=== PATIENT | female | born 1950 | race Caucasian/White ===

== ENCOUNTER 2020-12-21 15:05 | Outpatient (CLI) | payer OTHER, SELFPAY ==
--- NOTE | ~2020-12-21 | XR_ITS ---
EXAMINATION: XR chest 2V DATE: 12/21/2020 15:23 INDICATION: Chronic obstructive pulmonary disease TECHNIQUE: Frontal and lateral views of the chest are obtained COMPARISON: None available FINDINGS: The lungs are free of acute opacities. There is no pleural effusion or pneumothorax. The ca rdiomediastinal silhouette is normal. There is mild thoracic spondylosis. There are partially imaged changes of anterior and posterior fusion in the cervical spine. IMPRESSION: 1. No acute cardiopulmonary abnormality. Reviewed, dictated and finalized at location A. 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
== END 2020-12-21 15:06 | disposition home or self-care (01) ==
PROVIDERS: PCP Family Medicine; Visit Provider Family Medicine
DX: J44.9 Chronic obstructive pulmonary disease, unspecified (principal)
CPT/HCPCS: 71046

== ENCOUNTER 2020-12-25 09:34 | Outpatient (CLI) | payer OTHER, SELFPAY ==
[2020-12-25 18:59] LABS: Basophils Percent Auto 0.5 % (0.2-1.2); Eosinophils Absolute Auto 0.1 K/mm3 (0-0.3); Eosinophils Percent Auto 1.8 % (0-4.4); Hematocrit 37.2 % (37.0-47.0); Hemoglobin 11.8 g/dL (12.0-15.0); Immature Granulocyte Absolute 0.03 K/mm3 (0.00-0.031); Immature Granulocyte Percent A 0.5 % (0-0.5); Lymphocytes Absolute Auto 0.88 K/mm3 (0.9-3.2); Lymphocytes Percent Auto 13.3 % (18.3-44.2); Mean Corpuscular HGB Conc 31.7 g/dl (32-36); Mean Corpuscular Hemoglobin 29.8 pg (26-34); Mean Corpuscular Volume 93.9 fl (80-100); Mean Platelet Volume 8.8 fl (7.4-10.4); Monocytes Absolute Auto 0.6 K/mm3 (0.1-0.6); Monocytes Percent Auto 8.3 % (2.6-8.5); Neutrophils Percent Auto 75.6 % (45.5-73.1); Platelet Count Result 259 k/mm3 (150-375); Red Blood Count 3.96 M/mm3 (4.2-5.4); Red Cell Distribution Width 13.1 % (11.5-14.5); White Blood Count 6.6 K/mm3 (4.5-10.0)
[2020-12-25 19:03] LABS: Add Urine Microscopic? YES; Appearance Urine Cloudy (Clear); Bacteria Urine Trace /hpf; Bilirubin Urine Negative (Negative); Blood Urine Negative (Negative); Color Urine Yellow (Yellow); Glucose Urine UA Negative (Negative); Ketones Urine Negative (Negative); Leukocyte Esterase Ur 3+ LEU/UL (NEGATIVE); Nitrate Urine Positive (Negative); Protein Urine 1+ mg/dL (Negative); RBC Urine 21-50 /hpf (0-2); Specific Grav Ur 1.014 (1.001-1.035); Squamous Epithelial Cell Urine Moderate /hpf (Few); Urobilinogen Urine Negative mg/dL (<2.0); WBC Clumps Urine Present /HPF; WBC Urine >75 /hpf (0-3)
[2020-12-25 19:10] LABS: Alanine Aminotransferase 16 U/L (4-35); Albumin Level 4.1 g/dL (3.5-5.1); Alkaline Phosphatase 118 U/L (38-126); Anion Gap 7 mmol/L (8-16); Aspartate Amino Transferase 23 U/L (14-36); Bilirubin,Total 0.4 mg/dL (0.2-1.3); Blood Urea Nitrogen 17 mg/dL (7-17); Calcium 9.4 mg/dL (8.4-10.2); Carbon Dioxide 31 mmol/L (22-30); Chloride 101 mmol/L (98-107); Cholesterol 193 mg/dL (0-200); Estimated Glomerular Filt Rate > 60; Glucose 94 mg/dL (65-105); HDL Direct 106 mg/dL; Potassium 4.1 mmol/L (3.4-5.0); Sodium 139 mmol/L (137-145); Triglycerides 76 mg/dL (<150)
[2020-12-25 19:21] LABS: LDL Cholesterol Direct 71 mg/dL
[2020-12-25 19:23] LABS: Vitamin D 25 Hydroxy 49.8 ng/mL
[2020-12-25 20:20] LABS: Folic Acid > 20.0 ng/mL (2.76->20); Vitamin B12 > 1000.0 pg/mL (239-931)
== END 2020-12-25 09:35 | disposition home or self-care (01) ==
PROVIDERS: PCP Family Medicine; Visit Provider Family Medicine
DX: Z51.81 Encounter for therapeutic drug level monitoring (principal); Z79.899 Other long term (current) drug therapy; F32.9 Major depressive disorder, single episode, unspecified; M79.2 Neuralgia and neuritis, unspecified; J44.9 Chronic obstructive pulmonary disease, unspecified; Z82.62 Family history of osteoporosis; Z00.00 Encounter for general adult medical examination without abnormal findings
CPT/HCPCS: 36415; 80053; 80061; 81001; 82306; 82607; 82746; 84443; 85025; 87077; 87086; 87088; 87186

== ENCOUNTER 2021-04-30 14:16 | Outpatient (CLI) | payer OTHER, SELFPAY ==
[2021-04-30 14:48] LABS: Alanine Aminotransferase 38 U/L (4-35); Aspartate Amino Transferase 40 U/L (14-36)
== END 2021-04-30 14:17 | disposition home or self-care (01) ==
LOC: ANHLAB 14:18
PROVIDERS: PCP Family Medicine; Visit Provider Podiatrist Foot & Ankle Surgery
DX: B35.1 Tinea unguium (principal)
CPT/HCPCS: 36415; 84450; 84460

== ENCOUNTER 2021-05-16 11:38 | Outpatient (CLI) | payer OTHER, SELFPAY ==
--- NOTE | ~2021-05-16 | XR_ITS ---
XR knee RT min 4V DATE: 05/16/2021 12:02 INDICATION: Right knee pain. No injury. TECHNIQUE: Standing AP and lateral and PA views. [place] view. COMPARISON: None FINDINGS: There is diffuse osteopenia. There is chondrocalcinosis of the medial and lateral compartments. Mild periarticular spurring of the patellofemoral and medial compartments. Medial and lateral compart ment joint spaces are relatively preserved. There is some calcification along the medial aspect of the distal femur; consider Steven-Stieda d isease. No fracture, dislocation, periosteal reaction or bone destruction is evident. There is an air-fluid level in the suprapatellar bursa. Consider recent instrumentation, injection of the knee joint or trauma in the differential diagnosis for the air-fluid level in the knee joint. Some small metallic foreign bodies are noted in the anterior and medial soft tissues proximal lower l eg. 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
== END 2021-05-16 11:39 | disposition home or self-care (01) ==
LOC: ANHBWCIMG 11:40
PROVIDERS: PCP Family Medicine; Visit Provider Family Medicine
DX: M85.861 Other specified disorders of bone density and structure, right lower leg (principal); M17.12 Unilateral primary osteoarthritis, left knee
CPT/HCPCS: 73564

== ENCOUNTER 2021-08-21 01:51 | Day surgery (SDC) | payer OTHER, SELFPAY ==
[2021-08-20 14:25] VITALS: BMI 27.3
--- NOTE | 2021-08-20 14:36 | PC.NURSE ---
Report to the Outpatient Waiting Room, entrance under the green pavilion located off [facility], at time __1300 on date _08/21/21 . OR Time: __1500 . - You and your visitor will be asked a series of questions to screen for COVID 19 for your protection. - A mask is required within the hospital. - Only one visitor is allowed at this time. Patient visitors will be guided where to wait when not with patient. Preoperative COVID Testing Requirements: No COVID Test needed if: (proof is required; if not received patient will have Rapid Test prior to entry) - Patient has received COVID Vaccine at least 14 days prior to procedure date or - Patient has positive COVID test result within last 90 days of surgery date. COVID Test needed if above criteria is not met If not COVID vaccinated a COVID test must be conducted within 72 hours of surgery and patient is asked to isolate self from time of testing until procedure. You will go to the [facility] for your COVID testing. The [facility] is located at the corner of [address] [facility]. You will only be called if COVID results are positive and your surgeon may reschedule your elective surgery date. Patients may have clear liquids (water, carbonated beverages, clear teas, apple juice) until 3 hours prior to surgery with a maximum of 20 ounces. - No food from midnight until time of surgery - Infants may have breast milk until 4 hours before surgery, formula 6 hours prior to surgery. - Children will be allowed to drink immediately following surgery. If applicable, please bring a bottle or sippy cup to assist with drinking. Juice, water, soda, and popsicles are readily available. For infants on formula, please bring formula the day of surgery. Pacifiers are allowed. Take the following medications with a SIP of water the morning of surgery: __DESVENLAFAXINE,GABAPENTIN,LAMOTRIGINE,LEVOTHYROXINE,METOPROLOL,VOTIOXETINE Medications to discontinue per physician Date to take last dose Please no make-up, nail english, hairspray, perfume, deodorant, or body powder the day of surgery. No jewelry (including any body piercings) or valuables the day of surgery, leave them at home. Please take a shower or bath the night before, or the morning of, surgery with an antibacterial soap. Wear comfortable, loose fitting clothing. Children are encouraged to wear pajamas. - Jewelry must be removed prior to entering the operating room. Rings and piercings that are not removed may be cut off. - The hospital will not accept responsibility for valuables. - Please leave all valuables, including medications, at home the day of surgery. If you are going home after surgery, a licensed yard truck driver must drive you home. - NO public transportation without another adult. - We recommend that an adult stay with you for 24 hours following discharge. - We also recommend that you do not drive, make important decision, drink alcoholic beverages, or take any drugs that were not prescribed by your health care provider for at least 24 hours after your discharge time. For Pediatric surgeries, we recommend two adults accompany the child home (only one inside the building at this time). Follow any additional instructions given to you from your surgeon. Telephone instructions given to __PATIENT and asked if any additional questions and then verbalized understanding. Patient advised to call surgeon office or pre surgery nurse liaison [phone] if any additional questions.
[2021-08-21] VITALS (8 sets, daily range): BP systolic 112–128; BP diastolic 57–97; PULSE 65–91; RESP 13–24; TEMP 36.3–36.6; O2SAT 93–99
--- NOTE | ~2021-08-21 | XR_ITS ---
EXAMINATION: XR surgery orthopedic EXAM DATE: 08/21/2021 16:46 INDICATION: ORIF LT ELBOW. TECHNIQUE: Fluoroscopy used during XR surgery orthopedic performed by Dr. Nabeel Godinez MD. Rad iologist was not present for the imaging or procedure. Total fluoroscopic time of 44 seconds The DAP for this procedure was 0.04 mGym2. A total of 3 images sent to PACS from the exam. Correlation is m josie to left elbow x-ray from yesterday. FINDINGS: Frontal, lateral projections demonstrate orthopedic plate surgically fixing a reduced olec ranon fracture. Hardware, olecranon in expected position. Correlate with procedure note. IMPRESSION: Fluoroscopy used during left olecranon ORIF. Reviewed, dictated and finalized at location A. 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
--- NOTE | 2021-08-21 08:26 | WPDHPUPDATE1 ---
History and Physical Update Update Date/Time: 08/21/21 08:26 History and Physical has been reviewed, including an updated exam of the patient. There are NO changes in the patient's condition. Risks, benefits, and alternatives have been discussed and questions answered. Patient agrees to proceed with procedure.
--- NOTE | 2021-08-21 12:08 | ECG_ITS ---
Measurements Intervals [place] Rate: 67 P: 56 WA: 155 QRS: 37 QRSD: 89 T: 40 QT: 388 QTc: 410 Interpretive Statements SINUS RHYTHM BASELINE ARTIFACT- I, II, III, AVR, AVL ,AVF, V1 NORMAL ECG Electronically Signed On 08-21-2021 14:02:07 ETIQUETTE COACH by Kris Laguerre D.O.
[2021-08-21] MEDS: ACETAMINOPHEN 500 MG TABLET 1000 MG PO (13:11)
--- NOTE | 2021-08-21 13:11 | WPDANESEPPF ---
Anes - Initial Pre Proc Eval Procedure: Operation Date: 08/21/21 15:00 Proposed Procedures p Open Reduction Internal Fixation Left Elbow Fracture - Nabeel Godinez MD Date/Time: 08/21/21 13:11 Surgeon: Nabeel Godinez MD Pre Op Diagnosis: Fx Left Elbow Patient Data Age: 71 Gender: F Height: 1.65 m Weight: 74.4 kg Allergies Allergy/AdvReac Type Severity Reaction Status Date / Time No Known Allergies Allergy Verified 08/20/21 11:50 Home Medications Medication Instructions Recorded Confirmed Type ipratropium bromide 21 mcg (0.03 2 spray INTRANASAL BID 12/21/20 08/20/21 History %) nasal spray iron, carbonyl 65 mg tablet 65 mg PO DAILY tablet 12/21/20 08/20/21 History lamotrigine 150 mg tablet 150 mg PO BID 12/21/20 08/20/21 History mecobalamin (vitamin B12) 1,000 1,000 mcg PO DAILY 12/21/20 08/20/21 History mcg chewable tablet metoprolol succinate 25 mg 25 mg PO DAILY 12/21/20 08/20/21 History tablet,extended release 24 hr vhrceowhdnkw-Ss-dcbs-minerals tablet PO DAILY tablet 12/21/20 08/20/21 History vortioxetine 10 mg tablet 10 mg PO DAILY 12/21/20 08/20/21 History syringe with needle, safety 3 mL #12 ea 12/25/20 08/20/21 Rx 25 gauge x 1 calcium carbonate 500 mg calcium 500 mg PO DAILY #90 tablet 01/01/21 08/20/21 Rx (1,250 mg) tablet desvenlafaxine 100 mg 100 mg PO DAILY #90 tablet 01/01/21 08/20/21 Rx tablet,extended release 24 hr quetiapine 300 mg tablet 300 mg PO QHS #90 tablet 01/01/21 08/20/21 Rx fluticasone propionate 115 2 puff INHALATION BID #12 g 05/30/21 08/20/21 Rx mcg-salmeterol 21 mcg/actuation HFA inhaler gabapentin 600 mg tablet 600 mg PO QID #360 tablet 06/11/21 08/20/21 Rx levothyroxine 25 mcg tablet 25 mcg PO DAILY #30 tablet 06/11/21 08/20/21 Rx tizanidine 4 mg tablet 4 mg PO QHS #90 tablet 06/11/21 08/20/21 Rx celecoxib 200 mg capsule 200 mg PO DAILY #90 cap 07/05/21 08/20/21 Rx pantoprazole 40 mg tablet,delayed 40 mg PO QAM #90 tablet 07/05/21 08/20/21 Rx release albuterol sulfate 90 mcg/actuation 1 inh INHALATION Q4H #8.5 g 08/14/21 08/20/21 Rx aerosol inhaler armodafinil 150 mg PO BID 08/20/21 08/20/21 History ropinirole 2 mg PO HS 08/20/21 08/20/21 History Patient hx anesthesia problems: none Family hx anesthesia problems: none Results Review: All pre-operative results and documents have been reviewed as part of the pre-operative evaluation. [facility] Past Medical History Medical History (Updated 08/20/21 @ 15:59 by Nabeel Godinez MD) Anxiety Arthritis COPD (chronic obstructive pulmonary disease) Elbow fracture, left H/O: HTN (hypertension) MRSA (methicillin resistant Staphylococcus aureus) Nerve damage Olecranon fracture Sepsis Surgical History Surgical History H/O neck surgery 2019, [facility] H/O toe surgery 2013, [facility] History of appendectomy History of back surgery 2019, [facility] Family History Family History Other Depression Family history of arthritis Family history of lung disease Family history of neuropathy Family history of stroke Heart disease Social History Social History Smoking status: Never smoker Alcohol intake: current Drinks per week: 2 Alcohol use details: 2-4 drinks per week Substance use: never Living arrangements: alone Gender identity (if verbalized by the patient): Female Spiritual care concerns: No Anes - Eval Final PreProcedure Day of Procedure 08/21/21 13:11 Patient weight: overweight Heart: regular rate and rhythm Lungs: clear to auscultation and normal air movement Airway: Mallampati scale class II Neurological: alert and oriented Last oral intake: >/= 8 hours ASA classification: III Emergent: no Anesthetic plan: proceed Anesthesia type and monitor
[2021-08-21] MEDS: CELECOXIB 200 MG CAPSULE PO (13:12)
[2021-08-21] MEDS: LACTATED RINGERS 1,000 ML 30 ML IV CONT ×2 (13:21→17:05)
[2021-08-21 13:22] LABS: Hematocrit 35.8 % (37.0-47.0); Hemoglobin 11.5 g/dL (12.0-15.0)
[2021-08-21] MEDS: fentaNYL CITRATE INJ (*CRX) 100 MCG/2 ML VIAL 50 MCG IV PUSH ×2 (13:26→13:45)
--- NOTE | 2021-08-21 14:31 | WPDANESPNB ---
Anes - Peripheral Nerve Block Date/Time: 08/21/21 14:31 I have discussed with the patient/family/POA the placement of a peripheral nerve block for post-operative pain management, including associated risks, benefits, complications, and side effects. Alternative methods of post-operative analgesia were detailed. Questions were solicited and answers provided to the satisfaction of the patient/family/POA. Time-Out: A pre-procedural Time-Out was completed immediately before starting the procedure and confirmed: Patient Identification, Site, Procedure, Patient Position and the Availability of Requisite Equipment. Clinical Indications: Acute post-operative pain management requested by the operative surgeon. Nerve Block Insertion Note Anes-nerve block: supraclavicular left Patient position: supine Skin prep: chlorhexidine Needle: 22 gauge, stimulating, insulated echogenic needle. Needle length: 80 mm Technique: ultrasound (in plane) Injectate: bupivacaine 0.5% with epi 5 mcg/ml (20cc) Observations: tolerated well Complications: none Procedure start time:: 1435 Procedure end time:: 1440
[2021-08-21] MEDS: ceFAZolin 2 GM/D5W 50 ML 2 GM/50 ML BAG IVPB (14:56)
--- NOTE | 2021-08-21 17:18 | W.PM.PROC2 ---
Procedure Note - Detailed Date of Procedure 08/21/21 Pre-op Diagnosis LEFT OLECRANON FRACTURE Post-op Diagnosis same Procedure Performed ORIF LEFT OLECRANON FRACTURE Surgeon Nabeel Godinez MD Anesthesia general Description of Procedure HE PATIENT WAS TAKEN TO THE OR AND INTUBATED. THE LEFT UPPER EXTREMITY WAS PREPPED AND DRAPED. THE TOURNIQUET WAS INFLATED. INCISION WAS MADE ON THE POSTERIOR ASPECT OF THE ELBOW DOWN TO FASCIA. THE FASCIA WAS INCISED AND DISSECTED DOWN TO BONE. THE FRACTURE WAS IDENTIFIED. THE FRACTURE WAS HIGHLY COMMINUTED. FIBROUS TISSUE WAS REMOVED FROM THE FRACTURE SITE. THERE WAS NO APPRECIABLE CALLUS FORMATION ABOUT THE FRACTURE SITE THE HEMATOMA WAS DERIDED FROM THE FRACTURE SITE WELL. THE FRACTURE WAS REDUCED WELL POSSIBLE DUE TO LACK OF GOOD BONY ARCHITECTURE. REDUCTION TO NEAR ANATOMIC POSITION WITH FRACTURE CLAMPS AND K WIRES WAS ACHIEVED. AN ACUMED OLECRANON PLATE WAS USED TO BRIDGE THE FRACTURE FRAGMENTS. SCREWS WERE PLACE USING STANDARD AO TECHNIQUE AND ALL HAD GOOD BITES. XRAYS WERE TAKEN USING FLUOROSCOPY AND IT WAS FOUND THAT THE FRACTURE FRAGMENTS AND HARDWARE WERE IN GOOD POSITION. THE WOUND WAS WASHED THEN THE TOURNIQUET DEFLATED AND THE BLEEDERS WERE CAUTERIZED. THE DEEP LAYERS OF FASCIA WERE REPAIRED WITH 0 VICRYL, THE SUB CUTANEOUS LAYER WITH 2-0 VICRYL AND THE SKIN WITH PHANI. THE WOUND WAS WASHED AGAIN. STERILE DRESSING WAS APPLIED THEN A PLASTER SPLINT WAS APPLIED. THE PATIENT WAS EXTUBATED AND SENT TO RECOVERY ROOM Estimated Blood Loss 20 Drains No Packing No Pathology none sent Complications No immediate complications Condition stable Disposition PACU
[2021-08-21] MEDS: fentaNYL CITRATE INJ (*CRX) 100 MCG/2 ML VIAL 25 MCG IV PUSH ×8 (17:38→17:52)
[2021-08-21] MEDS: HYDROmorphone HCL INJ (*CRX) 1 MG/ML SYR IV PUSH ×2 (18:00→18:39)
== END 2021-08-21 18:45 | disposition home or self-care (01) ==
PROVIDERS: Anesthesiology; PCP Family Medicine; Visit Provider Orthopaedic Surgery
PROC: (CPT 24685; principal; 2021-08-21 15:00)
DX: S52.022A Displaced fracture of olecranon process without intraarticular extension of left ulna, initial encounter for closed fracture (principal); W19.XXXA Unspecified fall, initial encounter; M25.522 Pain in left elbow; F41.9 Anxiety disorder, unspecified; M19.90 Unspecified osteoarthritis, unspecified site; J44.9 Chronic obstructive pulmonary disease, unspecified; E03.9 Hypothyroidism, unspecified; Z79.51 Long term (current) use of inhaled steroids; I10 Essential (primary) hypertension
CPT/HCPCS: 24685; 36415; 85014; 85018; 93005; A9270; C1713; J0690; J1170; J2250; J2370; J2704; J3010; J7120

== ENCOUNTER 2021-11-07 15:09 | Outpatient (CLI) | payer OTHER, SELFPAY ==
[2021-11-07 19:40] LABS: Basophils Absolute Auto 0.1 K/mm3 (0.0-0.1); Basophils Percent Auto 0.7 % (0.2-1.2); Eosinophils Absolute Auto 0.1 K/mm3 (0-0.3); Eosinophils Percent Auto 1.4 % (0-4.4); Hematocrit 32.6 % (37.0-47.0); Hemoglobin 10.2 g/dL (12.0-15.0); Immature Granulocyte Absolute 0.02 K/mm3 (0.00-0.031); Immature Granulocyte Percent A 0.3 % (0-0.5); Lymphocytes Percent Auto 19.8 % (18.3-44.2); Mean Corpuscular HGB Conc 31.3 g/dl (32-36); Mean Corpuscular Hemoglobin 30.5 pg (26-34); Mean Corpuscular Volume 97.6 fl (80-100); Mean Platelet Volume 8.7 fl (7.4-10.4); Monocytes Absolute Auto 0.5 K/mm3 (0.1-0.6); Monocytes Percent Auto 7.4 % (2.6-8.5); Neutrophils Percent Auto 70.4 % (45.5-73.1); Platelet Count Result 378 k/mm3 (150-375); Red Blood Count 3.34 M/mm3 (4.2-5.4); Red Cell Distribution Width 13.2 % (11.5-14.5); White Blood Count 7.1 K/mm3 (4.5-10.0)
[2021-11-07 19:45] LABS: Iron 53 ug/dL (37-170)
[2021-11-07 19:50] LABS: Add Urine Microscopic? YES; Alanine Aminotransferase 24 U/L (4-35); Albumin Level 4.4 g/dL (3.5-5.1); Alkaline Phosphatase 109 U/L (38-126); Anion Gap 10 mmol/L (8-16); Appearance Urine Cloudy (Clear); Aspartate Amino Transferase 30 U/L (14-36); Bacteria Urine Trace /hpf; Bilirubin Urine Negative (Negative); Bilirubin,Total 0.4 mg/dL (0.2-1.3); Blood Urea Nitrogen 20 mg/dL (7-17); Blood Urine Negative (Negative); Calcium 9.1 mg/dL (8.4-10.2); Carbon Dioxide 30 mmol/L (22-30); Chloride 100 mmol/L (98-107); Color Urine Yellow (Yellow); Estimated Glomerular Filt Rate > 60; Glucose 91 mg/dL (65-110); Glucose Urine UA Negative (Negative); Ketones Urine Negative (Negative); Leukocyte Esterase Ur Negative LEU/UL (NEGATIVE); Mucus Urine Rare /lpf; Nitrate Urine Negative (Negative); Protein Urine Negative (Negative); Sodium 140 mmol/L (137-145); Squamous Epithelial Cell Urine Moderate /hpf (Few); Urobilinogen Urine Negative mg/dL (<2.0); WBC Urine 0-3 /hpf (0-3)
[2021-11-07 19:55] LABS: Percent Iron Saturation 22 % (20-50)
[2021-11-07 20:46] LABS: Vitamin B12 > 1000.0 pg/mL (239-931)
== END 2021-11-07 15:10 | disposition home or self-care (01) ==
PROVIDERS: PCP Family Medicine; Visit Provider Family Medicine
DX: E61.1 Iron deficiency (principal); R19.7 Diarrhea, unspecified; E03.9 Hypothyroidism, unspecified; F31.9 Bipolar disorder, unspecified
CPT/HCPCS: 36415; 80053; 81001; 82607; 82728; 83540; 83550; 84443; 85025

== ENCOUNTER 2021-11-08 14:53 | Outpatient (CLI) | payer OTHER, SELFPAY | END 2021-11-08 14:54 | disposition home or self-care (01) | PROVIDERS: PCP Family Medicine; Visit Provider Family Medicine | DX: E03.9 Hypothyroidism, unspecified (principal); F31.9 Bipolar disorder, unspecified; R19.7 Diarrhea, unspecified; E61.1 Iron deficiency | CPT/HCPCS: 87045; 87427; 89055 ==

== ENCOUNTER 2021-12-12 12:21 | Outpatient (CLI) | payer OTHER, SELFPAY ==
[2021-12-12 18:55] LABS: Basophils Absolute Auto 0.1 K/mm3 (0.0-0.1); Basophils Percent Auto 0.9 % (0.2-1.2); Eosinophils Absolute Auto 0.2 K/mm3 (0-0.3); Eosinophils Percent Auto 3.8 % (0-4.4); Hematocrit 33.8 % (37.0-47.0); Hemoglobin 10.7 g/dL (12.0-15.0); Immature Granulocyte Absolute 0.02 K/mm3 (0.00-0.031); Immature Granulocyte Percent A 0.4 % (0-0.5); Lymphocytes Absolute Auto 1.51 K/mm3 (0.9-3.2); Lymphocytes Percent Auto 27.4 % (18.3-44.2); Mean Corpuscular HGB Conc 31.7 g/dl (32-36); Mean Corpuscular Hemoglobin 31.3 pg (26-34); Mean Corpuscular Volume 98.8 fl (80-100); Mean Platelet Volume 8.8 fl (7.4-10.4); Monocytes Absolute Auto 0.4 K/mm3 (0.1-0.6); Monocytes Percent Auto 7.2 % (2.6-8.5); Neutrophils Absolute Auto 3.3 K/mm3 (1.3-6.7); Neutrophils Percent Auto 60.3 % (45.5-73.1); Platelet Count Result 302 k/mm3 (150-375); Red Blood Count 3.42 M/mm3 (4.2-5.4); White Blood Count 5.5 K/mm3 (4.5-10.0)
[2021-12-12 19:00] LABS: Iron 116 ug/dL (37-170)
[2021-12-12 19:11] LABS: Percent Iron Saturation 41 % (20-50)
== END 2021-12-12 12:22 | disposition home or self-care (01) ==
LOC: ANHBWCLAB 12:22
PROVIDERS: PCP Family Medicine; Visit Provider Family Medicine
DX: D64.9 Anemia, unspecified (principal); E61.1 Iron deficiency
CPT/HCPCS: 36415; 82728; 83540; 83550; 85025

== ENCOUNTER 2021-12-14 13:25 | Outpatient (CLI) | payer OTHER, SELFPAY ==
[2021-12-14 18:52] LABS: Add Urine Microscopic? YES; Appearance Urine Cloudy (Clear); Bilirubin Urine Negative (Negative); Blood Urine Negative (Negative); Color Urine Yellow (Yellow); Glucose Urine UA Negative (Negative); Ketones Urine Negative (Negative); Leukocyte Esterase Ur Trace LEU/UL (NEGATIVE); Mucus Urine Rare /lpf; Nitrate Urine Negative (Negative); Protein Urine Negative (Negative); RBC Urine 0-2 /hpf (0-2); Specific Grav Ur 1.021 (1.001-1.035); Squamous Epithelial Cell Urine Many /hpf (Few); Urobilinogen Urine Negative mg/dL (<2.0); WBC Urine 0-3 /hpf (0-3)
== END 2021-12-14 13:26 | disposition home or self-care (01) ==
LOC: ANHBWCLAB 13:26
PROVIDERS: PCP Family Medicine; Visit Provider Family Medicine
DX: E61.1 Iron deficiency (principal); D64.9 Anemia, unspecified
CPT/HCPCS: 81001

== ENCOUNTER 2021-12-21 13:59 | Outpatient (CLI) | payer OTHER, SELFPAY ==
--- NOTE | ~2021-12-21 | MR_ITS ---
EXAMINATION: MR cervical spine wo con DATE: 12/21/2021 16:22 INDICATION: Neuralgia and neuritis with neck pain. TECHNIQUE: Magnetic resonance imaging (MRI) of the cervical spine was performed without intravenous c ontrast. Sequences included sagittal T2-weighted FSE, sagittal T2-weighted FS FSE, sagittal T1-weight ed FSE, axial MERGE and axial T2-weighted FSE. COMPARISON: None FINDINGS: Reversal of the normal cervical lordosis with anterior fusion from C3-C6 including anterior plate and screw fixation at C3-C5. There are also laminectomies at C3 and C4 and posterior spinal fusion with bilateral vertical katie and lateral mass screws at C3-C5. 20% anterior vertebral body height loss at C 7 likely chronic with normal marrow signal. There is an additional Schmorl's node along the anterior inferior endplate of C7. Mild disc height loss at C2-C3, C6-C7 and T3-T4. Moderate disc height loss a t C7-T1 and T2-T3. Severe disc height loss at T1-T2. There is focal increased T2 and mildly decreased T1 signal at the central aspect of the cord at the level of C3-C4 with slight peripheral narrowing o f the cord consistent with myelomalacia which may relate to a reported history of prior trauma. Remai kateryna cord signal is normal. Cervical soft tissues are normal aside from postoperative scarring at the posterior aspect of the mid to upper cervical spine. The following disc levels are specifically disc ussed: C2-C3: The disc does not extend beyond the endplate margin. There is no uncovertebral joint osteoarth ritis. There is moderate right and severe left facet joint osteoarthritis. There is mild left neural foraminal stenosis. There is no central canal stenosis. C3-C4: Instrumented anterior and posterior spinal fusion and posterior decompression with C3 and C4 l aminectomies. There is mild bilateral neural foraminal stenosis. There is no central canal stenosis. C4-C5: Instrumented anterior and posterior spinal fusion and posterior decompression with C4 laminect bridget. There is no neural foraminal stenosis. There is no central canal stenosis. C5-C6: There is osseous fusion across the C5-C6 disc space as well as the bilateral facet joints with out instrumentation. There is no neural foraminal stenosis. There is no central canal stenosis. C6-C7: Disc is bulging. There is mild right and moderate left uncovertebral joint osteoarthritis. The re is severe bilateral facet joint osteoarthritis. There is mild left neural foraminal stenosis. Ther e is mild central canal stenosis. C7-T1: Disc is bulging with annular fissure. There is mild left and moderate right uncovertebral join t osteoarthritis. There is severe bilateral facet joint osteoarthritis. There is moderate bilateral n eural foraminal stenosis. There is mild central canal stenosis. IMPRESSION: 1. Severe cervical spondylosis. 2. C3-C6 anterior and posterior spinal fusion from instrumented both anteriorly and posteriorly at C3 -C5. 3. Focal region of moderate myelomalacia of the cord at C3-C4 without associated central canal stenos is at this level which may related to reported history of prior trauma. Reviewed, dictated and finalized at location A. GER STUDIO IMPRESSION: 1. Severe cervical spondylosis. 2. C3-C6 anterior and posterior spinal fusion from instrumented both anteriorly and posteriorly at C3-C5. 3. Focal region of moderate myelomalacia of the cord at C3-C4 without associate d central canal stenosis at this level which may related to reported history of prior trauma.
--- NOTE | ~2021-12-21 | US_ITS ---
EXAMINATION: US art doppler w press UE BI EXAM DATE: 12/21/2021 14:44 INDICATION: M79.2 - Neuralgia and neuritis, unspecified . TECHNIQUE: Segmental pressures and plethysmographic and Doppler waveforms of the upper extremity sarah jessica were obtained. There is no prior study for comparison. FINDINGS: Right and left brachial artery pressures of 148 mm Hg and 145 mm Hg, respectively, are concordant (no rmal difference <= 30 mmHg). RIGHT: Right ulnar/brachial arterial Doppler ratio 1.03 (152 mmHg). Right radial/brachial arterial Doppler ratio 1.07 (159 mmHg). Right index finger 184 mmHg. The waveforms are monophasic ulnar, otherwise biphasic. LEFT: Left ulnar/brachial arterial Doppler ratio 0.89 (129 mmHg). Left radial/brachial arterial ratio 1.0 (145 mmHg). Left index finger 180 mmHg. The waveforms are monophasic radial and ulnar, biphasic proximally to this. IMPRESSION: Normal wrist brachial indices bilaterally. Reviewed, dictated and finalized at location A. ER PACKER
== END 2021-12-21 14:00 | disposition home or self-care (01) ==
PROVIDERS: PCP Family Medicine; Visit Provider Family Medicine
DX: M79.2 Neuralgia and neuritis, unspecified (principal); I73.9 Peripheral vascular disease, unspecified; L81.9 Disorder of pigmentation, unspecified; Z87.81 Personal history of (healed) traumatic fracture; M47.813 Spondylosis without myelopathy or radiculopathy, cervicothoracic region; M48.03 Spinal stenosis, cervicothoracic region; G95.89 Other specified diseases of spinal cord
CPT/HCPCS: 72141; 93923

== ENCOUNTER 2022-03-06 12:14 | Outpatient (CLI) | payer OTHER, SELFPAY ==
[2022-03-06 19:02] LABS: Hematocrit 36.3 % (37.0-47.0); Hemoglobin 11.3 g/dL (12.0-15.0); Mean Corpuscular HGB Conc 31.1 g/dl (32-36); Mean Corpuscular Hemoglobin 30.5 pg (26-34); Mean Corpuscular Volume 97.8 fl (80-100); Mean Platelet Volume 9.5 fl (7.4-10.4); Platelet Count Result 258 k/mm3 (150-375); Red Blood Count 3.71 M/mm3 (4.2-5.4); Red Cell Distribution Width 12.6 % (11.5-14.5); White Blood Count 4.2 K/mm3 (4.5-10.0)
[2022-03-06 19:22] LABS: Alanine Aminotransferase 26 U/L (6-35); Albumin Level 3.9 g/dL (3.5-5.1); Alkaline Phosphatase 98 U/L (38-126); Anion Gap 6 mmol/L (8-16); Aspartate Amino Transferase 31 U/L (14-36); Bilirubin,Total 0.2 mg/dL (0.2-1.3); Blood Urea Nitrogen 22 mg/dL (7-17); Calcium 8.7 mg/dL (8.4-10.2); Carbon Dioxide 29 mmol/L (22-30); Chloride 106 mmol/L (98-107); Cholesterol 169 mg/dL (0-200); Estimated Glomerular Filt Rate > 60; Glucose 65 mg/dL (65-110); HDL Direct 81 mg/dL; Potassium 4.7 mmol/L (3.4-5.0); Sodium 141 mmol/L (137-145); Triglycerides 73 mg/dL (<150)
[2022-03-06 19:33] LABS: LDL Cholesterol Direct 57 mg/dL
[2022-03-06 19:39] LABS: Free T4 Free Thyroxine 0.82 ng/mL (0.78-2.19)
[2022-03-06 19:55] LABS: Total Triiodothyronine (T3) 0.78 NG/ML (0.97-1.69)
[2022-03-08 07:31] LABS: Amphetamines NEGATIVE ng/mL (<500); Barbiturates NEGATIVE ng/mL (<300); Benzodiazepines NEGATIVE ng/mL (<100); Cocaine Metabolite NEGATIVE ng/mL (<100); Marijuana Metabolite NEGATIVE ng/mL (<20); Methadone Metabolite NEGATIVE ng/mL (<100); Opiates NEGATIVE ng/mL (<100); Oxidant NEGATIVE mcg/mL (<200)
== END 2022-03-06 12:15 | disposition home or self-care (01) ==
PROVIDERS: PCP Family Medicine
DX: Z79.899 Other long term (current) drug therapy (principal)
CPT/HCPCS: 36415; 80053; 80061; 80299; 84439; 84443; 84480; 85027

== ENCOUNTER 2022-03-25 08:54 | Outpatient (CLI) | payer OTHER, SELFPAY ==
--- NOTE | ~2022-03-25 | CT_ITS ---
EXAMINATION: CT diagnostic chest wo con DATE: 03/25/2022 09:17 INDICATION: Solitary pulmonary nodule TECHNIQUE: Computed tomography (CT) of the chest was performed without intravenous contrast. Automate d exposure control and iterative reconstruction technique were employed. Exam dose: 70.41 mGy-cm tot al exam DLP. COMPARISON: 12/21/2020 2 view chest FINDINGS: There is an irregular up to approximately 7 mm left apical nodule in association with mild left apical scarring; follow-up CT imaging in 6 months is recommended.. Occasional areas of mild linear atelectasis or more likely scarring in both upper and lower lobes. No pulmonary infiltrate or consolidation. No suspicious pulmonary mass lesion. Normal heart size. There are some calcifications in the region of the aortic valve. No pericardial or pleural effusion. No hilar or mediastinal mass lesion or lymphadenopathy. No thoracic aortic aneurys m is detected. Small sliding hiatal hernia. Postoperative change of the stomach likely related to gastric bypass. There is moderate anterior wedging and loss of height at T1, T6. Mild loss of height of T11 and T12. These all appear chronic. There is degenerative spurring of the lower cervical and thoracic spine. Th ere is osteopenia. Old fracture deformity of the body of the sternum. IMPRESSION: Irregular 7 mm opacity in the left apical in association with some left apical scarring. Follow-up CT imaging in 6 months is recommended Small sliding hiatal. Status post gastric bypass surgery Old fracture of the sternum and multiple compression fracture deformities of the thoracic spine Reviewed, dictated and finalized at Location A. Reviewed, dictated and finalized at location A. IMPRESSION: Irregular 7 mm opacity in the left apical in association with some left apical scarring. Follow-up CT imaging in 6 months is recommended Small sliding hiatal. Status post gastric bypass surgery Old fracture of the sternum and multiple compression fracture deformities of th e thoracic spine
--- NOTE | 2022-03-25 12:35 | WPDPFTINT ---
PFT Procedure Performed PFT Procedure Performed Spirometry with Pre/Post Bronchodilator Plethysmography (Lung Vol) Diffusing Cap (DLCO) Flow Vol Loop PFT Interpretation This is a pulmonary function test with pre and post-bronchodilator spirometry, plethysmography and diffusing capacity. The test was performed and results interpreted in accordance with the 2019 and 2005 ATS/ERS Task Force guidelines respectively using the Global Lung Function Initiative-2012 reference equations. Patient demonstrated good effort and cooperation. Reproducibility criteria were met. The quality of the pre bronchodilator spirometry maneuver was Grade A and post bronchodilator spirometry maneuver was Grade A. Findings: Spirometry: The contour the inspiratory and expiratory flow tracing are normal. The pre bronchodilator FVC is 2.15 L, 74% predicted. The pre bronchodilator FEV1 is 1.60 L, 72% predicted. The pre bronchodilator FEV1: FVC ratio 75%. The post bronchodilator FVC is 2.28 L, representing a 6% increase. The post bronchodilator FEV1 is 1.84 L, representing a 15% increase. The post bronchodilator FEV1: FVC ratio is 81%. Plethysmography: The total lung capacity is 3.89 L, 75% predicted. The functional residual capacity is 1.99 L, 67% predicted. The residual volume is 1.67 L, 74% predicted. Diffusion capacity: The diffusion capacity unadjusted for hemoglobin and carboxyhemoglobin is 14.9, 72% predicted. The diffusing capacity adjusted for alveolar volume is 4.13, 98% predicted. Impression: There is a mild restrictive ventilatory abnormality. The spirometry is normal without evidence of an obstructive abnormality. There is significant improvement after inhaling a single dose of albuterol. The diffusing capacity is normal. There are no prior studies for comparison
== END 2022-03-25 08:55 | disposition home or self-care (01) ==
LOC: ANHIMG 08:59
PROVIDERS: PCP Family Medicine; Visit Provider Internal Medicine Pulmonary Disease
DX: R91.1 Solitary pulmonary nodule (principal); R06.02 Shortness of breath; J44.9 Chronic obstructive pulmonary disease, unspecified; K44.9 Diaphragmatic hernia without obstruction or gangrene; Z98.84 Bariatric surgery status
CPT/HCPCS: 71250; 94060; 94726; 94729

== ENCOUNTER 2022-04-23 11:30 | Outpatient (CLI) | payer OTHER, SELFPAY ==
--- NOTE | ~2022-04-23 | XR_ITS ---
XR knee RT 3V DATE: 04/23/2022 11:45 INDICATION: Right knee pain, swelling TECHNIQUE: [place] and upright AP and PA views COMPARISON: 05/2021 standing right knee FINDINGS: There is severe narrowing of the lateral compartment joint space with near [id number]. There is periarticular spurring at the patellofemoral and medial compartments. Some calcification adjacent to the medial femoral condyle suggesting Steven-Stieda disease. There is chondrocalcinosis at the medial and lateral and to a lesser extent patellofemoral compartmen ts. There is mild suprapatellar knee joint effusion. No fracture or dislocation, periosteal reaction or bone destruction. Osteopenia. IMPRESSION: Tricompartment osteoarthritis, particularly severe at the lateral compartment Mild knee joint effusion Chondrocalcinosis No collateral ligament calcification (Steevn-Stieda) Osteopenia Reviewed, dictated and finalized at location A. IMPRESSION: Tricompartment osteoarthritis, particularly severe at the lateral c ompartment Mild knee joint effusion Chondrocalcinosis No collateral ligament calcification (Steven-Stieda) Osteopenia
== END 2022-04-23 11:31 | disposition home or self-care (01) ==
LOC: ANHBWCIMG 11:32
PROVIDERS: PCP Family Medicine; Visit Provider Family Medicine
DX: M25.561 Pain in right knee (principal); M17.11 Unilateral primary osteoarthritis, right knee; M25.461 Effusion, right knee; M11.261 Other chondrocalcinosis, right knee; M85.88 Other specified disorders of bone density and structure, other site
CPT/HCPCS: 73562

== ENCOUNTER 2022-11-08 12:25 | Outpatient (CLI) | payer OTHER, SELFPAY ==
--- NOTE | ~2022-11-08 | DEXA_ITS ---
Bone Density Report Name: ESME GOLD Age: 72 Sex: Female Ethnicity: White Date of : 1950 Indication: postmenopausal; screening for osteoporosis; height loss; prior fracture; asthma or emphysema; secondary osteoporosis; Referring Provider: ZOHRA BENITEZ Study: Bone densitometry was performed. Exam Date: November 08, 2022 Accession number: [id number] Bone Density: Region BMD T-score Z-score Classification AP Spine(L1-L4) 0.839 -1.9 0.4 Osteopenia Femoral Neck (Left) 0.771 -0.7 1.3 Normal Total Hip (Left) 0.755 -1.5 0.2 Osteopenia Femoral Neck (Right) 0.744 -0.9 1.0 Normal Total Hip (Right) 0.800 -1.2 0.5 Osteopenia Total Hip Mean 0.778 -1.4 0.4 Osteopenia World Health Organization criteria for BMD impression classify patients as: Normal (T-score at or above -1.0), Osteopenia (T-score between -1.0 and -2.5), or Osteoporosis (T-score at or below -2.5). 10-year Fracture Risk: FRAX not reported because: Prior hip or vertebral fracture Clinical Information Provided by Patient: Have had a previous hip or vertebral fracture Has had a low trauma fracture Has secondary osteoporosis Has used the following medications: Vitamin D, Calcium Has the following medical conditions: Asthma or Emphysema Patient maximum height was 65 Menopause Age: 43 Onset of menses at age 12 Number of children 1 Impression: The patient has low bone mass, based on the Total Spine T-score. The patient has risk factors, including: previous fracture. Discussion: INCREASED RISK OF FRACTURE DUE TO HISTORY OF FRACTURE. The patient's previous fracture puts the patient at high risk of a future fracture. In untreated patients, the risk of osteoporotic fracture increases approximately two-fold for each 1.0 SD decrease in T-score. Low bone density is not the only risk factor for fracture; also consider factors such as patient's age, frailty or poor health, risk of falling, risk of injury, previous osteoporotic fracture, family history of osteoporosis, cigarette smoking, low body weight, etc. Not everyone with a low trauma fracture has osteoporosis; osteomalacia and other metabolic bone disorders should also be considered. Patients who have osteoporosis should be evaluated for specific diseases and conditions (secondary causes) that may cause or contribute to bone loss and fracture risk. National Osteoporosis Foundation (NOF) recommends pharmacologic intervention for patients with a prior hip or vertebral fracture regardless of BMD T-score. The patient should follow a healthful lifestyle (good nutrition with adequate calcium and vitamin D, and appropriate weight-bearing exercise). Follow-Up: Consider a repeat BMD and Vertebral Fracture Assessment (VFA) exam in 2 years or sooner if medically necessary, to reassess this patient'
== END 2022-11-08 12:26 | disposition home or self-care (01) ==
LOC: ANHIMG 12:27
PROVIDERS: PCP Family Medicine; Visit Provider Family Medicine
DX: Z91.89 Other specified personal risk factors, not elsewhere classified (principal); M85.88 Other specified disorders of bone density and structure, other site; M85.852 Other specified disorders of bone density and structure, left thigh; M85.851 Other specified disorders of bone density and structure, right thigh
CPT/HCPCS: 77080

== ENCOUNTER 2022-11-11 11:52 | Outpatient (CLI) | payer OTHER, SELFPAY ==
[2022-11-11 18:43] LABS: Hematocrit 35.5 % (37.0-47.0); Hemoglobin 11.3 g/dL (12.0-15.0); Mean Corpuscular HGB Conc 31.8 g/dl (32-36); Mean Corpuscular Hemoglobin 30.3 pg (26-34); Mean Corpuscular Volume 95.2 fl (80-100); Mean Platelet Volume 8.9 fl (7.4-10.4); Platelet Count Result 257 k/mm3 (150-375); Red Blood Count 3.73 M/mm3 (4.2-5.4); Red Cell Distribution Width 12.4 % (11.5-14.5); White Blood Count 8.9 K/mm3 (4.5-10.0)
[2022-11-11 19:08] LABS: Alanine Aminotransferase 32 U/L (6-35); Albumin Level 4.1 g/dL (3.5-5.1); Alkaline Phosphatase 105 U/L (38-126); Anion Gap 8 mmol/L (8-16); Aspartate Amino Transferase 37 U/L (14-36); Bilirubin,Total 0.4 mg/dL (0.2-1.3); Blood Urea Nitrogen 23 mg/dL (7-17); Calcium 8.8 mg/dL (8.4-10.2); Carbon Dioxide 26 mmol/L (22-30); Chloride 106 mmol/L (98-107); Estimated Glomerular Filt Rate > 60; Glucose 96 mg/dL (65-110); Potassium 4.4 mmol/L (3.4-5.0); Sodium 140 mmol/L (137-145)
== END 2022-11-11 11:53 | disposition home or self-care (01) ==
LOC: ANHBWCLAB 11:53
PROVIDERS: PCP Family Medicine; Visit Provider Family Medicine
DX: I73.9 Peripheral vascular disease, unspecified (principal); F10.10 Alcohol abuse, uncomplicated; F31.9 Bipolar disorder, unspecified; E03.9 Hypothyroidism, unspecified; R26.9 Unspecified abnormalities of gait and mobility; G89.4 Chronic pain syndrome; J44.9 Chronic obstructive pulmonary disease, unspecified
CPT/HCPCS: 36415; 80053; 84443; 85027

== ENCOUNTER 2022-11-12 12:18 | Outpatient (CLI) | payer OTHER, SELFPAY ==
[2022-11-12 22:28] LABS: Toxigenic C. Diff NEGATIVE (NEGATIVE)
== END 2022-11-12 12:19 | disposition home or self-care (01) ==
LOC: ANHBWCLAB 12:19
PROVIDERS: PCP Family Medicine; Visit Provider Family Medicine
DX: R19.7 Diarrhea, unspecified (principal); K62.5 Hemorrhage of anus and rectum
CPT/HCPCS: 87045; 87177; 87209; 87427; 87493

== ENCOUNTER 2022-12-03 00:43 | Day surgery (SDC) | payer OTHER, SELFPAY ==
[2022-11-18 14:49] VITALS: BMI 26.4
--- NOTE | 2022-12-02 15:53 | WPDANESEPPF ---
Anes - Initial Pre Proc Eval Procedure: Operation Date: 12/03/22 11:00 Proposed Procedures p Colonoscopy - Donavan Dale MD Date/Time: 12/02/22 15:53 Surgeon: Donavan Dale MD Pre Op Diagnosis: diarrhea, hemorrhage of anus/rectum Patient Data Age: 72 Gender: F Height: 1.65 m Weight: 72 kg Allergies Allergy/AdvReac Type Severity Reaction Status Date / Time No Known Allergies Allergy Verified 12/03/22 09:41 Home Medications Medication Instructions Recorded Confirmed Type lamotrigine 150 mg tablet 150 mg PO BID 12/21/20 11/18/22 History nwnekdogplah-Iv-amqt-minerals 1 tablet PO DAILY 12/21/20 11/18/22 History (Multiple Vitamin, Womens tablet) syringe with needle, safety 3 mL #12 ea 12/25/20 02/21/22 Rx 25 gauge x 1 (BD SafetyGlide Syringe) calcium carbonate 500 mg calcium 500 mg PO DAILY #90 tabs 01/01/21 11/18/22 Rx (1,250 mg) tablet (Calcium 500) quetiapine 300 mg tablet 300 mg PO QHS #90 tabs 01/01/21 11/18/22 Rx fluticasone propionate 115 2 puff inhalation BID #12 grams 05/30/21 11/18/22 Rx mcg-salmeterol 21 mcg/actuation HFA inhaler (Advair HFA) armodafinil 150 mg tablet 150 mg PO BID 08/20/21 11/18/22 History ferrous sulfate 325 mg (65 mg 325 mg PO BID #180 tabs 07/25/22 11/18/22 Rx iron) tablet celecoxib 200 mg capsule 200 mg PO DAILY #90 caps 10/31/22 11/18/22 Rx metoprolol succinate 25 mg 25 mg PO DAILY #90 tabs 10/31/22 11/18/22 Rx tablet,extended release 24 hr Saccharomyces boulardii 10 billion 10,000 mmu cells PO DAILY #20 caps 11/11/22 11/18/22 Rx cell capsule albuterol sulfate 90 mcg/actuation 1 inh inhalation Q4H PRN Shortness 11/18/22 11/18/22 History aerosol inhaler Of Breath aripiprazole 10 mg tablet 10 mg PO BID 11/18/22 12/03/22 History fluticasone propionate 50 1 spray intranasal Q12H PRN 11/18/22 11/18/22 History mcg/actuation nasal Allergy Symptoms spray,suspension (Flonase Allergy Relief) sertraline 100 mg tablet 100 mg PO DAILY 11/18/22 11/18/22 History tizanidine 4 mg tablet 4 mg PO HS 11/18/22 11/18/22 History dexmethylphenidate 10 mg tablet 10 mg PO BID #60 tabs 11/27/22 12/03/22 Rx cetirizine 10 mg tablet (Zyrtec) 10 mg PO DAILY PRN allergy 12/02/22 12/03/22 Rx symptoms #90 tabs ropinirole 2 mg tablet 2 mg PO HS #90 tabs 12/02/22 Rx Patient hx anesthesia problems: none Family hx anesthesia problems: none Results Review: All pre-operative results and documents have been reviewed as part of the pre-operative evaluation. FOR[facility]LY [facility], [facility] Past Medical History Medical History (Updated 12/02/22 @ 15:55 by Geraldo Zayas DO) Anxiety Arthritis Bipolar 1 disorder COPD (chronic obstructive pulmonary disease) Elbow fracture, left H/O: HTN (hypertension) Hypothyroidism MRSA (methicillin resistant Staphylococcus aureus) Nerve damage Olecranon fracture Sepsis Surgical History Surgical History (Updated 12/02/22 @ 15:55 by Geraldo Zayas DO) H/O neck surgery 2019, [facility] H/O toe surgery 2013, [facility] History of appendectomy History of back surgery 2019, [facility] History of gastric bypass Family History Family History Other Depression Family history of arthritis Family history of lung disease Family history of neuropathy Family history of stroke Heart disease Social History Social History (Updated 10/02/22 @ 13:28 by Guera Bruno MA) Smoking status: Never smoker Alcohol intake: current Drinks per week: 2 Alcohol use details: 2-4 drinks per week Substance use: never Substance use type: does not use Lack of Transportation: No Lack of Food: Never True Current Housing: I Have Housing Concerned About Future Housing: No Difficulty Paying Gas/Electric Bills: No Difficulty Paying for Meds: No Currently Unemployed: No Education: High School Diploma/G
[2022-12-03 09:43] VITALS: BP 142/68; PULSE 73; RESP 18; TEMP 36.3; O2SAT 98
[2022-12-03] MEDS: LACTATED RINGERS 1,000 ML 150 ML IV CONT (09:53)
--- NOTE | 2022-12-03 10:18 | PM.HPGS ---
History of Present Illness History of Present Illness Consent: Risks, benefits, and alternatives have been discussed and questions answered. Patient agrees to proceed with procedure. Chief complaint: diarrhea, hemorrhage of anus/rectum Narrative: Miriam Buchanan is a 72 year old female with 2 months of diarrhea and blood in stools, last colonoscopy over 10 years ago, stool sample negative for c diff and parasites. Review of Systems Constitutional: Constitutional: Denies headache(s) and Denies weakness Eyes: Eyes: Denies blurry vision ENT: Reports Normal hearing present, Denies headache(s) and Denies neck pain Cardiovascular: Cardiovascular: Denies chest pain and Denies dyspnea Respiratory: Respiratory: Denies dyspnea Gastrointestinal: Gastrointestinal: Reports no additional gastrointestinal complaints Genitourinary: Genitourinary: Denies dysuria Musculoskeletal: Musculoskeletal: Denies neck pain Integumentary/Breasts: Skin/Breast: Denies dry skin Neurologic: Reports Normal hearing present, Denies headache(s) and Denies weakness Psychiatric: Psychiatric: Denies anxiety Endocrine: Endocrine: Denies change in body appearance Hematologic/Lymphatic: Hematologic/Lymphatic: Denies easy bleeding Allergic/Immunologic: Allergic/Immunologic: Denies urticaria PMFSH Past Medical History Medical History (Updated 12/02/22 @ 15:55 by Geraldo Zayas DO) Anxiety Arthritis Bipolar 1 disorder COPD (chronic obstructive pulmonary disease) Elbow fracture, left H/O: HTN (hypertension) Hypothyroidism MRSA (methicillin resistant Staphylococcus aureus) Nerve damage Olecranon fracture Sepsis Surgical History Surgical History (Updated 12/02/22 @ 15:55 by Geraldo Zayas DO) H/O neck surgery 2019, [facility] H/O toe surgery 2013, [facility] History of appendectomy History of back surgery 2019, [facility] History of gastric bypass Family History Family History Other Depression Family history of arthritis Family history of lung disease Family history of neuropathy Family history of stroke Heart disease Social History Social History (Updated 10/02/22 @ 13:28 by Guera Bruno MA) Smoking status: Never smoker Alcohol intake: current Drinks per week: 2 Alcohol use details: 2-4 drinks per week Substance use: never Substance use type: does not use Lack of Transportation: No Lack of Food: Never True Current Housing: I Have Housing Concerned About Future Housing: No Difficulty Paying Gas/Electric Bills: No Difficulty Paying for Meds: No Currently Unemployed: No Education: High School Diploma/GED Difficulty w/ Childcare or Family Care: No Living arrangements: alone Occupation/Education: retired Gender identity (if verbalized by the patient): Female Spiritual care concerns: No Meds Home Medications and Allergies Home Medications Medication Instructions Recorded Confirmed Type lamotrigine 150 mg tablet 150 mg PO BID 12/21/20 11/18/22 History kxzszjogdqdf-Yc-eftw-minerals 1 tablet PO DAILY 12/21/20 11/18/22 History (Multiple Vitamin, Womens tablet) syringe with needle, safety 3 mL #12 ea 12/25/20 02/21/22 Rx 25 gauge x 1 (BD SafetyGlide Syringe) calcium carbonate 500 mg calcium 500 mg PO DAILY #90 tabs 01/01/21 11/18/22 Rx (1,250 mg) tablet (Calcium 500) quetiapine 300 mg tablet 300 mg PO QHS #90 tabs 01/01/21 11/18/22 Rx fluticasone propionate 115 2 puff inhalation BID #12 grams 05/30/21 11/18/22 Rx mcg-salmeterol 21 mcg/actuation HFA inhaler (Advair HFA) armodafinil 150 mg tablet 150 mg PO BID 08/20/21 11/18/22 History ferrous sulfate 325 mg (65 mg 325 mg PO BID #180 tabs 07/25/22 11/18/22 Rx iron) tablet celecoxib 200 mg capsule 200 mg PO DAILY #90 caps 10/31/22 11/18/22 Rx metoprolol succinate 25 mg 25 mg PO DAILY #90 tabs
[2022-12-03 10:40] VITALS: BP 104/71; PULSE 95; RESP 20; O2SAT 98
[2022-12-03 10:50] VITALS: BP 113/70; PULSE 60; RESP 19; O2SAT 98
[2022-12-03 11:00] VITALS: BP 126/72; PULSE 63; RESP 17; O2SAT 98
== END 2022-12-03 11:07 | disposition home or self-care (01) ==
PROVIDERS: PCP Family Medicine; Visit Provider Internal Medicine Gastroenterology
PROC: 0DJD8ZZ Inspection of Lower Intestinal Tract, Via Natural or Artificial Opening Endoscopic (ICD-10-PCS; CPT 45378; principal; 2022-12-03 11:00)
DX: Z12.11 Encounter for screening for malignant neoplasm of colon (principal); K57.30 Diverticulosis of large intestine without perforation or abscess without bleeding; K64.8 Other hemorrhoids; R19.7 Diarrhea, unspecified; K92.1 Melena; I10 Essential (primary) hypertension; E03.9 Hypothyroidism, unspecified; J44.9 Chronic obstructive pulmonary disease, unspecified; F31.9 Bipolar disorder, unspecified; F41.9 Anxiety disorder, unspecified; Z79.51 Long term (current) use of inhaled steroids
CPT/HCPCS: 45380; 88305; J7120

== ENCOUNTER 2023-01-02 14:47 | Outpatient (CLI) | payer OTHER, SELFPAY ==
--- NOTE | ~2023-01-02 | MR_ITS ---
MRI of the cervical spine Clinical History: Radiculopathy Technique: Axial T2-weighted and gradient images, and sagittal T1-weighted, T2-weighted, and STIR janae ges were acquired. COMPARISON: 12/21/2021 Findings: Extensive cervical fusion extending from C2 through C6 is unchanged from prior exam. Anteri or plate and interlocking screws are present extending from C2 through C5. There is fusion across the C5-C6 disc spaces. There are interbody fusion devices at the C3-C4 and C4-C5 levels. Stable mild rev ersal of the normal cervical lordosis. Osseous alignment is unchanged from prior exam. At C2-C3, there is no disc bulge or herniation. No spinal canal stenosis, cord compression, or neural foraminal narrowing. At C3-C4, there is probable laminectomy. No disc bulge or herniation. No spinal canal stenosis, cord compression, or neural foraminal narrowing. At C4-C5, there is no disc bulge or herniation. There is probable laminectomy defect. No spinal canal stenosis, cord compression, or definite neural foraminal narrowing. At C5-C6, there is no disc bulge or herniation. No spinal canal stenosis, cord compression, or neural foraminal narrowing. At C6-C7, there is no disc bulge or herniation. No spinal canal stenosis, cord compression, or neural foraminal narrowing. There is focal hyperintense signal centrally in the spinal cord at the C3-C4 level, unchanged from pr ior exam. Paravertebral soft tissues are unremarkable aside from expected postoperative change. Impression: Overall, no change from prior exam. Stable area of focal spinal cord myelomalacia at the C3-C4 level. Stable anterior fusion from C3 through C6, with stable osseous alignment. Reviewed, dictated and finalized at [facility]. Impression: Overall, no change from prior exam. Stable area of focal spinal cord myelomalacia at the C3-C4 level. Stable anterior fusion from C3 through C6, with stable osseous alignment.
== END 2023-01-02 14:48 ==
PROVIDERS: PCP Family Medicine; Visit Provider Family Medicine
DX: M54.2 Cervicalgia (principal); M54.10 Radiculopathy, site unspecified; R53.1 Weakness; G95.89 Other specified diseases of spinal cord; M24.549 Contracture, unspecified hand
CPT/HCPCS: 72141

== ENCOUNTER 2023-01-31 10:33 | Outpatient (CLI) | payer OTHER, SELFPAY ==
--- NOTE | 2023-01-31 10:56 | ECG_ITS ---
Measurements Intervals Skippers Rate: 76 P: 46 NV: 168 QRS: 39 QRSD: 90 T: 42 QT: 358 QTc: 405 Interpretive Statements SINUS RHYTHM WITHIN NORMAL LIMITS COMPARED TO ECG 08/21/2021 13:28:43 NO SIGNIFICANT CHANGES Electronically Signed On 01-31-2023 15:35:05 CDT by Matthew Thornton M.D.
[2023-01-31 11:08] LABS: Basophils Absolute Auto 0.1 K/mm3 (0.0-0.1); Basophils Percent Auto 1.2 % (0.2-1.2); Eosinophils Absolute Auto 0.2 K/mm3 (0-0.3); Eosinophils Percent Auto 3.5 % (0-4.4); Hematocrit 35.8 % (37.0-47.0); Hemoglobin 11.3 g/dL (12.0-15.0); Immature Granulocyte Absolute 0.02 K/mm3 (0.00-0.031); Immature Granulocyte Percent A 0.4 % (0-0.5); Lymphocytes Absolute Auto 1.26 K/mm3 (0.9-3.2); Lymphocytes Percent Auto 25.7 % (18.3-44.2); Mean Corpuscular HGB Conc 31.6 g/dl (32-36); Mean Corpuscular Hemoglobin 30.3 pg (26-34); Mean Platelet Volume 8.4 fl (7.4-10.4); Monocytes Absolute Auto 0.5 K/mm3 (0.1-0.6); Monocytes Percent Auto 9.4 % (2.6-8.5); Neutrophils Absolute Auto 2.9 K/mm3 (1.3-6.7); Neutrophils Percent Auto 59.8 % (45.5-73.1); Platelet Count Result 296 k/mm3 (150-375); Red Blood Count 3.73 M/mm3 (4.2-5.4); Red Cell Distribution Width 12.5 % (11.5-14.5); White Blood Count 4.9 K/mm3 (4.5-10.0)
[2023-01-31 11:16] LABS: Appearance Urine Cloudy (Clear); Bacteria Urine 1+ /hpf; Bilirubin Urine Negative (Negative); Blood Urine Negative (Negative); Color Urine Yellow (Yellow); Glucose Urine UA Negative (Negative); Ketones Urine Negative (Negative); Leukocyte Esterase Ur 3+ LEU/UL (Negative); Nitrate Urine Negative (Negative); Protein Urine Negative (Negative); RBC Urine 0-2 /hpf (0-2); Specific Grav Ur 1.019 (1.001-1.035); Squamous Epithelial Cell Urine Few /hpf (Few); WBC Urine 21-50 /hpf
[2023-01-31 11:19] LABS: Anion Gap 4 mmol/L (8-16); Blood Urea Nitrogen 18 mg/dL (7-17); Calcium 8.7 mg/dL (8.4-10.2); Carbon Dioxide 27 mmol/L (22-30); Chloride 107 mmol/L (98-107); Estimated Glomerular Filt Rate > 60; Glucose 62 mg/dL (65-110); Potassium 4.8 mmol/L (3.4-5.0); Sodium 138 mmol/L (137-145)
[2023-01-31 11:31] LABS: Add Urine Microscopic? YES
== END 2023-01-31 10:34 | disposition home or self-care (01) ==
PROVIDERS: PCP Family Medicine; Visit Provider Orthopaedic Surgery
DX: M17.11 Unilateral primary osteoarthritis, right knee (principal); Z86.79 Personal history of other diseases of the circulatory system
CPT/HCPCS: 36415; 80048; 81001; 85025; 87086; 87088; 93005

== ENCOUNTER 2023-02-07 13:57 | Outpatient (CLI) | payer OTHER, SELFPAY ==
[2023-02-07 16:06] LABS: Urine Cotinine NEGATIVE
[2023-02-07 16:08] LABS: INR 0.9; Prothrombin Time 12.8 Seconds (11.1-14.7)
[2023-02-07 16:09] LABS: Partial Thromboplastin Time 31.5 SECONDS (22.3-36.8)
[2023-02-07 16:20] LABS: Albumin Level 4.7 g/dL (3.5-5.1)
[2023-02-07 16:40] LABS: Hemoglobin A1C 4.9 % (<5.7)
== END 2023-02-07 13:58 | disposition home or self-care (01) ==
LOC: ANHSURGERY 14:02
PROVIDERS: PCP Family Medicine; Visit Provider Orthopaedic Surgery
DX: M17.11 Unilateral primary osteoarthritis, right knee (principal); Z01.818 Encounter for other preprocedural examination
CPT/HCPCS: 80307; 82040; 83036; 85610; 85730; 86850; 86900; 86901; 87081

== ENCOUNTER 2023-02-20 16:09 | Observation (INO) | payer OTHER, SELFPAY ==
[2023-02-07 14:39] VITALS: BP 116/62; PULSE 79; RESP 16; TEMP 37.5; O2SAT 98; BMI 29.9
--- NOTE | 2023-02-07 14:58 | PC.NURSE ---
Report to the Outpatient Waiting Room, entrance under the green pavilion located off [facility], at time __6:00AM on date ___02/10-____. Planned Procedure Time: __7:30AM . Time changes happen often and if your time is changed the preop area will call you the afternoon before. - You and your visitor will be asked to self-screen and do not enter if you have any COVID symptoms. - A mask is optional within the hospital at this time. Patients may have clear liquids (water, carbonated beverages, clear teas, apple juice) until 3 hours prior to surgery with a maximum of 20 ounces. - No food from midnight until time of surgery Take the following medications with a SIP of water the morning of surgery: __ATROVENT INHALER(FLUTICASONE), FLONASE NASAL SPRAY(FLUTICASONE), ALBUTEROL INHALER NEEDED, ABILIFY, VALIUM NEEDED, GABAPENTIN, LAMOTRIGINE, LEVOTHYROXINE, METOPROLOL, SERTRALINE DO NOT STOP ANY OF YOUR OTHER PRESCRIPTION MEDICATIONS PRIOR TO SURGERY ?EXCEPT THE FOLLOWING Medications to discontinue per physician ___HOLD ALL VITAMINS/SUPPLEMENTS AND NSAIDS(NAPROXEN/IBUPROFEN) 7 DAYS PRE-OP PER DR QUIJANO_ Date to take last dose____02/12/23 Please no make-up, nail persian, hairspray, perfume, deodorant, or body powder the day of surgery. No jewelry (including any body piercings) or valuables the day of surgery, leave them at home. Please take a shower or bath the night before, or the morning of, surgery with an antibacterial soap. Wear comfortable, loose fitting clothing. Children are encouraged to wear pajamas. - Jewelry must be removed prior to entering the operating room. Rings and piercings that are not removed may be cut off. - The hospital will not accept responsibility for valuables. - Please leave all valuables, including medications, at home the day of surgery. If you are going home after surgery, a licensed hook up driver must drive you home. - NO public transportation without another adult if you receive anesthesia. - We recommend that an adult stay with you for 24 hours following discharge. - We also recommend that you do not drive, make important decision, drink alcoholic beverages, or take any drugs that were not prescribed by your health care provider for at least 24 hours after your discharge time. Follow any additional instructions given to you from your surgeon. HIBICLENS SHOWER PER DR QUIJANO If you or anyone in your household have experienced Covid symptoms in the past week, please notify your surgeon or the nurse liaison at the phone number below for possible testing. Telephone instructions given to __PATIENT and asked if any additional questions and then verbalized understanding. Patient advised to call surgeon office or pre surgery nurse liaison [phone] if any additional questions.
[2023-02-19] VITALS (16 sets, daily range): BP systolic 97–128; BP diastolic 47–70; PULSE 66–91; RESP 13–18; TEMP 35.8–36.9; O2SAT 92–100
[2023-02-19] MEDS: ACETAMINOPHEN 500 MG TABLET 1000 MG PO (06:41)
[2023-02-19] MEDS: LACTATED RINGERS 1,000 ML 30 ML IV CONT ×2 (07:07→09:59)
[2023-02-19] MEDS: TRANEXAMIC ACID 1,000MG/ISO100 1,000 MG/100 ML BAG 200 MG IVPB (07:18)
--- NOTE | 2023-02-19 07:19 | WPDHPUPDATE1 ---
History and Physical Update Update Date/Time: 02/19/23 07:19 History and Physical has been reviewed, including an updated exam of the patient. There are NO changes in the patient's condition. Risks, benefits, and alternatives have been discussed and questions answered. Patient agrees to proceed with procedure.
--- NOTE | 2023-02-19 07:26 | WPDANESEPPF ---
Anes - Initial Pre Proc Eval Procedure: Operation Date: 02/19/23 07:30 Proposed Procedures p Right Total Knee Arthroplasty - Nabeel Godinez MD Date/Time: 02/19/23 07:26 Surgeon: Nabeel Godinez MD Pre Op Diagnosis: Rt Knee DJD Patient Data Age: 72 Gender: F Height: 1.6 m Weight: 68.1 kg Last Vital Signs Temp 36.2 C L 02/19/23 06:11 Pulse 75 02/19/23 06:11 Resp 16 02/19/23 06:11 BP 128/69 02/19/23 06:11 Pulse Ox 99 02/19/23 06:11 O2 Del Method Room Air 02/19/23 06:11 Allergies Allergy/AdvReac Type Severity Reaction Status Date / Time No Known Allergies Allergy Verified 02/19/23 06:28 Home Medications Medication Instructions Recorded Confirmed Type lamotrigine 150 mg tablet 150 mg PO BID 12/21/20 02/19/23 History mnafbsgzjqvw-La-fgws-minerals 1 tablet PO DAILY 12/21/20 02/19/23 History (Multiple Vitamin, Womens tablet) syringe with needle, safety 3 mL #12 ea 12/25/20 02/10/23 Rx 25 gauge x 1 (BD SafetyGlide Syringe) calcium carbonate 500 mg calcium 500 mg PO DAILY #90 tabs 01/01/21 02/19/23 Rx (1,250 mg) tablet (Calcium 500) quetiapine 300 mg tablet 300 mg PO QHS #90 tabs 01/01/21 02/19/23 Rx fluticasone propionate 115 2 puff inhalation BID #12 grams 05/30/21 02/19/23 Rx mcg-salmeterol 21 mcg/actuation HFA inhaler (Advair HFA) armodafinil 150 mg tablet 150 mg PO BID 08/20/21 02/19/23 History metoprolol succinate 25 mg 25 mg PO DAILY #90 tabs 10/31/22 02/19/23 Rx tablet,extended release 24 hr Saccharomyces boulardii 10 billion 10,000 mmu cells PO DAILY #20 caps 11/11/22 02/19/23 Rx cell capsule albuterol sulfate 90 mcg/actuation 1 inh inhalation Q4H PRN Shortness 11/18/22 02/10/23 History aerosol inhaler Of Breath aripiprazole 10 mg tablet 10 mg PO BID 11/18/22 02/19/23 History sertraline 100 mg tablet 100 mg PO QAM 11/18/22 02/19/23 History tizanidine 4 mg tablet 4 mg PO HS 11/18/22 02/19/23 History ropinirole 2 mg tablet 2 mg PO HS #90 tabs 12/02/22 02/19/23 Rx gabapentin 600 mg tablet 600 mg PO QID #360 tabs 12/12/22 02/19/23 Rx fluticasone propionate 50 1 spray intranasal Q12H PRN 12/29/22 02/19/23 Rx mcg/actuation nasal Allergy Symptoms #16 grams spray,suspension (Flonase Allergy Relief) ferrous sulfate 325 mg (65 mg 325 mg PO BID #180 tabs 01/07/23 02/19/23 Rx iron) tablet dexmethylphenidate 10 mg tablet 10 mg PO BID #60 tabs 01/21/23 02/19/23 Rx celecoxib 200 mg capsule 200 mg PO QAM 02/07/23 02/19/23 History levothyroxine 25 mcg tablet 25 mcg PO QAM 02/07/23 02/19/23 History (Synthroid) naproxen sodium 220 mg capsule 220 mg PO Q6H PAIN 02/07/23 02/19/23 History pantoprazole 40 mg tablet,delayed 40 mg PO DAILY 02/07/23 02/19/23 History release diazepam 5 mg tablet (Valium) 5 mg PO TID PRN Anxiety #60 tabs 02/09/23 02/19/23 Rx acetaminophen 650 mg 1,300 mg PO Q12H 02/19/23 02/19/23 History tablet,extended release Patient hx anesthesia problems: none Family hx anesthesia problems: none Results Review: All pre-operative results and documents have been reviewed as part of the pre-operative evaluation. [facility] Past Medical History Medical History Anxiety Arthritis Bipolar 1 disorder COPD (chronic obstructive pulmonary disease) Elbow fracture, left H/O: HTN (hypertension) Hypothyroidism MRSA (methicillin resistant Staphylococcus aureus) Nerve damage Olecranon fracture Sepsis Surgical History Surgical History H/O neck surgery 2019, [facility] H/O toe surgery 2013, [facility] History of appendectomy History of back surgery 2019, [facility] History of gastric bypass Family History Family History Other Depression Family history of arthritis Family history of lung disease Family history of neuropath
[2023-02-19] MEDS: ceFAZolin 2 GM/D5W 50 ML 2 GM/50 ML BAG IVPB ×3 (07:40→23:25)
--- NOTE | 2023-02-19 08:13 | WPDANESPNB ---
Anes - Peripheral Nerve Block Date/Time: 02/19/23 08:13 I have discussed with the patient/family/POA the placement of a peripheral nerve block for post-operative pain management, including associated risks, benefits, complications, and side effects. Alternative methods of post-operative analgesia were detailed. Questions were solicited and answers provided to the satisfaction of the patient/family/POA. Time-Out: A pre-procedural Time-Out was completed immediately before starting the procedure and confirmed: Patient Identification, Site, Procedure, Patient Position and the Availability of Requisite Equipment. Clinical Indications: Acute post-operative pain management requested by the operative surgeon. Nerve Block Insertion Note Anes-nerve block: adductor canal right Patient position: supine Skin prep: chlorhexidine Needle: 22 gauge, stimulating, insulated echogenic needle. Needle length: 80 mm Technique: ultrasound Technique comment: mid2mg morphine 10mg Injectate: bupivacaine 0.5% with epi 5 mcg/ml (30ml no epi) and dexamethasone (mg) (4) Observations: tolerated well Complications: none Procedure start time:: 728 Procedure end time:: 735
[2023-02-19] MEDS: TRANEXAMIC ACID 1,000 MG/10 ML AMPUL 1000 MG IV PUSH (09:23)
--- NOTE | 2023-02-19 10:02 | W.PM.PROC2 ---
Procedure Note - Detailed Date of Procedure 02/19/23 Pre-op Diagnosis Rt Knee DJD Post-op Diagnosis Same Procedure Performed R TKA Surgeon Nabeel Godinez MD Anesthesia General Description of Procedure THE RIGHT KNEE WAS PREPPED AND DRAPED IN THE STERILE FASHION. THERE WAS A 10 DEGREE FLEXION CONTRACTURE. A MIDLINE SKIN INCISION WAS MADE. A MEDIAL PARAPATELLAR ARTHROTOMY WAS MADE. THE PATELLA WAS EVERTED. THERE WAS TRICOMPARTMENT DJD. THERE WAS MINIMAL PATELLA DJD. AN INTRAMEDULLARY MABEL WAS PLACED IN THE FEMUR. A DISTAL FEMORAL CUT WAS MADE IN 5 DEGREES OF VALGUS REMOVING APPROXIMATELY 9 MM OF BONE FROM THE DISTAL FEMUR. THE FEMUR WAS SIZED TO 62.5. A 62.5 FEMORAL CUTTING BLOCK WAS PLACED IN 3 DEGREES OF EXTERNAL ROTATION AND IN ALIGNMENT WITH MARIIA'S LINE AND THE TRANSEPICONDYLAR AXIS. ANTERIOR POSTERIOR AND CHAMFER CUTS WERE MADE. THE CUTS WERE EXCELLENT. NEXT AN INTRAMEDULLARY CUTTING GUIDE WAS PLACED IN THE TIBIA. A TRANS TIBIAL CUT WAS MADE ALONG THE LONG AXIS OF THE TIBIA. APPROXIMATELY 10 MM OF BONE WAS REMOVED FROM THE HIGH SIDE OF THE TIBIA. THE TIBIA WAS THEN PLANED TO A SMOOTH SURFACE. POSTERIOR FEMORAL OSTEOPHYTES WERE REMOVED FROM THE FEMORAL CONDYLES. A 71 TIBIAL TRIAL WAS PLACED IN ALIGNMENT WITH THE 1/3 MEDIAL ASPECT OF THE TIBIAL TUBERCLE. THEN A 62.5 FEMORAL TRIAL COMPONENT WAS PLACED. BOTH HAD EXCELLENT FITS. EVENTUALLY A 10 MM CR POLYETHYLENE TRIAL COMPONENT WAS PLACED. THE KNEE WAS TAKEN THROUGH A RANGE OF MOTION. THE KNEE CAME OUT TO FULL EXTENSION. THERE WAS NO ABNORMAL TILT TO THE PATELLA. THERE WAS GOOD A/P AND VARUS/VALGUS STABILITY. THERE WAS NO EXCESSIVE ROLL BACK WITH FLEXION. THE TRIAL COMPONENTS WERE REMOVED. THEN A 62.5 FEMORAL COMPONENT AND 71 TIBIAL COMPONENT WITH A 10 CR POLYETHYLENE COMPONENT WERE CEMENTED INTO PLACE. ONCE THE CEMENT WAS HARD THE KNEE WAS TAKEN THROUGH A ROM AGAIN AND FOUND TO BE STABLE WITH NO PATELLA TILT NO EXCESSIVE ROLL BACK WITH FLEXION AND GOOD STABILITY WITH COMPLETE AND FULL EXTENSION. THE KNEE WAS IRRIGATED WITH STERILE BETADINE AND WATER FOR ABOUT 3 MINUTES. THE BLEEDERS WERE CAUTERIZED. THE ARTHROTOMY WAS REPAIRED WITH NUMBER 1 VICRYL. THE SUB CUTANEOUS LAYER WITH 2-0 VICRYL AND THE SKIN WITH PHANI. THE WOUND WAS WASHED AND A STERILE DRESSING WAS APPLIED. PATIENT WAS EXTUBATED. Estimated Blood Loss -150.0 Pathology None sent Complications No immediate complications Condition Stable Disposition PACU
[2023-02-19] MEDS: fentaNYL CITRATE INJ (*CRX) 100 MCG/2 ML VIAL 25 MCG IV PUSH ×2 (11:05→11:08)
[2023-02-19] MEDS: oxyCODONE/ACETAMINOPHEN (*CRX) 5-325 MG TABLET 1 TABLET PO ×2 (12:02→13:24)
[2023-02-19] MEDS: SODIUM CHLORIDE 0.9% IV 1,000 ML 125 ML IV CONT (12:02)
--- NOTE | 2023-02-19 12:11 | PC.NURSE ---
This patient, Miriam Buchanan, was admitted to [facility] Surg Room 329-01. Patient/family oriented to hospital policies and general routines including ID bracelet, bed and alarms, visiting hours, pain management, procedures, bathroom and other care routines, personal items, smoking policy, room service/diet, and visiting hours. Information on how to activate the Rapid Response Team has been discussed. Patient/Family are encouraged to report perceived risks to care and to ask questions if they do not understand what they are told or what they should do.
[2023-02-19] MEDS: GABAPENTIN 300 MG CAPSULE 600 MG PO ×3 (12:17→20:16)
[2023-02-19] MEDS: lamoTRIgine 50 MG TABLET 150 MG PO (16:45)
[2023-02-19] MEDS: CELECOXIB 200 MG CAPSULE PO (16:45)
[2023-02-19] MEDS: FERROUS SULFATE 324 MG TABLET PO (16:45)
[2023-02-19] MEDS: ARIPiprazole 10 MG TABLET PO (16:45)
[2023-02-19] MEDS: SENNA/DOCUSATE SODIUM TABLET 2 TAB PO (16:45)
[2023-02-19] MEDS: oxyCODONE/ACETAMINOPHEN (*CRX) 5-325 MG TABLET 2 TABLET PO (20:13)
[2023-02-19] MEDS: TIZANIDINE HCL 4 MG TABLET PO (20:14)
[2023-02-19] MEDS: rOPINIRole HCL 1 MG TABLET 2 MG PO (20:15)
[2023-02-19] MEDS: QUEtiapine FUMARATE 100 MG TABLET 300 MG PO (20:16)
[2023-02-19] MEDS: ASPIRIN 325 MG ENTERIC TABLET PO (20:17)
[2023-02-19] MEDS: FLUTICASONE/SALMETEROL 115-21 MCG INHALER 1 PUFF 2 PUFF INHALATION (20:31)
[2023-02-20] VITALS (11 sets, daily range): BP systolic 93–116; BP diastolic 54–68; PULSE 65–75; RESP 12–18; TEMP 35.8–36.6; O2SAT 90–99
--- NOTE | ~2023-02-20 | XR_ITS ---
EXAMINATION: [id number] DATE: 02/19/2023 10:13 CDT INDICATION: Right knee arthroplasty TECHNIQUE: 2 views right knee FINDINGS: There is a ] total knee arthroplasty in expected position. Subcutaneous gas with fluid and air in the joint and overlying skin ebonie are consistent with recent surgery. No evidence of perip rosthetic fracture. IMPRESSION: 1. Recent right total knee arthroplasty. Reviewed, dictated and finalized at location B.
[2023-02-20] MEDS: LEVOTHYROXINE SODIUM 25 MCG TABLET PO (05:52)
[2023-02-20] MEDS: oxyCODONE/ACETAMINOPHEN (*CRX) 5-325 MG TABLET 1 TABLET PO (05:52)
[2023-02-20] MEDS: ceFAZolin 2 GM/D5W 50 ML 2 GM/50 ML BAG IVPB (05:54)
[2023-02-20 07:22] LABS: Basophils Percent Auto 0.4 % (0.2-1.2); Eosinophils Absolute Auto 0.1 K/mm3 (0-0.3); Eosinophils Percent Auto 1.1 % (0-4.4); Hematocrit 29.9 % (37.0-47.0); Hemoglobin 9.1 g/dL (12.0-15.0); Immature Granulocyte Absolute 0.03 K/mm3 (0.00-0.031); Immature Granulocyte Percent A 0.4 % (0-0.5); Lymphocytes Absolute Auto 2.07 K/mm3 (0.9-3.2); Mean Corpuscular HGB Conc 30.4 g/dl (32-36); Mean Corpuscular Hemoglobin 31.3 pg (26-34); Mean Corpuscular Volume 102.7 fl (80-100); Mean Platelet Volume 8.8 fl (7.4-10.4); Monocytes Absolute Auto 0.9 K/mm3 (0.1-0.6); Monocytes Percent Auto 10.8 % (2.6-8.5); Neutrophils Absolute Auto 4.9 K/mm3 (1.3-6.7); Neutrophils Percent Auto 61.3 % (45.5-73.1); Platelet Count Result 192 k/mm3 (150-375); Red Blood Count 2.91 M/mm3 (4.2-5.4); Red Cell Distribution Width 12.7 % (11.5-14.5)
[2023-02-20] MEDS: FLUTICASONE/SALMETEROL 115-21 MCG INHALER 1 PUFF 2 PUFF INHALATION ×2 (07:24→21:41)
[2023-02-20 07:44] LABS: Anion Gap 10 mmol/L (8-16); Blood Urea Nitrogen 22 mg/dL (7-17); Calcium 8.2 mg/dL (8.4-10.2); Carbon Dioxide 18 mmol/L (22-30); Chloride 107 mmol/L (98-107); Estimated CRCL calculation 40 ml/min; Estimated Glomerular Filt Rate > 60; Glucose 94 mg/dL (65-110); Potassium 5.5 mmol/L (3.4-5.0); Sodium 135 mmol/L (137-145)
[2023-02-20] MEDS: SERTRALINE HCL 50 MG TABLET 100 MG PO (07:58)
[2023-02-20] MEDS: GABAPENTIN 300 MG CAPSULE 600 MG PO ×4 (07:58→20:39)
[2023-02-20] MEDS: SENNA/DOCUSATE SODIUM TABLET 2 TAB PO ×2 (07:58→16:19)
[2023-02-20] MEDS: lamoTRIgine 50 MG TABLET 150 MG PO ×2 (07:58→16:19)
[2023-02-20] MEDS: ASPIRIN 325 MG ENTERIC TABLET PO ×2 (07:59→20:40)
[2023-02-20] MEDS: FERROUS SULFATE 324 MG TABLET PO ×2 (07:59→16:19)
[2023-02-20] MEDS: ARIPiprazole 10 MG TABLET PO ×2 (07:59→16:19)
[2023-02-20] MEDS: polyethylene glycoL 3350 17 GM POWD.PACK PO (07:59)
[2023-02-20] MEDS: CELECOXIB 200 MG CAPSULE PO ×2 (07:59→16:19)
[2023-02-20] MEDS: METOPROLOL SUCCINATE EXT REL 25 MG TABCR PO (07:59)
[2023-02-20] MEDS: PANTOPRAZOLE 40 MG TABLET PO (08:00)
--- NOTE | 2023-02-20 09:14 | P.PNAN_ITS ---
Anes - Prog Note Post-Op Date/Time: 02/20/23 09:14 Cardiovascular status: normal Respiratory status: normal Airway patency: baseline Mental status: baseline Post-Op hydration status: normal Vital Signs: Last Vital Signs Temp 35.8 C L 02/20/23 08:00 Pulse 66 02/20/23 08:00 Resp 16 02/20/23 08:00 BP 101/54 L 02/20/23 08:00 Pulse Ox 99 02/20/23 08:00 O2 Del Method Room Air 02/20/23 08:00 O2 Flow Rate 2 02/19/23 12:48 Pain Score (VAS): 0 I/O: Intake & Output 02/19/23 02/20/23 02/20/23 23:59 07:59 15:59 Intake Total 400 100 Balance 400 100 Laboratory Tests 02/20/23 07:09 02/20/23 07:09 02/20/23 07:09 WBC 8.0 RBC 2.91 L Hgb 9.1 L Hct 29.9 L MCV 102.7 H MCH 31.3 MCHC 30.4 L RDW 12.7 Plt Count 192 MPV 8.8 Immature Gran % (Auto) 0.4 Neut % (Auto) 61.3 Lymph % (Auto) 26.0 [place] % (Auto) 10.8 H Eos % (Auto) 1.1 Baso % (Auto) 0.4 Lymph # (Auto) 2.07 [place] # (Auto) 0.9 H Eos # (Auto) 0.1 Baso # (Auto) 0.0 Abs Immat Gran (auto) 0.03 Absolute Neuts (auto) 4.9 Absolute Nucleated RBC 0.0 Nucleated RBC % 0.0 Sodium 135 L Potassium 5.5 H Chloride 107 Carbon Dioxide 18 L Anion Gap 10 BUN 22 H Creatinine 0.90 Estim Creat Clear Calc 40 Estimated GFR > 60 Glucose 94 Calcium 8.2 L Post-procedural complaints: none Patient Feedback: Patient satisfied with anesthetic care.
--- NOTE | 2023-02-20 09:30 | PM.PNORT ---
Progress Note: A&P Assessment and Plan (1) S/P total knee arthroplasty: Qualifiers: Laterality: right Qualified Code(s): Z96.651 - Presence of right artificial knee joint Code(s): Z96.659 - Presence of unspecified artificial knee joint Status: Acute Assessment and Plan: POD #1 : Right TKA Continue PT/OT. WBAT. Walker. HIGH FALL RISK. Continue pain control. Ice knee. Protect skin. DVT prophylaxis with Aspirin. SCDs. Incentive Spirometry Use reviewed. Monitor Dressing. Change prior to discharge. Bowel Regimen. Dispo: Home with Home Health pending progress with PT/OT (2) Anxiety: Code(s): F41.9 - Anxiety disorder, unspecified Status: Acute (3) Bipolar 1 disorder: Code(s): F31.9 - Bipolar disorder, unspecified Status: Acute Time Spent With Patient Time: Reviewed postoperative radiographs, labs, exam and hesitations regarding discharge with attending MD and patient's surgeon, Dr. Godinez. Agrees with current plan as indicated above. No further recommendations at this time. Subjective Subjective Date/Time Seen: 02/20/23 09:30 Post Op day: 1 Interval history: POD #1: Right TKA Patient with complaints of pain. Has not yet worked with PT/OT. Concerned about being discharged home with home health today. Family at home preparing a safe environment. No other concerns. Review of Systems Review of Systems: All systems reviewed & are unremarkable except as noted in HPI and below Constitutional: Constitutional: Denies fever(s) and Denies headache(s) ENT: Denies headache(s) Cardiovascular: Cardiovascular: Denies chest pain, Denies diaphoresis, Denies palpitations and Denies dyspnea Respiratory: Respiratory: Denies dyspnea Gastrointestinal: Gastrointestinal: Denies abdominal pain, Denies constipation, Denies nausea and Denies vomiting Genitourinary: Genitourinary: Reports nocturia and Denies dysuria Musculoskeletal: Musculoskeletal: Reports arthralgias (Right Knee ) and Reports joint swelling (Right Knee ) Neurologic: Denies headache(s) Endocrine: Endocrine: Denies palpitations Exam Const: General: comfortable and no acute distress Resp: Effort & Inspection: normal respiratory effort Cardio: Rate: regular rate Rhythm: regular rhythm GI: GI Palp: Yes Soft to palpation, No Tenderness to palpation present (GI) and No Guarding due to palpation present (GI) Skin: General skin exam: wounds noted Wounds: wounds noted Other: Incision c/d/i. No surrounding redness/warmth. No hematoma. Mild ecchymosis. No wound dehiscence Neuro: Cognition (Neuro): normal cognition Other: NV intact aside from block. Moves toes. Sensation intact to light touch. +ankle dorsiflexion/plantarflexion. Extrem: Right lower extremity: normal to inspection, knee Details: tenderness (diffuse, mild ) Location: of the patella, swelling (diffuse, consistent with surgical intervention ), abnormal ROM Details: pain with active ROM during, pain with passive ROM during and with range as follows (limited due to recent surgical intervention ); able to extend lower leg actively and ecchymosis (mild ), lower leg (Negative Satish's Sign ) Details: normal to inspection; no erythema and no tenderness, ankle (+ankle dorsiflexion/plantarflexion ) Details: normal to inspection, no edema and normal ROM; no tenderness, no swelling and no ecchymosis and foot Details: normal capillary refill, normal to inspection, vascular exam Details: dorsalis pedis pulse present and motor-sensory exam Details: light-touch normal; no tenderness Left lower extremity: normal to inspection Psych: Mental Status: mental status grossly normal Objective Data Vital Signs Vital Signs: Vital Signs - 24 hr 02/19/23 10:00 02/19/23 10:15 02/19/23 10:30 Temperature 36.9 C Pulse Rate 91 89 86 Respiratory Rate 13 13 18 Blood Pressure 111/70 124/66 117/61 Pulse Oximetry 98 96 98 Oxygen Delivery Simple Face Mas
[2023-02-20] MEDS: oxyCODONE/ACETAMINOPHEN (*CRX) 5-325 MG TABLET 2 TABLET PO ×2 (13:51→20:59)
[2023-02-20] MEDS: rOPINIRole HCL 1 MG TABLET 2 MG PO (20:39)
[2023-02-20] MEDS: TIZANIDINE HCL 4 MG TABLET PO (20:39)
[2023-02-20] MEDS: QUEtiapine FUMARATE 100 MG TABLET 300 MG PO (20:40)
[2023-02-21] MEDS: ACETAMINOPHEN 500 MG TABLET 1000 MG PO ×2 (00:53→08:17)
[2023-02-21 00:55] VITALS: BP 89/56; PULSE 75; RESP 18; TEMP 35.9; O2SAT 92
[2023-02-21 01:16] VITALS: BP 98/66
[2023-02-21] MEDS: oxyCODONE/ACETAMINOPHEN (*CRX) 5-325 MG TABLET 2 TABLET PO ×2 (04:50→12:35)
[2023-02-21 05:28] VITALS: BP 118/72
[2023-02-21] MEDS: LEVOTHYROXINE SODIUM 25 MCG TABLET PO (05:41)
[2023-02-21 06:00] VITALS: PULSE 71; RESP 18; TEMP 35.9; O2SAT 91
[2023-02-21] MEDS: polyethylene glycoL 3350 17 GM POWD.PACK PO (08:13)
[2023-02-21] MEDS: GABAPENTIN 300 MG CAPSULE 600 MG PO ×2 (08:13→12:35)
[2023-02-21 08:14] VITALS: PULSE 72
[2023-02-21] MEDS: lamoTRIgine 50 MG TABLET 150 MG PO (08:14)
[2023-02-21] MEDS: SERTRALINE HCL 50 MG TABLET 100 MG PO (08:14)
[2023-02-21] MEDS: CELECOXIB 200 MG CAPSULE PO (08:14)
[2023-02-21] MEDS: FERROUS SULFATE 324 MG TABLET PO (08:14)
[2023-02-21] MEDS: SENNA/DOCUSATE SODIUM TABLET 2 TAB PO (08:14)
[2023-02-21] MEDS: METOPROLOL SUCCINATE EXT REL 25 MG TABCR PO (08:14)
[2023-02-21] MEDS: PANTOPRAZOLE 40 MG TABLET PO (08:15)
[2023-02-21] MEDS: ARIPiprazole 10 MG TABLET PO (08:15)
[2023-02-21] MEDS: ASPIRIN 325 MG ENTERIC TABLET PO (08:15)
[2023-02-21] MEDS: FLUTICASONE/SALMETEROL 115-21 MCG INHALER 1 PUFF 2 PUFF INHALATION (08:49)
[2023-02-21 08:50] VITALS: O2SAT 93
--- NOTE | 2023-02-21 09:01 | PM.PNORT ---
Progress Note: A&P Assessment and Plan (1) S/P total knee arthroplasty: Qualifiers: Laterality: right Qualified Code(s): Z96.651 - Presence of right artificial knee joint Code(s): Z96.659 - Presence of unspecified artificial knee joint Status: Acute Assessment and Plan: POD #2: Right TKA Continue PT/OT. WBAT. Walker. HIGH FALL RISK. Continue pain control. Ice knee. Protect skin. DVT prophylaxis with Aspirin. SCDs. Incentive Spirometry Use reviewed. Monitor Dressing. Change prior to discharge. Bowel Regimen. Dispo: Home with Home Health today. (2) Anxiety: Code(s): F41.9 - Anxiety disorder, unspecified Status: Acute (3) Bipolar 1 disorder: Code(s): F31.9 - Bipolar disorder, unspecified Status: Acute Time Spent With Patient Time: Reviewed postoperative radiographs, labs, exam and d/c care plans with attending MD and patient's surgeon, Dr. Godinez. Agrees with current plan as indicated above. No further recommendations at this time. Subjective Subjective Date/Time Seen: 02/21/23 09:01 Post Op day: 2 Interval history: POD #2: Right TKA Patient reports improvement in pain today. Working with PT/OT at time of exam. Slow progress on POD #1. Improvement today. Anticipating discharge home with home health today. Review of Systems Review of Systems: All systems reviewed & are unremarkable except as noted in HPI and below Constitutional: Constitutional: Denies fever(s) and Denies headache(s) ENT: Denies headache(s) Cardiovascular: Cardiovascular: Denies chest pain, Denies diaphoresis, Denies palpitations and Denies dyspnea Respiratory: Respiratory: Denies dyspnea Gastrointestinal: Gastrointestinal: Denies abdominal pain, Denies constipation, Denies nausea and Denies vomiting Genitourinary: Genitourinary: Reports nocturia and Denies dysuria Musculoskeletal: Musculoskeletal: Reports arthralgias (Right Knee ) and Reports joint swelling (Right Knee ) Neurologic: Denies headache(s) Endocrine: Endocrine: Denies palpitations Exam Const: General: comfortable and no acute distress Resp: Effort & Inspection: normal respiratory effort Cardio: Rate: regular rate Rhythm: regular rhythm GI: GI Palp: Yes Soft to palpation, No Tenderness to palpation present (GI) and No Guarding due to palpation present (GI) Skin: General skin exam: wounds noted Wounds: wounds noted Other: Incision c/d/i. No surrounding redness/warmth. No hematoma. Mild ecchymosis. No wound dehiscence Neuro: Cognition (Neuro): normal cognition Other: NV intact. Moves toes. Sensation intact to light touch. +ankle dorsiflexion/plantarflexion. Extrem: Right lower extremity: normal to inspection, knee Details: tenderness (diffuse, mild ) Location: of the patella, swelling (diffuse, consistent with surgical intervention ), abnormal ROM Details: pain with active ROM during, pain with passive ROM during and with range as follows (limited due to recent surgical intervention ); able to extend lower leg actively and ecchymosis (mild ), lower leg (Negative Satish's Sign ) Details: normal to inspection; no erythema and no tenderness, ankle (+ankle dorsiflexion/plantarflexion ) Details: normal to inspection, no edema and normal ROM; no tenderness, no swelling and no ecchymosis and foot Details: normal capillary refill, normal to inspection, vascular exam Details: dorsalis pedis pulse present and motor-sensory exam Details: light-touch normal; no tenderness Left lower extremity: normal to inspection Psych: Mental Status: mental status grossly normal Objective Data Vital Signs Vital Signs: Vital Signs - 24 hr 02/20/23 12:00 02/20/23 16:00 02/20/23 20:44 Temperature 36.0 C L 36.6 C Pulse Rate 69 73 Respiratory Rate 14 16 Blood Pressure 95/58 L 93/55 L 116/66 Pulse Oximetry 99 96 Oxygen Delivery 02/20/23 20:00 02/20/23 20:58 02/21/23 00:55 Temperature 36.3 C L 35.9
--- NOTE | 2023-02-21 09:27 | PM.DS ---
DS: Admitting Diagnosis Discharge Date 02/21/23 Admitting Diagnosis Right Knee DJD DS: Discharge Diagnosis Discharge Diagnosis (1) S/P total knee arthroplasty: Qualifiers: Laterality: right Qualified Code(s): Z96.651 - Presence of right artificial knee joint Code(s): Z96.659 - Presence of unspecified artificial knee joint Status: Acute Assessment and Plan: POD #2: Right TKA Continue PT/OT. WBAT. Walker. HIGH FALL RISK. Continue pain control. Ice knee. Protect skin. DVT prophylaxis with Aspirin. SCDs. Incentive Spirometry Use reviewed. Monitor Dressing. Change prior to discharge. Bowel Regimen. Dispo: Home with Home Health today. (2) Anxiety: Code(s): F41.9 - Anxiety disorder, unspecified Status: Acute (3) Bipolar 1 disorder: Code(s): F31.9 - Bipolar disorder, unspecified Status: Acute DS: Summary Hospital Course Reason for hospitalization: Right TKA Hospital Course: 72 year old female admitted s/p Right TKA for postoperative medical management, pain control and mobilization with PT/OT. Slow progress with PT/OT on POD #1 and inability to be discharged home. Improvement on POD #2. Patient progressed well with PT/OT. Pain and vitals remained stable throughout. The patient has been cleared to be discharged home with home health at this time. All discharge care instructions reviewed at depth. New medications reviewed. Follow up planned for 3 weeks in the outpatient orthopedic clinic with Dr. Godinez. Status at Discharge Functional status at discharge: uses cane/walker Overall status at discharge: patient is progressing back to baseline Time Spent with Patient Time attestation: Total time spent providing and/or coordinating discharge services: Time spent: Less than 30 minutes Exam Const: General: comfortable and no acute distress Resp: Effort & Inspection: normal respiratory effort Cardio: Rate: regular rate Rhythm: regular rhythm Skin: General skin exam: wounds noted Wounds: wounds noted Other: Incision c/d/i. No surrounding redness/warmth. No hematoma. Mild ecchymosis. No wound dehiscence Neuro: Cognition (Neuro): normal cognition Other: NV intact. Moves toes. Sensation intact to light touch. +ankle dorsiflexion/plantarflexion. Extrem: Right lower extremity: normal to inspection, knee Details: tenderness (diffuse, mild ) Location: of the patella, swelling (diffuse, consistent with surgical intervention ), abnormal ROM Details: pain with active ROM during, pain with passive ROM during and with range as follows (limited due to recent surgical intervention ); able to extend lower leg actively and ecchymosis (mild ), lower leg (Negative Satish's Sign ) Details: normal to inspection; no erythema and no tenderness, ankle (+ankle dorsiflexion/plantarflexion ) Details: normal to inspection, no edema and normal ROM; no tenderness, no swelling and no ecchymosis and foot Details: normal capillary refill, normal to inspection, vascular exam Details: dorsalis pedis pulse present and motor-sensory exam Details: light-touch normal; no tenderness Left lower extremity: normal to inspection Psych: Mental Status: mental status grossly normal Discharge Plan Discharge Attending physician on discharge: Nabeel Godinez Patient Disposition: Home Health Service Activity: may shower, no driving and follow weight bearing status Diet: as tolerated Wound Care Instructions: follow printed instructions and keep dressing dry Discharge Instructions: Per Care Coordination , patient to discharge with [facility] ([phone]) for PT/OT and mcc services. Agency will call to arrange initial visit. Post Op Total Knee Replacement Instructions Dr. Nabeel Godinez [phone] Your dressing will be changed prior to your discharge. You will be sent home with one additional dressing to be changed on post op day 7 by the home health RN. You
== END 2023-02-21 15:30 | disposition home health service (06) ==
LOC: ANHSURGERY 16:19 → ANH3MEDSUR 02-21 14:04
PROVIDERS: Admitting Provider Orthopaedic Surgery; PCP Family Medicine; Visit Provider Nurse Practitioner Family
PROC: (CPT 27447; principal; 2023-02-19 07:30)
DX: M17.11 Unilateral primary osteoarthritis, right knee (principal); F41.9 Anxiety disorder, unspecified; F31.9 Bipolar disorder, unspecified; J44.9 Chronic obstructive pulmonary disease, unspecified; I10 Essential (primary) hypertension; E03.9 Hypothyroidism, unspecified; E66.3 Overweight; Z68.26 Body mass index [BMI] 26.0-26.9, adult; Z86.14 Personal history of Methicillin resistant Staphylococcus aureus infection; Z82.61 Family history of arthritis; F10.90 Alcohol use, unspecified, uncomplicated; Z79.51 Long term (current) use of inhaled steroids; Z79.1 Long term (current) use of non-steroidal anti-inflammatories (NSAID); Z79.899 Other long term (current) drug therapy
CPT/HCPCS: 27447; 64447; 36415; 73560; 80048; 80307; 82040; 83036; 85025; 85610; 85730; 86850; 86900; 86901; 87081; 94640; 97110; 97116; 97161; 97165; 97530; 97535; A9270; C1713; C1776; G0378; J0171; J0690; J1100; J1885; J2250; J2270; J2370; J2405; J2704; J2795; J3010; J7030; J7120

== ENCOUNTER 2023-03-20 09:23 | Inpatient (IN) | payer OTHER, SELFPAY ==
[2023-03-20] VITALS (27 sets, daily range): BP systolic 67–132; BP diastolic 35–80; PULSE 84–137; RESP 15–28; TEMP 36.4–37.3; O2SAT 93–100; BMI 30.3
--- NOTE | ~2023-03-20 | CT_ITS ---
EXAMINATION: CT cervical spine wo con DATE: 03/25/2023 10:59 INDICATION: Weakness. TECHNIQUE: Computed tomography (CT) of the cervical spine was performed without intravenous contrast. Automated exposure control and iterative reconstruction technique were employed. The dose-length pro duct was 328.39 mGy-cm. COMPARISON: None FINDINGS: C1 ring is ununited posteriorly, a normal variant. There is kyphosis of cervical spine. The re is 3 mm anterolisthesis of C3 on C4 and C4 on C5. There are changes of anterior fusion from C3 to C7 with healed interbody bone graft. There is an anterior plate with screws from C3 to C5. There are changes of posterior fusion from C3 to C7 with lateral mass screws from C3 to C5. There is lucency ar ound the right C3 screw, consistent with loosening. There is a chronic compression fracture of T1 wit h 1/5 loss of height. Intervertebral disc heights are normal at C2-C3 and C7-T1. There are laminectom ies at C3 and C4. The following disc levels are specifically discussed: C2-C3: There is mild bilateral uncovertebral joint osteoarthritis. There is moderate right and severe left facet joint osteoarthritis. There is mild left neural foraminal stenosis. There is no central c anal stenosis. C3-C4: There is ankylosis of the uncovertebral joints with mild hypertrophy. There is ankylosis of th e facet joints with mild hypertrophy. There is mild right neural foraminal stenosis. There is no cent ral canal stenosis. C4-C5: There is ankylosis of the uncovertebral joints with mild hypertrophy. There is ankylosis of th e facet joints with mild hypertrophy. There is mild right neural foraminal stenosis. There is no cent ral canal stenosis. C5-C6: There is ankylosis of the uncovertebral joints without hypertrophy. There is ankylosis of the facet joints without hypertrophy. There is no neural foraminal stenosis. There is no central canal st enosis. C6-C7: There is ankylosis of the uncovertebral joints without hypertrophy. There is ankylosis of the facet joints without hypertrophy. There is no neural foraminal stenosis. There is no central canal st enosis. C7-T1: There is moderate bilateral uncovertebral joint osteoarthritis. There is severe bilateral face t joint osteoarthritis. There is mild bilateral neural foraminal stenosis. There is mild central maria guadalupe l stenosis. IMPRESSION: 1. Mild cervical spondylosis. 2. Anterior and posterior fusion from C3 to C7. Reviewed, dictated and finalized at location A.
--- NOTE | ~2023-03-20 | XR_ITS ---
EXAMINATION: XR wrist LT 2V DATE: 03/24/2023 12:07 INDICATION: Left wrist pain. TECHNIQUE: 2 views of left wrist were obtained. COMPARISON: None. FINDINGS: Bone alignment is normal. No fracture. There is diffuse osteopenia. There is mild osteoarth ritis of first carpometacarpal joint and second-fourth metacarpophalangeal joints. IMPRESSION: 1. Mild polyarticular osteoarthritis. Reviewed, dictated and finalized at location A.
--- NOTE | ~2023-03-20 | CT_ITS ---
Non-contrast Head CT History: Confusion, status post fall Technique: Axial non-contrast imaging of the brain was performed. Dose reduction technique was used on this scan by utilizing automated exposure control and iterative reconstruction technique. The dose -length product (DLP) was 605.33 mGy-cm. Findings: There is no evidence of intracranial hemorrhage, mass lesion, or acute infarct. Brain par enchyma appears normal. The ventricles and subarachnoid spaces are mildly dilated. The calvarium wilder ears normal. The visualized paranasal sinuses and mastoid air cells are clear. Impression: No acute abnormality. Mild generalized atrophy. Reviewed, dictated and finalized at [facility]. Impression: No acute abnormality. Mild generalized atrophy.
--- NOTE | ~2023-03-20 | XR_ITS ---
XR chest 1V portable DATE: 03/20/2023 11:40 INDICATION: Elevated white blood cell count. Fall. TECHNIQUE: Portable AP upright chest on 03/20/2023 at 1133 hours COMPARISON: 03/25/2022 CT chest 12/21/2021 2 view chest FINDINGS: Normal heart size. There is aortic calcification and mild unfolding. No hilar or mediasti nal enlargement. No pulmonary infiltrate or consolidation, pulmonary vascular congestion or pneumoth orax. There is osteopenia. Status post anterior and posterior cervical spine surgical fusion. IMPRESSION: No active cardiopulmonary disease Aortic atherosclerosis Reviewed, dictated and finalized at location L.
--- NOTE | ~2023-03-20 | US_ITS ---
EXAMINATION: US venous doppler [facility] DATE: 03/24/2023 12:54 INDICATION: Lower limb swelling. TECHNIQUE: Grayscale ultrasound images without and with compression and Doppler ultrasound images of the bilateral lower extremity veins were obtained. COMPARISON: None. FINDINGS: The visualized portions of right common femoral vein, profunda (deep) femoral vein, femoral vein, pop liteal vein, peroneal veins, posterior tibial veins, and greater saphenous vein outflow are patent. The visualized portions of left common femoral vein, profunda femoral vein, femoral vein, popliteal v ein, posterior tibial veins, and greater saphenous vein outflow are patent. IMPRESSION: 1. No deep venous thrombosis. Reviewed, dictated and finalized at location A.
--- NOTE | ~2023-03-20 | XR_ITS ---
EXAMINATION: XR elbow LT 2V DATE: 03/24/2023 12:06 INDICATION: Left elbow pain and swelling. TECHNIQUE: 2 views of left elbow on 4 radiographs were obtained. COMPARISON: Left elbow radiographs 11/09/2021 FINDINGS: Bone alignment is normal. There is plate and screw fixation of proximal ulna. No acute frac ture. There is mild elbow joint osteoarthritis. There is an elbow joint effusion. There is posterior forearm soft tissue swelling. IMPRESSION: 1. Mild elbow joint osteoarthritis. 2. Elbow joint effusion. Reviewed, dictated and finalized at location A.
--- NOTE | ~2023-03-20 | CT_ITS ---
EXAMINATION: CT brain wo con DATE: 03/25/2023 10:59 INDICATION: Weakness. TECHNIQUE: Computed tomography (CT) of the head was performed without intravenous contrast. The mA wa s adjusted according to patient size. Iterative reconstruction technique was employed. The dose-lengt h product was 605.33 mGy-cm. COMPARISON: Head CT 03/20/2023 FINDINGS: There are scattered areas of low attenuation in the cerebral white matter. There is no intr acranial hemorrhage, acute infarction, or abnormal intracranial mass lesion. The ventricles are radha l in size. There are likely changes of ocular lens replacement surgeries. There is mild mucosal thick ening in the ethmoid sinuses. The mastoid air cells are normal. IMPRESSION: 1. Stable mild nonspecific cerebral white matter disease, which likely represents chronic small vesse l ischemic disease. Reviewed, dictated and finalized at location A. IMPRESSION: 1. Stable mild nonspecific cerebral white matter disease, which likely represen ts chronic small vessel ischemic disease.
--- NOTE | ~2023-03-20 | XR_ITS ---
EXAMINATION: XR chest 1V portable Exam Date/Time: 03/24/2023 18:08 CDT HISTORY: SOB Comparison: 03/20/2023. RESULT: Lines, tubes, and devices: Cervical spine fusion hardware. Lungs and pleura: Diffuse reticular opacities, cephalized vessels. No focal consolidation. Cardiomediastinal silhouette: Stable. Other: No acute osseous or upper abdominal finding. IMPRESSION: Mild interstitial edema. Reviewed, dictated and finalized at location K. IMPRESSION: Mild interstitial edema.
--- NOTE | ~2023-03-20 | XR_ITS ---
EXAMINATION: XR knee RT min 4V DATE: 03/20/2023 10:05 INDICATION: Right knee injury. Fall. TECHNIQUE: 4 views of right knee were obtained. COMPARISON: Right knee radiograph 03/13/2023 FINDINGS: There is a total right knee arthroplasty in near-anatomic alignment without patellar resurf acing. No fracture. No periprosthetic lucency to suggest loosening or infection. There are tiny osteo phytes of the patella. There is heterotopic ossification in the area of medial collateral ligament. T here is a large knee joint effusion. There is gas in the knee joint, consistent with recent surgery. Prepatellar soft tissue swelling is noted. IMPRESSION: 1. Total right knee arthroplasty in near-anatomic alignment. 2. Large right knee joint effusion. Reviewed, dictated and finalized at location A.
--- NOTE | ~2023-03-20 | US_ITS ---
EXAMINATION: US venous doppler UE RT DATE: 03/27/2023 12:19 INDICATION: Right upper extremity swelling TECHNIQUE: Mendez scale images with and without compression and Doppler images of the right upper extre mity veins were obtained. COMPARISON: No prior studies for comparison. . FINDINGS: The right internal jugular vein, subclavian vein, axillary vein, brachial veins, basilic vein, radial vein, and ulnar vein are patent. There is superficial venous thrombosis of the right cephalic vein. IMPRESSION: 1. Superficial venous thrombosis of the right cephalic vein. No evidence for deep venous thrombosis o f the right upper extremity. Reviewed, dictated and finalized at location L. IMPRESSION: 1. Superficial venous thrombosis of the right cephalic vein. No evidence for de ep venous thrombosis of the right upper extremity.
--- NOTE | 2023-03-20 10:26 | ECG_ITS ---
Measurements Intervals [place] Rate: 85 P: 23 PA: 142 QRS: 57 QRSD: 90 T: 61 QT: 379 QTc: 452 Interpretive Statements SINUS RHYTHM COMPARED TO ECG 01/31/2023 11:06:29 NO SIGNIFICANT CHANGES Electronically Signed On 03-20-2023 13:48:33 CDT by Vangie Chavira M.D.
[2023-03-20 10:43] LABS: Hematocrit 29.8 % (37.0-47.0); Hemoglobin 9.1 g/dL (12.0-15.0); Mean Corpuscular HGB Conc 30.5 g/dl (32-36); Mean Corpuscular Hemoglobin 29.5 pg (26-34); Mean Corpuscular Volume 96.8 fl (80-100); Mean Platelet Volume 8.6 fl (7.4-10.4); Platelet Count Result 277 k/mm3 (150-375); Red Blood Count 3.08 M/mm3 (4.2-5.4); Red Cell Distribution Width 13.8 % (11.5-14.5); White Blood Count 17.3 K/mm3 (4.5-10.0)
[2023-03-20 10:53] LABS: Alanine Aminotransferase 36 U/L (6-35); Albumin Level 3.7 g/dL (3.5-5.1); Alkaline Phosphatase 123 U/L (38-126); Anion Gap 9 mmol/L (8-16); Aspartate Amino Transferase 106 U/L (14-36); Bilirubin,Total 0.5 mg/dL (0.2-1.3); Blood Urea Nitrogen 21 mg/dL (7-17); Calcium 7.7 mg/dL (8.4-10.2); Carbon Dioxide 22 mmol/L (22-30); Chloride 102 mmol/L (98-107); Estimated CRCL calculation 49 ml/min; Estimated Glomerular Filt Rate > 60; Glucose 126 mg/dL (65-110); Potassium 3.5 mmol/L (3.4-5.0); Sodium 133 mmol/L (137-145)
--- NOTE | 2023-03-20 10:56 | ED.FALL ---
HPI - Fall General Chief Complaint: Fall <Merlyn Méndez PA-C - Last Filed: 03/20/23 18:22> Stated Complaint: GLF RT KNEE <Merlyn Méndez PA-C - Last Filed: 03/20/23 18:22> Time Seen by Provider: 03/20/23 10:47 <Merlyn Méndez PA-C - Last Filed: 03/20/23 18:22> History of Present Illness HPI Narrative: 72-year-old female with a history of PAD, COPD, s/p right knee arthroplasty on 02/[address] Godinez reports for evaluation of right knee pain after a fall that occurred yesterday. Patient states she was walking with her walker, the walker got caught on the rug and she fell to the ground. She states she landed on her buttocks, did not hit her head or lose consciousness. She reports she was on the ground for 12 hours until EMS came to assist her off of the ground and brought her to the ED. She was unable to call EMS sooner due to her phone and watch not working. Her only complaint is severe right knee pain. She reports purulent drainage out of her incision states that started 3 days ago along with warmth to her knee and difficulty moving her knee. She has been unable to ambulate since the fall secondary to knee pain. She denies fever, bodyaches, chills, chest pain or shortness of breath, cough or congestion, urinary complaints, vision changes, focal numbness or weakness, headache or other injuries acquired during the fall. States her last appointment with Dr. Godinez was March 13. <Merlyn Méndez PA-C - Last Filed: 03/20/23 18:22> Related Data Home Medications: Home Medications Medication Instructions Recorded Confirmed lamotrigine 150 mg tablet 150 mg PO BID 12/21/20 03/20/23 [id number]-Mt-hjcb-minerals 1 tablet PO DAILY 12/21/20 03/20/23 (Multiple Vitamin, Womens tablet) armodafinil 150 mg tablet 150 mg PO BID 08/20/21 03/20/23 aripiprazole 10 mg tablet 10 mg PO BID 11/18/22 03/20/23 sertraline 100 mg tablet 100 mg PO QAM 11/18/22 03/20/23 tizanidine 4 mg tablet 4 mg PO HS 11/18/22 03/20/23 levothyroxine 25 mcg tablet 25 mcg PO QAM 02/07/23 03/20/23 (Synthroid) <Merlyn Méndez PA-C - Last Filed: 03/20/23 18:22> Allergies/Adverse Reactions: Allergies Allergy/AdvReac Type Severity Reaction Status Date / Time No Known Allergies Allergy Verified 03/20/23 15:53 <GABBY Joseph Last Filed: 03/20/23 18:22> Review of Systems Review of Systems: CONSTITUTIONAL: Denies fever, chills EYES: Denies visual changes, redness, or discharge. ENT: Denies rhinorrhea, congestion, sore throat, or otalgia. CARDIOVASCULAR: Denies chest pain, palpitations, or edema. RESPIRATORY: Denies cough or dyspnea. GASTROINTESTINAL: Denies abdominal pain, nausea, vomiting, or diarrhea. GENITOURINARY: Denies dysuria or hematuria. SKIN: Denies rash or itching. MUSCULOSKELETAL: See HPI NEUROLOGIC: Denies headache, numbness, dizziness, or weakness. PSYCHIATRIC: Denies anxiety or depression. <Merlyn Méndez PA-C - Last Filed: 03/20/23 18:22> [facility] Past Medical History Medical History: Medical History (Updated 03/20/23 @ 22:04 by Dang Elias NP) Anxiety Arthritis Bipolar 1 disorder COPD (chronic obstructive pulmonary disease) Elbow fracture, left H/O: HTN (hypertension) HTN (hypertension) with goal to be determined Hypothyroidism MRSA (methicillin resistant Staphylococcus aureus) Nerve damage Olecranon fracture Sepsis <GABBY Joseph Last Filed: 03/20/23 18:22> Surgical History Surgical History: Surgical History H/O neck surgery 2019, [facility] H/O toe surgery 2013, [facility] History of appendectomy History of back surgery 2019, [facility] History of gastric bypass S/P total knee arthroplasty <GABBY Joseph Last Filed: 03/20/23 18:22> Family History Family History: Family History (Reviewed 03/20/23 @ 20:49 by Dang Ramirez
[2023-03-20 10:57] LABS: INR 1.2
[2023-03-20 10:58] LABS: Partial Thromboplastin Time 37.2 SECONDS (22.3-36.8)
[2023-03-20 11:12] LABS: Appearance Urine Clear (Clear); Bacteria Urine None Seen /hpf; Bilirubin Urine Negative (Negative); Blood Urine 3+ (Negative); Color Urine Yellow (Yellow); Glucose Urine UA Negative (Negative); Ketones Urine Negative (Negative); Leukocyte Esterase Ur Negative LEU/UL (Negative); Nitrate Urine Negative (Negative); Non Pathogenic Casts 0-2; Protein Urine 1+ mg/dL (Negative); Specific Grav Ur 1.021 (1.001-1.035); Squamous Epithelial Cell Urine None seen /hpf (Few); WBC Urine 0-5 /hpf; pH Urine 5.5 (5.0-9.0)
[2023-03-20] MEDS: SODIUM CHLORIDE 0.9% IV 1,000 ML 999 ML IV CONT ×5 (11:13→21:30)
[2023-03-20] MEDS: fentaNYL CITRATE INJ (*CRX) 100 MCG/2 ML VIAL 50 MCG IV PUSH ×4 (11:13→19:43)
[2023-03-20 11:16] LABS: Band Neutrophils Percent 10 % (0-6); Lymphocytes Absolute Manual 0.51 K/mm3 (1.1-4.5); Monocytes Absolute Manual 0.86 K/mm3 (0.1-0.90); Monocytes Percent Manual 5 % (3-9); Neutrophils Absolute Manual 15.91 K/mm3 (1.7-7.2); Neutrophils Percent Manual 82 % (46-73); Total Cells Counted 100
[2023-03-20 11:17] LABS: Creatine Kinase 8705 U/L (30-135)
[2023-03-20 11:18] LABS: Anisocytosis 1+ (NORMAL); Platelet Estimate Adequate (Adequate); Schistocytes None Seen (NORMAL)
[2023-03-20 11:20] LABS: Add Urine Microscopic? YES
[2023-03-20] MEDS: CEFEPIME 2 GM/NS 50 ML 2 GM/50 ML BAG IVPB ×2 (11:44→19:51)
[2023-03-20 11:47] LABS: Lactic Acid Reflex 1.7 mmol/L (0.7-2.0)
[2023-03-20 11:54] LABS: Magnesium 1.8 mg/dL (1.6-2.3); Phosphorus 4.5 mg/dL (2.5-4.5)
[2023-03-20 11:55] LABS: Erythrocyte Sedimentation Rate 28 mm/hr (0-20)
[2023-03-20 12:01] LABS: CRP 21.5 mg/dL (<1.0)
--- NOTE | 2023-03-20 12:25 | PC.NURSE ---
VANC INFUSION TO BE HELD UNTIL DETERMINATION IF JOINT NEEDS ASPIRATED
[2023-03-20] MEDS: ACETAMINOPHEN 500 MG TABLET 1000 MG PO (13:05)
--- NOTE | 2023-03-20 13:39 | PC.NURSE ---
DR CANNON TO BEDSIDE TO EXAMINE PT. ASPIRATED APPROX 30MLS OF PURULENT DRAINAGE FROM KNEE. PT TOLERATED WELL. SAMPLE SENT TO [facility] FOR ANALYSIS
[2023-03-20] MEDS: LIDOCAINE HCL 1% LOCAL INJ 10 ML VIAL (13:42)
--- NOTE | 2023-03-20 14:19 | PM.CNOR ---
Assessment and Plan Assessment and plan (1) Septic arthritis of knee, right: Qualifiers: Septic arthritis organism: due to unspecified organism Qualified Code(s): M00.9 - Pyogenic arthritis, unspecified Code(s): M00.9 - Pyogenic arthritis, unspecified Status: Acute Assessment and Plan: ESME IS S/P R TKA JUST UNDER 4 WEEKS POSTOP. I ASPIRATED HER KNEE AND GROSS PURULENCE WAS IDENTIFIED. SHE WILL REQUIRE INCISION AND DRAINAGE WITH POLY EXCHANGE VS RESECTION ARTHROPLASTY. HISTORY, EXAM AND RADIOGRAPHS REVIEWED WITH THE PATIENT. REFERRING PHYSICIAN RECORDS AND IMAGES REVIEWED. CONDITION, NATURE, ETIOLOGY AND COURSE OF NATURAL HISTORY REVIEWED. CONSERVATIVE AND OPERATIVE TREATMENT OPTIONS REVIEWED WELL THE RISKS AND BENEFITS OF EACH. DISCUSSED NONOPERATIVE AND OPERATIVE TREATMENT OPTIONS WITH THE PATIENT. THE PATIENT'S QUESTIONS WERE ANSWERED. THE PATIENT DESIRES OPERATIVE TREATMENT. DISCUSSED ___RIGHT KNEE I AND D WITH POLY EXCHANGE VS RESECTION ARTHROPLASTY . RISKS OF SURGERY INCLUDING BUT NOT LIMITED TO NEUROVASCULAR DAMAGE, WOUND COMPLICATIONS, BLOOD CLOT, PULMONARY EMBOLUS, STROKE, [place], ANESTHETIC RISKS UP TO AND INCLUDING WERE REVIEWED. CONTINUED PAIN AND POSSIBLE DYSFUNCTION WERE EXPLAINED. NO GUARANTEES WERE OFFERED. THE PATIENT UNDERSTANDS AND WISHES TO PROCEED. (2) S/P total knee arthroplasty: Qualifiers: Laterality: right Qualified Code(s): Z96.651 - Presence of right artificial knee joint Code(s): Z96.659 - Presence of unspecified artificial knee joint Status: Acute History of Present Illness HPI Consult date: 03/20/23 Chief complaint: Septic Arthritis, Rhabdo Narrative: ESME PRESENTED TO THE ED THIS AM FOR COMPLAINTS OF RIGHT KNEE PAIN. SHE FELL YESTERDAY WHILE SHE WAS ON HER WALKER WHEN THE WALKER GAVE OUT ON HER. SHE BEGAN HAVING INCREASED PAIN IN THE KNEE AFTER SHE FELL. SHE WAS ON THE GROUND FOR 12 HOURS PRIOR TO BEING ABLE TO CONTACT EMS. SHE WAS SEEN IN THE ED AND A SEPTIC RIGHT KNEE JOINT WAS SUSPECTED. SHE UNDERWENT RIGHT KNEE REPLACEMENT ON FEBRUARY 19 OF THIS YEAR. SHE HAD LABILE BP AND AN ELEVATED WBC COUNT AND ESR AFTER SHE WAS EVALUATED IN THE ED. SHE WAS SEEN IN MY OFFICE 8 DAYS AGO FOR HER 3 WEEK POSTOP VISIT AND WAS DOING WELL EXPECTED FOR HER POSTOP DATE. SHE ALSO HAS DEVELOPED RHABDOMYOLYSIS FROM BEING ON THE GROUND FOR SO LONG. SHE HAS NEVER BEEN FEBRILE ACCORDING TO THE PATIENT. SHE DENIES ANY FEVER OR CHILLS. SHE DENIES ANY URINARY OR GI SYMPTOMS. SHE DENIES ANY DENTAL PROBLEMS OR RECENT DENTAL PROCEDURES. Review of Systems Review of Systems: All systems reviewed & are unremarkable except as noted in HPI and below PMFSH Past Medical History Medical History Anxiety Arthritis Bipolar 1 disorder COPD (chronic obstructive pulmonary disease) Elbow fracture, left H/O: HTN (hypertension) Hypothyroidism MRSA (methicillin resistant Staphylococcus aureus) Nerve damage Olecranon fracture Sepsis Surgical History Surgical History H/O neck surgery 2019, [facility] H/O toe surgery 2013, [facility] History of appendectomy History of back surgery 2019, [facility] History of gastric bypass S/P total knee arthroplasty Family History Family History Other Depression Family history of arthritis Family history of lung disease Family history of neuropathy Family history of stroke Heart disease Social History Social History Smoking status: Never smoker Second hand tobacco smoke exposure: Yes Alcohol intake: current Drinks per week: 1 Alcohol use details: 2-4 drinks per week Substance use: never Substance use type: does not use Lack of Transportation: No
--- NOTE | 2023-03-20 15:08 | ADMGEN ---
This patient, Miriam Buchanan, was admitted to 2 Medical Room 259-01. Patient/family oriented to hospital policies and general routines including ID bracelet, bed and alarms, visiting hours, pain management, procedures, bathroom and other care routines, personal items, smoking policy, room service/diet, and visiting hours. Information on how to activate the Rapid Response Team has been discussed. Patient/Family are encouraged to report perceived risks to care and to ask questions if they do not understand what they are told or what they should do.
--- NOTE | 2023-03-20 16:02 | PM.IMHP ---
H&P: HPI History of Present Illness Date/Time: 03/20/23 16:02 Chief Complaint: Fall Narrative: this is a 72-year-old female patient who had a right total knee arthroplasty on 02/[address] Godinez and had a fall that occurred yesterday. The patient came in to have her right knee evaluated. The patient stated that she was walking with her walker and her leg gave out. She stated that the walker got caught on the rug and she fell on the ground. She landed on her buttocks but denies hitting her head or losing consciousness. Patient stated she was on the ground for 12 hours and she lives home alone. EMS was able to get her up off the floor and brought her into the emergency room. The patient reports per relate drainage out of her incision that started 3 days ago right knee was warm she is having difficulty moving her leg. The patient has been unable to ambulate since the fall secondary to the knee pain. The patient stated she could not stand on her knee. She denies any fever or chills or any body aches. Her last appointment with Dr. Godinez was on March 13. Her white count 17.3. H&H is 9.1 and 29.8. Sodium 133. Calcium is 7.7. Magnesium is 1.8. Total kinase is 8705. AST is 106 ALT is 36. C reactive protein is 21.5. Dr. Godinez was consulted and which was some fluid from her right knee. The right knee has serous sanguinous drainage and is red and warm and tender. Chest x-ray was read as no active cardiopulmonary disease and aortic atherosclerosis. Knee x-ray was read as total right knee arthroplasty in near anatomic alignment. Large right knee joint effusion. The patient was given vancomycin, cefepime, and IV fluids in the emergency room . The patient is being admitted to inpatient status on the date of service of 03/20/2023. Review of Systems Review of Systems: All systems reviewed & are unremarkable except as noted in HPI and below Constitutional: Constitutional: Reports as per HPI and Reports no additional constitutional complaints Eyes: Eyes: Reports as per HPI and Reports no additional eye complaints ENT: Reports system reviewed and no additional complaints, except as documented and Reports Normal hearing present Cardiovascular: Cardiovascular: Reports no additional cardiovascular complaints Respiratory: Respiratory: Reports no additional respiratory complaints and Reports no additional respiratory complaints Gastrointestinal: Gastrointestinal: Reports as per HPI and Reports no additional gastrointestinal complaints Musculoskeletal: Musculoskeletal: Reports no additional musculoskeletal complaints Integumentary/Breasts: Skin/Breast: Reports system reviewed and no additional complaints, except as docu and Reports as per HPI Neurologic: Reports system reviewed and no additional complaints, except as documented, Reports as per HPI and Reports Normal hearing present Psychiatric: Psychiatric: Reports no additional psychiatric complaints and Reports as per HPI Endocrine: Endocrine: Reports no additional endocrine complaints Hematologic/Lymphatic: Hematologic/Lymphatic: Reports no additional hematologic/lymphatic complaints Allergic/Immunologic: Allergic/Immunologic: Reports no additional allergic/immunologic complaints COUNT INCLUDES THE [facility] Past Medical History Medical History (Updated 03/20/23 @ 22:04 by Dang Elias NP) Anxiety Arthritis Bipolar 1 disorder COPD (chronic obstructive pulmonary disease) Elbow fracture, left H/O: HTN (hypertension) HTN (hypertension) with goal to be determined Hypothyroidism MRSA (methicillin resistant Staphylococcus aureus) Nerve damage Olecranon fracture Sepsis Surgical History Surgical History H/O neck surgery 2019, [facility] H/O toe surgery 2013, [facility] History of appendectomy History of back surgery 2019, [facility] History of gastric bypass S/P total knee arthroplasty Family
[2023-03-20 16:18] LABS: Appearance Synovial Fluid Cloudy (Clear); Color Synovial Fluid Brown (Colorless); Source Synovial Fluid Synovial fluid
[2023-03-20 16:19] LABS: RBC Synovial Fluid 30000 /uL (0-0)
[2023-03-20] MEDS: diazePAM (*CRX) 5 MG TABLET PO (17:30)
[2023-03-20] MEDS: SODIUM CHLORIDE 0.9% IV 1,000 ML 125 ML IV CONT (17:30)
[2023-03-20] MEDS: oxyCODONE HCL (*CRX) 5 MG TAB IR PO (17:30)
[2023-03-20] MEDS: ARIPiprazole 10 MG TABLET PO (18:29)
[2023-03-20] MEDS: KETOROLAC 15 MG/ML VIAL (*BKC) IV PUSH (18:40)
--- NOTE | 2023-03-20 18:54 | ECG_ITS ---
Measurements Intervals [place] Rate: 129 P: IN: 0 QRS: 58 QRSD: 90 T: -8 QT: 320 QTc: 470 Interpretive Statements ATRIAL FIBRILLATION WITH RAPID VENTRICULAR RESPONSE NONSPECIFIC ST & T-WAVE ABNORMALITY COMPARED TO ECG 03/20/2023 11:53:02 ATRIAL FIBRILLATION REPLACES SINUS RHYTHM Electronically Signed On 03-21-2023 12:37:34 CDT by Matthew Thortnon M.D.
[2023-03-20] MEDS: DIGOXIN INJ 250 MCG/ML 2 ML AMP (*BKC) 125 MCG IV PUSH (19:33)
[2023-03-20] MEDS: rOPINIRole HCL 1 MG TABLET 2 MG PO (19:37)
[2023-03-20] MEDS: QUEtiapine FUMARATE 100 MG TABLET 300 MG PO (19:37)
[2023-03-20] MEDS: TIZANIDINE HCL 4 MG TABLET PO (19:37)
[2023-03-20] MEDS: lamoTRIgine 50 MG TABLET 150 MG PO (19:38)
[2023-03-20] MEDS: FLUTICASONE/SALMETEROL 115-21 MCG INHALER 1 PUFF 2 PUFF INHALATION (20:52)
--- NOTE | 2023-03-20 20:59 | PC.NURSE ---
Blood pressure low 66/37 and manual was 82/58. Pt lethargic and slow to respond, hands swelling. Rapid response team called
--- NOTE | 2023-03-20 21:20 | PC.NURSE ---
Luz her sister notified about pt condition and her transfer to ICU
--- NOTE | 2023-03-20 21:23 | ECG_ITS ---
Measurements Intervals [place] Rate: 116 P: SC: 0 QRS: 53 QRSD: 86 T: 35 QT: 336 QTc: 467 Interpretive Statements ATRIAL FIBRILLATION WITH RAPID VENTRICULAR RESPONSE ABNORMAL RHYTHM ECG COMPARED TO ECG 03/20/2023 19:10:01 NO SIGNIFICANT CHANGES Electronically Signed On 03-21-2023 12:39:36 CDT by Matthew Thornton M.D.
[2023-03-20] MEDS: NOREPINEPHRINE 8 MG/D5W 250 ML 8 MG/250 ML BAG 9.38 MG IV CONT (21:30)
--- NOTE | 2023-03-20 21:48 | PC.NURSE ---
after shift change report patients hr still runningn 125-130. sbp 109. ns bous 1000 cc complete. 125mcg of digoxin given x1 as ordered at 1932. fentanyl 50 given for knee pain rated 7/10. patient a and O x3. anxious. reported to xenia murray at 2022 that hr was still running 130. ekg showed new onset afib rvr. another liter bolus of NS started and order recieved for 10mg iv cardizem x1. however manual bp 67/35. neuro status changed and patients speech noted to be slurred and confused. left hand awning spreader weak and slight left mouth droop noted. rapid response called and team responded and assessed. decision made by xenia murray to tx to icu for further eval , w/u and support. patient transferred to icu at 2113.
--- NOTE | 2023-03-20 22:10 | PC.NURSE ---
Received call from daughter Nu . Patient gave permission to release information to daughter.
[2023-03-20] MEDS: AMIODARONE 150 MG/D5W 100 ML 150 MG/100 ML BAG 600 MG IV CONT (22:26)
[2023-03-20] MEDS: AMIODARONE 360 MG/D5W 200 ML 360 MG/200 ML BAG 33.33 MG IV CONT (22:26)
--- NOTE | 2023-03-20 22:29 | PM.CCN ---
Critical Care Event Note Summary Code activated: No Narrative: This is a 72-year-old female patient who came in through the emergency room today with a septic right knee. The patient's right knee was drained today. Her white count was 17.3. Patient was in intense pain and was given pain medication this evening. The patient went into AFib with RVR and was started on IV digoxin. The patient's blood pressure dropped to 70/30 and she was given 2 L boluses. The patient did not respond to the boluses. I then called the belt and link shop supervisor who agreed to consult on the patient. A central line was placed once the patient was taken to ICU. The patient was placed on Levophed and amiodarone. A rapid was called when the patient was on 2nd medical and the patient was transferred to ICU. This case had a high probability of a clinically significant, sudden, or life threatening deterioration of this patient's condition which required my full and direct attention, intervention and personal management. Critical care time: less than 30 mins
--- NOTE | 2023-03-20 22:32 | PC.NURSE ---
2109 transfer to ICU 5 following LICENSING REGISTRATION EXAMINER call
--- NOTE | 2023-03-20 22:34 | WPDPROCEDUR ---
Procedures Central Line Placement Right Femoral: Central Line Date: 03/20/23 Central Line Time: 22:00 Discussed w/ the patient/family/POA,the placement of a central venous catheter, including its clinical necessity/indication & associated potential risks, benifits and alternatives.: Yes The patient/family/POA understand(s) and acknowledge(s) the need to proceed with central venous catheter insertion as an important element of the patient's clinical management.: Yes Consent: I have discussed with the patient and/or surrogate, the non-emergent placement of a central venous catheter, including its clinical necessity/indication and associated potential risks and complications. The patient and/or surrogate understand(s) and acknowledge(s) the need to proceed with central venous catheter insertion as an important element of the patient's clinical management. Time Out Performed: Yes Patient Position: supine Patient placed on monitor/pulse ox: Yes Provider Prep: Max. sterile barrier precautions Central line prep: 2% Chlorhexidine scrub Local anesthesia used: lidocaine 1% Amount of anesthesia used (ml): 5 Sterile US Technique with sterile gel/sterile probe covers: Yes Central line lumen inserted: triple Vietnamese: 7 Length (cm): 16 Depth of Insertion (cm): 16 Post Procedure: sutured in place, good blood return, all ports aspirated, flushed, capped, transparent dressing, hemostatic product and antimicrobial product Complications: none Additional comments: No x-rays required as it is femoral. I did attempt to go into the left femoral area. I was not able to advance the guidewire on the left side. I then went to the right side without any difficulty.
[2023-03-21] VITALS (40 sets, daily range): BP systolic 83–130; BP diastolic 52–86; PULSE 89–119; RESP 14–20; TEMP 36.4–37.7; O2SAT 94–100
--- NOTE | 2023-03-21 | ECHO_ITS ---
Patient Info Name: Miriam Buchanan Age: 72 years : 1950 Gender: Female Ht: 65 in Wt: 182 lbs BSA: 1.97 m2 HR: 117 bpm BP: 109 / 64 mmHg Heart Rhythm: Atrial Fibrillation Technical Quality: Good Exam Date: 03/21/2023 8:07 AM Exam Location: [facility] Patient Status: Inpatient Admit Date: 03/20/2023 Staff Ordering Physician: Dang Elias NP Head Operator Sulfide: Mary Peck RDCS Attending Provider: Wil Hilliard MD Referring Physician: Jada BRENNER; Exam Type: CA echo doppler color flow Study Info Indications - New onset Afib Complete two-dimensional, color flow and Doppler transthoracic echocardiogram is performed. Summary 1. Complete two-dimensional, color flow and Doppler transthoracic echocardiogram is performed. 2. Left ventricular hypertrophy with hyperdynamic appearing systolic function. 3. Biatrial dilation. 4. Mildly sclerotic aortic valve. 5. Atrial fibrillation. Left Ventricle Left ventricular chamber dimension is normal. Left ventricular systolic function is hyperdynamic, estimated at >70%. There is mild concentric increased left ventricular wall thickness. The left ventricular diastolic function is indeterminate. Right Ventricle Right ventricular chamber dimension is normal. Left Atria Left atrial chamber dimension is moderately enlarged. Right Atria Right atrial chamber dimension is moderately enlarged. Aortic Valve The aortic valve is trileaflet. There is mild aortic valve sclerosis. Pulmonic Valve The pulmonic valve is normal. Mitral Valve The mitral valve has normal leaflets. There is trace mitral valve regurgitation. Tricuspid Valve The tricuspid valve leaflets are normal. There is mild tricuspid valve regurgitation. Pericardium/Pleural The pericardium appears normal. Aorta The aortic root size at the sinus of Valsalva is normal. Left Ventricular Outflow Tract Name Value Normal LVOT 2D LVOT Diameter 2.0 cm LVOT Doppler LVOT Peak Gradient 5 mmHg LVOT Mean Gradient 2 mmHg LVOT VTI 18 cm LVOT VTI/AV VTI Ratio 0.6 LVOT Stroke Volume 55 ml LVOT CO 4.4 l/min LVOT CI 2.2 l/min/m2 Pulmonic Valve Name Value Normal RVOT Doppler RVOT Peak Gradient 4 mmHg PV Doppler PV Peak Gradient 6 mmHg Mitral Valve Name Value Normal MV Doppler MV Decel [place] 1,204 cm/s2 MV PHT
[2023-03-21] MEDS: LEVALBUTEROL NEB 1.25 MG/3 ML INHALATION ×4 (02:17→19:56)
[2023-03-21] MEDS: SODIUM CHLORIDE 0.9% IV 1,000 ML 125 ML IV CONT (03:30)
[2023-03-21] MEDS: AMIODARONE 360 MG/D5W 200 ML 360 MG/200 ML BAG 16.67 MG IV CONT ×2 (03:30→18:15)
[2023-03-21] MEDS: ACETAMINOPHEN 325 MG TABLET 650 MG PO (05:18)
[2023-03-21] MEDS: fentaNYL CITRATE INJ (*CRX) 100 MCG/2 ML VIAL 25 MCG IV PUSH (05:18)
[2023-03-21] MEDS: LEVOTHYROXINE SODIUM INJ 100 MCG/5 ML VIAL 12.5 MCG IV PUSH (05:21)
[2023-03-21 05:24] LABS: Hematocrit 26.3 % (37.0-47.0); Hemoglobin 8.2 g/dL (12.0-15.0); Mean Corpuscular HGB Conc 31.2 g/dl (32-36); Mean Corpuscular Hemoglobin 30.3 pg (26-34); Mean Platelet Volume 8.6 fl (7.4-10.4); Platelet Count Result 244 k/mm3 (150-375); Red Blood Count 2.71 M/mm3 (4.2-5.4); Red Cell Distribution Width 13.8 % (11.5-14.5); White Blood Count 11.6 K/mm3 (4.5-10.0)
[2023-03-21 05:39] LABS: Lactic Acid Reflex 0.8 mmol/L (0.7-2.0)
[2023-03-21] MEDS: CENTRAL LINE FLUSH 10 ML IV PUSH ×4 (05:42→23:07)
[2023-03-21 05:43] LABS: Alanine Aminotransferase 45 U/L (6-35); Albumin Level 2.8 g/dL (3.5-5.1); Alkaline Phosphatase 115 U/L (38-126); Anion Gap 3 mmol/L (8-16); Aspartate Amino Transferase 110 U/L (14-36); Bilirubin,Total 0.3 mg/dL (0.2-1.3); Blood Urea Nitrogen 20 mg/dL (7-17); Calcium 7.5 mg/dL (8.4-10.2); Carbon Dioxide 24 mmol/L (22-30); Chloride 111 mmol/L (98-107); Estimated CRCL calculation 53 ml/min; Estimated Glomerular Filt Rate > 60; Glucose 115 mg/dL (65-110); Potassium 4.1 mmol/L (3.4-5.0); Sodium 138 mmol/L (137-145)
[2023-03-21 06:36] LABS: Band Neutrophils Percent 25 % (0-6); Lymphocytes Absolute Manual 1.27 K/mm3 (1.1-4.5); Monocytes Absolute Manual 0.11 K/mm3 (0.1-0.90); Monocytes Percent Manual 1 % (3-9); Neutrophils Percent Manual 63 % (46-73); Platelet Estimate Adequate (Adequate); Total Cells Counted 100
[2023-03-21 06:37] LABS: Anisocytosis 1+ (NORMAL); Atypical Lymphocytes Present; Hypochromasia 1+ (NORMAL); Schistocytes None Seen (NORMAL)
[2023-03-21 07:06] LABS: Creatine Kinase 5190 U/L (30-135)
[2023-03-21] MEDS: KETOROLAC 15 MG/ML VIAL (*BKC) IV PUSH ×2 (08:39→20:25)
[2023-03-21] MEDS: LACTATED RINGERS 1,000 ML 100 ML IV CONT ×2 (08:48→18:18)
[2023-03-21] MEDS: ENOXAPARIN 100 MG/ML SYRINGE 85 MG SUB-Q (08:49)
[2023-03-21] MEDS: CEFEPIME 2 GM/NS 50 ML 2 GM/50 ML BAG IVPB ×2 (08:49→20:15)
[2023-03-21] MEDS: ASPIRIN 325 MG TABLET PO (08:49)
[2023-03-21] MEDS: MORPHINE SULFATE (*CRX) 2 MG/ML INJ IV PUSH (08:57)
[2023-03-21] MEDS: FLUTICASONE/SALMETEROL 115-21 MCG INHALER 1 PUFF 2 PUFF INHALATION ×2 (08:58→19:56)
--- NOTE | 2023-03-21 09:48 | P.PNOP_ITS ---
PATIENT SEEN AND EVALUATED BY MYSELF. PRELIMINARY GRAM POS BACILLI IN SYNOVIAL FLUID. AGREE WITH CURRENT ANTIBIOTIC REGIMEN. SHE IS HEMODYNAMICALLY STABLE. SHE IS STILL IN AFIB. BLOOD PRESSURE IS STABLE. WBC COUNT IS DROPPING. PATIENT RECEIVED LOVENOX TODAY. AFTER SPEAKING WITH CARDIOLOGY AND INTENSIVE CARE TEAM AND SHE WILL BE CLEARED TO GO TO THE OPERATING ROOM TOMORROW FOR IRRIGATION AND DEBRIDEMENT AND POLY EXCHANGE VS RESECTION ARTHROPLASTY WITH SPACER PLACEMENT. I HAVE SPOKEN WITH THE PATIENT WELL. SHE AGREES TO TREATMENT. WE DISCUSSED THE RISKS OF BLEEDING NOW THAT SHE HAS BEEN PLACED ON LOVENOX AND THE COMPLICATIONS BY PROCEEDING WITH SURGERY TODAY. SINCE SHE IS STABLE THEN WE WILL PROCEED IN THE AM ONCE THE LOVENOX WILL HAVE LESS AFFECT ON HER POSTOPERATIVE BLOOD LOSS. Progress Note: A&P Assessment and Plan (1) Septic arthritis of knee, right: Qualifiers: Septic arthritis organism: due to unspecified organism Qualified Code(s): M00.9 - Pyogenic arthritis, unspecified Code(s): M00.9 - Pyogenic arthritis, unspecified Status: Acute Assessment and Plan: Evaluated by Dr. Godinez on 03/20. Underwent aspiration right knee. Preliminary results of synovial fluid revealing gram negative bacilli. IV antibiotics currently managed by er tech. Patient awaiting return to OR with Dr. Godinez for I&D with poly exchange vs. resection arthroplasty. Pending ECHO as of this time. Cover incision with ABD. Begin daily dressing changes for elbow wounds. (2) Septic shock: Code(s): A41.9 - Sepsis, unspecified organism; R65.21 - Severe sepsis with septic shock Status: Acute Assessment and Plan: Movement Education Specialist/Medicine team following (3) HTN (hypertension) with goal to be determined: Code(s): I10 - Essential (primary) hypertension Status: Acute (4) Atrial fibrillation: Code(s): I48.91 - Unspecified atrial fibrillation Status: Acute (5) Hypocalcemia: Code(s): E83.51 - Hypocalcemia Status: Acute (6) Rhabdomyolysis: Qualifiers: Rhabdomyolysis type: non-traumatic Qualified Code(s): M62.82 - Rhabdomyolysis Code(s): M62.82 - Rhabdomyolysis Status: Acute (7) S/P total knee arthroplasty: Qualifiers: Laterality: right Qualified Code(s): Z96.651 - Presence of right artificial knee joint Code(s): Z96.659 - Presence of unspecified artificial knee joint Status: Acute Time Spent With Patient Time: Reviewed rapid response, overnight events, current labs, physical exam with attending MD, Dr. Godinez. Plans for surgical intervention today currently pending. Subjective Subjective Date/Time Seen: 03/21/23 09:48 Interval history: Transfer of care to ICU overnight due to septic shock. Surgical intervention for I&D of right knee pending at the moment due to need for cardiac ECHO. Patient with continued complaints of right knee pain. Concerned about bilateral elbow wounds as well. Receiving breathing treatment at time of exam. Review of Systems Review of Systems: All systems reviewed & are unremarkable except as noted in HPI and below Exam Const: General: comfortable and no acute distress Extrem: Other: Right knee with redness, warmth, swelling. RLE with swelling as well. Serous drainage from more distal aspect of knee. No current dressing in place. Deferred ROM currently due to pain. Skin abrasions on bilateral elbows. Psych: Mental Status: mental status grossly normal Affect: normal affect Obj
--- NOTE | 2023-03-21 09:48 | PM.PNORT ---
Progress Note: A&P Assessment and Plan (1) Septic arthritis of knee, right: Qualifiers: Septic arthritis organism: due to unspecified organism Qualified Code(s): M00.9 - Pyogenic arthritis, unspecified Code(s): M00.9 - Pyogenic arthritis, unspecified Status: Acute Assessment and Plan: Evaluated by Dr. Godinez on 03/20. Underwent aspiration right knee. Preliminary results of synovial fluid revealing gram negative bacilli. IV antibiotics currently managed by postal carrier. Patient awaiting return to OR with Dr. Godinez for I&D with poly exchange vs. resection arthroplasty. Pending ECHO as of this time. Cover incision with ABD. Begin daily dressing changes for elbow wounds. (2) Septic shock: Code(s): A41.9 - Sepsis, unspecified organism; R65.21 - Severe sepsis with septic shock Status: Acute Assessment and Plan: Sort Operations Supervisor/Medicine team following (3) HTN (hypertension) with goal to be determined: Code(s): I10 - Essential (primary) hypertension Status: Acute (4) Atrial fibrillation: Code(s): I48.91 - Unspecified atrial fibrillation Status: Acute (5) Hypocalcemia: Code(s): E83.51 - Hypocalcemia Status: Acute (6) Rhabdomyolysis: Qualifiers: Rhabdomyolysis type: non-traumatic Qualified Code(s): M62.82 - Rhabdomyolysis Code(s): M62.82 - Rhabdomyolysis Status: Acute (7) S/P total knee arthroplasty: Qualifiers: Laterality: right Qualified Code(s): Z96.651 - Presence of right artificial knee joint Code(s): Z96.659 - Presence of unspecified artificial knee joint Status: Acute Time Spent With Patient Time: Reviewed rapid response, overnight events, current labs, physical exam with attending MD, Dr. Godinez. Plans for surgical intervention today currently pending. Subjective Subjective Date/Time Seen: 03/21/23 09:48 Interval history: Transfer of care to ICU overnight due to septic shock. Surgical intervention for I&D of right knee pending at the moment due to need for cardiac ECHO. Patient with continued complaints of right knee pain. Concerned about bilateral elbow wounds as well. Receiving breathing treatment at time of exam. Review of Systems Review of Systems: All systems reviewed & are unremarkable except as noted in HPI and below Exam Const: General: comfortable and no acute distress Extrem: Other: Right knee with redness, warmth, swelling. RLE with swelling as well. Serous drainage from more distal aspect of knee. No current dressing in place. Deferred ROM currently due to pain. Skin abrasions on bilateral elbows. Psych: Mental Status: mental status grossly normal Affect: normal affect Objective Data Vital Signs Vital Signs: Vital Signs - 24 hr 03/20/23 10:17 03/20/23 10:45 03/20/23 11:42 Temperature Pulse Rate 85 85 85 Respiratory Rate 17 15 19 Blood Pressure 96/61 L 97/62 L 95/47 L Pulse Oximetry 100 96 94 Oxygen Delivery Fraction of Inspired Oxygen 03/20/23 12:13 03/20/23 12:31 03/20/23 13:31 Temperature Pulse Rate 86 86 99 Respiratory Rate 16 16 28 H Blood Pressure 101/53 L 100/52 L 132/80 Pulse Oximetry 95 96 96 Oxygen Delivery Fraction of Inspired Oxygen 03/20/23 14:44 03/20/23 15:24 03/20/23 15:36 Temperature 36.9 C 37.3 C Pulse Rate 100 84 110 H Respiratory Rate 16 18 20 Blood Pressure 108/72 95/47 L Pulse Oximetry 100 98 96 Oxygen Delivery Room Air Fraction of Inspired Oxygen 03/20/23 17:21 03/20/23 16:00 03/20/23 18:35 Temperature Pulse Rate 101 H 137 H Respiratory Rate Blood Pressure 111/54 L Pulse Oximetry 96 98 Oxygen Delivery Room Air Fraction of Inspired Oxygen 03/20/23 19:32 03/20/23 19:33 03/20/23 21:01 Temperature 36.8 C Pulse Rate 127 H 127 H Respiratory Rate 16 Blood Pressure 109/57 L 82/58 L Pulse Oximetry 97 Oxygen Delivery Fraction of Inspired Oxy
--- NOTE | 2023-03-21 10:40 | WPDCNINT ---
Assessment and Plan Assessment and plan (1) Septic shock: Code(s): A41.9 - Sepsis, unspecified organism; R65.21 - Severe sepsis with septic shock Status: Acute Assessment and Plan: Septic shock secondary to septic arthritis of right knee which was status post DKA in February 2023 Status post knee joint aspiration which was protamine Continue vancomycin and cefepime. His synovial fluid culture is growing Gram-negative rods in anaerobic bottle. I will add empiric Flagyl Blood cultures are pending She received IV fluid bolus and is currently on IV fluid infusion which will be continued. Switch normal saline to LR due to hyperchloremia Continue Levophed titration to maintain mean arterial pressure Orthopedics following and planning incision and drainage Check echo (2) Atrial fibrillation: Code(s): I48.91 - Unspecified atrial fibrillation Status: Acute Assessment and Plan: Patient went to AFib with RVR yesterday which was likely precipitated by sepsis Currently on amiodarone infusion with improved control of rate Aspirin Lovenox started (3) Septic arthritis of knee, right: Qualifiers: Septic arthritis organism: due to unspecified organism Qualified Code(s): M00.9 - Pyogenic arthritis, unspecified Code(s): M00.9 - Pyogenic arthritis, unspecified Status: Acute Assessment and Plan: See above Check Dopplers of lower extremity to evaluate for DVT (4) S/P total knee arthroplasty: Qualifiers: Laterality: right Qualified Code(s): Z96.651 - Presence of right artificial knee joint Code(s): Z96.659 - Presence of unspecified artificial knee joint Status: Acute Assessment and Plan: See above (5) Rhabdomyolysis: Qualifiers: Rhabdomyolysis type: non-traumatic Qualified Code(s): M62.82 - Rhabdomyolysis Code(s): M62.82 - Rhabdomyolysis Status: Acute Assessment and Plan: CK 5190 IV fluids Monitor CK level (6) Anemia: Code(s): D64.9 - Anemia, unspecified Status: Acute Assessment and Plan: Patient has chronic anemia but hemoglobin is worse which could be hemodilution will from IV fluids No signs of bleeding Monitor hemoglobin Plan DVT prophylaxis -Lovenox subQ therapeutic dose Nutrition -NPO Code Status - Full Code Total Critical Care Time - 35 minutes Due to a high probability of clinically significant, life threatening deterioration, the patient required my highest level of preparedness to intervene emergently and I personally spent this critical care time directly and personally managing the patient. This critical care time included obtaining a history; examining the patient; pulse oximetry; ordering and review of studies; arranging urgent treatment with development of a management plan; evaluation of patient's response to treatment; frequent reassessment; and discussions with other providers. It was exclusive of separately billable procedures and treating other patients and teaching time. Please see Assessment and Plan section and the rest of the note for further information on patient assessment and treatment [employer] Consult Note Consult date: 03/21/23 Reason for consult: Septic shock HPI: Miriam Buchanan is a 72 year old female patient who had a right total knee arthroplasty on 02/[address] Godinez since then patient was doing reasonably well until last 2-3 days when she started noticing swelling of her right knee. The knee was red and painful and she had difficulty walking on it. She denies any fever but did had some chills. Day before presentation she had a fall when she felt her knee give out and she lost her balance and fell. She denies any loss of consciousness or hitting her head. She presented to ER and was found to be having a red swollen knee with elevated WBC count. Septic arthritis of the knee was suspected. X-ray of the knee showed large right knee joint effus
--- NOTE | 2023-03-21 11:58 | PM.CNCAR ---
Assessment and Plan Assessment and plan (1) Atrial fibrillation: Code(s): I48.91 - Unspecified atrial fibrillation Status: Acute Plan 72-year-old lady with infected prosthetic right knee. In the setting of sepsis she became tachycardic and reverted into acute atrial fibrillation last evening. Because of the hypotensive picture she was started on intravenous amiodarone which continues at this time. She is hemodynamically more stable but still in atrial fibrillation. She did receive 1 dose of Lovenox today which has changed plans in terms of taking her to the operating room for a cleanout procedure. She she should receive ongoing amiodarone infusion in my opinion. I am going to order some oral metoprolol for her which may also help convert her to sinus rhythm. She will not be anticoagulated any longer until her knee washout procedure takes place. The plan is that she will be in the hospital for a good deal of time while this is addressed and while she is here I believe our strategy will be to restore sinus rhythm since atrial fibrillation began acutely yesterday. Matthew Thornton MD [facility] History of Present Illness History of Present Illness Consult date/time: 03/21/23 11:58 Consult reason: atrial fibrillation Reason For Visit: Septic Arthritis, Rhabdo Narrative: This is a 72-year-old woman I am seeing at the request of the hospitalist's to assist with the management of atrial fibrillation. The patient is unknown to me prior to this evaluation and she reports no prior history of any cardiac problems. She was admitted to the hospital yesterday after falling at her home and valve was unable to get up and on transportation to the emergency room here was found to have a infected right knee. She unfortunately is about 1 month status post right knee replacement that was done here at [facility]. The knee was warm and had a palpable infusion. It was aspirated and a grossly. Length fluid was returned. She is anticipating going to the OR for a washout of this joint. After being seen in the emergency room and then going up stairs she became unstable last night with hypotension and significant tachycardia and was seen to have reverted into atrial fibrillation with rapid ventricular response. She was placed on intravenous amiodarone with a bolus and infusion and transported to the ICU. She was receiving some Levophed briefly but pressors have now been weaned. She is in considerable pain from her right knee at this time but offers no other complaints. Intravenous amiodarone is still running at the 0.5 mg dosage and her heart rate is 110-120 at the time of my evaluation her blood pressure is normal her vital signs are otherwise intact. She has a history of bipolar disorder she denies any other previous medical problems. Review of Systems Constitutional: Constitutional: Reports no additional constitutional complaints Eyes: Eyes: Reports no additional eye complaints ENT: Reports system reviewed and no additional complaints, except as documented Cardiovascular: Cardiovascular: Reports no additional cardiovascular complaints Respiratory: Respiratory: Reports no additional respiratory complaints Gastrointestinal: Gastrointestinal: Reports no additional gastrointestinal complaints Musculoskeletal: Musculoskeletal: Reports as per HPI Integumentary/Breasts: Skin/Breast: Reports system reviewed and no additional complaints, except as docu Neurologic: Reports system reviewed and no additional complaints, except as documented Psychiatric: Psychiatric: Reports as per HPI Endocrine: Endocrine: Reports no additional endocrine complaints Hematologic/Lymphatic: Hematologic/Lymphatic: Reports no additional hematologic/lymphatic complaints Allergic/Immunologic: Allergic/Immunologic: Reports no additional allergic/immunologic complaints PMFSH Past Medical History Medical History
[2023-03-21] MEDS: MORPHINE SULFATE (*CRX) 4 MG/ML INJ IV PUSH ×4 (12:05→23:06)
[2023-03-21] MEDS: METOPROLOL TARTRATE 25 MG TABLET PO ×2 (12:22→20:13)
--- NOTE | 2023-03-21 12:22 | PM.IMPN ---
Progress Note: A&P Assessment and Plan (1) Septic shock: Code(s): A41.9 - Sepsis, unspecified organism; R65.21 - Severe sepsis with septic shock Status: Acute Assessment and Plan: Septic shock secondary to septic arthritis of right knee which was status post DKA in February 2023 Status post knee joint aspiration which was protamine Continue vancomycin and cefepime. His synovial fluid culture is growing Gram-negative rods in anaerobic bottle. I will add empiric Flagyl Blood cultures are pending She received IV fluid bolus and is currently on IV fluid infusion which will be continued. Switch normal saline to LR due to hyperchloremia Continue Levophed titration to maintain mean arterial pressure Orthopedics following and planning incision and drainage Check echo (2) Atrial fibrillation: Code(s): I48.91 - Unspecified atrial fibrillation Status: Acute Assessment and Plan: Patient went to AFib with RVR yesterday which was likely precipitated by sepsis Currently on amiodarone infusion with improved control of rate Aspirin Lovenox started (3) Septic arthritis of knee, right: Qualifiers: Septic arthritis organism: due to unspecified organism Qualified Code(s): M00.9 - Pyogenic arthritis, unspecified Code(s): M00.9 - Pyogenic arthritis, unspecified Status: Acute Assessment and Plan: See above Check Dopplers of lower extremity to evaluate for DVT (4) S/P total knee arthroplasty: Qualifiers: Laterality: right Qualified Code(s): Z96.651 - Presence of right artificial knee joint Code(s): Z96.659 - Presence of unspecified artificial knee joint Status: Acute Assessment and Plan: See above (5) Rhabdomyolysis: Qualifiers: Rhabdomyolysis type: non-traumatic Qualified Code(s): M62.82 - Rhabdomyolysis Code(s): M62.82 - Rhabdomyolysis Status: Acute Assessment and Plan: CK 5190 IV fluids Monitor CK level (6) Anemia: Code(s): D64.9 - Anemia, unspecified Status: Acute Assessment and Plan: Patient has chronic anemia but hemoglobin is worse which could be hemodilution will from IV fluids No signs of bleeding Monitor hemoglobin Plan Management per fire prevention chief Subjective Date/time seen: 03/21/23 12:22 Interval history: No new events Review of Systems Review of Systems: All systems reviewed & are unremarkable except as noted in HPI and below (HPI) Exam Narrative: General: Pt is alert awake and in NAD Lungs/Chest: Trachea central Clear BS B/L, No crackles or wheezing. Cardiac: RRR. Normal S1 S2. No murmurs Circulation: Pedal pulses are intact and symmetrical. Abdomen: Normal bowel sounds.. Soft. NT. ND. Extremities: Right knee swollen red and tender with small opening, edema in right lower leg : Howe in place Neurologic: Follows commands. Moves all 4 extremities PERRL AO x3 Skin: No Rash Objective Data Vital Signs Vital Signs: Vital Signs - 24 hr 03/20/23 12:31 03/20/23 13:31 03/20/23 14:44 Temperature 98.5 F Pulse Rate 86 99 100 Respiratory Rate 16 28 H 16 Blood Pressure 100/52 L 132/80 108/72 Pulse Oximetry 96 96 100 Oxygen Delivery Fraction of Inspired Oxygen 03/20/23 15:24 03/20/23 15:36 03/20/23 17:21 Temperature 99.1 F Pulse Rate 84 110 H Respiratory Rate 18 20 Blood Pressure 95/47 L Pulse Oximetry 98 96 96 Oxygen Delivery Room Air Room Air Fraction of Inspired Oxygen 03/20/23 16:00 03/20/23 18:35 03/20/23 19:32 Temperature 98.2 F Pulse Rate 101 H 137 H 127 H Respiratory Rate 16 Blood Pressure 111/54 L 109/57 L Pulse Oximetry 98 97 Oxygen Delivery Fraction of Inspired Oxygen 03/20/23 19:33 03/20/23 21:01 03/20/23 21:01 Temperature Pulse Rate 127 H Respiratory Rate Blood Pressure 82/58 L 67/35 L Pulse Oximetry Oxygen Delivery Fraction of Inspired Oxygen 03/20/23 18:35 03/20
[2023-03-21] MEDS: metroNIDAZOLE 500 MG/ISO 100ML 500 MG/100 ML BAG 100 MG IVPB ×2 (12:23→20:15)
[2023-03-21] MEDS: ALBUMIN HUMAN 25% 25 GM/100 ML 100 ML IVPB ×3 (12:24→23:07)
[2023-03-21] MEDS: VANCOMYCIN 1,250 MG/NS 250 ML 1,250 MG/250 ML BAG 166.67 MG IVPB (12:24)
[2023-03-21] MEDS: SILVERGEL (ELTA) 45 ML 1 APPLIC TOPICAL (12:53)
[2023-03-21] MEDS: oxyCODONE/ACETAMINOPHEN (*CRX) 5-325 MG TABLET 1 TABLET PO ×2 (12:58→20:12)
[2023-03-22] VITALS (26 sets, daily range): BP systolic 92–132; BP diastolic 56–78; PULSE 61–97; RESP 7–20; TEMP 36.4–37.7; O2SAT 91–100
[2023-03-22] MEDS: oxyCODONE/ACETAMINOPHEN (*CRX) 5-325 MG TABLET 1 TABLET PO ×4 (00:03→20:39)
[2023-03-22] MEDS: QUEtiapine FUMARATE 25 MG TABLET 150 MG PO (00:23)
[2023-03-22] MEDS: rOPINIRole HCL 1 MG TABLET 2 MG PO ×2 (00:41→20:22)
--- NOTE | 2023-03-22 01:25 | ECG_ITS ---
Measurements Intervals [place] Rate: 72 P: 26 [place]: 155 QRS: 42 QRSD: 94 T: 22 QT: 392 QTc: 430 Interpretive Statements SINUS RHYTHM WARNING: DATA QUALITY MAY AFFECT INTERPRETATION COMPARED TO ECG 03/20/2023 21:20:51 SINUS RHYTHM HAS BEEN RESTORED Electronically Signed On 03-22-2023 9:02:02 CDT by Andreea Garcia M.D.
[2023-03-22] MEDS: LEVALBUTEROL NEB 1.25 MG/3 ML INHALATION ×4 (01:34→20:25)
[2023-03-22] MEDS: metroNIDAZOLE 500 MG/ISO 100ML 500 MG/100 ML BAG 100 MG IVPB ×3 (02:52→21:11)
[2023-03-22] MEDS: ALBUMIN HUMAN 25% 25 GM/100 ML 100 ML IVPB (05:01)
[2023-03-22] MEDS: LACTATED RINGERS 1,000 ML 100 ML IV CONT (05:01)
[2023-03-22] MEDS: AMIODARONE 360 MG/D5W 200 ML 360 MG/200 ML BAG 16.67 MG IV CONT (05:02)
[2023-03-22] MEDS: LEVOTHYROXINE SODIUM INJ 100 MCG/5 ML VIAL 12.5 MCG IV PUSH (05:06)
[2023-03-22 05:20] LABS: Hematocrit 25.2 % (37.0-47.0); Hemoglobin 7.9 g/dL (12.0-15.0); Mean Corpuscular HGB Conc 31.3 g/dl (32-36); Mean Corpuscular Volume 95.8 fl (80-100); Mean Platelet Volume 8.2 fl (7.4-10.4); Platelet Count Result 190 k/mm3 (150-375); Red Blood Count 2.63 M/mm3 (4.2-5.4); Red Cell Distribution Width 14.7 % (11.5-14.5); White Blood Count 5.9 K/mm3 (4.5-10.0)
[2023-03-22 05:30] LABS: Alanine Aminotransferase 50 U/L (6-35); Albumin Level 3.3 g/dL (3.5-5.1); Alkaline Phosphatase 153 U/L (38-126); Anion Gap 7 mmol/L (8-16); Aspartate Amino Transferase 77 U/L (14-36); Bilirubin,Total 0.3 mg/dL (0.2-1.3); Blood Urea Nitrogen 15 mg/dL (7-17); Calcium 7.9 mg/dL (8.4-10.2); Carbon Dioxide 20 mmol/L (22-30); Chloride 108 mmol/L (98-107); Estimated CRCL calculation 78 ml/min; Estimated Glomerular Filt Rate > 60; Glucose 122 mg/dL (65-110); Magnesium 1.9 mg/dL (1.6-2.3); Phosphorus 3.5 mg/dL (2.5-4.5); Sodium 135 mmol/L (137-145)
[2023-03-22] MEDS: CENTRAL LINE FLUSH 10 ML IV PUSH ×4 (05:30→21:12)
[2023-03-22] MEDS: MORPHINE SULFATE (*CRX) 2 MG/ML INJ IV PUSH (07:32)
[2023-03-22 07:52] LABS: Creatine Kinase 1414 U/L (30-135)
--- NOTE | 2023-03-22 08:38 | WPDANESEPPF ---
Anes - Initial Pre Proc Eval Procedure: Operation Date: 03/22/23 08:00 Proposed Procedures p Incision and Debridement Right Knee with Possible Poly Exchange, Possible Resection Arthroplasty - Nabeel Godinez MD Date/Time: 03/22/23 08:38 Surgeon: Wil Hilliard MD Pre Op Diagnosis: Septic Arthritis, Rhabdo Patient Data Age: 72 Gender: F Height: 1.65 m Weight: 89.2 kg Last Vital Signs Temp 37.7 C H 03/22/23 08:00 Pulse 79 03/22/23 08:00 Resp 13 03/22/23 08:00 BP 108/61 03/22/23 08:00 Pulse Ox 96 03/22/23 08:00 O2 Del Method Room Air 03/22/23 07:48 FiO2 21 03/21/23 19:59 Allergies Allergy/AdvReac Type Severity Reaction Status Date / Time No Known Allergies Allergy Verified 03/20/23 15:53 Home Medications Medication Instructions Recorded Confirmed Type lamotrigine 150 mg tablet 150 mg PO BID 12/21/20 03/20/23 History cgdimpwnqcwn-Nz-tqhj-minerals 1 tablet PO DAILY 12/21/20 03/20/23 History (Multiple Vitamin, Womens tablet) syringe with needle, safety 3 mL #12 ea 12/25/20 03/20/23 Rx 25 gauge x 1 (BD SafetyGlide Syringe) calcium carbonate 500 mg calcium 500 mg PO DAILY #90 tabs 01/01/21 03/20/23 Rx (1,250 mg) tablet (Calcium 500) quetiapine 300 mg tablet 300 mg PO QHS #90 tabs 01/01/21 03/20/23 Rx armodafinil 150 mg tablet 150 mg PO BID 08/20/21 03/20/23 History metoprolol succinate 25 mg 25 mg PO DAILY #90 tabs 10/31/22 03/20/23 Rx tablet,extended release 24 hr Saccharomyces boulardii 10 billion 10,000 mmu cells PO DAILY #20 caps 11/11/22 03/20/23 Rx cell capsule aripiprazole 10 mg tablet 10 mg PO BID 11/18/22 03/20/23 History sertraline 100 mg tablet 100 mg PO QAM 11/18/22 03/20/23 History tizanidine 4 mg tablet 4 mg PO HS 11/18/22 03/20/23 History ropinirole 2 mg tablet 2 mg PO HS #90 tabs 12/02/22 03/20/23 Rx gabapentin 600 mg tablet 600 mg PO QID #360 tabs 12/12/22 03/20/23 Rx fluticasone propionate 50 1 spray intranasal Q12H PRN 12/29/22 03/20/23 Rx mcg/actuation nasal Allergy Symptoms #16 grams spray,suspension (Flonase Allergy Relief) ferrous sulfate 325 mg (65 mg 325 mg PO BID #180 tabs 01/07/23 03/20/23 Rx iron) tablet levothyroxine 25 mcg tablet 25 mcg PO QAM 02/07/23 03/20/23 History (Synthroid) aspirin 325 mg tablet,delayed 325 mg PO Q12HR 28 days #56 tabs 02/20/23 03/20/23 Rx release albuterol sulfate 90 mcg/actuation 1 inh inhalation Q4H PRN Shortness 02/24/23 03/20/23 Rx aerosol inhaler Of Breath #8.5 grams dexmethylphenidate 10 mg tablet 10 mg PO BID #60 tabs 02/25/23 03/20/23 Rx diazepam 5 mg tablet (Valium) 5 mg PO TID PRN Anxiety #60 tabs 02/25/23 03/20/23 Rx fluticasone propionate 115 2 puff inhalation BID #12 grams 02/25/23 03/20/23 Rx mcg-salmeterol 21 mcg/actuation HFA inhaler (Advair HFA) pantoprazole 40 mg tablet,delayed 40 mg PO DAILY #90 tabs 02/25/23 03/20/23 Rx release celecoxib 200 mg capsule 200 mg PO QAM #14 caps 02/26/23 03/20/23 Rx oxycodone-acetaminophen 5 mg-325 1 tablet PO Q8H PRN pain #40 tabs 03/19/23 03/20/23 Rx mg tablet Laboratory Tests 03/21/23 03/22/23 12:09 05:15 WBC 5.9 K/mm3 (4.5-10.0) RBC 2.63 L M/mm3 (4.2-5.4) Hgb 7.9 L g/dL (12.0-15.0) Hct 25.2 L % (37.0-47.0) MCV 95.8 fl (80-100) MCH 30.0 pg (26-34) MCHC 31.3 L g/dl (32-36) RDW 14.7 H % (11.5-14.5) Plt Count 190 k/mm3 (150-375) MPV 8.2 fl (7.4-10.4) Sodium 135 L mmol/L (137-145) Potassium 4.0 mmol/L (3.4-5.0) Chloride 108 H mmol/L (98-107) Carbon Dioxide 20 L mmol/L (22-30) Anion Gap 7 L mmol/L (8-16) BUN 15 D mg/dL (7-17) Creatinine 0.60 L mg/dL (0.7-1.0) Estim Creat Clear Calc 78 ml/min Estimated GFR > 60 (59 - ) Glucose 122 H mg/dL (65-110) Calcium 7.9 L mg/dL (8.4-10.2) Phosphorus 3.5 mg/dL (2.5-4.5) M
--- NOTE | 2023-03-22 08:54 | WPDINTPN ---
Progress Note: A&P Assessment and Plan (1) Septic shock: Code(s): A41.9 - Sepsis, unspecified organism; R65.21 - Severe sepsis with septic shock Status: Acute Assessment and Plan: Septic shock secondary to septic arthritis of right knee which was status post DKA in February 2023 Status post knee joint aspiration which was purulent Continue vancomycin, Flagyl and cefepime. Her synovial fluid culture is growing Gram-negative rods in anaerobic bottle. Blood cultures are negative her now She received IV fluid bolus and is currently on IV fluid infusion which will be continued but I will decrease the rate. Continue Levophed titration to maintain mean arterial pressure which has been weaned off Orthopedics has scheduled incision and drainage this morning Echo reviewed (2) Atrial fibrillation: Code(s): I48.91 - Unspecified atrial fibrillation Status: Acute Assessment and Plan: Patient went to AFib with RVR yesterday which was likely precipitated by sepsis Patient was started on amiodarone infusion and patient converted to normal sinus rhythm overnight Aspirin Patient was given Lovenox yesterday but had to be held as per orthopedics request for planned incision and drainage this morning Since patient is converted to sinus rhythm Anaprox 24 hours, will discuss with Cardiology regarding resumption of anticoagulation postop (3) Septic arthritis of knee, right: Qualifiers: Septic arthritis organism: due to unspecified organism Qualified Code(s): M00.9 - Pyogenic arthritis, unspecified Code(s): M00.9 - Pyogenic arthritis, unspecified Status: Acute Assessment and Plan: See above Pending dopplers of lower extremity to evaluate for DVT (4) S/P total knee arthroplasty: Qualifiers: Laterality: right Qualified Code(s): Z96.651 - Presence of right artificial knee joint Code(s): Z96.659 - Presence of unspecified artificial knee joint Status: Acute Assessment and Plan: See above (5) Rhabdomyolysis: Qualifiers: Rhabdomyolysis type: non-traumatic Qualified Code(s): M62.82 - Rhabdomyolysis Code(s): M62.82 - Rhabdomyolysis Status: Acute Assessment and Plan: CK 5190 -> 1414 IV fluids Monitor CK level which is improving (6) Anemia: Code(s): D64.9 - Anemia, unspecified Status: Acute Assessment and Plan: Patient has chronic anemia but hemoglobin is worse which could be hemodilution will from IV fluids No signs of bleeding Monitor hemoglobin Plan DVT prophylaxis -Lovenox subQ Nutrition -NPO Code Status - Full Code Total Critical Care Time - 30 minutes Due to a high probability of clinically significant, life threatening deterioration, the patient required my highest level of preparedness to intervene emergently and I personally spent this critical care time directly and personally managing the patient. This critical care time included obtaining a history; examining the patient; pulse oximetry; ordering and review of studies; arranging urgent treatment with development of a management plan; evaluation of patient's response to treatment; frequent reassessment; and discussions with other providers. It was exclusive of separately billable procedures and treating other patients and teaching time. Please see Assessment and Plan section and the rest of the note for further information on patient assessment and treatment Subjective Date/time seen: 03/22/23 Overnight events reviewed. Afebrile overnight On room air Levophed weaned off last night Converted to sinus rhythm overnight Good urine output other vitals acceptable NPO this morning for surgery She complains of pain in the knee joint and rates it 10/10 this morning. She slept well overnight receiving morphine. Has any other complaints. Patient denies fever, chest pain, shortness of breath, cough, nausea vomiting, abdominal pain,, diarrhea, headache
[2023-03-22] MEDS: FLUTICASONE/SALMETEROL 115-21 MCG INHALER 1 PUFF 2 PUFF INHALATION ×2 (08:56→20:25)
--- NOTE | 2023-03-22 08:57 | PCRCNOTE ---
0800 neb tx and MDI not given, RN informed RT of patient being in surgrey at this time.
[2023-03-22] MEDS: LACTATED RINGERS 1,000 ML 30 ML IV CONT ×2 (09:30→12:20)
[2023-03-22] MEDS: ceFAZolin 2 GM/D5W 50 ML 2 GM/50 ML BAG IVPB (10:12)
--- NOTE | 2023-03-22 10:51 | PM.IMPN ---
Progress Note: A&P Assessment and Plan (1) Septic shock: Code(s): A41.9 - Sepsis, unspecified organism; R65.21 - Severe sepsis with septic shock Status: Acute Assessment and Plan: Septic shock secondary to septic arthritis of right knee which was status post DKA in February 2023 Status post knee joint aspiration which was protamine Continue vancomycin and cefepime and Flagyl Orthopedics following and planning incision and drainage today (2) Atrial fibrillation: Code(s): I48.91 - Unspecified atrial fibrillation Status: Acute Assessment and Plan: Cardiology consulted. patient went to AFib with RVR which was likely precipitated by sepsis Currently on amiodarone infusion with improved control of rate Continue aspirin Hold anticoagulation for I&D today (3) Septic arthritis of knee, right: Qualifiers: Septic arthritis organism: due to unspecified organism Qualified Code(s): M00.9 - Pyogenic arthritis, unspecified Code(s): M00.9 - Pyogenic arthritis, unspecified Status: Acute Assessment and Plan: See above Check Dopplers of lower extremity to evaluate for DVT (4) S/P total knee arthroplasty: Qualifiers: Laterality: right Qualified Code(s): Z96.651 - Presence of right artificial knee joint Code(s): Z96.659 - Presence of unspecified artificial knee joint Status: Acute Assessment and Plan: See above (5) Rhabdomyolysis: Qualifiers: Rhabdomyolysis type: non-traumatic Qualified Code(s): M62.82 - Rhabdomyolysis Code(s): M62.82 - Rhabdomyolysis Status: Acute Assessment and Plan: IV fluids Monitor CK level (6) Anemia: Code(s): D64.9 - Anemia, unspecified Status: Acute Assessment and Plan: Patient has chronic anemia No signs of bleeding Monitor hemoglobin 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 Cardiac: RRR. Normal S1 S2. No murmurs Circulation: Pedal pulses are intact and symmetrical. Abdomen: Normal bowel sounds.. Soft. NT. ND. Extremities: Right knee swollen red and tender with small opening, dressing on top, edema in right lower leg : Howe in place Neurologic: Follows commands. Moves all 4 extremities PERRL AO x3 Skin: No Rash Objective Data Vital Signs Vital Signs: Vital Signs - 24 hr 03/21/23 12:22 03/21/23 13:35 03/21/23 13:47 Temperature Pulse Rate 113 H 90 95 Respiratory Rate 15 18 Blood Pressure Pulse Oximetry Oxygen Delivery Fraction of Inspired Oxygen 03/21/23 14:18 03/21/23 12:00 03/21/23 12:00 Temperature 97.5 F L Pulse Rate 89 119 H Respiratory Rate 18 Blood Pressure 83/52 L 114/86 Pulse Oximetry 96 100 Oxygen Delivery Room Air Fraction of Inspired Oxygen 03/21/23 12:00 03/21/23 14:00 03/21/23 14:00 Temperature 98.3 F Pulse Rate 115 H 93 93 Respiratory Rate 14 Blood Pressure 83/52 L Pulse Oximetry 96 Oxygen Delivery Fraction of Inspired Oxygen 03/21/23 16:21 03/21/23 16:39 03/21/23 16:00 Temperature 98.3 F Pulse Rate 96 101 H Respiratory Rate 20 Blood Pressure 104/60 104/60 Pulse Oximetry 99 96 Oxygen Delivery Room Air Fraction of Inspired Oxygen 03/21/23 16:00 03/21/23 16:54 03/21/23 16:00 Temperature 98.2 F 98.5 F Pulse Rate 100 99 93 Respiratory Rate 20 18 Blood Pressure 104/60 96/63 L Pulse Oximetry 98 99 Oxygen Delivery Fraction of Inspired Oxygen 03/21/23 18:00 03/21/23 18:00 03/21/23 17:54 Temperature 99.0 F 99.0 F Pulse Rate 105 H 98 94 Respiratory Rate 16 16 Blood Pressure 99/54 L 99/54 L Pulse
[2023-03-22] MEDS: TRANEXAMIC ACID 1,000 MG/10 ML AMPUL 1000 MG IV PUSH (11:02)
--- NOTE | 2023-03-22 12:23 | W.PM.PROC2 ---
Procedure Note - Detailed Date of Procedure 03/22/23 Pre-op Diagnosis Septic Arthritis Right TKA Post-op Diagnosis Same Procedure Performed I AND D WITH POLY COMPONENT EXCHANGE Surgeon Nabeel Godinez MD Anesthesia General Findings GROSS PURULENCE Description of Procedure THE PATIENT WAS TAKEN TO THE OPERATING ROOM IN STABLE CONDITION. THE RIGHT LOWER EXTREMITY WAS PREPPED AND DRAPED IN THE STERILE FASHION. AN INCISION THROUGH THE OLD SCAR WAS MADE DOWN TO THE SUBCUTANEOUS TISSUES AND THEN A MEDIAL PARAPATELLAR ARTHROTOMY WAS PREFORMED. GROSS PURULENCE WAS COMING FROM THE JOINT. THE PATELLA WAS EVERTED. THE POLY ETHYLENE COMPONENT WAS REMOVED. THE FEMORAL AND TIBIAL IMPLANTS WERE STABLE WITH NO SIGN OF GROSS LOOSENING. AN EXTENSIVE SYNOVECTOMY WAS PREFORMED INCLUDING THE POSTERIOR CAPSULE. ONCE A THOROUGH DEBRIDEMENT WAS PREFORMED THERE WAS NO SIGN OF NECROTIC OR DEVITALIZED TISSUE. THE WOUND WAS IRRIGATED WITH 1 LITER OF STERILE BETADINE AND STERILE WATER AND THEN WITH 1 LITER OF H202. NEXT 2 LITERS OF BACTASURE FLUID WAS USED TO IRRIGATE THE ENTIRE WOUND. ONCE THAT WAS PREFORMED THEN 6 LITERS OF STERILE SALINE WAS USED TO IRRIGATE THE WOUND. THE LAST IRRIGATION USED WAS A MIXTURE OF GENTAMICIN AND VANCOMYCIN IN STERILE SALINE. THIS WAS LEFT IN THE JOINT FOR APPROXIMALLY 3 MIN. ONCE THAT WAS PREFORMED A SIZE 10 POLY IMPLANT WAS PLACED. THE KNEE WAS STABLE AND THE PATELLA TRACKED WELL IN THE TROCHLEA. THE TOURNIQUET WAS DEFLATED. THE BLEEDERS WERE CAUTERIZED. A DRAIN WAS PLACED IN THE KNEE JOINT. THE ARTHROTOMY WAS APPROXIMATED WITH 1 VICRYL SUTURE, THE SUB CUTANEOUS TISSUE WERE APPROXIMATED WITH 2-0 VICRYL AND THE SKIN WITH PHANI. A STERILE PREVENA DRESSING WAS PLACED. THE PATIENT WAS EXTUBATED AND SENT TO THE RECOVERY ROOM. Estimated Blood Loss 200 Urine Output 200 Drains Yes Packing No Pathology Other (TISSUE CULTURE RIGHT KNEE JOINT) Complications No immediate complications Condition Stable Disposition PACU
[2023-03-22] MEDS: fentaNYL CITRATE INJ (*CRX) 100 MCG/2 ML VIAL 25 MCG IV PUSH ×7 (12:31→13:38)
[2023-03-22] MEDS: ASPIRIN 325 MG TABLET PO (14:19)
[2023-03-22] MEDS: METOPROLOL TARTRATE 25 MG TABLET PO ×2 (14:19→20:23)
[2023-03-22] MEDS: SERTRALINE HCL 50 MG TABLET 100 MG PO (14:20)
[2023-03-22] MEDS: SILVERGEL (ELTA) 45 ML 1 APPLIC TOPICAL (14:20)
[2023-03-22] MEDS: CEFEPIME 2 GM/NS 50 ML 2 GM/50 ML BAG IVPB ×2 (14:23→20:18)
[2023-03-22] MEDS: MORPHINE SULFATE (*CRX) 4 MG/ML INJ IV PUSH ×2 (14:33→21:15)
[2023-03-22 14:58] LABS: Vancomycin Trough 7.4 ug/mL (10.0-20.0)
[2023-03-22] MEDS: VANCOMYCIN 1,250 MG/NS 250 ML 1,250 MG/250 ML BAG 166.67 MG IVPB (15:31)
[2023-03-22] MEDS: QUEtiapine FUMARATE 100 MG TABLET 300 MG PO (21:11)
[2023-03-23] VITALS (32 sets, daily range): BP systolic 95–133; BP diastolic 53–101; PULSE 63–121; RESP 10–18; TEMP 36.6–37.5; O2SAT 93–100
[2023-03-23] MEDS: VANCOMYCIN 1,250 MG/NS 250 ML 1,250 MG/250 ML BAG 166.67 MG IVPB ×2 (02:29→16:00)
[2023-03-23] MEDS: MORPHINE SULFATE (*CRX) 2 MG/ML INJ IV PUSH ×3 (03:11→22:03)
[2023-03-23] MEDS: oxyCODONE/ACETAMINOPHEN (*CRX) 5-325 MG TABLET 1 TABLET PO ×3 (04:08→20:36)
[2023-03-23 04:10] LABS: Hematocrit 21.4 % (37.0-47.0); Mean Corpuscular HGB Conc 30.4 g/dl (32-36); Mean Corpuscular Hemoglobin 29.5 pg (26-34); Mean Corpuscular Volume 97.3 fl (80-100); Platelet Count Result 201 k/mm3 (150-375); Red Cell Distribution Width 14.6 % (11.5-14.5); White Blood Count 6.9 K/mm3 (4.5-10.0)
[2023-03-23 04:14] LABS: Hemoglobin 6.5 g/dL (12.0-15.0)
[2023-03-23 04:26] LABS: Alanine Aminotransferase 56 U/L (6-35); Albumin Level 2.9 g/dL (3.5-5.1); Alkaline Phosphatase 185 U/L (38-126); Anion Gap 5 mmol/L (8-16); Aspartate Amino Transferase 66 U/L (14-36); Bilirubin,Total 0.3 mg/dL (0.2-1.3); Blood Urea Nitrogen 14 mg/dL (7-17); Calcium 7.9 mg/dL (8.4-10.2); Carbon Dioxide 22 mmol/L (22-30); Chloride 109 mmol/L (98-107); Creatine Kinase 637 U/L (30-135); Estimated CRCL calculation 78 ml/min; Estimated Glomerular Filt Rate > 60; Glucose 104 mg/dL (65-110); Magnesium 1.9 mg/dL (1.6-2.3); Phosphorus 4.4 mg/dL (2.5-4.5); Potassium 4.5 mmol/L (3.4-5.0); Sodium 136 mmol/L (137-145)
[2023-03-23] MEDS: LACTATED RINGERS 1,000 ML 50 ML IV CONT (05:00)
[2023-03-23] MEDS: SODIUM CHLORIDE 0.9% IV 250 ML 30 ML IV CONT (05:02)
[2023-03-23] MEDS: CENTRAL LINE FLUSH 10 ML IV PUSH ×3 (06:30→21:50)
[2023-03-23] MEDS: LEVOTHYROXINE SODIUM INJ 100 MCG/5 ML VIAL 12.5 MCG IV PUSH (06:30)
[2023-03-23] MEDS: MORPHINE SULFATE (*CRX) 4 MG/ML INJ IV PUSH ×2 (06:30→08:59)
[2023-03-23] MEDS: metroNIDAZOLE 500 MG/ISO 100ML 500 MG/100 ML BAG 100 MG IVPB ×3 (06:30→21:50)
--- NOTE | 2023-03-23 08:43 | PCPTNOTE ---
Patient's HgB is 6.5, Plan for today according to nursing, Deb, is holding off therapy getting transfusions and reassess tomorrow.
[2023-03-23] MEDS: CEFEPIME 2 GM/NS 50 ML 2 GM/50 ML BAG IVPB ×2 (09:13→20:38)
[2023-03-23] MEDS: SERTRALINE HCL 50 MG TABLET 100 MG PO (09:14)
--- NOTE | 2023-03-23 09:17 | WPDINTPN ---
Progress Note: A&P Assessment and Plan (1) Septic shock: Code(s): A41.9 - Sepsis, unspecified organism; R65.21 - Severe sepsis with septic shock Status: Acute Assessment and Plan: Septic shock secondary to septic arthritis of right knee which was status post DKA in February 2023 -Status post knee joint aspiration which was purulent -03/22/2023: I and D on the right knee with poly component exchange, according to the OR notes there was gross purulence noted the time of I and D. - Continue vancomycin, Flagyl and cefepime. Her synovial fluid culture is growing Gram-negative rods in anaerobic bottle. -Blood cultures are negative her now -will discontinue IV fluids as patient tolerating p.o. diet, continue to encourage p.o. intake. -off Levophed, currently hemodynamically stable -Orthopedics following, will discuss regarding bleeding Echo reviewed (2) Septic arthritis of knee, right: Qualifiers: Septic arthritis organism: due to unspecified organism Qualified Code(s): M00.9 - Pyogenic arthritis, unspecified Code(s): M00.9 - Pyogenic arthritis, unspecified Status: Acute Assessment and Plan: See above Pending dopplers of lower extremity to evaluate for DVT (3) Atrial fibrillation: Code(s): I48.91 - Unspecified atrial fibrillation Status: Acute Assessment and Plan: Patient went to AFib with RVR yesterday which was likely precipitated by sepsis Patient was started on amiodarone infusion and patient converted to normal sinus rhythm overnight Aspirin Patient was given Lovenox yesterday but had to be held as per orthopedics request for planned incision and drainage this morning Since patient is converted to sinus rhythm in approx 24 hours, will discuss with Cardiology regarding resumption of anticoagulation postop -continue to hold full anticoagulation along with aspirin due to anemia (4) S/P total knee arthroplasty: Qualifiers: Laterality: right Qualified Code(s): Z96.651 - Presence of right artificial knee joint Code(s): Z96.659 - Presence of unspecified artificial knee joint Status: Acute Assessment and Plan: See above (5) Rhabdomyolysis: Qualifiers: Rhabdomyolysis type: non-traumatic Qualified Code(s): M62.82 - Rhabdomyolysis Code(s): M62.82 - Rhabdomyolysis Status: Acute Assessment and Plan: CK 5190 -> 1414 -IV fluids -CK levels improving (6) Anemia: Code(s): D64.9 - Anemia, unspecified Status: Acute Assessment and Plan: Patient has chronic anemia but hemoglobin is worse which could be hemodilution will from IV fluids 03/23: Patient dropped her hemoglobin to 6.5 this morning, requiring 2 units of packed RBCs -Hemovac on the right knee drained 100 mL of patria blood overnight -will discuss with orthopedic Monitor hemoglobin Plan DVT prophylaxis -hold therapeutic Lovenox and aspirin due to anemia Nutrition -regular diet Code Status - Full Code Total Critical Care Time - 34 minutes Due to a high probability of clinically significant, life threatening deterioration, the patient required my highest level of preparedness to intervene emergently and I personally spent this critical care time directly and personally managing the patient. This critical care time included obtaining a history; examining the patient; pulse oximetry; ordering and review of studies; arranging urgent treatment with development of a management plan; evaluation of patient's response to treatment; frequent reassessment; and discussions with other providers. It was exclusive of separately billable procedures and treating other patients and teaching time. Please see Assessment and Plan section and the rest of the note for further information on patient assessment and treatment. This dictation may have been done utilizing a voice recognition system. Attempts have been made to correct errors. However, there may be uncorrected
[2023-03-23] MEDS: METOPROLOL TARTRATE 25 MG TABLET PO ×2 (09:18→20:37)
[2023-03-23] MEDS: SILVERGEL (ELTA) 45 ML 1 APPLIC TOPICAL (09:20)
[2023-03-23] MEDS: FLUTICASONE/SALMETEROL 115-21 MCG INHALER 1 PUFF 2 PUFF INHALATION ×2 (09:20→18:59)
[2023-03-23] MEDS: LEVALBUTEROL NEB 1.25 MG/3 ML INHALATION ×4 (09:20→18:59)
--- NOTE | 2023-03-23 09:34 | PM.PNCARD ---
Progress Note: A&P Assessment and Plan (1) Paroxysmal atrial fibrillation: Code(s): I48.0 - Paroxysmal atrial fibrillation Status: Acute Assessment and Plan: Patient had less than 24 hours of atrial fibrillation in setting of septic shock. Has resolved. Likely will not return. --Continue telemetry monitoring. --in view of her severe anemia and brief AFib, I doubt any need for long-term anticoagulation. (2) Septic arthritis of knee, right: Qualifiers: Septic arthritis organism: due to unspecified organism Qualified Code(s): M00.9 - Pyogenic arthritis, unspecified Code(s): M00.9 - Pyogenic arthritis, unspecified Status: Acute Assessment and Plan: Status post washout on 03/22/2023, on multiple antibiotics. (3) Septic shock: Code(s): A41.9 - Sepsis, unspecified organism; R65.21 - Severe sepsis with septic shock Status: Acute Assessment and Plan: Resolved, off pressors. Plan --will follow at a distance, thank you. Subjective Date/time seen: 03/23/23 09:34 Interval history: Follow-up for patient with new onset of paroxysmal atrial fibrillation after being admitted for sepsis and infected total knee replacement. Treated with amiodarone and metoprolol, and 1 dose of Lovenox. Echo showed EF greater than 70%, mild LVH, no significant valve disease. TSH was normal. Date of service 03/23/2023: Patient converted to sinus rhythm early yesterday morning. Went for a washout with Dr. Godinez yesterday. Remains on RA. Off her Levophed and amiodarone. Hct declined to 21; ASA and Lovenox DC'd. Blood C&S neg; synovial C&S + for GNB. Review of Systems Review of Systems: Complains of a lot of knee pain. Not much appetite. No shortness of breath, chest pain, abdominal pain. Exam Const: General: cooperative and in distress; No healthy appearing, comfortable or confusion Orientation/consciousness: oriented to person, patient oriented x3 and No confusion Other: Sister at bedside. HENMT: Mouth: Yes moist mucous membranes Eyes: EOM: EOMs intact bilaterally Neck: Neck: supple Resp: Effort & Inspection: normal respiratory effort Auscultation: clear to auscultation bilaterally Cardio: Rate: regular rate Rhythm: regular rhythm Heart sounds: no murmurs GI: Inspection: normal to inspection GI Palp: No abdominal tenderness Skin: General skin exam: normal color and no rashes or lesions noted Neuro: General: oriented to person, patient oriented x3 and No confusion Extrem: Right lower extremity: no edema Left lower extremity: no edema Other: Right lower extremity is wrapped, wound VAC. ice pack on wound. Psych: Appearance: grossly normal Mental Status: mental status grossly normal (Preoccupied by severe pain) Objective Data Vital Signs Vital Signs: Vital Signs - 24 hr 03/22/23 12:20 03/22/23 12:35 03/22/23 12:50 Temperature 97.6 F Pulse Rate 89 97 81 Respiratory Rate 18 20 18 Blood Pressure 110/66 132/78 113/72 Pulse Oximetry 97 91 100 Oxygen Delivery Simple Face Mask Nasal Cannula Simple Face Mask Oxygen Flow Rate 10 3 6 03/22/23 13:05 03/22/23 13:20 03/22/23 14:19 Temperature Pulse Rate 82 80 77 Respiratory Rate 15 12 Blood Pressure 111/70 120/70 Pulse Oximetry 94 99 Oxygen Delivery Simple Face Mask Simple Face Mask Oxygen Flow Rate 4 4 03/22/23 14:00 03/22/23 14:00 03/22/23 15:03 Temperature 98.8 F Pulse Rate 80 80 69 Respiratory Rate 16 11 L Blood Pressure 120/57 L Pulse Oximetry 97 Oxygen Delivery Oxygen Flow Rate 03/22/23 15:13 03/22/23 16:00 03/22/23 16:00 Temperature 98.3 F Pulse Rate 68 65 Respiratory Rate 14 7 L Blood Pressure 95/57 L Pulse Oximetry 97 96 Oxygen Delivery Nasal Cannula Oxygen Flow Rate 2 03/22/23 16:00 03/22/23 18:00 03/22/23 18:00 Temperature 97.8 F Pulse Rate 64 64 64 Respiratory Rate 10 L Blood Pressure
--- NOTE | 2023-03-23 09:58 | PM.IMPN ---
Progress Note: A&P Assessment and Plan (1) Septic shock: Code(s): A41.9 - Sepsis, unspecified organism; R65.21 - Severe sepsis with septic shock Status: Acute Assessment and Plan: Resolved. Off Levophed. Discontinue IV fluid (2) Septic arthritis of knee, right: Qualifiers: Septic arthritis organism: due to unspecified organism Qualified Code(s): M00.9 - Pyogenic arthritis, unspecified Code(s): M00.9 - Pyogenic arthritis, unspecified Status: Acute Assessment and Plan: Status post I&D by Orthopedic surgery. Further recommendations per Orthopedic surgery Continue antibiotics Hemoglobin has dropped and there is some serosanguineous fluid in the drain. PRBC transfusion ordered per social welfare research worker (3) Paroxysmal atrial fibrillation: Code(s): I48.0 - Paroxysmal atrial fibrillation Status: Acute Assessment and Plan: Management per Cardiology Plan Management per social welfare research worker Subjective Date/time seen: 03/23/23 09:58 Interval history: Stable Review of Systems Review of Systems: All systems reviewed & are unremarkable except as noted in HPI and below (HPI) Exam Narrative: General: Pt is alert awake and in NAD Lungs/Chest: Trachea central Clear BS B/L, No crackles or wheezing. Cardiac: RRR. Normal S1 S2. No murmurs Circulation: Pedal pulses are intact and symmetrical. Abdomen: Normal bowel sounds.. Soft. NT. ND. Extremities: Right knee in [employer] wrap, Hemovac draining patria blood. Tender : Howe in place Neurologic: Follows commands. Moves all 4 extremities PERRL AO x3 Skin: No Rash Objective Data Vital Signs Vital Signs: Vital Signs - 24 hr 03/22/23 12:20 03/22/23 12:35 03/22/23 12:50 Temperature 97.6 F Pulse Rate 89 97 81 Respiratory Rate 18 20 18 Blood Pressure 110/66 132/78 113/72 Pulse Oximetry 97 91 100 Oxygen Delivery Simple Face Mask Nasal Cannula Simple Face Mask Oxygen Flow Rate 10 3 6 03/22/23 13:05 03/22/23 13:20 03/22/23 14:19 Temperature Pulse Rate 82 80 77 Respiratory Rate 15 12 Blood Pressure 111/70 120/70 Pulse Oximetry 94 99 Oxygen Delivery Simple Face Mask Simple Face Mask Oxygen Flow Rate 4 4 03/22/23 14:00 03/22/23 14:00 03/22/23 15:03 Temperature 98.8 F Pulse Rate 80 80 69 Respiratory Rate 16 11 L Blood Pressure 120/57 L Pulse Oximetry 97 Oxygen Delivery Oxygen Flow Rate 03/22/23 15:13 03/22/23 16:00 03/22/23 16:00 Temperature 98.3 F Pulse Rate 68 65 Respiratory Rate 14 7 L Blood Pressure 95/57 L Pulse Oximetry 97 96 Oxygen Delivery Nasal Cannula Oxygen Flow Rate 2 03/22/23 16:00 03/22/23 18:00 03/22/23 18:00 Temperature 97.8 F Pulse Rate 64 64 64 Respiratory Rate 10 L Blood Pressure 100/67 Pulse Oximetry 97 Oxygen Delivery Oxygen Flow Rate 03/22/23 20:00 03/22/23 20:23 03/22/23 20:00 Temperature 98.6 F Pulse Rate 74 68 74 Respiratory Rate 12 Blood Pressure 120/63 Pulse Oximetry 99 Oxygen Delivery Oxygen Flow Rate 03/22/23 20:25 03/22/23 22:00 03/22/23 22:00 Temperature 98.6 F Pulse Rate 61 65 65 Respiratory Rate 16 12 Blood Pressure 116/72 Pulse Oximetry 95 Oxygen Delivery Oxygen Flow Rate 03/23/23 00:00 03/23/23 00:00 03/23/23 02:00 Temperature 98.3 F Pulse Rate 63 63 66 Respiratory Rate 10 L Blood Pressure 95/58 L Pulse Oximetry 97 Oxygen Delivery Oxygen Flow Rate 03/23/23 02:00 03/23/23 04:47 03/23/23 05:04 Temperature 98.3 F 98.2 F Pulse Rate 66 72 70 Respiratory Rate 13 16 12 Blood Pressure 107/71 98/59 L 98/55 L Pulse Oximetry 98 97 96 Oxygen Delivery Oxygen Flow Rate 03/23/23 04:00 03/23/23 04:00 03/23/23 04:00 Temperature 98.4 F Pulse Rate 73 73 Respiratory Rate 13 Blood Pressure 100/53 L Pulse Oximetry 97 97 Oxygen Delivery Nasal Cannula Oxygen Flow Rate 2 03/23/23 06:00 03/23/23 06:00 03/23/23 06:04
[2023-03-23 10:48] LABS: Hematocrit 27.4 % (37.0-47.0); Hemoglobin 8.5 g/dL (12.0-15.0)
[2023-03-23] MEDS: KETOROLAC 15 MG/ML VIAL (*BKC) IV PUSH (11:38)
[2023-03-23] MEDS: ACETAMINOPHEN 325 MG TABLET 650 MG PO ×2 (13:43→23:44)
[2023-03-23] MEDS: diazePAM (*CRX) 5 MG TABLET PO ×2 (13:45→20:39)
[2023-03-23] MEDS: QUEtiapine FUMARATE 100 MG TABLET 300 MG PO (20:37)
[2023-03-23] MEDS: rOPINIRole HCL 1 MG TABLET 2 MG PO (20:38)
[2023-03-24] VITALS (32 sets, daily range): BP systolic 101–159; BP diastolic 60–97; PULSE 94–135; RESP 12–20; TEMP 36.4–38.6; O2SAT 94–100
[2023-03-24] MEDS: LEVALBUTEROL NEB 1.25 MG/3 ML INHALATION ×5 (01:19→20:45)
[2023-03-24] MEDS: MORPHINE SULFATE (*CRX) 2 MG/ML INJ IV PUSH ×4 (01:49→22:14)
[2023-03-24 04:01] LABS: Vancomycin Trough 17.7 ug/mL (10.0-20.0)
[2023-03-24 04:18] LABS: Basophils Absolute Auto 0.1 K/mm3 (0.0-0.1); Basophils Percent Auto 1.1 % (0.2-1.2); Eosinophils Absolute Auto 0.3 K/mm3 (0-0.3); Eosinophils Percent Auto 4.2 % (0-4.4); Hematocrit 28.5 % (37.0-47.0); Immature Granulocyte Absolute 0.14 K/mm3 (0.00-0.031); Immature Granulocyte Percent A 1.8 % (0-0.5); Lymphocytes Absolute Auto 1.32 K/mm3 (0.9-3.2); Lymphocytes Percent Auto 17.4 % (18.3-44.2); Mean Corpuscular HGB Conc 31.6 g/dl (32-36); Mean Corpuscular Hemoglobin 28.7 pg (26-34); Mean Corpuscular Volume 90.8 fl (80-100); Mean Platelet Volume 8.5 fl (7.4-10.4); Monocytes Absolute Auto 0.6 K/mm3 (0.1-0.6); Monocytes Percent Auto 8.3 % (2.6-8.5); Neutrophils Absolute Auto 5.1 K/mm3 (1.3-6.7); Neutrophils Percent Auto 67.2 % (45.5-73.1); Platelet Count Result 227 k/mm3 (150-375); Red Blood Count 3.14 M/mm3 (4.2-5.4); Red Cell Distribution Width 16.4 % (11.5-14.5); White Blood Count 7.6 K/mm3 (4.5-10.0)
[2023-03-24 04:30] LABS: Alanine Aminotransferase 48 U/L (6-35); Albumin Level 3.1 g/dL (3.5-5.1); Alkaline Phosphatase 178 U/L (38-126); Anion Gap 5 mmol/L (8-16); Aspartate Amino Transferase 51 U/L (14-36); Bilirubin,Total 0.4 mg/dL (0.2-1.3); Blood Urea Nitrogen 13 mg/dL (7-17); Calcium 8.2 mg/dL (8.4-10.2); Carbon Dioxide 24 mmol/L (22-30); Chloride 107 mmol/L (98-107); Creatine Kinase 579 U/L (30-135); Estimated CRCL calculation 80 ml/min; Estimated Glomerular Filt Rate > 60; Glucose 97 mg/dL (65-110); Magnesium 1.7 mg/dL (1.6-2.3); Phosphorus 3.6 mg/dL (2.5-4.5); Potassium 4.2 mmol/L (3.4-5.0); Sodium 136 mmol/L (137-145)
[2023-03-24] MEDS: VANCOMYCIN 1,250 MG/NS 250 ML 1,250 MG/250 ML BAG 166.67 MG IVPB ×2 (04:36→15:10)
[2023-03-24] MEDS: oxyCODONE/ACETAMINOPHEN (*CRX) 5-325 MG TABLET 1 TABLET PO ×3 (04:37→21:21)
[2023-03-24] MEDS: metroNIDAZOLE 500 MG/ISO 100ML 500 MG/100 ML BAG 100 MG IVPB ×3 (05:23→20:49)
[2023-03-24] MEDS: diazePAM (*CRX) 5 MG TABLET PO (05:23)
[2023-03-24] MEDS: CENTRAL LINE FLUSH 10 ML IV PUSH ×3 (05:24→21:25)
[2023-03-24] MEDS: LEVOTHYROXINE SODIUM INJ 100 MCG/5 ML VIAL 12.5 MCG IV PUSH (05:24)
[2023-03-24] MEDS: METOPROLOL TARTRATE INJ 5 MG/5 ML VIAL IV PUSH ×2 (05:56→08:28)
[2023-03-24] MEDS: FLUTICASONE/SALMETEROL 115-21 MCG INHALER 1 PUFF 2 PUFF INHALATION ×2 (07:11→20:45)
[2023-03-24] MEDS: KETOROLAC 15 MG/ML VIAL (*BKC) IV PUSH (08:07)
--- NOTE | 2023-03-24 08:16 | PCPTNOTE ---
Attempted PT evaluation, per RN pt not medically appropriate for skilled therapy this date. Will follow.
[2023-03-24] MEDS: CEFEPIME 2 GM/NS 50 ML 2 GM/50 ML BAG IVPB ×2 (08:28→20:15)
--- NOTE | 2023-03-24 08:43 | PM.PNCARD ---
Progress Note: A&P Assessment and Plan (1) Paroxysmal atrial fibrillation: Code(s): I48.0 - Paroxysmal atrial fibrillation Status: Acute Assessment and Plan: Patient had less than 24 hours of atrial fibrillation in setting of septic shock. Converted to sinus rhythm over the weekend, but last night she reverted to atrial fibrillation with RVR. --Restart amiodarone gtt in hopes of restoring sinus rhythm --Spoke to her regarding the risk of cardioembolic stroke with amiodarone if she does convert since she is not on a/c right now. She verbalizes understanding. --Unable to anticoagulate her at this time because of bleeding from surgical site, possible return to OR for another washout. --Continue telemetry monitoring. (2) Septic arthritis of knee, right: Qualifiers: Septic arthritis organism: due to unspecified organism Qualified Code(s): M00.9 - Pyogenic arthritis, unspecified Code(s): M00.9 - Pyogenic arthritis, unspecified Status: Acute Assessment and Plan: Status post washout on 03/22/2023, on multiple antibiotics. (3) Septic shock: Code(s): A41.9 - Sepsis, unspecified organism; R65.21 - Severe sepsis with septic shock Status: Acute Assessment and Plan: Resolved, off pressors. Subjective Date/time seen: 03/24/23 08:43 Interval history: Follow-up for patient with new onset of paroxysmal atrial fibrillation after being admitted for sepsis and infected total knee replacement. Treated with amiodarone and metoprolol, and 1 dose of Lovenox. Echo showed EF greater than 70%, mild LVH, no significant valve disease. TSH was normal. Date of service 03/23/2023: Patient converted to sinus rhythm early yesterday morning. Went for a washout with Dr. Godinez yesterday. Remains on RA. Off her Levophed and amiodarone. Hct declined to 21; ASA and Lovenox DC'd. Blood C&S neg; synovial C&S + for GNB. Date of service : Went back into atrial fibrillation with RVR last night around 1999. She denies any palpitations or chest pain. She is having severe pain in her right knee. Review of Systems Constitutional: Constitutional: Reports no additional constitutional complaints Eyes: Eyes: Reports no additional eye complaints ENT: Reports system reviewed and no additional complaints, except as documented Cardiovascular: Cardiovascular: Reports no additional cardiovascular complaints Respiratory: Respiratory: Reports no additional respiratory complaints Gastrointestinal: Gastrointestinal: Reports no additional gastrointestinal complaints Musculoskeletal: Musculoskeletal: Reports as per HPI Integumentary/Breasts: Skin/Breast: Reports system reviewed and no additional complaints, except as docu Neurologic: Reports system reviewed and no additional complaints, except as documented and Denies confusion Psychiatric: Psychiatric: Reports as per HPI and Denies confusion Endocrine: Endocrine: Reports no additional endocrine complaints Hematologic/Lymphatic: Hematologic/Lymphatic: Reports no additional hematologic/lymphatic complaints Allergic/Immunologic: Allergic/Immunologic: Reports no additional allergic/immunologic complaints Exam Const: General: cooperative, no acute distress, awake and lethargic; No healthy appearing, comfortable or in distress Orientation/consciousness: patient oriented x3 and lethargic HENMT: Mouth: Yes moist mucous membranes Eyes: Sclera: sclerae normal Pupils: Equal, round and reactive pupils present EOM: EOMs intact bilaterally Neck: Neck: supple and no JVD Other: Normal carotid pulses bilaterally Resp: Effort & Inspection: normal respiratory effort Auscultation: clear to auscultation bilaterally Cardio: Rate: tachycardic Rhythm: regular rhythm and abnormal rhythm irregularly irregular Heart sounds: no murmurs GI: Inspection: normal to inspection Auscultation: normal bowel sounds Skin: General skin e
[2023-03-24] MEDS: AMIODARONE 360 MG/D5W 200 ML 360 MG/200 ML BAG 33.33 MG IV CONT (08:44)
[2023-03-24] MEDS: AMIODARONE 150 MG/D5W 100 ML 150 MG/100 ML BAG 600 MG IV CONT (08:44)
[2023-03-24] MEDS: SILVERGEL (ELTA) 45 ML 1 APPLIC TOPICAL (09:00)
[2023-03-24] MEDS: SERTRALINE HCL 50 MG TABLET 100 MG PO (09:00)
[2023-03-24] MEDS: METOPROLOL TARTRATE 25 MG TABLET PO ×2 (09:00→20:00)
[2023-03-24] MEDS: lamoTRIgine 100 MG, lamoTRIgine 50 MG 150 MG PO ×2 (09:00→18:00)
[2023-03-24] MEDS: ACETAMINOPHEN 325 MG TABLET 650 MG PO ×2 (10:34→18:24)
--- NOTE | 2023-03-24 10:37 | WPDINTPN ---
Progress Note: A&P Assessment and Plan (1) Septic shock: Code(s): A41.9 - Sepsis, unspecified organism; R65.21 - Severe sepsis with septic shock Status: Acute Assessment and Plan: Septic shock secondary to septic arthritis of right knee which was status post DKA in February 2023 -Status post knee joint aspiration which was purulent -03/22/2023: I and D on the right knee with poly component exchange, according to the OR notes there was gross purulence noted the time of I and D. - Continue vancomycin, Flagyl and cefepime. Her synovial fluid culture is growing Clostridium perfringens. -Blood cultures are negative her now. 03/24 fever overnight. Will resend a set of cultures since patient is having fevers although her WBCs normal -DC further IV fluid as patient appears to have volume overload -off Levophed, currently hemodynamically stable - Echo reviewed -patient on room air. Will order incentive spirometry -replace Howe catheter, UA, urine culture (2) Septic arthritis of knee, right: Qualifiers: Septic arthritis organism: due to unspecified organism Qualified Code(s): M00.9 - Pyogenic arthritis, unspecified Code(s): M00.9 - Pyogenic arthritis, unspecified Status: Acute Assessment and Plan: Discussed with orthopedic surgeon regarding the joint. Considering new onset fever, pain I discussed option of repeat washout of the knee. Dr. Godinez examined the joint and recommends continuing current management with antibiotics and pain control at this time. Pending dopplers of lower extremity to evaluate for DVT (3) Atrial fibrillation: Code(s): I48.91 - Unspecified atrial fibrillation Status: Resolved Assessment and Plan: Patient went to AFib with RVR yesterday which was likely precipitated by sepsis. Patient was started on amiodarone infusion and patient converted to normal sinus rhythm overnight Aspirin Patient was given Lovenox initially then was held for surgery and then not resume to drop in hemoglobin. Patient went back into a RVR this morning. Discussed with Cardiology and patient was restarted on amiodarone infusion by Cardiology -continue to hold full anticoagulation along with aspirin due to anemia (4) S/P total knee arthroplasty: Qualifiers: Laterality: right Qualified Code(s): Z96.651 - Presence of right artificial knee joint Code(s): Z96.659 - Presence of unspecified artificial knee joint Status: Acute Assessment and Plan: See above (5) Rhabdomyolysis: Qualifiers: Rhabdomyolysis type: non-traumatic Qualified Code(s): M62.82 - Rhabdomyolysis Code(s): M62.82 - Rhabdomyolysis Status: Acute Assessment and Plan: -CK levels improving Hold further IV fluids (6) Anemia: Code(s): D64.9 - Anemia, unspecified Status: Acute Assessment and Plan: Patient has chronic anemia but hemoglobin is worse which could be hemodilution will from IV fluids 03/23: Patient dropped her hemoglobin to 6.5 this morning, requiring 2 units of packed RBCs -Hemovac on the right knee drained 50 mL of bloody drainage ordered -will discuss with orthopedic Hemoglobin has been stable. Monitor hemoglobin and transfuse if need (7) Swelling: Code(s): R60.9 - Edema, unspecified Status: Acute Assessment and Plan: Patient appears to have some edema in leg and dependent edema and both elbows. Likely from 3rd space patient received significant amount IV fluids on admission for her septic shock and rhabdomyolysis and is positive by> 6 L Hold further fluids at this time (8) Joint pain: Code(s): M25.50 - Pain in unspecified joint Status: Acute Assessment and Plan: She has history of spinal in and as per patient's sister had limited range of motion in left arm. Patient has had neck surgery in the past baseline unknown. PT report from prior to hospitalization does report limited range of mo
--- NOTE | 2023-03-24 10:58 | PM.IMPN ---
Progress Note: A&P Assessment and Plan (1) Septic shock: Code(s): A41.9 - Sepsis, unspecified organism; R65.21 - Severe sepsis with septic shock Status: Acute Assessment and Plan: Resolved. Off Levophed. Discontinue IV fluid (2) Septic arthritis of knee, right: Qualifiers: Septic arthritis organism: due to unspecified organism Qualified Code(s): M00.9 - Pyogenic arthritis, unspecified Code(s): M00.9 - Pyogenic arthritis, unspecified Status: Acute Assessment and Plan: Status post I&D by Orthopedic surgery. Further recommendations per Orthopedic surgery Continue antibiotics Hemoglobin is stable after 2 units PRBC transfusion Her synovial fluid culture is growing Gram-negative rods in anaerobic bottle. 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 Cardiac: RRR. Normal S1 S2. No murmurs Circulation: Pedal pulses are intact and symmetrical. Abdomen: Normal bowel sounds.. Soft. NT. ND. Extremities: Right knee in [employer] wrap, Hemovac draining bloody drainage Tender : Howe in place Neurologic: Follows commands. Moves all 4 extremities PERRL AO x3 Skin: No Rash Objective Data Vital Signs Vital Signs: Vital Signs - 24 hr 03/23/23 12:00 03/23/23 12:00 03/23/23 12:35 Temperature 99.2 F Pulse Rate 73 75 Respiratory Rate 17 17 Blood Pressure 107/56 L Pulse Oximetry 97 97 94 Oxygen Delivery Room Air 03/23/23 12:00 03/23/23 14:17 03/23/23 14:24 Temperature Pulse Rate 70 73 76 Respiratory Rate 14 18 Blood Pressure Pulse Oximetry Oxygen Delivery 03/23/23 14:00 03/23/23 14:00 03/23/23 16:00 Temperature 99.1 F 99.1 F Pulse Rate 72 73 77 Respiratory Rate 16 13 Blood Pressure 108/53 L 101/54 L Pulse Oximetry 99 94 Oxygen Delivery 03/23/23 16:00 03/23/23 18:00 03/23/23 16:00 Temperature 99.3 F Pulse Rate 75 72 Respiratory Rate 12 Blood Pressure 115/65 Pulse Oximetry 96 94 Oxygen Delivery Room Air 03/23/23 18:00 03/23/23 18:47 03/23/23 19:01 Temperature Pulse Rate 71 77 72 Respiratory Rate 18 14 Blood Pressure 115/65 Pulse Oximetry Oxygen Delivery 03/23/23 19:02 03/23/23 20:37 03/23/23 20:00 Temperature Pulse Rate 114 H Respiratory Rate Blood Pressure Pulse Oximetry 98 96 Oxygen Delivery Room Air Room Air 03/23/23 20:00 03/23/23 20:00 03/24/23 00:00 Temperature 99.1 F Pulse Rate 76 76 Respiratory Rate 13 Blood Pressure 117/70 Pulse Oximetry 96 96 Oxygen Delivery Room Air 03/23/23 22:00 03/23/23 22:00 03/24/23 00:00 Temperature 99.5 F 100.1 F H Pulse Rate 121 H 121 H 120 H Respiratory Rate 16 15 Blood Pressure 133/99 H 142/93 H Pulse Oximetry 94 94 Oxygen Delivery 03/24/23 00:00 03/23/23 19:25 03/24/23 01:20 Temperature Pulse Rate 120 H 85 109 H Respiratory Rate 18 14 Blood Pressure Pulse Oximetry Oxygen Delivery 03/24/23 02:00 03/24/23 02:00 03/24/23 04:00 Temperature Pulse Rate 116 H 116 H Respiratory Rate 14 Blood Pressure 133/90 Pulse Oximetry 95 97 Oxygen Delivery Room Air 03/24/23 04:00 03/24/23 04:00 03/24/23 05:56 Temperature 101 F H Pulse Rate 120 H 120 H 120 H Respiratory Rate 12 Blood Pressure 152/83 H Pulse Oximetry 100 Oxygen Delivery 03/24/23 06:00 03/24/23 06:00 03/24/23 07:15 Temperature Pulse Rate 106 H 106 H 112 H Respirato
[2023-03-24] MEDS: MORPHINE SULFATE (*CRX) 4 MG/ML INJ IV PUSH ×3 (11:16→19:49)
[2023-03-24 13:09] LABS: Procalcitonin 1.9 ng/mL
[2023-03-24 13:11] LABS: CRP 12.1 mg/dL (<1.0)
--- NOTE | 2023-03-24 13:18 | PM.PNORT ---
Progress Note: A&P Assessment and Plan (1) Septic arthritis of knee, right: Qualifiers: Septic arthritis organism: due to unspecified organism Qualified Code(s): M00.9 - Pyogenic arthritis, unspecified Code(s): M00.9 - Pyogenic arthritis, unspecified Status: Acute Assessment and Plan: ESME IS HERE POSTOP 2 DOING WELL. HER WBC COUNT STILL IS LOW, SHE IS HAVING A FEVER TODAY, MAY BE RELATED TO HER LUNGS. SHE WILL CONTINUE HER IV ANTIBIOTICS. SHE WILL NEED A CENTRAL LINE. SHE MAY REQUIRE A 2ND WASHOUT AND POSSIBLE A RESECTION ARTHROPLASTY SOMETIME THIS WEEK DEPENDING ON HER WOUND AND IF SHE CONTINUES TO HAVE A FEVER. HER HGB IS STABLE. WE WILL CONTINUE TO MONITOR HER CRP. I HAVE SPOKEN TO THE FAMILY EXTENSIVELY OF OUR PLANS AND THEY AGREE. Subjective Subjective Date/Time Seen: 03/24/23 13:18 Interval history: POD 2 RIGHT KNEE I AND D. SHE IS IN PAIN CONTROLLED WITH MORPHINE. SHE SPIKED A TEMP TODAY TO 101.3. SHE DENIES ANY CALF PAIN OR THIGH PAIN. SHE IS CURRENTLY AFEBRILE. SHE HAS SOME PRODUCTIVE COUGH WELL. SHE HAS SOME CONFUSION FROM THE MORPHINE BUT ANSWERS QUESTIONS APPROPRIATELY. CULTURES THIS AM HAVE GROWN CLOSTRIDIUM DIFFICILE. WBC COUNT CONTINUES TO DROP. CRP IS PENDING Exam Extrem: Other: VSS AFEBRILE TMAX 101.3. WOUND IS CLEAN AND THERE IS MINIMAL SEROUS DRAINAGE. NO NECROSIS. KNEE HAS MILD EFFUSION, SOME POSTOP ECCHYMOSIS AND ERYTHEMA EXPECTED. NV INTACT NEG HOMANS SIGN, CALF SOFT NON TENDER, THIGH SOFT, PROM OF FOOT AND ANKLE WITH NO SIGN OF COMPARTMENT SYNDROME. DRAIN IN PLACE DRAINING BLOOD AND NO PURULENCE. CLEAN DRESSING APPLIED. Objective Data Vital Signs Vital Signs: Vital Signs - 24 hr 03/23/23 14:17 03/23/23 14:24 03/23/23 14:00 Temperature 37.3 C Pulse Rate 73 76 72 Respiratory Rate 14 18 16 Blood Pressure 108/53 L Pulse Oximetry 99 Oxygen Delivery 03/23/23 14:00 03/23/23 16:00 03/23/23 16:00 Temperature 37.3 C Pulse Rate 73 77 Respiratory Rate 13 Blood Pressure 101/54 L Pulse Oximetry 94 96 Oxygen Delivery Room Air 03/23/23 18:00 03/23/23 16:00 03/23/23 18:00 Temperature 37.4 C Pulse Rate 75 72 71 Respiratory Rate 12 Blood Pressure 115/65 Pulse Oximetry 94 Oxygen Delivery 03/23/23 18:47 03/23/23 19:01 03/23/23 19:02 Temperature Pulse Rate 77 72 Respiratory Rate 18 14 Blood Pressure 115/65 Pulse Oximetry 98 Oxygen Delivery Room Air 03/23/23 20:37 03/23/23 20:00 03/23/23 20:00 Temperature 37.3 C Pulse Rate 114 H 76 Respiratory Rate 13 Blood Pressure 117/70 Pulse Oximetry 96 96 Oxygen Delivery Room Air 03/23/23 20:00 03/24/23 00:00 03/23/23 22:00 Temperature Pulse Rate 76 121 H Respiratory Rate Blood Pressure Pulse Oximetry 96 Oxygen Delivery Room Air 03/23/23 22:00 03/24/23 00:00 03/24/23 00:00 Temperature 37.5 C 37.8 C H Pulse Rate 121 H 120 H 120 H Respiratory Rate 16 15 Blood Pressure 133/99 H 142/93 H Pulse Oximetry 94 94 Oxygen Delivery 03/23/23 19:25 03/24/23 01:20 03/24/23 02:00 Temperature Pulse Rate 85 109 H 116 H Respiratory Rate 18 14 Blood Pressure Pulse Oximetry Oxygen Delivery 03/24/23 02:00 03/24/23 04:00 03/24/23 04:00 Temperature 38.3 C H Pulse Rate 116 H 120 H Respiratory Rate 14 12 Blood Pressure 133/90 152/83 H Pulse Oximetry 95 97 100 Oxygen Delivery Room Air 03/24/23 04:00 03/24/23 05:56 03/24/23 06:00 Temperature Pulse Rate 120 H 120 H 106 H Respiratory Rate Blood Pressure Pulse Oximetry Oxygen Delivery 03/24/23 06:00 03/24/23 07:15 03/24/23 07:15 Temperature Pulse Rate 106 H 112 H 112 H Respiratory Rate 13 20 20 Blood Pressure 138/78 Pulse Oximetry 95 100 Oxygen Delivery Room Air 03/24/23 07:25 03/24/23 07:50 03/24/23 08:00 Temperature 38.5 C H 38.5 C H Pulse Rate 114 H 135 H Respiratory Rate 20 17 Blood Pressure 1
[2023-03-24] MEDS: AMIODARONE 360 MG/D5W 200 ML 360 MG/200 ML BAG 16.67 MG IV CONT (15:09)
[2023-03-24] MEDS: FUROSEMIDE INJ 40 MG/4 ML VIAL 20 MG IV PUSH (19:34)
[2023-03-24] MEDS: ENOXAPARIN 40 MG/0.4 ML SYRINGE SUB-Q (19:54)
[2023-03-24] MEDS: ASPIRIN 325 MG TABLET PO (19:54)
[2023-03-24] MEDS: rOPINIRole HCL 1 MG TABLET 2 MG PO (20:00)
[2023-03-24] MEDS: QUEtiapine FUMARATE 100 MG TABLET 300 MG PO (20:00)
[2023-03-24 20:06] LABS: Appearance Urine Clear (Clear); Bacteria Urine None Seen /hpf; Bilirubin Urine Negative (Negative); Blood Urine 1+ (Negative); Color Urine Yellow (Yellow); Glucose Urine UA Negative (Negative); Hyaline Casts Urine Present /lpf; Ketones Urine Negative (Negative); Leukocyte Esterase Ur Negative LEU/UL (Negative); Nitrate Urine Negative (Negative); Protein Urine 1+ mg/dL (Negative); Specific Grav Ur 1.023 (1.001-1.035); Squamous Epithelial Cell Urine Few /hpf (Few); Urobilinogen Urine 0.2 mg/dL (<2.0); WBC Urine 0-5 /hpf; pH Urine 5.5 (5.0-9.0)
[2023-03-24 20:07] LABS: Add Urine Microscopic? YES
--- NOTE | 2023-03-24 20:17 | PC.NURSE ---
Spoke with Dr. Godinez at 1850. Provider initiated call for updates and current patient condition. Clarification on PT/OT orders. Provider clarified that patient okay to be seen by therapy and participate in therapy. Patient okay to get out of bed with therapy as long as tolerated. Patient okay to bear weight/ no weight restrictions to post-op knee/leg.
[2023-03-24 22:22] LABS: Anion Gap 5 mmol/L (8-16); Blood Urea Nitrogen 12 mg/dL (7-17); Calcium 7.9 mg/dL (8.4-10.2); Carbon Dioxide 28 mmol/L (22-30); Chloride 101 mmol/L (98-107); Estimated CRCL calculation 93 ml/min; Estimated Glomerular Filt Rate > 60; Glucose 129 mg/dL (65-110); Magnesium 1.4 mg/dL (1.6-2.3); Sodium 134 mmol/L (137-145)
[2023-03-24] MEDS: MAGNESIUM SULF 2 GM/WATER 50ML 2 GM/50 ML BAG IVPB (23:05)
--- NOTE | 2023-03-24 23:31 | PC.NURSE ---
computer glitch during administration of bedtime meds,computer documentation re-entered; one dose 4mg morphine given at 194.
[2023-03-25] VITALS (18 sets, daily range): BP systolic 95–125; BP diastolic 54–78; PULSE 70–116; RESP 14–21; TEMP 36.6–37.1; O2SAT 87–99; BMI 32.5
[2023-03-25] MEDS: oxyCODONE/ACETAMINOPHEN (*CRX) 5-325 MG TABLET 1 TABLET PO ×5 (01:33→19:25)
[2023-03-25] MEDS: AMIODARONE 360 MG/D5W 200 ML 360 MG/200 ML BAG 16.67 MG IV CONT ×2 (03:01→17:26)
[2023-03-25] MEDS: VANCOMYCIN 1,250 MG/NS 250 ML 1,250 MG/250 ML BAG 166.7 MG IVPB ×2 (03:01→15:03)
[2023-03-25] MEDS: MORPHINE SULFATE (*CRX) 4 MG/ML INJ IV PUSH (04:15)
[2023-03-25 04:47] LABS: Hematocrit 29.9 % (37.0-47.0); Hemoglobin 9.5 g/dL (12.0-15.0); Mean Corpuscular HGB Conc 31.8 g/dl (32-36); Mean Corpuscular Hemoglobin 28.2 pg (26-34); Mean Corpuscular Volume 88.7 fl (80-100); Mean Platelet Volume 8.4 fl (7.4-10.4); Platelet Count Result 232 k/mm3 (150-375); Red Blood Count 3.37 M/mm3 (4.2-5.4); Red Cell Distribution Width 15.9 % (11.5-14.5); White Blood Count 9.1 K/mm3 (4.5-10.0)
[2023-03-25 04:55] LABS: Alanine Aminotransferase 40 U/L (6-35); Albumin Level 2.8 g/dL (3.5-5.1); Alkaline Phosphatase 154 U/L (38-126); Anion Gap 4 mmol/L (8-16); Aspartate Amino Transferase 42 U/L (14-36); Bilirubin,Total 0.3 mg/dL (0.2-1.3); Blood Urea Nitrogen 10 mg/dL (7-17); Calcium 7.9 mg/dL (8.4-10.2); Carbon Dioxide 29 mmol/L (22-30); Chloride 101 mmol/L (98-107); Creatine Kinase 458 U/L (30-135); Estimated CRCL calculation 79 ml/min; Estimated Glomerular Filt Rate > 60; Glucose 106 mg/dL (65-110); Magnesium 1.8 mg/dL (1.6-2.3); Phosphorus 4.5 mg/dL (2.5-4.5); Potassium 3.9 mmol/L (3.4-5.0); Sodium 134 mmol/L (137-145)
[2023-03-25] MEDS: metroNIDAZOLE 500 MG/ISO 100ML 500 MG/100 ML BAG 100 MG IVPB ×3 (05:00→21:51)
[2023-03-25] MEDS: CENTRAL LINE FLUSH 10 ML IV PUSH ×3 (05:01→21:52)
[2023-03-25] MEDS: CENTRAL LINE FLUSH 20 ML IV PUSH (05:01)
[2023-03-25] MEDS: LEVOTHYROXINE SODIUM INJ 100 MCG/5 ML VIAL 12.5 MCG IV PUSH (05:45)
[2023-03-25] MEDS: lamoTRIgine 100 MG, lamoTRIgine 50 MG 150 MG PO ×2 (08:22→17:26)
[2023-03-25] MEDS: ASPIRIN 325 MG TABLET PO (08:22)
[2023-03-25] MEDS: ENOXAPARIN 40 MG/0.4 ML SYRINGE SUB-Q (08:22)
[2023-03-25] MEDS: METOPROLOL TARTRATE 25 MG TABLET PO ×2 (08:24→20:34)
[2023-03-25] MEDS: SERTRALINE HCL 50 MG TABLET 100 MG PO (08:24)
[2023-03-25] MEDS: SILVERGEL (ELTA) 45 ML 1 APPLIC TOPICAL (08:25)
[2023-03-25] MEDS: CEFEPIME 2 GM/NS 50 ML 2 GM/50 ML BAG IVPB ×2 (08:28→20:30)
[2023-03-25] MEDS: FLUTICASONE/SALMETEROL 115-21 MCG INHALER 1 PUFF 2 PUFF INHALATION ×2 (08:32→20:30)
--- NOTE | 2023-03-25 09:31 | WPDINTPN ---
Progress Note: A&P Assessment and Plan (1) Septic shock: Code(s): A41.9 - Sepsis, unspecified organism; R65.21 - Severe sepsis with septic shock Status: Acute Assessment and Plan: Septic shock secondary to septic arthritis of right knee which was status post DKA in February 2023 -Status post knee joint aspiration which was purulent -03/22/2023: I and D on the right knee with poly component exchange, according to the OR notes there was gross purulence noted the time of I and D. - Continue vancomycin, Flagyl and cefepime. -03/20 synovial fluid culture: growing Clostridium perfringens. -03/20 Blood cultures: negative so far 03/24 fever overnight. Preliminary blood cultures are negative 2/2 -off IV fluids -off Levophed, currently hemodynamically stable - Echo reviewed -patient on room air. Will order incentive spirometry -patient has a purewick in place of a Howe catheter (2) Septic arthritis of knee, right: Qualifiers: Septic arthritis organism: due to unspecified organism Qualified Code(s): M00.9 - Pyogenic arthritis, unspecified Code(s): M00.9 - Pyogenic arthritis, unspecified Status: Acute Assessment and Plan: 03/24: Discussed with orthopedic surgeon regarding the joint. Considering new onset fever, pain I discussed option of repeat washout of the knee. Dr. Godinez examined the joint and recommends continuing current management with antibiotics and pain control at this time. -03/24 bilateral lower extremity venous Dopplers without evidence of DVT (3) Atrial fibrillation: Code(s): I48.91 - Unspecified atrial fibrillation Status: Resolved Assessment and Plan: Patient went to AFib with RVR on admission which was likely precipitated by sepsis. Patient was started on amiodarone infusion and patient converted to normal sinus rhythm overnight Aspirin Patient was given Lovenox initially then was held for surgery and then not resume to drop in hemoglobin. 03/24: Patient went back into a RVR . Discussed with Cardiology and patient was restarted on amiodarone infusion by Cardiology -continue aspirin 325 mg p.o. daily -hold full anticoagulation at this time due to anemia and recent blood transfusion during this admission (4) S/P total knee arthroplasty: Qualifiers: Laterality: right Qualified Code(s): Z96.651 - Presence of right artificial knee joint Code(s): Z96.659 - Presence of unspecified artificial knee joint Status: Acute Assessment and Plan: See above (5) Rhabdomyolysis: Qualifiers: Rhabdomyolysis type: non-traumatic Qualified Code(s): M62.82 - Rhabdomyolysis Code(s): M62.82 - Rhabdomyolysis Status: Acute Assessment and Plan: -CK levels improving Hold further IV fluids (6) Anemia: Code(s): D64.9 - Anemia, unspecified Status: Acute Assessment and Plan: Patient has chronic anemia but hemoglobin is worse which could be hemodilution will from IV fluids 03/23: Patient dropped her hemoglobin to 6.5 this morning, requiring 2 units of packed RBCs -Hemovac on the right knee drained 50 mL of bloody drainage -will discuss with orthopedic Hemoglobin has been stable. Monitor hemoglobin and transfuse as needed (7) Swelling: Code(s): R60.9 - Edema, unspecified Status: Acute Assessment and Plan: Patient appears to have bilateral edema in upper and lower extremities. Likely from 3rd space patient received significant amount IV fluids on admission for her septic shock and rhabdomyolysis and is positive by> 6 L -fluids have been discontinued -patient was diuresed on 03/24 with adequate response -will diurese again with albumin and Lasix (8) Joint pain: Code(s): M25.50 - Pain in unspecified joint Status: Acute Assessment and Plan: She has history of spinal injury and as per patient's sister had limited range of motion in left arm. Patient has had neck surger
[2023-03-25] MEDS: FUROSEMIDE INJ 40 MG/4 ML VIAL 20 MG IV PUSH (09:42)
[2023-03-25] MEDS: ALBUMIN HUMAN 25% 25 GM/100 ML 100 ML IVPB (09:42)
--- NOTE | 2023-03-25 10:00 | PCPTNOTE ---
Pt currently has a femoral line and is unable to mobilize at this time. RN aware. Will follow.
--- NOTE | 2023-03-25 10:38 | PM.IMPN ---
Progress Note: A&P Assessment and Plan (1) Septic shock: Code(s): A41.9 - Sepsis, unspecified organism; R65.21 - Severe sepsis with septic shock Status: Acute Assessment and Plan: Septic shock secondary to septic arthritis of right knee which was status post DKA in February 2023 -Status post knee joint aspiration which was purulent -03/22/2023: I and D on the right knee with poly component exchange, according to the OR notes there was gross purulence noted the time of I and D. - Continue vancomycin, Flagyl and cefepime. Her synovial fluid culture is growing Clostridium perfringens. -Blood cultures are negative her now. 03/24 fever overnight. Will resend a set of cultures since patient is having fevers although her WBCs normal (2) Septic arthritis of knee, right: Qualifiers: Septic arthritis organism: due to unspecified organism Qualified Code(s): M00.9 - Pyogenic arthritis, unspecified Code(s): M00.9 - Pyogenic arthritis, unspecified Status: Acute Assessment and Plan: Dr. Godinez examined the joint and recommends continuing current management with antibiotics and pain control at this time. Pending Doppler of lower extremity to evaluate for DVT (3) Atrial fibrillation: Code(s): I48.91 - Unspecified atrial fibrillation Status: Resolved Assessment and Plan: Patient went to AFib with RVR yesterday which was likely precipitated by sepsis. Patient was started on amiodarone infusion and patient converted to normal sinus rhythm overnight Patient went back into RVR this morning. Discussed with Cardiology and patient was restarted on amiodarone infusion by Cardiology -continue to hold full anticoagulation along with aspirin due to anemia (4) S/P total knee arthroplasty: Qualifiers: Laterality: right Qualified Code(s): Z96.651 - Presence of right artificial knee joint Code(s): Z96.659 - Presence of unspecified artificial knee joint Status: Acute Assessment and Plan: See above (5) Rhabdomyolysis: Qualifiers: Rhabdomyolysis type: non-traumatic Qualified Code(s): M62.82 - Rhabdomyolysis Code(s): M62.82 - Rhabdomyolysis Status: Acute Assessment and Plan: -CK levels improving Hold further IV fluids (6) Anemia: Code(s): D64.9 - Anemia, unspecified Status: Acute Assessment and Plan: Patient has chronic anemia but hemoglobin is worse which could be hemodilution will from IV fluids 03/23: Patient dropped her hemoglobin to 6.5 this morning, requiring 2 units of packed RBCs -Hemovac on the right knee drained 50 mL of bloody drainage ordered -will discuss with orthopedic Hemoglobin has been stable. Monitor hemoglobin and transfuse if need (7) Swelling: Code(s): R60.9 - Edema, unspecified Status: Acute Assessment and Plan: Patient appears to have some edema in leg and dependent edema and both elbows. 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 Cardiac: RRR. Normal S1 S2. No murmurs Circulation: Pedal pulses are intact and symmetrical. Abdomen: Normal bowel sounds.. Soft. NT. ND. Extremities: Right knee dressing in place, Hemovac draining
--- NOTE | 2023-03-25 11:36 | PM.PNCARD ---
Progress Note: A&P Assessment and Plan (1) Paroxysmal atrial fibrillation: Code(s): I48.0 - Paroxysmal atrial fibrillation Status: Acute Assessment and Plan: Patient had less than 24 hours of atrial fibrillation in setting of septic shock. Converted to sinus rhythm over the weekend, but last night she reverted to atrial fibrillation with RVR. --Continue amiodarone gtt for now since she is still having significant pain, likely to revert to AF RVR. Do not anticipate emt intermediate amiodarone use, though. --Unable to anticoagulate her at this time because of bleeding from surgical site, possible return to OR for another washout. --Continue telemetry monitoring. (2) Septic arthritis of knee, right: Qualifiers: Septic arthritis organism: due to unspecified organism Qualified Code(s): M00.9 - Pyogenic arthritis, unspecified Code(s): M00.9 - Pyogenic arthritis, unspecified Status: Acute Assessment and Plan: Status post washout on 03/22/2023, on multiple antibiotics. (3) Septic shock: Code(s): A41.9 - Sepsis, unspecified organism; R65.21 - Severe sepsis with septic shock Status: Acute Assessment and Plan: Resolved, off pressors. Subjective Date/time seen: 03/25/23 11:36 Cardiology follow up for atrial fibrillation Interval history: More alert today. Still experiencing significant pain in her knee. She is back in sinus rhythm at the time of my visit with her. Review of Systems Constitutional: Constitutional: Reports no additional constitutional complaints Eyes: Eyes: Reports no additional eye complaints ENT: Reports system reviewed and no additional complaints, except as documented Cardiovascular: Cardiovascular: Reports no additional cardiovascular complaints Respiratory: Respiratory: Reports no additional respiratory complaints Gastrointestinal: Gastrointestinal: Reports no additional gastrointestinal complaints Musculoskeletal: Musculoskeletal: Reports as per HPI Integumentary/Breasts: Skin/Breast: Reports system reviewed and no additional complaints, except as docu Neurologic: Reports system reviewed and no additional complaints, except as documented and Reports confusion Psychiatric: Psychiatric: Reports as per HPI and Reports confusion Endocrine: Endocrine: Reports no additional endocrine complaints Hematologic/Lymphatic: Hematologic/Lymphatic: Reports no additional hematologic/lymphatic complaints Allergic/Immunologic: Allergic/Immunologic: Reports no additional allergic/immunologic complaints Exam Const: General: cooperative, no acute distress, awake and uncomfortable; No healthy appearing, comfortable or in distress Orientation/consciousness: oriented to person and patient oriented x3 HENMT: Mouth: Yes moist mucous membranes Eyes: Sclera: sclerae normal Pupils: Equal, round and reactive pupils present EOM: EOMs intact bilaterally Neck: Neck: supple and no JVD Other: Normal carotid pulses bilaterally Resp: Effort & Inspection: normal respiratory effort Auscultation: clear to auscultation bilaterally Cardio: Rate: regular rate Rhythm: regular rhythm Heart sounds: Murmur heart sound present GI: Inspection: normal to inspection Auscultation: normal bowel sounds Skin: General skin exam: normal color and no rashes or lesions noted Neuro: General: oriented to person, patient oriented x3 and confusion Cranial nerves: Yes Equal, round and reactive pupils present Other: Alert and oriented x3 Extrem: Right lower extremity: no edema Left lower extremity: no edema Other: Right lower extremity is wrapped, wound VAC. Psych: Appearance: grossly normal Mental Status: mental status grossly normal Objective Data Vital Signs Vital Signs: Vital Signs - 24 hr 03/24/23 11:46 03/24/23 12:00 03/24/23 12:00 Temperature 37.9 C H 37.9 C H Pulse Rate 101 H Respiratory Rate 18 Blood Pressure 121/83
--- NOTE | 2023-03-25 11:47 | PM.PNORT ---
Progress Note: A&P Assessment and Plan (1) Septic arthritis of knee, right: Qualifiers: Septic arthritis organism: due to unspecified organism Qualified Code(s): M00.9 - Pyogenic arthritis, unspecified Code(s): M00.9 - Pyogenic arthritis, unspecified Status: Acute Assessment and Plan: Preliminary synovial fluid results reveal moderate growth of Clostridium perfringens. Blood cultures with NGTD. Hgb stable at 9.5. WBC 9.1 today. Afebrile since yesterday. New blood cultures obtained. Plan to continue Vancomycin, Flagyl, Cefepime. Per Dr. Godinez, patient will need termite technician IV antibiotic access. Drain still in place, right knee. Sanguinous output in chamber. Still with significant pain with AROM/PROM of the right knee. Swelling of the RLE noted. Previously discussed likely return to the OR with Dr. Godinez this week pending overall clinical picture and progress of knee pain/symptoms for a resection arthroplasty vs. 2nd wash out. Will await further recommendations/assessment from Dr. Godinez to determine surgical planning for return to OR in the interim. Ice Knee. Pain control. Elevate. (2) Paroxysmal atrial fibrillation: Code(s): I48.0 - Paroxysmal atrial fibrillation Status: Acute Assessment and Plan: Cardiology following. Unable to start on anticoagulation due to incision site sanguinous drainage. Restarted amiodarone gtt in hopes of restoring sinus rhythm after return to Afib with RVR overnight. (3) Septic shock: Code(s): A41.9 - Sepsis, unspecified organism; R65.21 - Severe sepsis with septic shock Status: Acute (4) Swelling: Code(s): R60.9 - Edema, unspecified Status: Acute Assessment and Plan: Edema noted in b/l UE and b/l LE. Hospitalist notes reviewed. Likely due to IV fluids on admission for septic shock. Fluids now being held. Continue to monitor. (5) Weakness: Code(s): R53.1 - Weakness Status: Acute (6) Joint pain: Code(s): M25.50 - Pain in unspecified joint Status: Acute Assessment and Plan: Patient with complaints of b/l UE pain/weakness. Sent for head CT and cervical spine CT today for further evaluation. Plan Reviewed physical exam, labs, vitals, antibiotics, Afib and future surgical plans with attending MD, Dr. Godinez. Agrees with current plan as indicated above. No further recommendations provided. Subjective Subjective Date/Time Seen: 03/25/23 11:47 Post Op day: 3 Principal diagnosis: Infected Right TKA Interval history: POD #3: I AND D WITH POLY COMPONENT EXCHANGE Patient awake/alert at time of exam. Reports improvement in ability to move upper extremities. Reports significant pain with any movement or palpation of the right knee. No other complaints today. Review of Systems Constitutional: Constitutional: Reports no additional constitutional complaints Eyes: Eyes: Reports no additional eye complaints ENT: Reports system reviewed and no additional complaints, except as documented Cardiovascular: Cardiovascular: Reports no additional cardiovascular complaints Respiratory: Respiratory: Reports no additional respiratory complaints Gastrointestinal: Gastrointestinal: Reports no additional gastrointestinal complaints Musculoskeletal: Musculoskeletal: Reports as per HPI Integumentary/Breasts: Skin/Breast: Reports system reviewed and no additional complaints, except as docu Neurologic: Reports system reviewed and no additional complaints, except as documented and Reports confusion Psychiatric: Psychiatric: Reports as per HPI and Reports confusion Endocrine: Endocrine: Reports no additional endocrine complaints Hematologic/Lymphatic: Hematologic/Lymphatic: Reports no additional hematologic/lymphatic complaints Allergic/Immunologic: Allergic/Immunologic: Reports no additional allergic/immunologic complaints Exam Const: General: comfortable and no acute distress Resp: Effort
[2023-03-25] MEDS: LIDOCAINE HCL 1% PF INJ 5 ML VIAL INFILTRATE (13:00)
[2023-03-25] MEDS: MORPHINE SULFATE (*CRX) 2 MG/ML INJ IV PUSH ×3 (13:05→20:41)
[2023-03-25 14:08] LABS: Lymphocytes Synovial Fluid 8 %; Neutrophils Synovial Fluid 92 % (0-25)
[2023-03-25 15:45] LABS: CRP 16.1 mg/dL (<1.0)
[2023-03-25] MEDS: QUEtiapine FUMARATE 100 MG TABLET 300 MG PO (20:32)
[2023-03-25] MEDS: rOPINIRole HCL 1 MG TABLET 2 MG PO (20:32)
[2023-03-26] VITALS: BP 122/65; PULSE 81; RESP 18; TEMP 36.8; O2SAT 95
[2023-03-26] MEDS: oxyCODONE/ACETAMINOPHEN (*CRX) 5-325 MG TABLET 1 TABLET PO ×2 (00:02→20:47)
--- NOTE | 2023-03-26 11:10 | PCFNICU ---
ICU Rounding Note: Pt current nutrition is Regular. Last recorded weight is 88.7 kg. Bowel Motility:No BM reported on 03/26 Labs Reviewed: No labs to report today. Meds Noted:Flagyl, Seroquel, Vancomycin Skin:WNL Additional Notes:Patient remains on a regular diet. Oral Intake has been improving-about 50% of meal for breakfast. Diet supplement is being tolerated of Ensure Enlive TID providing an additional 350 kcals and 20 gms protein. Agree with diet orders. Following daily in ICU rounds. Will monitor weight, labs, oral intake every 5 days.
--- NOTE | 2023-03-26 16:48 | PC.NURSE ---
Paper documentation exists on this patient due to [facility] [employer] [facility] [facility] downtime on 03/26/23 from 00:30 to 16:30.
[2023-03-26] MEDS: lamoTRIgine 100 MG, lamoTRIgine 50 MG 150 MG PO (19:34)
[2023-03-26 20:00] VITALS: BP 133/67; PULSE 110; RESP 20; TEMP 36.5; O2SAT 97
[2023-03-26] MEDS: rOPINIRole HCL 1 MG TABLET 2 MG PO (20:00)
[2023-03-26] MEDS: CEFEPIME 2 GM/NS 50 ML 2 GM/50 ML BAG IVPB (20:00)
[2023-03-26] MEDS: QUEtiapine FUMARATE 100 MG TABLET 300 MG PO (20:00)
[2023-03-26 20:01] VITALS: PULSE 121
[2023-03-26] MEDS: METOPROLOL TARTRATE 25 MG TABLET PO (20:01)
[2023-03-26] MEDS: FLUTICASONE/SALMETEROL 115-21 MCG INHALER 1 PUFF 2 PUFF INHALATION (20:13)
[2023-03-26 20:18] VITALS: PULSE 112; O2SAT 97
[2023-03-26] MEDS: oxyCODONE HCL (*CRX) 2.5 MG TAB IR PO (20:47)
[2023-03-26 22:00] VITALS: PULSE 100
[2023-03-26] MEDS: CENTRAL LINE FLUSH 10 ML IV PUSH (22:36)
[2023-03-26] MEDS: metroNIDAZOLE 500 MG/ISO 100ML 500 MG/100 ML BAG 100 MG IVPB (22:36)
[2023-03-26 23:27] VITALS: BP 105/52; PULSE 73; RESP 20; TEMP 36.5; O2SAT 98
[2023-03-27] VITALS (21 sets, daily range): BP systolic 97–131; BP diastolic 53–70; PULSE 66–102; RESP 16–22; TEMP 36.3–36.8; O2SAT 92–100
[2023-03-27] MEDS: oxyCODONE/ACETAMINOPHEN (*CRX) 5-325 MG TABLET 1 TABLET PO ×2 (02:22→06:13)
[2023-03-27] MEDS: oxyCODONE HCL (*CRX) 2.5 MG TAB IR PO ×2 (02:23→06:14)
[2023-03-27 02:36] LABS: Hematocrit 27.8 % (37.0-47.0); Hemoglobin 8.8 g/dL (12.0-15.0); Mean Corpuscular HGB Conc 31.7 g/dl (32-36); Mean Corpuscular Hemoglobin 28.5 pg (26-34); Mean Platelet Volume 8.7 fl (7.4-10.4); Platelet Count Result 293 k/mm3 (150-375); Red Blood Count 3.09 M/mm3 (4.2-5.4); Red Cell Distribution Width 15.6 % (11.5-14.5); White Blood Count 8.8 K/mm3 (4.5-10.0)
[2023-03-27 02:51] LABS: Anion Gap 0 mmol/L (8-16); Blood Urea Nitrogen 11 mg/dL (7-17); Calcium 8.1 mg/dL (8.4-10.2); Carbon Dioxide 34 mmol/L (22-30); Chloride 101 mmol/L (98-107); Creatine Kinase 105 U/L (30-135); Estimated CRCL calculation 78 ml/min; Estimated Glomerular Filt Rate > 60; Glucose 93 mg/dL (65-110); Sodium 135 mmol/L (137-145)
[2023-03-27 03:08] LABS: CRP 16.4 mg/dL (<1.0)
[2023-03-27 03:30] LABS: Vancomycin Trough 16.7 ug/mL (10.0-20.0)
[2023-03-27] MEDS: VANCOMYCIN 1,250 MG/NS 250 ML 1,250 MG/250 ML BAG 166.7 MG IVPB ×2 (03:55→15:29)
[2023-03-27] MEDS: AMIODARONE 360 MG/D5W 200 ML 360 MG/200 ML BAG 16.67 MG IV CONT (04:10)
[2023-03-27] MEDS: metroNIDAZOLE 500 MG/ISO 100ML 500 MG/100 ML BAG 100 MG IVPB ×3 (06:15→20:32)
[2023-03-27] MEDS: LEVOTHYROXINE SODIUM INJ 100 MCG/5 ML VIAL 12.5 MCG IV PUSH (06:57)
[2023-03-27] MEDS: CENTRAL LINE FLUSH 10 ML IV PUSH ×3 (07:15→20:44)
[2023-03-27] MEDS: FLUTICASONE/SALMETEROL 115-21 MCG INHALER 1 PUFF 2 PUFF INHALATION ×2 (08:51→20:53)
[2023-03-27] MEDS: CEFEPIME 2 GM/NS 50 ML 2 GM/50 ML BAG IVPB ×2 (09:45→20:32)
[2023-03-27] MEDS: ASPIRIN 325 MG TABLET PO (09:48)
[2023-03-27] MEDS: SILVERGEL (ELTA) 45 ML 1 APPLIC TOPICAL (09:49)
[2023-03-27] MEDS: METOPROLOL TARTRATE 25 MG TABLET PO ×2 (09:49→20:32)
[2023-03-27] MEDS: SERTRALINE HCL 50 MG TABLET 100 MG PO (09:49)
[2023-03-27] MEDS: lamoTRIgine 100 MG, lamoTRIgine 50 MG 150 MG PO ×2 (09:50→18:34)
[2023-03-27] MEDS: ENOXAPARIN 40 MG/0.4 ML SYRINGE SUB-Q (09:51)
--- NOTE | 2023-03-27 10:27 | PM.PNCARD ---
Progress Note: A&P Assessment and Plan (1) Paroxysmal atrial fibrillation: Code(s): I48.0 - Paroxysmal atrial fibrillation Status: Acute Assessment and Plan: Patient had less than 24 hours of atrial fibrillation in setting of septic shock. Converted to sinus rhythm over the weekend, but she reverted to atrial fibrillation with RVR, and is now back in NSR. --Will shift to p.o. amiodarone 400mg daily. Will reduce to 200mg daily as maintenance dose at discharge. Do not anticipate usp amiodarone use, though. --Unable to anticoagulate her at this time because of bleeding from surgical site, possible return to OR for another washout. Will initiate a/c when OK with ortho --Continue telemetry monitoring. (2) Septic arthritis of knee, right: Qualifiers: Septic arthritis organism: due to unspecified organism Qualified Code(s): M00.9 - Pyogenic arthritis, unspecified Code(s): M00.9 - Pyogenic arthritis, unspecified Status: Acute Assessment and Plan: Status post washout on 03/22/2023, on multiple antibiotics. (3) Septic shock: Code(s): A41.9 - Sepsis, unspecified organism; R65.21 - Severe sepsis with septic shock Status: Acute Assessment and Plan: Resolved, off pressors. Subjective Date/time seen: 03/27/23 10:27 Cardiology follow up for Afib Interval history: In sinus rhythm at the time of my visit but looks like she had some AF RVR again last night. No complaints aside from knee pain. Review of Systems Constitutional: Constitutional: Reports no additional constitutional complaints Eyes: Eyes: Reports no additional eye complaints ENT: Reports system reviewed and no additional complaints, except as documented Cardiovascular: Cardiovascular: Reports no additional cardiovascular complaints Respiratory: Respiratory: Reports no additional respiratory complaints Gastrointestinal: Gastrointestinal: Reports no additional gastrointestinal complaints Musculoskeletal: Musculoskeletal: Reports as per HPI Integumentary/Breasts: Skin/Breast: Reports system reviewed and no additional complaints, except as docu Neurologic: Reports system reviewed and no additional complaints, except as documented and Reports confusion Psychiatric: Psychiatric: Reports as per HPI and Reports confusion Endocrine: Endocrine: Reports no additional endocrine complaints Hematologic/Lymphatic: Hematologic/Lymphatic: Reports no additional hematologic/lymphatic complaints Allergic/Immunologic: Allergic/Immunologic: Reports no additional allergic/immunologic complaints Exam Const: General: cooperative, no acute distress, awake, confusion, lethargic and uncomfortable; No healthy appearing, comfortable or in distress Orientation/consciousness: oriented to person, patient oriented x3, confusion and lethargic HENMT: Mouth: Yes moist mucous membranes Eyes: Sclera: sclerae normal Pupils: Equal, round and reactive pupils present EOM: EOMs intact bilaterally Neck: Neck: supple and no JVD Other: Normal carotid pulses bilaterally Resp: Effort & Inspection: normal respiratory effort Auscultation: clear to auscultation bilaterally Cardio: Rate: regular rate Rhythm: regular rhythm Heart sounds: Murmur heart sound present GI: Inspection: normal to inspection Auscultation: normal bowel sounds Skin: General skin exam: normal color and no rashes or lesions noted Neuro: General: oriented to person, patient oriented x3 and confusion Cranial nerves: Yes Equal, round and reactive pupils present Other: Alert and oriented x3 Extrem: Right lower extremity: no edema Left lower extremity: no edema Other: Right lower extremity is wrapped, wound VAC. Psych: Appearance: grossly normal Mental Status: mental status grossly normal Objective Data Vital Signs Vital Signs: Vital Signs - 24 hr 03/26/23 20:01 03/26/23 20:00 03/26/23 20:18 Temperature 36.5 C
[2023-03-27] MEDS: oxyCODONE/ACETAMINOPHEN (*CRX) 10-325 MG TABLET 1 TAB PO ×4 (10:58→23:25)
--- NOTE | 2023-03-27 11:13 | PM.IMPN ---
Progress Note: A&P Assessment and Plan (1) Septic shock: Code(s): A41.9 - Sepsis, unspecified organism; R65.21 - Severe sepsis with septic shock Status: Acute Assessment and Plan: Continue IV antibiotics. Sepsis improved. (2) Septic arthritis of knee, right: Qualifiers: Septic arthritis organism: due to unspecified organism Qualified Code(s): M00.9 - Pyogenic arthritis, unspecified Code(s): M00.9 - Pyogenic arthritis, unspecified Status: Acute Assessment and Plan: Per orthopedics. Continue antibiotics. (3) Atrial fibrillation: Code(s): I48.91 - Unspecified atrial fibrillation Status: Resolved Assessment and Plan: On amiodarone drip. Rates controlled (4) S/P total knee arthroplasty: Qualifiers: Laterality: right Qualified Code(s): Z96.651 - Presence of right artificial knee joint Code(s): Z96.659 - Presence of unspecified artificial knee joint Status: Acute Assessment and Plan: See above (5) Rhabdomyolysis: Qualifiers: Rhabdomyolysis type: non-traumatic Qualified Code(s): M62.82 - Rhabdomyolysis Code(s): M62.82 - Rhabdomyolysis Status: Acute Assessment and Plan: Monitor (6) Anemia: Code(s): D64.9 - Anemia, unspecified Status: Acute Assessment and Plan: Monitor and transfuse as needed. (7) Swelling: Code(s): R60.9 - Edema, unspecified Status: Acute Assessment and Plan: Improving, Right upper extremity edema. Will get right upper extremity ultrasound (8) Joint pain: Code(s): M25.50 - Pain in unspecified joint Status: Acute Assessment and Plan: See plan above. (9) Delirium: Code(s): R41.0 - Disorientation, unspecified Status: Acute Assessment and Plan: Improving (10) Weakness: Code(s): R53.1 - Weakness Status: Acute Assessment and Plan: Will need PT OT. Subjective Date/time seen: 03/27/23 11:13 Interval history: No complaints Exam Narrative: General: Pt is alert awake and in mild distress due to pain Lungs/Chest: Trachea central Clear BS B/L, No crackles or wheezing. Cardiac: RRR. Normal S1 S2. No murmurs Circulation: Pedal pulses are intact and symmetrical. Abdomen: Normal bowel sounds.. Soft. NT. ND. Extremities: Right knee dressing in place, Hemovac draining bloody drainage from the joint, there is a dressing with drainage attached above the incision, knee on the lateral and medial side appears swollen, is tender and has some redness and is warm to touch. -Patient with limited range of motion of bilateral bilateral upper extremities and unable to straighten the arms. She states that she was able to do this at home -Edema of all 4 extremities : Purewick in place Neurologic: Follows commands. Moves all 4 extremities PERRL AO x2, generalized weakness of upper and lower extremity, urinary incontinence Skin: No Rash Objective Data Vital Signs Vital Signs: Vital Signs - 24 hr 03/26/23 20:01 03/26/23 20:00 03/26/23 20:18 Temperature 97.7 F Pulse Rate 121 H 110 H 112 H Respiratory Rate 20 Blood Pressure 133/67 Pulse Oximetry 97 97 Oxygen Delivery Room Air 03/26/23 20:00 03/26/23 22:00 03/26/23 23:27 Temperature 97.7 F Pulse Rate 110 H 100 73 Respiratory Rate 20 Blood Pressure 105/52 L Pulse Oximetry 98 Oxygen Delivery 03/27/23 00:00 03/27/23 02:00 03/27/23 04:10 Temperature Pulse Rate 71 70 90 Respiratory Rate Blood Pressure Pulse Oximetry Oxygen Delivery 03/27/23 04:00 03/27/23 04:00 03/27/23 06:00 Temperature 97.6 F Pulse Rate 80 98 102 H Respiratory Rate 20 Blood Pressure 131/70 Pulse Oximetry 97 Oxygen Delivery 03/27/23 08:00 03/27/23 08:57 03/27/23 09:49 Temperature 97.4 F L Pulse Rate 72 77 Respiratory Rate 18 Blood Pressure 112/59 L Pulse Oximetry 99
[2023-03-27 12:54] LABS: Anion Gap 3 mmol/L (8-16); Carbon Dioxide 30 mmol/L (22-30); Chloride 99 mmol/L (98-107); Potassium 3.8 mmol/L (3.4-5.0); Sodium 132 mmol/L (137-145)
[2023-03-27 12:55] LABS: Alanine Aminotransferase 31 U/L (6-35); Albumin Level 2.8 g/dL (3.5-5.1); Alkaline Phosphatase 123 U/L (38-126); Aspartate Amino Transferase 32 U/L (14-36); Bilirubin,Total 0.3 mg/dL (0.2-1.3); Blood Urea Nitrogen 12 mg/dL (7-17); Calcium 7.8 mg/dL (8.4-10.2); Estimated CRCL calculation 92 ml/min; Estimated Glomerular Filt Rate > 60; Glucose 95 mg/dL (65-110); Magnesium 1.7 mg/dL (1.6-2.3); Phosphorus 3.6 mg/dL (2.5-4.5)
[2023-03-27 12:56] LABS: Hemoglobin 8.3 g/dL (12.0-15.0); Mean Corpuscular HGB Conc 30.7 g/dl (32-36); Mean Corpuscular Hemoglobin 27.9 pg (26-34); Mean Corpuscular Volume 90.9 fl (80-100); Mean Platelet Volume 9.1 fl (7.4-10.4); Platelet Count Result 252 k/mm3 (150-375); Red Blood Count 2.97 M/mm3 (4.2-5.4); Red Cell Distribution Width 15.7 % (11.5-14.5); White Blood Count 8.3 K/mm3 (4.5-10.0)
[2023-03-27 12:57] LABS: Creatine Kinase 171 U/L (30-135)
[2023-03-27 14:52] LABS: Glucose Point of Care 117 mg/dl (65-105)
--- NOTE | 2023-03-27 16:35 | PM.PNORT ---
Progress Note: A&P Assessment and Plan (1) Septic arthritis of knee, right: Qualifiers: Septic arthritis organism: due to unspecified organism Qualified Code(s): M00.9 - Pyogenic arthritis, unspecified Code(s): M00.9 - Pyogenic arthritis, unspecified Status: Acute Assessment and Plan: ESME IS IMPROVED FAR PAIN TODAY. HER CRP HOWEVER HAS NOT DECREASED FROM YESTERDAY DESPITE TRIPLE ANTIBIOTIC COVERAGE. IT CONTINUES TO BE MUCH LOWER THAN HER INITIAL CRP PREOPERATIVELY. WE HAD A LONG DISCUSSION TODAY. I RECOMMEND WE GO BACK TO SURGERY FOR A SECOND LOOK AND AN IRRIGATION AND DEBRIDEMENT WITH A POLY EXCHANGE VS A COMPLETE RESECTION ARTHROPLASTY AND SPACER PLACEMENT. DEPENDING ON THE LOOK OF THE TISSUES. SHE AGREES AND WOULD LIKE TO PROCEED. Subjective Subjective Date/Time Seen: 03/27/23 16:35 Interval history: DEBBIES PAIN IS IMPROVED TODAY. HER KNEE EXAM HAS ALSO IMPROVED. SHE DENIES ANY CALF PAIN. HER CULTURES HAVE GROWN CLOSTRIDIUM PERFRINGENS, GRAM POSITIVE MABEL. THERE HAS BEEN AN ADDENDUM TO HER ORIGINAL RESULTS OF THE GRAM STAIN WHICH SHOWED GRAM NEG RODS. NONE THE LESS HER ANTIBIOTIC COVERAGE HAS BEEN VERY ROBUST AND WE HAVE TREATED HER FOR BOTH GRAM NEG AND GRAM POSITIVE ORGANISMS. HISTORY, EXAM AND RADIOGRAPHS REVIEWED WITH THE PATIENT. REFERRING PHYSICIAN RECORDS AND IMAGES REVIEWED. CONDITION, NATURE, ETIOLOGY AND COURSE OF NATURAL HISTORY REVIEWED. CONSERVATIVE AND OPERATIVE TREATMENT OPTIONS REVIEWED WELL THE RISKS AND BENEFITS OF EACH. Exam Extrem: Other: VSS AFEBRILE WOUND IS CLEAN AND THERE IS MINIMAL SEROUS DRAINAGE. NO SKIN NECROSIS. KNEE HAS MILD EFFUSION, SOME MILD ECCHYMOSIS AND ERYTHEMA EXPECTED FOR POSTOP PERIOD. HER KNEES APPEARS IMPROVED FROM YESTERDAYS EXAM. NV INTACT NEG HOMANS SIGN, CALF SOFT NON TENDER, THIGH SOFT, PROM OF FOOT AND ANKLE WITH NO PAIN. CLEAN DRESSING APPLIED. Objective Data Vital Signs Vital Signs: Vital Signs - 24 hr 03/26/23 20:01 03/26/23 20:00 03/26/23 20:18 Temperature 36.5 C Pulse Rate 121 H 110 H 112 H Respiratory Rate 20 Blood Pressure 133/67 Pulse Oximetry 97 97 Oxygen Delivery Room Air 03/26/23 20:00 03/26/23 22:00 03/26/23 23:27 Temperature 36.5 C Pulse Rate 110 H 100 73 Respiratory Rate 20 Blood Pressure 105/52 L Pulse Oximetry 98 Oxygen Delivery 03/27/23 00:00 03/27/23 02:00 03/27/23 04:10 Temperature Pulse Rate 71 70 90 Respiratory Rate Blood Pressure Pulse Oximetry Oxygen Delivery 03/27/23 04:00 03/27/23 04:00 03/27/23 06:00 Temperature 36.4 C Pulse Rate 80 98 102 H Respiratory Rate 20 Blood Pressure 131/70 Pulse Oximetry 97 Oxygen Delivery 03/27/23 08:00 03/27/23 08:57 03/27/23 09:49 Temperature 36.3 C L Pulse Rate 72 77 Respiratory Rate 18 Blood Pressure 112/59 L Pulse Oximetry 99 97 Oxygen Delivery Room Air 03/27/23 08:00 03/27/23 10:00 03/27/23 12:00 Temperature 36.3 C L Pulse Rate 67 78 67 Respiratory Rate 22 H Blood Pressure 97/53 L Pulse Oximetry 96 Oxygen Delivery 03/27/23 12:00 03/27/23 14:00 03/27/23 16:00 Temperature Pulse Rate 66 70 66 Respiratory Rate Blood Pressure Pulse Oximetry Oxygen Delivery 03/27/23 16:00 Temperature 36.3 C L Pulse Rate 72 Respiratory Rate 18 Blood Pressure 107/64 Pulse Oximetry 97 Oxygen Delivery Intake/Output Intake/Output: Intake & Output 03/24/23 03/25/23 03/26/23 03/27/23 23:59 23:59 23:59 23:59 Intake Total 1922 7356 745 7664 Output Total 3611 7263 1300 Balance -3248 -332 200 -60 Meds/Results Medications: Active Medications Generic Name Dose Route Start Last Admin Trade Name Gasper PRN Reason Stop Dose Admin Acetaminophen 650 mg 03/21/23 05:06 03/24/23 18:24 Acetaminophen 325 Mg Tablet PO 650 mg Q6H PRN Administration Mild Pain (1-3) or Fever Amiodarone HCl 400 mg 03/28/23 08:00
[2023-03-27] MEDS: SODIUM CHLORIDE 0.9% IV 250 ML 30 ML IV CONT (17:10)
[2023-03-27] MEDS: TUBING, BLOOD PLUM PUMP TUBING 1 EACH XX (17:10)
[2023-03-27] MEDS: rOPINIRole HCL 1 MG TABLET 2 MG PO (20:32)
[2023-03-27] MEDS: QUEtiapine FUMARATE 100 MG TABLET 300 MG PO (20:32)
[2023-03-28] VITALS (29 sets, daily range): BP systolic 96–126; BP diastolic 51–74; PULSE 66–84; RESP 11–69; TEMP 36.1–36.7; O2SAT 92–100
[2023-03-28] MEDS: VANCOMYCIN 1,250 MG/NS 250 ML 1,250 MG/250 ML BAG 166.7 MG IVPB ×2 (03:34→17:17)
[2023-03-28 04:53] LABS: Hemoglobin 9.1 g/dL (12.0-15.0); Mean Corpuscular HGB Conc 31.4 g/dl (32-36); Mean Corpuscular Hemoglobin 28.3 pg (26-34); Mean Corpuscular Volume 90.3 fl (80-100); Mean Platelet Volume 8.7 fl (7.4-10.4); Platelet Count Result 299 k/mm3 (150-375); Red Blood Count 3.21 M/mm3 (4.2-5.4); Red Cell Distribution Width 15.6 % (11.5-14.5); White Blood Count 7.8 K/mm3 (4.5-10.0)
[2023-03-28 05:03] LABS: Alanine Aminotransferase 27 U/L (6-35); Albumin Level 2.8 g/dL (3.5-5.1); Alkaline Phosphatase 100 U/L (38-126); Anion Gap 2 mmol/L (8-16); Aspartate Amino Transferase 33 U/L (14-36); Bilirubin,Total 0.4 mg/dL (0.2-1.3); Blood Urea Nitrogen 13 mg/dL (7-17); Calcium 7.9 mg/dL (8.4-10.2); Carbon Dioxide 31 mmol/L (22-30); Chloride 102 mmol/L (98-107); Estimated CRCL calculation 78 ml/min; Estimated Glomerular Filt Rate > 60; Glucose 82 mg/dL (65-110); Potassium 3.9 mmol/L (3.4-5.0); Sodium 135 mmol/L (137-145)
[2023-03-28] MEDS: LEVOTHYROXINE SODIUM INJ 100 MCG/5 ML VIAL 12.5 MCG IV PUSH (05:07)
[2023-03-28] MEDS: metroNIDAZOLE 500 MG/ISO 100ML 500 MG/100 ML BAG 100 MG IVPB ×3 (05:07→21:09)
[2023-03-28] MEDS: CENTRAL LINE FLUSH 10 ML IV PUSH ×3 (05:07→21:16)
[2023-03-28] MEDS: oxyCODONE/ACETAMINOPHEN (*CRX) 10-325 MG TABLET 1 TAB PO ×4 (05:11→23:02)
[2023-03-28] MEDS: FLUTICASONE/SALMETEROL 115-21 MCG INHALER 1 PUFF 2 PUFF INHALATION ×2 (06:58→20:59)
[2023-03-28] MEDS: ASPIRIN 325 MG TABLET PO (08:41)
[2023-03-28] MEDS: lamoTRIgine 100 MG, lamoTRIgine 50 MG 150 MG PO ×2 (08:41→17:24)
[2023-03-28] MEDS: AMIODARONE HCL 200 MG TABLET 400 MG PO (08:41)
[2023-03-28] MEDS: METOPROLOL TARTRATE 25 MG TABLET PO ×2 (08:42→21:15)
[2023-03-28] MEDS: SILVERGEL (ELTA) 45 ML 1 APPLIC TOPICAL (08:43)
[2023-03-28] MEDS: CEFEPIME 2 GM/NS 50 ML 2 GM/50 ML BAG IVPB ×2 (08:44→21:09)
--- NOTE | 2023-03-28 10:25 | WPDANESEPPF ---
Anes - Initial Pre Proc Eval Procedure: Operation Date: 03/28/23 12:30 Proposed Procedures p Right Knee Incision and Debridement with Washout, Possible Poly Exchange - Nabeel Godinez MD Date/Time: 03/28/23 10:25 Surgeon: Wil Hilliard MD Pre Op Diagnosis: Septic Arthritis, Rhabdo Patient Data Age: 72 Gender: F Height: 1.65 m Weight: 88.7 kg Last Vital Signs Temp 36.6 C 03/28/23 08:00 Pulse 73 03/28/23 08:42 Resp 14 03/28/23 08:00 BP 111/59 L 03/28/23 08:00 Pulse Ox 98 03/28/23 08:00 O2 Del Method Room Air 03/28/23 07:00 O2 Flow Rate 1 03/23/23 07:30 FiO2 21 03/28/23 03:39 Allergies Allergy/AdvReac Type Severity Reaction Status Date / Time No Known Allergies Allergy Verified 03/20/23 15:53 Home Medications Medication Instructions Recorded Confirmed Type lamotrigine 150 mg tablet 150 mg PO BID 12/21/20 03/20/23 History [id number]-Xp-zbyk-minerals 1 tablet PO DAILY 12/21/20 03/20/23 History (Multiple Vitamin, Womens tablet) syringe with needle, safety 3 mL #12 ea 12/25/20 03/20/23 Rx 25 gauge x 1 (BD SafetyGlide Syringe) calcium carbonate 500 mg calcium 500 mg PO DAILY #90 tabs 01/01/21 03/20/23 Rx (1,250 mg) tablet (Calcium 500) quetiapine 300 mg tablet 300 mg PO QHS #90 tabs 01/01/21 03/20/23 Rx armodafinil 150 mg tablet 150 mg PO BID 08/20/21 03/20/23 History metoprolol succinate 25 mg 25 mg PO DAILY #90 tabs 10/31/22 03/20/23 Rx tablet,extended release 24 hr Saccharomyces boulardii 10 billion 10,000 mmu cells PO DAILY #20 caps 11/11/22 03/20/23 Rx cell capsule aripiprazole 10 mg tablet 10 mg PO BID 11/18/22 03/20/23 History sertraline 100 mg tablet 100 mg PO QAM 11/18/22 03/20/23 History tizanidine 4 mg tablet 4 mg PO HS 11/18/22 03/20/23 History ropinirole 2 mg tablet 2 mg PO HS #90 tabs 12/02/22 03/20/23 Rx gabapentin 600 mg tablet 600 mg PO QID #360 tabs 12/12/22 03/20/23 Rx fluticasone propionate 50 1 spray intranasal Q12H PRN 12/29/22 03/20/23 Rx mcg/actuation nasal Allergy Symptoms #16 grams spray,suspension (Flonase Allergy Relief) ferrous sulfate 325 mg (65 mg 325 mg PO BID #180 tabs 01/07/23 03/20/23 Rx iron) tablet levothyroxine 25 mcg tablet 25 mcg PO QAM 02/07/23 03/20/23 History (Synthroid) aspirin 325 mg tablet,delayed 325 mg PO Q12HR 28 days #56 tabs 02/20/23 03/20/23 Rx release albuterol sulfate 90 mcg/actuation 1 inh inhalation Q4H PRN Shortness 02/24/23 03/20/23 Rx aerosol inhaler Of Breath #8.5 grams dexmethylphenidate 10 mg tablet 10 mg PO BID #60 tabs 02/25/23 03/20/23 Rx diazepam 5 mg tablet (Valium) 5 mg PO TID PRN Anxiety #60 tabs 02/25/23 03/20/23 Rx fluticasone propionate 115 2 puff inhalation BID #12 grams 02/25/23 03/20/23 Rx mcg-salmeterol 21 mcg/actuation HFA inhaler (Advair HFA) pantoprazole 40 mg tablet,delayed 40 mg PO DAILY #90 tabs 02/25/23 03/20/23 Rx release celecoxib 200 mg capsule 200 mg PO QAM #14 caps 02/26/23 03/20/23 Rx oxycodone-acetaminophen 5 mg-325 1 tablet PO Q8H PRN pain #40 tabs 03/19/23 03/20/23 Rx mg tablet Laboratory Tests 03/26/23 03/27/23 03/27/23 04:11 02:17 11:46 WBC 8.3 K/mm3 (4.5-10.0) RBC 2.97 L M/mm3 (4.2-5.4) Hgb 8.3 L g/dL 8.8 L g/dL (12.0-15.0) (12.0-15.0) Hct 27.0 L % (37.0-47.0) MCV 90.9 fl 90.0 fl (80-100) (80-100) MCH 27.9 pg 28.5 pg (26-34) (26-34) MCHC 30.7 L g/dl (32-36) RDW 15.7 H % (11.5-14.5) Plt Count 252 k/mm3 293 k/mm3 (150-375) (150-375) MPV 9.1 fl (7.4-10.4) Sodium 132 L mmol/L (137-145) Potassium 3.8 mmol/L (3.4-5.0) Chloride 99 mmol/L (98-107) Carbon Dioxide 30 mmol/L (22-30) Anion Gap 3 L mmol/L (8-16) BUN 12 mg/dL 11 mg/dL (7-17) (7-17) Creatinine 0.50 L mg/dL (0.7-1.0) Estim Creat Clear Calc 92 ml/min
[2023-03-28] MEDS: LACTATED RINGERS 1,000 ML 30 ML IV CONT ×2 (11:30→15:29)
--- NOTE | 2023-03-28 11:36 | PM.IMPN ---
Progress Note: A&P Assessment and Plan (1) Septic shock: Code(s): A41.9 - Sepsis, unspecified organism; R65.21 - Severe sepsis with septic shock Status: Acute Assessment and Plan: Continue IV antibiotics. Sepsis improved. (2) Septic arthritis of knee, right: Qualifiers: Septic arthritis organism: due to unspecified organism Qualified Code(s): M00.9 - Pyogenic arthritis, unspecified Code(s): M00.9 - Pyogenic arthritis, unspecified Status: Acute Assessment and Plan: Per orthopedics. Continue antibiotics. Plan to return to the OR. (3) Atrial fibrillation: Code(s): I48.91 - Unspecified atrial fibrillation Status: Resolved Assessment and Plan: On amiodarone drip. Rates controlled (4) S/P total knee arthroplasty: Qualifiers: Laterality: right Qualified Code(s): Z96.651 - Presence of right artificial knee joint Code(s): Z96.659 - Presence of unspecified artificial knee joint Status: Acute Assessment and Plan: See above (5) Rhabdomyolysis: Qualifiers: Rhabdomyolysis type: non-traumatic Qualified Code(s): M62.82 - Rhabdomyolysis Code(s): M62.82 - Rhabdomyolysis Status: Acute Assessment and Plan: Monitor (6) Anemia: Code(s): D64.9 - Anemia, unspecified Status: Acute Assessment and Plan: Monitor and transfuse as needed. (7) Swelling: Code(s): R60.9 - Edema, unspecified Status: Acute Assessment and Plan: Improving, Right upper extremity edema. Will get right upper extremity ultrasound (8) Joint pain: Code(s): M25.50 - Pain in unspecified joint Status: Acute Assessment and Plan: See plan above. (9) Delirium: Code(s): R41.0 - Disorientation, unspecified Status: Acute Assessment and Plan: Improving (10) Weakness: Code(s): R53.1 - Weakness Status: Acute Assessment and Plan: Will need PT OT. Subjective Date/time seen: 03/28/23 11:36 Interval history: Reports pain in her right knee but otherwise doing okay. Exam Narrative: General: Pt is alert awake and in mild distress due to pain Lungs/Chest: Trachea central Clear BS B/L, No crackles or wheezing. Cardiac: RRR. Normal S1 S2. No murmurs Circulation: Pedal pulses are intact and symmetrical. Abdomen: Normal bowel sounds.. Soft. NT. ND. Extremities: Right knee dressing in place, Hemovac draining bloody drainage from the joint, there is a dressing with drainage attached above the incision, knee on the lateral and medial side appears swollen, is tender and has some redness and is warm to touch. -Patient with limited range of motion of bilateral bilateral upper extremities and unable to straighten the arms. She states that she was able to do this at home -Edema of all 4 extremities : Purewick in place Neurologic: Follows commands. Moves all 4 extremities PERRL AO x2, generalized weakness of upper and lower extremity, urinary incontinence Skin: No Rash Objective Data Vital Signs Vital Signs: Vital Signs - 24 hr 03/27/23 12:00 03/27/23 12:00 03/27/23 14:00 Temperature 97.3 F L Pulse Rate 67 66 70 Respiratory Rate 22 H Blood Pressure 97/53 L Pulse Oximetry 96 Oxygen Delivery Fraction of Inspired Oxygen 03/27/23 16:00 03/27/23 16:00 03/27/23 17:10 Temperature 97.4 F L 98.2 F Pulse Rate 66 72 72 Respiratory Rate 18 20 Blood Pressure 107/64 103/57 L Pulse Oximetry 97 95 Oxygen Delivery Fraction of Inspired Oxygen 03/27/23 17:26 03/27/23 18:26 03/27/23 18:00 Temperature 97.8 F 97.7 F Pulse Rate 77 79 78 Respiratory Rate 16 16 Blood Pressure 109/59 L 105/53 L Pulse Oximetry 97 92 Oxygen Delivery Fraction of Inspired Oxygen 03/27/23 20:32 03/27/23 19:30 03/27/23 20:00 Temperature 97.6 F Pulse Rate 78 78 78 Respiratory Rate 18 18 Blood Pressure 121/53 L P
--- NOTE | 2023-03-28 12:44 | WPDHPUPDATE1 ---
History and Physical Update Update Date/Time: 03/28/23 12:44 History and Physical has been reviewed, including an updated exam of the patient. There are NO changes in the patient's condition. Risks, benefits, and alternatives have been discussed and questions answered. Patient agrees to proceed with procedure.
--- NOTE | 2023-03-28 12:48 | WPDHPUPDATE1 ---
History and Physical Update Update Date/Time: 03/28/23 12:48 History and Physical has been reviewed, including an updated exam of the patient. There are NO changes in the patient's condition. Risks, benefits, and alternatives have been discussed and questions answered. Patient agrees to proceed with procedure.
[2023-03-28] MEDS: TRANEXAMIC ACID 1,000 MG/10 ML AMPUL 1000 MG IV PUSH ×2 (13:42→14:42)
--- NOTE | 2023-03-28 14:27 | PCPTNOTE ---
The patient treatment was not able to be completed due to patient out of room for surgery this afternoon. Will await new orders to continue PT.
--- NOTE | 2023-03-28 15:44 | W.PM.PROC2 ---
Procedure Note - Detailed Date of Procedure 03/28/23 Pre-op Diagnosis Septic Arthritis Right TKA, 2ND WASHOUT FOR SEPTIC KNEE Post-op Diagnosis Same Procedure Performed I AND D WITH POLY COMPONENT EXCHANGE Surgeon Nabeel Godinez MD Anesthesia General Description of Procedure THE PATIENT WAS TAKEN TO THE OPERATING ROOM IN STABLE CONDITION. THE WOUND AND THE KNEE LOOKED HEALTHY WITHOUT ANY SIGNIFICANT ERYTHEMA OR DRAINAGE. THE RIGHT LOWER EXTREMITY WAS PREPPED AND DRAPED IN THE STERILE FASHION. AN INCISION THROUGH THE PREVIOUS INCISION WAS MADE DOWN TO THE SUBCUTANEOUS TISSUES. OLD SUTURES WERE REMOVED. AND THEN A MEDIAL PARAPATELLAR ARTHROTOMY WAS PREFORMED. OLD SUTURES WERE REMOVED WELL FROM THE FASCIA LAYER. FRESH HEMATOMA WAS COMING FROM THE JOINT. THERE WAS NO GROSS PURULENCE. THE PATELLA WAS EVERTED. THE POLY ETHYLENE COMPONENT WAS REMOVED. THE FEMORAL AND TIBIAL IMPLANTS WERE STABLE WITH NO SIGN OF GROSS LOOSENING. A SYNOVECTOMY WAS PREFORMED WHERE NEEDED INCLUDING THE POSTERIOR CAPSULE. THERE WAS NOT A LOT OF DEVITALIZED TISSUE. THE TISSUE LOOKED HEALTHY WITH A RED AND PINK TEXTURE. THERE WAS NO NECROTIC MUSCLE OR TENDON. ONCE A THOROUGH DEBRIDEMENT WAS PREFORMED THE WOUND WAS IRRIGATED WITH 1 LITER OF STERILE BETADINE AND STERILE WATER AND THEN WITH 1 LITER OF H202 AND WATER. NEXT, 2 LITERS OF BACTASURE FLUID WAS USED TO IRRIGATE THE ENTIRE WOUND. THE SOLUTION WAS SCRUBBED ONTO THE METAL COMPONENTS. ONCE THAT WAS PREFORMED THEN 6 LITERS OF STERILE SALINE WAS USED TO IRRIGATE THE WOUND. THE LAST IRRIGATION USED WAS A MIXTURE OF GENTAMICIN AND VANCOMYCIN IN STERILE SALINE. THIS WAS LEFT IN THE JOINT FOR APPROXIMALLY 3 MIN AGAIN. ONCE THAT WAS PREFORMED A SIZE 10 POLY IMPLANT WAS PLACED. THE KNEE WAS STABLE AND THE PATELLA TRACKED WELL IN THE TROCHLEA. THE TOURNIQUET WAS DEFLATED. THE BLEEDERS WERE CAUTERIZED. A DRAIN WAS PLACED IN THE KNEE JOINT. THE ARTHROTOMY WAS APPROXIMATED WITH 1 VICRYL SUTURE, THE SUB CUTANEOUS TISSUE WERE APPROXIMATED WITH 2-0 VICRYL AND THE SKIN WITH PHANI. A STERILE PREVENA DRESSING WAS PLACED. THE PATIENT WAS EXTUBATED AND SENT TO THE RECOVERY ROOM. Estimated Blood Loss -500.0 Urine Output -350.0 Drains Yes Packing No Complications No immediate complications Condition Stable Disposition PACU
[2023-03-28] MEDS: fentaNYL CITRATE INJ (*CRX) 100 MCG/2 ML VIAL 25 MCG IV PUSH ×5 (15:45→16:23)
[2023-03-28] MEDS: ceFAZolin 2 GM/D5W 50 ML 2 GM/50 ML BAG IVPB (17:54)
[2023-03-28] MEDS: SODIUM CHLORIDE 0.9% IV 1,000 ML 125 ML IV CONT (17:54)
[2023-03-28] MEDS: SENNA/DOCUSATE SODIUM TABLET 2 TAB PO (18:17)
[2023-03-28] MEDS: KETOROLAC 15 MG/ML VIAL (*BKC) IV PUSH ×2 (18:18→23:06)
[2023-03-28 18:57] LABS: Hematocrit 30.4 % (37.0-47.0); Hemoglobin 9.4 g/dL (12.0-15.0)
[2023-03-28 19:41] LABS: Procalcitonin 0.3 ng/mL
[2023-03-28] MEDS: FAMOTIDINE 20 MG TABLET PO (21:14)
[2023-03-28] MEDS: rOPINIRole HCL 1 MG TABLET 2 MG PO (21:14)
[2023-03-28] MEDS: QUEtiapine FUMARATE 100 MG TABLET 300 MG PO (21:15)
[2023-03-28] MEDS: ASPIRIN 325 MG ENTERIC TABLET PO (21:16)
[2023-03-29] VITALS (20 sets, daily range): BP systolic 92–121; BP diastolic 46–62; PULSE 65–102; RESP 18–22; TEMP 36.2–36.7; O2SAT 92–98
[2023-03-29] MEDS: ceFAZolin 2 GM/D5W 50 ML 2 GM/50 ML BAG IVPB ×2 (03:06→10:20)
[2023-03-29] MEDS: VANCOMYCIN 1,250 MG/NS 250 ML 1,250 MG/250 ML BAG 166.7 MG IVPB ×2 (03:07→15:37)
[2023-03-29] MEDS: oxyCODONE/ACETAMINOPHEN (*CRX) 10-325 MG TABLET 1 TAB PO ×4 (04:23→20:48)
[2023-03-29 04:36] LABS: Hematocrit 28.4 % (37.0-47.0); Hemoglobin 8.8 g/dL (12.0-15.0); Mean Corpuscular Hemoglobin 28.4 pg (26-34); Mean Corpuscular Volume 91.6 fl (80-100); Mean Platelet Volume 8.6 fl (7.4-10.4); Platelet Count Result 349 k/mm3 (150-375); Red Cell Distribution Width 15.5 % (11.5-14.5); White Blood Count 7.5 K/mm3 (4.5-10.0)
[2023-03-29 04:50] LABS: Anion Gap 2 mmol/L (8-16); Blood Urea Nitrogen 14 mg/dL (7-17); Calcium 7.5 mg/dL (8.4-10.2); Carbon Dioxide 30 mmol/L (22-30); Chloride 103 mmol/L (98-107); Estimated CRCL calculation 78 ml/min; Estimated Glomerular Filt Rate > 60; Glucose 82 mg/dL (65-110); Potassium 4.4 mmol/L (3.4-5.0); Sodium 135 mmol/L (137-145)
[2023-03-29 05:02] LABS: CRP 15.4 mg/dL (<1.0)
[2023-03-29] MEDS: metroNIDAZOLE 500 MG/ISO 100ML 500 MG/100 ML BAG 100 MG IVPB ×3 (05:44→21:28)
[2023-03-29] MEDS: KETOROLAC 15 MG/ML VIAL (*BKC) IV PUSH ×3 (05:44→17:35)
[2023-03-29] MEDS: LEVOTHYROXINE SODIUM INJ 100 MCG/5 ML VIAL 12.5 MCG IV PUSH (05:45)
[2023-03-29] MEDS: CENTRAL LINE FLUSH 10 ML IV PUSH ×3 (05:45→20:59)
[2023-03-29] MEDS: FLUTICASONE/SALMETEROL 115-21 MCG INHALER 1 PUFF 2 PUFF INHALATION ×2 (08:09→20:20)
[2023-03-29] MEDS: polyethylene glycoL 3350 17 GM POWD.PACK PO (08:53)
[2023-03-29] MEDS: SENNA/DOCUSATE SODIUM TABLET 2 TAB PO ×2 (08:54→17:36)
[2023-03-29] MEDS: SERTRALINE HCL 50 MG TABLET 100 MG PO (08:54)
[2023-03-29] MEDS: SILVERGEL (ELTA) 45 ML 1 APPLIC TOPICAL (08:54)
[2023-03-29] MEDS: ASPIRIN 325 MG ENTERIC TABLET PO ×2 (08:54→20:04)
[2023-03-29] MEDS: METOPROLOL TARTRATE 25 MG TABLET PO ×2 (08:55→20:04)
[2023-03-29] MEDS: FAMOTIDINE 20 MG TABLET PO ×2 (08:57→20:04)
[2023-03-29] MEDS: AMIODARONE HCL 200 MG TABLET 400 MG PO (08:57)
[2023-03-29] MEDS: CEFEPIME 2 GM/NS 50 ML 2 GM/50 ML BAG IVPB ×2 (10:02→20:58)
[2023-03-29] MEDS: lamoTRIgine 100 MG, lamoTRIgine 50 MG 150 MG PO ×2 (10:02→17:37)
--- NOTE | 2023-03-29 10:44 | PM.PNORT ---
Progress Note: A&P Assessment and Plan (1) Septic arthritis of knee, right: Qualifiers: Septic arthritis organism: due to unspecified organism Qualified Code(s): M00.9 - Pyogenic arthritis, unspecified Code(s): M00.9 - Pyogenic arthritis, unspecified Status: Acute Assessment and Plan: POD 1 IMPROVING, CRP AND PROCALCITONIN ARE DOWN. CONTINUE CURRENT REGIMEN Subjective Subjective Date/Time Seen: 03/29/23 10:44 Interval history: POD 1 DOING WELL. PAIN CONTROLLED. UP IN CHAIR TODAY. NO CALF PAIN Exam Extrem: Other: VSS AFEBRILE DRESSING DRY NV INTACT NEG HOMANS SIGN, CALF AND THIGH SOFT NON TENDER Objective Data Vital Signs Vital Signs: Vital Signs - 24 hr 03/28/23 11:12 03/28/23 15:29 03/28/23 15:45 Temperature 36.3 C L 36.7 C Pulse Rate 71 84 72 Respiratory Rate 20 12 12 Blood Pressure 114/74 104/61 112/55 L Pulse Oximetry 98 97 97 Oxygen Delivery Room Air Simple Face Mask Room Air Oxygen Flow Rate 8 Fraction of Inspired Oxygen 03/28/23 16:00 03/28/23 16:15 03/28/23 16:30 Temperature Pulse Rate 67 69 69 Respiratory Rate 11 L 12 11 L Blood Pressure 96/53 L 98/52 L 101/51 L Pulse Oximetry 98 98 96 Oxygen Delivery Nasal Cannula Nasal Cannula Room Air Oxygen Flow Rate 3 3 Fraction of Inspired Oxygen 03/28/23 16:45 03/28/23 17:00 03/28/23 17:30 Temperature 36.4 C Pulse Rate 68 68 70 Respiratory Rate 11 L 14 14 Blood Pressure 99/55 L 99/56 L 113/64 Pulse Oximetry 96 94 95 Oxygen Delivery Room Air Room Air Oxygen Flow Rate Fraction of Inspired Oxygen 03/28/23 17:45 03/28/23 17:06 03/28/23 17:06 Temperature 36.6 C Pulse Rate 70 77 Respiratory Rate 12 Blood Pressure 104/58 L Pulse Oximetry 95 Oxygen Delivery Room Air Oxygen Flow Rate Fraction of Inspired Oxygen 03/28/23 18:00 03/28/23 18:15 03/28/23 18:51 Temperature 36.1 C L 36.4 C Pulse Rate 78 80 74 Respiratory Rate 16 20 Blood Pressure 113/55 L 110/52 L Pulse Oximetry 94 92 Oxygen Delivery Oxygen Flow Rate Fraction of Inspired Oxygen 03/28/23 19:48 03/28/23 20:00 03/28/23 21:15 Temperature Pulse Rate 74 71 Respiratory Rate 69 H 69 H Blood Pressure Pulse Oximetry 92 Oxygen Delivery Room Air Oxygen Flow Rate Fraction of Inspired Oxygen 21 03/28/23 20:00 03/28/23 22:00 03/28/23 23:44 Temperature 36.6 C Pulse Rate 69 69 68 Respiratory Rate 20 Blood Pressure 98/55 L Pulse Oximetry 96 Oxygen Delivery Oxygen Flow Rate Fraction of Inspired Oxygen 03/29/23 00:00 03/29/23 00:00 03/29/23 02:00 Temperature Pulse Rate 68 71 95 Respiratory Rate 20 Blood Pressure Pulse Oximetry 96 Oxygen Delivery Room Air Oxygen Flow Rate Fraction of Inspired Oxygen 21 03/29/23 03:54 03/29/23 04:00 03/29/23 04:00 Temperature 36.7 C Pulse Rate 95 102 H 73 Respiratory Rate 20 20 Blood Pressure 110/62 Pulse Oximetry 96 95 Oxygen Delivery Room Air Oxygen Flow Rate Fraction of Inspired Oxygen 21 03/29/23 06:00 03/29/23 08:11 03/29/23 08:12 Temperature Pulse Rate 72 72 Respiratory Rate 20 Blood Pressure Pulse Oximetry 97 Oxygen Delivery Room Air Oxygen Flow Rate Fraction of Inspired Oxygen 03/29/23 08:55 03/29/23 08:57 03/29/23 08:00 Temperature 36.2 C L Pulse Rate 92 93 78 Respiratory Rate 18 Blood Pressure 105/55 L Pulse Oximetry 95 Oxygen Delivery Oxygen Flow Rate Fraction of Inspired Oxygen 03/29/23 08:00 03/29/23 08:00 03/29/23 10:00 Temperature Pulse Rate 69 69 Respiratory Rate Blood Pressure Pulse Oximetry 97 Oxygen Delivery Room Air Oxygen Flow Rate Fraction of Inspired Oxygen Intake/Output Intake/Output: Intake & Output 03/26/23 03/27/23 03/28/23 03/29/23 23:59 23:59 23:59 23:59 Intake Total 200 2460 1350 1720 Output Total 1950 1350 800 Balance 200 510 0 920 Med
--- NOTE | 2023-03-29 10:50 | PM.IMPN ---
Progress Note: A&P Assessment and Plan (1) Septic shock: Code(s): A41.9 - Sepsis, unspecified organism; R65.21 - Severe sepsis with septic shock Status: Acute Assessment and Plan: Continue IV antibiotics. Sepsis improved. (2) Septic arthritis of knee, right: Qualifiers: Septic arthritis organism: due to unspecified organism Qualified Code(s): M00.9 - Pyogenic arthritis, unspecified Code(s): M00.9 - Pyogenic arthritis, unspecified Status: Acute Assessment and Plan: Per orthopedics. Continue antibiotics. Plan to return to the OR. Continue to follow cultures. (3) Atrial fibrillation: Code(s): I48.91 - Unspecified atrial fibrillation Status: Resolved Assessment and Plan: On amiodarone drip. Rates controlled (4) S/P total knee arthroplasty: Qualifiers: Laterality: right Qualified Code(s): Z96.651 - Presence of right artificial knee joint Code(s): Z96.659 - Presence of unspecified artificial knee joint Status: Acute Assessment and Plan: See above (5) Rhabdomyolysis: Qualifiers: Rhabdomyolysis type: non-traumatic Qualified Code(s): M62.82 - Rhabdomyolysis Code(s): M62.82 - Rhabdomyolysis Status: Acute Assessment and Plan: Monitor (6) Anemia: Code(s): D64.9 - Anemia, unspecified Status: Acute Assessment and Plan: Monitor and transfuse as needed. (7) Swelling: Code(s): R60.9 - Edema, unspecified Status: Acute Assessment and Plan: Improving, Right upper extremity edema. Will get right upper extremity ultrasound (8) Joint pain: Code(s): M25.50 - Pain in unspecified joint Status: Acute Assessment and Plan: See plan above. (9) Delirium: Code(s): R41.0 - Disorientation, unspecified Status: Acute Assessment and Plan: Improving (10) Weakness: Code(s): R53.1 - Weakness Status: Acute Assessment and Plan: Will need PT OT. Subjective Date/time seen: 03/29/23 10:50 Interval history: Status post I&D yesterday with poly component exchange. Other than pain patient is doing okay. Exam Narrative: General: Pt is alert awake and in mild distress due to pain Lungs/Chest: Trachea central Clear BS B/L, No crackles or wheezing. Cardiac: RRR. Normal S1 S2. No murmurs Circulation: Pedal pulses are intact and symmetrical. Abdomen: Normal bowel sounds.. Soft. NT. ND. Extremities: Right knee dressing in place, Hemovac draining bloody drainage from the joint, there is a dressing with drainage attached above the incision, knee on the lateral and medial side appears swollen, is tender and has some redness and is warm to touch. -Patient with limited range of motion of bilateral bilateral upper extremities and unable to straighten the arms. She states that she was able to do this at home -Edema of all 4 extremities : Purewick in place Neurologic: Follows commands. Moves all 4 extremities PERRL AO x2, generalized weakness of upper and lower extremity, urinary incontinence Skin: No Rash Objective Data Vital Signs Vital Signs: Vital Signs - 24 hr 03/28/23 11:12 03/28/23 15:29 03/28/23 15:45 Temperature 97.4 F L 98.1 F Pulse Rate 71 84 72 Respiratory Rate 20 12 12 Blood Pressure 114/74 104/61 112/55 L Pulse Oximetry 98 97 97 Oxygen Delivery Room Air Simple Face Mask Room Air Oxygen Flow Rate 8 Fraction of Inspired Oxygen 03/28/23 16:00 03/28/23 16:15 03/28/23 16:30 Temperature Pulse Rate 67 69 69 Respiratory Rate 11 L 12 11 L Blood Pressure 96/53 L 98/52 L 101/51 L Pulse Oximetry 98 98 96 Oxygen Delivery Nasal Cannula Nasal Cannula Room Air Oxygen Flow Rate 3 3 Fraction of Inspired Oxygen 03/28/23 16:45 03/28/23 17:00 03/28/23 17:30 Temperature 97.6 F Pulse Rate 68 68 70 Respiratory Rate 11 L 14 14 Blood Pressure 99/55 L 99/56 L 113/64 Pulse Oximetr
--- NOTE | 2023-03-29 11:39 | PM.PNCARD ---
Progress Note: A&P Assessment and Plan (1) Paroxysmal atrial fibrillation: Code(s): I48.0 - Paroxysmal atrial fibrillation Status: Acute Assessment and Plan: Patient had less than 24 hours of atrial fibrillation in setting of septic shock. Converted to sinus rhythm over the weekend, but she reverted to atrial fibrillation with RVR, and is now back in NSR. --continue oral amiodarone as maintenance dose at discharge. Do not anticipate shelter amiodarone use, though. --discussed with Ortho today. Will likely initiate anticoagulation tomorrow. She does have some diffuse edema. Electrolytes are stable and normal renal function. Will give a dose of IV furosemide 20 mg x 1 --Continue telemetry monitoring. (2) Septic arthritis of knee, right: Qualifiers: Septic arthritis organism: due to unspecified organism Qualified Code(s): M00.9 - Pyogenic arthritis, unspecified Code(s): M00.9 - Pyogenic arthritis, unspecified Status: Acute Assessment and Plan: Status post washout on 03/22/2023, on multiple antibiotics. (3) Septic shock: Code(s): A41.9 - Sepsis, unspecified organism; R65.21 - Severe sepsis with septic shock Status: Acute Assessment and Plan: Resolved, off pressors. Subjective Date/time seen: 03/29/23 11:39 Interval history: 72-year-old with some atrial fibrillation. Admitted because of infected prosthesis status post recent TKR Date of service 03/29/2023: She continues to go in and out of atrial fibrillation. She had about 2-1/2 hours of atrial fibrillation overnight but is back in sinus rhythm today. She denies any chest pain or shortness of breath. Does have some swelling. Review of Systems Review of Systems: Complains of a lot of knee pain. Not much appetite. No shortness of breath, chest pain, abdominal pain. Constitutional: Constitutional: Reports no additional constitutional complaints Eyes: Eyes: Reports no additional eye complaints ENT: Reports system reviewed and no additional complaints, except as documented Cardiovascular: Cardiovascular: Reports no additional cardiovascular complaints Respiratory: Respiratory: Reports no additional respiratory complaints Gastrointestinal: Gastrointestinal: Reports no additional gastrointestinal complaints Musculoskeletal: Musculoskeletal: Reports as per HPI Integumentary/Breasts: Skin/Breast: Reports system reviewed and no additional complaints, except as docu Neurologic: Reports system reviewed and no additional complaints, except as documented and Reports confusion Psychiatric: Psychiatric: Reports as per HPI and Reports confusion Endocrine: Endocrine: Reports no additional endocrine complaints Hematologic/Lymphatic: Hematologic/Lymphatic: Reports no additional hematologic/lymphatic complaints Allergic/Immunologic: Allergic/Immunologic: Reports no additional allergic/immunologic complaints Exam Const: General: cooperative, no acute distress, awake, confusion, lethargic and uncomfortable; No healthy appearing, comfortable or in distress Orientation/consciousness: oriented to person, patient oriented x3, confusion and lethargic Other: Sister at bedside. HENMT: Mouth: Yes moist mucous membranes Eyes: Sclera: sclerae normal Pupils: Equal, round and reactive pupils present EOM: EOMs intact bilaterally Neck: Neck: supple and no JVD Other: Normal carotid pulses bilaterally Resp: Effort & Inspection: normal respiratory effort Auscultation: clear to auscultation bilaterally Cardio: Rate: regular rate and tachycardic Rhythm: regular rhythm and abnormal rhythm irregularly irregular Heart sounds: Murmur heart sound present GI: Inspection: normal to inspection Auscultation: normal bowel sounds Skin: General skin exam: normal color and no rashes or lesions noted Neuro: General: oriented to person, patient oriented x3 and confusion Cranial nerves: Yes Equa
[2023-03-29] MEDS: FUROSEMIDE INJ 40 MG/4 ML VIAL 20 MG IV PUSH (12:14)
--- NOTE | 2023-03-29 12:17 | PCPTNOTE ---
On 03/29/23, the student, [Carolina Raygoza], provided care and completed [facility] documentation on this patient. I have reviewed the student's documentation and agree with the findings.
--- NOTE | 2023-03-29 13:41 | WPDANESPN ---
Anes - Prog Note Post-Op Date/Time: 03/29/23 13:41 Cardiovascular status: other (A fib overnight, currently in SR, cardiology following) Respiratory status: normal Airway patency: baseline Mental status: baseline Post-Op hydration status: normal Vital Signs: Last Vital Signs Temp 36.4 C 03/29/23 12:00 Pulse 72 03/29/23 12:00 Resp 22 H 03/29/23 12:00 BP 92/46 L 03/29/23 12:00 Pulse Ox 92 03/29/23 12:00 O2 Del Method Room Air 03/29/23 12:00 O2 Flow Rate 3 03/28/23 16:15 FiO2 21 03/29/23 03:54 Pain Score (VAS): 5/10. turning repositioning in progress upon visit I/O: Intake & Output 03/28/23 03/29/23 03/29/23 23:59 07:59 15:59 Intake Total 950 1400 420 Output Total 200 800 Balance 750 600 420 Laboratory Tests 03/29/23 04:29 03/29/23 04:29 03/28/23 03/29/23 18:33 04:29 WBC 7.5 RBC 3.10 L Hgb 9.4 L 8.8 L Hct 30.4 L 28.4 L MCV 91.6 MCH 28.4 MCHC 31.0 L RDW 15.5 H Plt Count 349 MPV 8.6 Sodium 135 L Potassium 4.4 Chloride 103 Carbon Dioxide 30 Anion Gap 2 L BUN 14 Creatinine 0.60 L Estim Creat Clear Calc 78 Estimated GFR > 60 Glucose 82 Calcium 7.5 L C-Reactive Protein 15.4 H Procalcitonin 0.3 Microbiology 03/20/23 13:36 Synovial Fluid Right Knee Anaerobic Culture - Final Clostridium perfringens 03/20/23 13:36 Synovial Fluid Right Knee Aerobic Culture - Preliminary Post-procedural complaints: none Patient Feedback: Patient satisfied with anesthetic care.
[2023-03-29] MEDS: QUEtiapine FUMARATE 100 MG TABLET 300 MG PO (20:03)
[2023-03-29] MEDS: rOPINIRole HCL 1 MG TABLET 2 MG PO (20:03)
[2023-03-29] MEDS: MORPHINE SULFATE (*CRX) 2 MG/ML INJ IV PUSH (20:06)
[2023-03-30] VITALS (21 sets, daily range): BP systolic 93–127; BP diastolic 57–94; PULSE 63–125; RESP 16–22; TEMP 36–36.8; O2SAT 95–99
[2023-03-30] MEDS: oxyCODONE/ACETAMINOPHEN (*CRX) 10-325 MG TABLET 1 TAB PO ×5 (01:46→20:20)
[2023-03-30] MEDS: VANCOMYCIN 1,250 MG/NS 250 ML 1,250 MG/250 ML BAG 166.7 MG IVPB ×2 (03:56→17:33)
[2023-03-30 04:13] LABS: Hematocrit 28.7 % (37.0-47.0); Hemoglobin 8.7 g/dL (12.0-15.0); Mean Corpuscular HGB Conc 30.3 g/dl (32-36); Mean Corpuscular Hemoglobin 28.1 pg (26-34); Mean Corpuscular Volume 92.6 fl (80-100); Mean Platelet Volume 8.8 fl (7.4-10.4); Platelet Count Result 377 k/mm3 (150-375); Red Cell Distribution Width 15.5 % (11.5-14.5); White Blood Count 6.3 K/mm3 (4.5-10.0)
[2023-03-30 04:32] LABS: Anion Gap 2 mmol/L (8-16); Blood Urea Nitrogen 15 mg/dL (7-17); Calcium 8.1 mg/dL (8.4-10.2); Carbon Dioxide 31 mmol/L (22-30); Chloride 102 mmol/L (98-107); Estimated CRCL calculation 78 ml/min; Estimated Glomerular Filt Rate > 60; Glucose 81 mg/dL (65-110); Potassium 4.4 mmol/L (3.4-5.0); Sodium 135 mmol/L (137-145)
[2023-03-30 04:44] LABS: CRP 12.5 mg/dL (<1.0)
[2023-03-30] MEDS: LEVOTHYROXINE SODIUM INJ 100 MCG/5 ML VIAL 12.5 MCG IV PUSH (05:40)
[2023-03-30] MEDS: metroNIDAZOLE 500 MG/ISO 100ML 500 MG/100 ML BAG 100 MG IVPB ×3 (05:40→21:59)
[2023-03-30] MEDS: CENTRAL LINE FLUSH 10 ML IV PUSH ×3 (05:40→20:12)
[2023-03-30] MEDS: FLUTICASONE/SALMETEROL 115-21 MCG INHALER 1 PUFF 2 PUFF INHALATION ×2 (07:17→19:46)
[2023-03-30] MEDS: MORPHINE SULFATE (*CRX) 2 MG/ML INJ IV PUSH ×3 (08:36→20:07)
[2023-03-30] MEDS: FAMOTIDINE 20 MG TABLET PO ×2 (08:42→20:06)
[2023-03-30] MEDS: SENNA/DOCUSATE SODIUM TABLET 2 TAB PO ×2 (08:42→17:34)
[2023-03-30] MEDS: ASPIRIN 325 MG ENTERIC TABLET PO (08:42)
[2023-03-30] MEDS: polyethylene glycoL 3350 17 GM POWD.PACK PO (08:42)
[2023-03-30] MEDS: METOPROLOL TARTRATE 25 MG TABLET PO ×2 (08:42→20:06)
[2023-03-30] MEDS: SERTRALINE HCL 50 MG TABLET 100 MG PO (08:42)
[2023-03-30] MEDS: AMIODARONE HCL 200 MG TABLET 400 MG PO (08:43)
[2023-03-30] MEDS: CEFEPIME 2 GM/NS 50 ML 2 GM/50 ML BAG IVPB ×2 (08:43→21:59)
[2023-03-30] MEDS: lamoTRIgine 100 MG, lamoTRIgine 50 MG 150 MG PO ×2 (08:43→17:34)
--- NOTE | 2023-03-30 10:37 | PM.PNCARD ---
Progress Note: A&P Assessment and Plan (1) Paroxysmal atrial fibrillation: Code(s): I48.0 - Paroxysmal atrial fibrillation Status: Acute Assessment and Plan: Patient had less than 24 hours of atrial fibrillation in setting of septic shock. Converted to sinus rhythm over the weekend, but she reverted to atrial fibrillation with RVR, and is now back in NSR. --continue oral amiodarone as maintenance dose at discharge. Do not anticipate half-way amiodarone use, though. --discussed with Ortho today. Will start enoxaparin 1 milligram/kilogram subQ q.12 hours. Discontinue aspirin --Continue telemetry monitoring. (2) Septic arthritis of knee, right: Qualifiers: Septic arthritis organism: due to unspecified organism Qualified Code(s): M00.9 - Pyogenic arthritis, unspecified Code(s): M00.9 - Pyogenic arthritis, unspecified Status: Acute Assessment and Plan: Status post washout on 03/22/2023, on multiple antibiotics. (3) Septic shock: Code(s): A41.9 - Sepsis, unspecified organism; R65.21 - Severe sepsis with septic shock Status: Acute Assessment and Plan: Resolved, off pressors. (4) Volume overload: Code(s): E87.70 - Fluid overload, unspecified Status: Acute Assessment and Plan: 40 mg IV furosemide x1 Subjective Date/time seen: 03/30/23 10:37 Interval history: 72-year-old with some atrial fibrillation. Admitted because of infected prosthesis status post recent TKR Date of service 03/29/2023: She continues to go in and out of atrial fibrillation. She had about 2-1/2 hours of atrial fibrillation overnight but is back in sinus rhythm today. She denies any chest pain or shortness of breath. Does have some swelling. Date of service 03/30/2023: Still in and out of atrial fibrillation. Has knee pain. No chest pain or shortness of breath. Diffuse swelling is present Review of Systems Review of Systems: Complains of a lot of knee pain. Not much appetite. No shortness of breath, chest pain, abdominal pain. Constitutional: Constitutional: Reports no additional constitutional complaints Eyes: Eyes: Reports no additional eye complaints ENT: Reports system reviewed and no additional complaints, except as documented Cardiovascular: Cardiovascular: Reports no additional cardiovascular complaints Respiratory: Respiratory: Reports no additional respiratory complaints Gastrointestinal: Gastrointestinal: Reports no additional gastrointestinal complaints Musculoskeletal: Musculoskeletal: Reports as per HPI Integumentary/Breasts: Skin/Breast: Reports system reviewed and no additional complaints, except as docu Neurologic: Reports system reviewed and no additional complaints, except as documented and Reports confusion Psychiatric: Psychiatric: Reports as per HPI and Reports confusion Endocrine: Endocrine: Reports no additional endocrine complaints Hematologic/Lymphatic: Hematologic/Lymphatic: Reports no additional hematologic/lymphatic complaints Allergic/Immunologic: Allergic/Immunologic: Reports no additional allergic/immunologic complaints Exam Const: General: cooperative, no acute distress, awake, confusion, lethargic and uncomfortable; No healthy appearing, comfortable or in distress Orientation/consciousness: oriented to person, patient oriented x3, confusion and lethargic Other: Sister at bedside. HENMT: Mouth: Yes moist mucous membranes Eyes: Sclera: sclerae normal Pupils: Equal, round and reactive pupils present EOM: EOMs intact bilaterally Neck: Neck: supple and no JVD Other: Normal carotid pulses bilaterally Resp: Effort & Inspection: normal respiratory effort Auscultation: clear to auscultation bilaterally Cardio: Rate: regular rate and tachycardic Rhythm: regular rhythm and abnormal rhythm irregularly irregular Heart sounds: Murmur heart sound present GI: Inspection: normal to
--- NOTE | 2023-03-30 10:55 | PM.IMPN ---
Progress Note: A&P Assessment and Plan (1) Septic shock: Code(s): A41.9 - Sepsis, unspecified organism; R65.21 - Severe sepsis with septic shock Status: Acute Assessment and Plan: Continue IV antibiotics. Sepsis improved. (2) Septic arthritis of knee, right: Qualifiers: Septic arthritis organism: due to unspecified organism Qualified Code(s): M00.9 - Pyogenic arthritis, unspecified Code(s): M00.9 - Pyogenic arthritis, unspecified Status: Acute Assessment and Plan: Per orthopedics. Continue antibiotics. Plan to return to the OR. Continue to follow cultures. (3) Atrial fibrillation: Code(s): I48.91 - Unspecified atrial fibrillation Status: Resolved Assessment and Plan: Amiodarone p.o.. Rate controlled. Back in atrial fibrillation Appreciate cardiology input (4) S/P total knee arthroplasty: Qualifiers: Laterality: right Qualified Code(s): Z96.651 - Presence of right artificial knee joint Code(s): Z96.659 - Presence of unspecified artificial knee joint Status: Acute Assessment and Plan: See above (5) Rhabdomyolysis: Qualifiers: Rhabdomyolysis type: non-traumatic Qualified Code(s): M62.82 - Rhabdomyolysis Code(s): M62.82 - Rhabdomyolysis Status: Acute Assessment and Plan: Monitor (6) Anemia: Code(s): D64.9 - Anemia, unspecified Status: Acute Assessment and Plan: Monitor and transfuse as needed. (7) Swelling: Code(s): R60.9 - Edema, unspecified Status: Acute Assessment and Plan: Improving, Right upper extremity edema. Will get right upper extremity ultrasound (8) Joint pain: Code(s): M25.50 - Pain in unspecified joint Status: Acute Assessment and Plan: See plan above. (9) Delirium: Code(s): R41.0 - Disorientation, unspecified Status: Acute Assessment and Plan: Improving (10) Weakness: Code(s): R53.1 - Weakness Status: Acute Assessment and Plan: Will need PT OT. Subjective Date/time seen: 03/30/23 10:55 Interval history: No new complaints Exam Narrative: General: Pt is alert awake and in mild distress due to pain Lungs/Chest: Trachea central Clear BS B/L, No crackles or wheezing. Cardiac: RRR. Normal S1 S2. No murmurs Circulation: Pedal pulses are intact and symmetrical. Abdomen: Normal bowel sounds.. Soft. NT. ND. Extremities: Right knee dressing in place, Hemovac draining bloody drainage from the joint, there is a dressing with drainage attached above the incision, knee on the lateral and medial side appears swollen, is tender and has some redness and is warm to touch. -Patient with limited range of motion of bilateral bilateral upper extremities and unable to straighten the arms. She states that she was able to do this at home -Edema of all 4 extremities : Purewick in place Neurologic: Follows commands. Moves all 4 extremities PERRL AO x2, generalized weakness of upper and lower extremity, urinary incontinence Skin: No Rash Objective Data Vital Signs Vital Signs: Vital Signs - 24 hr 03/29/23 12:00 03/29/23 12:00 03/29/23 12:00 Temperature 97.6 F Pulse Rate 65 72 Respiratory Rate 22 H Blood Pressure 92/46 L Pulse Oximetry 92 Oxygen Delivery Room Air Fraction of Inspired Oxygen 03/29/23 12:45 03/29/23 14:00 03/29/23 16:00 Temperature Pulse Rate 72 71 Respiratory Rate Blood Pressure Pulse Oximetry Oxygen Delivery Room Air Fraction of Inspired Oxygen 03/29/23 16:00 03/29/23 18:00 03/29/23 16:00 Temperature 97.6 F Pulse Rate 71 73 Respiratory Rate 18 Blood Pressure 106/59 L Pulse Oximetry 92 97 Oxygen Delivery Room Air Fraction of Inspired Oxygen 03/29/23 20:04 03/29/23 20:20 03/29/23 20:00 Temperature 97.8 F Pulse Rate 71 71 71 Respiratory Rate 20 Blood Pressure 121
[2023-03-30] MEDS: SILVERGEL (ELTA) 45 ML 1 APPLIC TOPICAL (11:38)
[2023-03-30] MEDS: FUROSEMIDE INJ 40 MG/4 ML VIAL IV PUSH (11:38)
--- NOTE | 2023-03-30 15:10 | PM.PNORT ---
Progress Note: A&P Assessment and Plan (1) Septic arthritis of knee, right: Qualifiers: Septic arthritis organism: due to unspecified organism Qualified Code(s): M00.9 - Pyogenic arthritis, unspecified Code(s): M00.9 - Pyogenic arthritis, unspecified Status: Acute Assessment and Plan: POD 3 IMPROVING. STILL SLOW PROGRESS WITH PT. TRANSFER TO MED SURG WHEN OK WITH CARDIOLOGY AND MEDICINE. PREVENA CHANGED TODAY Subjective Subjective Date/Time Seen: 03/30/23 15:10 Interval history: POD 3 DOING WELL. CRP CONTINUES TO DECREASE. NO CALF PAIN. PAIN CONTROL SLIGHTLY IMPROVED Exam Extrem: Other: VSS AFEBRILE DRESSING INTACT NO SIGNIFICANT OUT PUT FROM PREVENA. DRESSING DRY NV INTACT NEG HOMANS SIGN, CALF AND THIGH NON TENDER Objective Data Vital Signs Vital Signs: Vital Signs - 24 hr 03/29/23 16:00 03/29/23 16:00 03/29/23 18:00 Temperature Pulse Rate 71 71 Respiratory Rate Blood Pressure Pulse Oximetry 92 Oxygen Delivery Room Air Fraction of Inspired Oxygen 03/29/23 16:00 03/29/23 20:04 03/29/23 20:20 Temperature 36.4 C Pulse Rate 73 71 71 Respiratory Rate 18 Blood Pressure 106/59 L Pulse Oximetry 97 96 Oxygen Delivery Room Air Fraction of Inspired Oxygen 03/29/23 20:00 03/29/23 20:48 03/29/23 20:00 Temperature 36.6 C Pulse Rate 71 74 Respiratory Rate 20 Blood Pressure 121/62 114/61 Pulse Oximetry 98 Oxygen Delivery Fraction of Inspired Oxygen 03/29/23 20:00 03/29/23 22:00 03/30/23 00:00 Temperature 36.3 C L Pulse Rate 72 69 Respiratory Rate 20 Blood Pressure 113/57 L Pulse Oximetry 96 Oxygen Delivery Room Air Fraction of Inspired Oxygen 03/30/23 00:00 03/30/23 00:00 03/30/23 02:00 Temperature Pulse Rate 67 66 Respiratory Rate Blood Pressure Pulse Oximetry Oxygen Delivery Room Air Fraction of Inspired Oxygen 03/30/23 04:00 03/30/23 04:00 03/30/23 04:00 Temperature 36.6 C Pulse Rate 71 72 Respiratory Rate 20 Blood Pressure 119/74 Pulse Oximetry 96 Oxygen Delivery Room Air Fraction of Inspired Oxygen 03/30/23 06:00 03/30/23 07:17 03/30/23 07:17 Temperature Pulse Rate 63 72 72 Respiratory Rate 16 16 Blood Pressure Pulse Oximetry 95 Oxygen Delivery Room Air Fraction of Inspired Oxygen 21 03/30/23 08:13 03/30/23 08:42 03/30/23 08:43 Temperature 36.6 C Pulse Rate 67 110 H 125 H Respiratory Rate 20 Blood Pressure 127/71 Pulse Oximetry 99 Oxygen Delivery Fraction of Inspired Oxygen 03/30/23 08:00 03/30/23 12:27 Temperature 36.0 C L Pulse Rate 96 Respiratory Rate 20 Blood Pressure 115/75 Pulse Oximetry 98 Oxygen Delivery Room Air Fraction of Inspired Oxygen Intake/Output Intake/Output: Intake & Output 03/27/23 03/28/23 03/29/23 03/30/23 23:59 23:59 23:59 23:59 Intake Total 2460 1450 3180 812 Output Total 1950 1350 2150 1160 Balance 891 646 6955 -348 Meds/Results Medications: Active Medications Generic Name Dose Route Start Last Admin Trade Name Freq PRN Reason Stop Dose Admin Acetaminophen 650 mg 03/21/23 05:06 03/24/23 18:24 Acetaminophen 325 Mg Tablet PO 650 mg Q6H PRN Administration Mild Pain (1-3) or Fever Amiodarone HCl 400 mg 03/28/23 08:00 03/30/23 08:43 Amiodarone Hcl 200 Mg Tablet PO 400 mg DAILY@0800 [facility] Administration Diphenhydramine HCl 25 mg 03/28/23 17:06 Diphenhydramine Hcl Inj 50 Mg/Ml Vial IV PUSH Q6H PRN Itching Enoxaparin Sodium 90 mg 03/30/23 21:00 Enoxaparin 100 Mg/Ml Syringe SUB-Q Q12HR HINA Famotidine 20 mg 03/28/23 21:00 03/30/23 08:42 Famotidine 20 Mg Tablet PO 20 mg Q12HR HINA Administration Fentanyl Citrate 25 mcg 03/28/23 10:27 03/28/23 16:23 Fentanyl Citrate Inj (*Crx) 100 Mcg/2 Ml Vial IV PUSH 12.5 mcg Q2M PRN Administration Pain Fluticasone Propionate
[2023-03-30] MEDS: diazePAM (*CRX) 5 MG TABLET PO (17:43)
[2023-03-30] MEDS: rOPINIRole HCL 1 MG TABLET 2 MG PO (20:12)
[2023-03-30] MEDS: QUEtiapine FUMARATE 100 MG TABLET 300 MG PO (20:12)
[2023-03-30] MEDS: ENOXAPARIN 100 MG/ML SYRINGE 90 MG SUB-Q (20:12)
[2023-03-30] MEDS: oxyCODONE HCL (*CRX) 2.5 MG TAB IR PO (21:57)
[2023-03-30] MEDS: oxyCODONE/ACETAMINOPHEN (*CRX) 5-325 MG TABLET 1 TABLET PO (21:58)
[2023-03-31] VITALS (19 sets, daily range): BP systolic 101–139; BP diastolic 61–76; PULSE 65–108; RESP 18–20; TEMP 36.2–37.3; O2SAT 96–100
[2023-03-31 03:07] LABS: Estimated CRCL calculation 78 ml/min; Estimated Glomerular Filt Rate > 60
[2023-03-31 03:37] LABS: Vancomycin Trough 22.1 ug/mL (10.0-20.0)
[2023-03-31] MEDS: diazePAM (*CRX) 5 MG TABLET PO ×2 (04:44→16:20)
[2023-03-31] MEDS: oxyCODONE/ACETAMINOPHEN (*CRX) 10-325 MG TABLET 1 TAB PO ×5 (04:44→20:52)
[2023-03-31] MEDS: LEVOTHYROXINE SODIUM INJ 100 MCG/5 ML VIAL 12.5 MCG IV PUSH (06:09)
[2023-03-31] MEDS: metroNIDAZOLE 500 MG/ISO 100ML 500 MG/100 ML BAG 100 MG IVPB (06:09)
[2023-03-31] MEDS: CENTRAL LINE FLUSH 10 ML IV PUSH ×3 (06:10→20:54)
[2023-03-31] MEDS: VANCOMYCIN 1,000 MG/NS 250 ML 1,000 MG/250 ML BAG 250 MG IVPB (06:10)
[2023-03-31] MEDS: CEFEPIME 2 GM/NS 50 ML 2 GM/50 ML BAG IVPB (08:08)
[2023-03-31] MEDS: polyethylene glycoL 3350 17 GM POWD.PACK PO (08:16)
[2023-03-31] MEDS: lamoTRIgine 100 MG, lamoTRIgine 50 MG 150 MG PO ×2 (08:16→18:33)
[2023-03-31] MEDS: AMIODARONE HCL 200 MG TABLET 400 MG PO (08:17)
[2023-03-31] MEDS: FAMOTIDINE 20 MG TABLET PO ×2 (08:18→20:51)
[2023-03-31] MEDS: SERTRALINE HCL 50 MG TABLET 100 MG PO (08:18)
[2023-03-31] MEDS: METOPROLOL TARTRATE 25 MG TABLET PO ×2 (08:18→20:54)
[2023-03-31] MEDS: SENNA/DOCUSATE SODIUM TABLET 2 TAB PO (08:18)
[2023-03-31] MEDS: ENOXAPARIN 100 MG/ML SYRINGE 90 MG SUB-Q ×2 (08:19→20:50)
[2023-03-31] MEDS: SILVERGEL (ELTA) 45 ML 1 APPLIC TOPICAL (08:20)
[2023-03-31] MEDS: FLUTICASONE/SALMETEROL 115-21 MCG INHALER 1 PUFF 2 PUFF INHALATION ×2 (09:15→20:42)
--- NOTE | 2023-03-31 11:22 | PM.IMPN ---
Progress Note: A&P Assessment and Plan (1) Septic shock: Code(s): A41.9 - Sepsis, unspecified organism; R65.21 - Severe sepsis with septic shock Status: Acute Assessment and Plan: Continue IV antibiotics. Sepsis improved. (2) Septic arthritis of knee, right: Qualifiers: Septic arthritis organism: due to unspecified organism Qualified Code(s): M00.9 - Pyogenic arthritis, unspecified Code(s): M00.9 - Pyogenic arthritis, unspecified Status: Acute Assessment and Plan: Per orthopedics. Continue antibiotics. Continue to follow cultures. (3) Atrial fibrillation: Code(s): I48.91 - Unspecified atrial fibrillation Status: Resolved Assessment and Plan: Appears to be in sinus rhythm. Continue amiodarone. Denies chest pain or shortness of breath. Defer to Cardiology when to start anticoagulation. Appreciate cardiology input (4) S/P total knee arthroplasty: Qualifiers: Laterality: right Qualified Code(s): Z96.651 - Presence of right artificial knee joint Code(s): Z96.659 - Presence of unspecified artificial knee joint Status: Acute Assessment and Plan: See above (5) Rhabdomyolysis: Qualifiers: Rhabdomyolysis type: non-traumatic Qualified Code(s): M62.82 - Rhabdomyolysis Code(s): M62.82 - Rhabdomyolysis Status: Acute Assessment and Plan: Monitor (6) Anemia: Code(s): D64.9 - Anemia, unspecified Status: Acute Assessment and Plan: Monitor and transfuse as needed. (7) Swelling: Code(s): R60.9 - Edema, unspecified Status: Acute Assessment and Plan: Improving, Right upper extremity edema. Will get right upper extremity ultrasound (8) Joint pain: Code(s): M25.50 - Pain in unspecified joint Status: Acute Assessment and Plan: See plan above. (9) Delirium: Code(s): R41.0 - Disorientation, unspecified Status: Acute Assessment and Plan: Improving (10) Weakness: Code(s): R53.1 - Weakness Status: Acute Assessment and Plan: Will need PT OT. Subjective Date/time seen: 03/31/23 11:22 Interval history: Still complaining of pain in her knee. Exam Narrative: General: Pt is alert awake and in mild distress due to pain Lungs/Chest: Trachea central Clear BS B/L, No crackles or wheezing. Cardiac: RRR. Normal S1 S2. No murmurs Circulation: Pedal pulses are intact and symmetrical. Abdomen: Normal bowel sounds.. Soft. NT. ND. Extremities: Right knee dressing in place, Hemovac draining bloody drainage from the joint, there is a dressing with drainage attached above the incision, knee on the lateral and medial side appears swollen, is tender and has some redness and is warm to touch. -Patient with limited range of motion of bilateral bilateral upper extremities and unable to straighten the arms. She states that she was able to do this at home -Edema of all 4 extremities : Purewick in place Neurologic: Follows commands. Moves all 4 extremities PERRL AO x2, generalized weakness of upper and lower extremity, urinary incontinence Skin: No Rash Objective Data Vital Signs Vital Signs: Vital Signs - 24 hr 03/30/23 12:27 03/30/23 15:57 03/30/23 12:00 Temperature 96.8 F L 97.3 F L Pulse Rate 96 99 98 Respiratory Rate 20 22 H Blood Pressure 115/75 121/94 H Pulse Oximetry 98 99 Oxygen Delivery 03/30/23 14:00 03/30/23 16:00 03/30/23 18:00 Temperature Pulse Rate 105 H 101 H 103 H Respiratory Rate Blood Pressure Pulse Oximetry Oxygen Delivery 03/30/23 12:00 03/30/23 16:00 03/30/23 19:45 Temperature Pulse Rate Respiratory Rate Blood Pressure Pulse Oximetry 97 Oxygen Delivery Room Air Room Air Room Air 03/30/23 20:06 03/30/23 20:00 03/30/23 20:00 Temperature 98.2 F Pulse Rate 108 H 100 Respiratory Rate 20 Blood Pressure 121/69
[2023-03-31 12:25] LABS: CRP 7.2 mg/dL (<1.0)
--- NOTE | 2023-03-31 12:25 | PM.PNCARD ---
Progress Note: A&P Assessment and Plan (1) Paroxysmal atrial fibrillation: Code(s): I48.0 - Paroxysmal atrial fibrillation Status: Acute Plan 72-year-old woman with paroxysmal atrial fibrillation in the setting of septic arthritis of recently performed knee replacement. She for the most part is now in sinus rhythm on amiodarone 400 mg daily. This will be continued for the foreseeable future. Down the line if this is resolved we would anticipate weaning and discontinuing antiarrhythmic therapy as an outpatient. Orthopedic note from yesterday indicates patient can be transferred to [facility] if cardiology approved. The treatment she is receiving (p.o. amiodarone) can be administered on any floor in the hospital. Matthew Thornton MD [facility] Subjective Date/time seen: Date of service: 03/31/23 12:25 Interval history: Follow-up visit in this 72-year-old woman with: Paroxysmal atrial fibrillation without any prior cardiac problems resulting from sepsis/stress from septic arthritis. She is for the most part in sinus rhythm amiodarone now being administered orally. Had some a flutter yesterday but none today. Patient's only complaint continues to be significant pain at the site of her infected knee prosthesis. Exam Const: General: uncomfortable Other: Wincing in pain because of her knee HENMT: Mouth: Yes moist mucous membranes Eyes: Sclera: sclerae normal Neck: Neck: supple and no JVD Other: Carotid pulses are intact bilaterally Resp: Effort & Inspection: normal respiratory effort Auscultation: clear to auscultation bilaterally Cardio: Rate: regular rate Rhythm: regular rhythm Other: No cardiac murmur gallop or rub GI: GI Palp: Yes Soft to palpation Auscultation: normal bowel sounds Neuro: Other: Alert and oriented x3 Objective Data Vital Signs Vital Signs: Vital Signs - 24 hr 03/30/23 12:27 03/30/23 15:57 03/30/23 14:00 Temperature 36.0 C L 36.3 C L Pulse Rate 96 99 105 H Respiratory Rate 20 22 H Blood Pressure 115/75 121/94 H Pulse Oximetry 98 99 Oxygen Delivery 03/30/23 16:00 03/30/23 18:00 03/30/23 16:00 Temperature Pulse Rate 101 H 103 H Respiratory Rate Blood Pressure Pulse Oximetry Oxygen Delivery Room Air 03/30/23 19:45 03/30/23 20:06 03/30/23 20:00 Temperature 36.8 C Pulse Rate 108 H 100 Respiratory Rate 20 Blood Pressure 121/69 Pulse Oximetry 97 99 Oxygen Delivery Room Air 03/30/23 20:00 03/30/23 20:00 03/30/23 22:00 Temperature Pulse Rate 103 H 109 H Respiratory Rate Blood Pressure Pulse Oximetry Oxygen Delivery Room Air 03/30/23 23:42 03/30/23 23:49 03/31/23 00:00 Temperature 36.5 C Pulse Rate 106 H 108 H Respiratory Rate 20 Blood Pressure 93/60 L Pulse Oximetry 97 Oxygen Delivery Room Air 03/31/23 02:00 03/31/23 04:00 03/31/23 04:00 Temperature Pulse Rate 69 74 Respiratory Rate Blood Pressure Pulse Oximetry Oxygen Delivery Room Air 03/31/23 04:00 03/31/23 06:00 03/31/23 07:49 Temperature 36.5 C 36.2 C L Pulse Rate 76 72 77 Respiratory Rate 20 20 Blood Pressure 101/64 114/61 Pulse Oximetry 96 97 Oxygen Delivery 03/31/23 08:17 03/31/23 08:18 03/31/23 09:16 Temperature Pulse Rate 72 70 Respiratory Rate Blood Pressure Pulse Oximetry 96 Oxygen Delivery Room Air 03/31/23 08:00 03/31/23 08:00 03/31/23 10:00 Temperature Pulse Rate 72 70 Respiratory Rate Blood Pressure Pulse Oximetry Oxygen Delivery Room Air 03/31/23 11:22 Temperature 36.3 C L Pulse Rate 65 Respiratory Rate 20 Blood Pressure 109/72 Pulse Oximetry 96 Oxygen Delivery Intake/Output Intake/Output: Intake & Output 03/28/23 03/29/23 03/30/23 03/31/23 23:59 23:59 23:59 23:59 Intake Total 1450 3180 1742 360 Output Total 1350 2150 3760 1200 Balance 100 1030 -2018 -840 Meds/Results Medications:
--- NOTE | 2023-03-31 13:53 | PCNFU ---
Nutrition Follow-Up Complete: Inadquate Oral Intake as related to surgery as evidienced by poor po intake reported. Goal:Adequate Intake of at least 75% of meals/supplements. Pt current nutrition is Regular. Nutrition recommendation: resume previous supplement of Ensure TID, vanilla Last recorded weight is 88.7 kg. Bowel Motility: +BM 03/20 Labs Reviewed: Hgb:8.7, HCT:28.7, NA:135, Cr:0.6 Meds Noted: lovenox, zofran Skin: WNL Additional Notes: Pt continues on a regular diet. No supplements in place at this time. Will resume supplements from previous order Will monitor weight, labs, oral intake every 5 days.
[2023-03-31] MEDS: metroNIDAZOLE 250 MG TABLET 500 MG PO ×2 (14:37→20:51)
[2023-03-31] MEDS: MORPHINE SULFATE (*CRX) 2 MG/ML INJ IV PUSH ×2 (16:20→20:52)
[2023-03-31] MEDS: QUEtiapine FUMARATE 100 MG TABLET 300 MG PO (20:50)
[2023-03-31] MEDS: cefTRIAXone 2 GM/NS 100 ML 2 GM/100 ML BAG IVPB (20:50)
[2023-03-31] MEDS: rOPINIRole HCL 1 MG TABLET 2 MG PO (20:51)
[2023-04-01] VITALS (11 sets, daily range): BP systolic 110–122; BP diastolic 53–79; PULSE 62–115; RESP 16–20; TEMP 36.3–36.9; O2SAT 96–98; BMI 10.0
[2023-04-01] MEDS: MORPHINE SULFATE (*CRX) 2 MG/ML INJ IV PUSH ×4 (02:58→20:42)
[2023-04-01] MEDS: oxyCODONE/ACETAMINOPHEN (*CRX) 10-325 MG TABLET 1 TAB PO ×3 (02:58→20:05)
[2023-04-01] MEDS: CENTRAL LINE FLUSH 10 ML IV PUSH ×3 (05:49→20:06)
[2023-04-01] MEDS: metroNIDAZOLE 250 MG TABLET 500 MG PO ×3 (05:55→20:42)
[2023-04-01] MEDS: LEVOTHYROXINE SODIUM INJ 100 MCG/5 ML VIAL 12.5 MCG IV PUSH (05:56)
[2023-04-01 06:21] LABS: Basophils Absolute Auto 0.1 K/mm3 (0.0-0.1); Basophils Percent Auto 1.2 % (0.2-1.2); Eosinophils Absolute Auto 0.2 K/mm3 (0-0.3); Eosinophils Percent Auto 3.6 % (0-4.4); Hematocrit 29.9 % (37.0-47.0); Hemoglobin 9.2 g/dL (12.0-15.0); Immature Granulocyte Absolute 0.04 K/mm3 (0.00-0.031); Immature Granulocyte Percent A 0.7 % (0-0.5); Lymphocytes Absolute Auto 1.14 K/mm3 (0.9-3.2); Lymphocytes Percent Auto 18.8 % (18.3-44.2); Mean Corpuscular HGB Conc 30.8 g/dl (32-36); Mean Corpuscular Hemoglobin 28.2 pg (26-34); Mean Corpuscular Volume 91.7 fl (80-100); Mean Platelet Volume 8.9 fl (7.4-10.4); Monocytes Absolute Auto 0.5 K/mm3 (0.1-0.6); Monocytes Percent Auto 8.9 % (2.6-8.5); Neutrophils Absolute Auto 4.1 K/mm3 (1.3-6.7); Neutrophils Percent Auto 66.8 % (45.5-73.1); Platelet Count Result 497 k/mm3 (150-375); Red Blood Count 3.26 M/mm3 (4.2-5.4); Red Cell Distribution Width 15.1 % (11.5-14.5); White Blood Count 6.1 K/mm3 (4.5-10.0)
[2023-04-01 06:30] LABS: Anion Gap 3 mmol/L (8-16); Blood Urea Nitrogen 10 mg/dL (7-17); CRP 5.7 mg/dL (<1.0); Calcium 8.3 mg/dL (8.4-10.2); Carbon Dioxide 31 mmol/L (22-30); Chloride 100 mmol/L (98-107); Estimated CRCL calculation 92 ml/min; Estimated Glomerular Filt Rate > 60; Glucose 84 mg/dL (65-110); Potassium 4.2 mmol/L (3.4-5.0); Sodium 134 mmol/L (137-145)
[2023-04-01] MEDS: FLUTICASONE/SALMETEROL 115-21 MCG INHALER 1 PUFF 2 PUFF INHALATION ×2 (08:13→21:07)
--- NOTE | 2023-04-01 08:40 | PCOTNOTE ---
Attempted to see Patient at this time. Patient adamantly refused any activity at this time. Patient stated she is is horrible pain right now and still needs her pain medication. RN notified/aware and giving them, will check back at a later time.
[2023-04-01] MEDS: diazePAM (*CRX) 5 MG TABLET PO ×2 (09:07→16:53)
[2023-04-01] MEDS: AMIODARONE HCL 200 MG TABLET 400 MG PO (09:10)
[2023-04-01] MEDS: lamoTRIgine 100 MG, lamoTRIgine 50 MG 150 MG PO ×2 (09:14→16:50)
[2023-04-01] MEDS: FAMOTIDINE 20 MG TABLET PO ×2 (09:14→20:06)
[2023-04-01] MEDS: SERTRALINE HCL 50 MG TABLET 100 MG PO (09:15)
[2023-04-01] MEDS: METOPROLOL TARTRATE 25 MG TABLET PO ×2 (09:15→20:06)
[2023-04-01] MEDS: SILVERGEL (ELTA) 45 ML 1 APPLIC TOPICAL (09:15)
[2023-04-01] MEDS: polyethylene glycoL 3350 17 GM POWD.PACK PO (09:16)
[2023-04-01] MEDS: SENNA/DOCUSATE SODIUM TABLET 2 TAB PO (09:28)
--- NOTE | 2023-04-01 10:48 | PM.PNCARD ---
Progress Note: A&P Assessment and Plan (1) Paroxysmal atrial fibrillation: Code(s): I48.0 - Paroxysmal atrial fibrillation Status: Acute Assessment and Plan: Patient had less than 24 hours of atrial fibrillation in setting of septic shock. Converted to sinus rhythm, but she reverted to atrial fibrillation with RVR, and is now back in NSR. --Continue oral amiodarone as maintenance dose at discharge. Do not anticipate half-way amiodarone use, though. --Continue beta katie. --On therapeutic Lovenox currently. Recommend to switch to NOAC at time of discharge. --Continue telemetry monitoring. (2) Septic arthritis of knee, right: Qualifiers: Septic arthritis organism: due to unspecified organism Qualified Code(s): M00.9 - Pyogenic arthritis, unspecified Code(s): M00.9 - Pyogenic arthritis, unspecified Status: Acute Assessment and Plan: Status post washout on 03/22/2023, on multiple antibiotics. (3) Septic shock: Code(s): A41.9 - Sepsis, unspecified organism; R65.21 - Severe sepsis with septic shock Status: Acute Assessment and Plan: Resolved, off pressors. Plan Cardiology will sign off at this time. Please call us back if needed. Subjective Date/time seen: 04/01/23 10:48 Interval history: Follow-up visit in this 72-year-old woman with: Paroxysmal atrial fibrillation without any prior cardiac problems resulting from sepsis/stress from septic arthritis. Remains in sinus rhythm. No cardiac symptoms. Reports pain in her knee. Review of Systems Review of Systems: 8 point ROS obtained. Negative, unless stated in HPI. Exam Const: General: no acute distress and uncomfortable HENMT: Mouth: Yes moist mucous membranes Eyes: General: appearance normal, both eyes and all related structures Sclera: sclerae normal Neck: Neck: supple Resp: Effort & Inspection: normal respiratory effort Auscultation: clear to auscultation bilaterally Cardio: Rate: regular rate Rhythm: regular rhythm Neuro: Other: Alert and oriented x3 Objective Data Vital Signs Vital Signs: Vital Signs - 24 hr 03/31/23 11:22 03/31/23 12:00 03/31/23 12:00 Temperature 36.3 C L Pulse Rate 65 77 Respiratory Rate 20 Blood Pressure 109/72 Pulse Oximetry 96 Oxygen Delivery Room Air 03/31/23 16:00 03/31/23 18:41 03/31/23 20:31 Temperature 36.4 C 37.3 C Pulse Rate 75 72 73 Respiratory Rate 20 20 Blood Pressure 129/73 139/76 Pulse Oximetry 97 100 Oxygen Delivery 03/31/23 20:54 03/31/23 20:44 03/31/23 20:45 Temperature Pulse Rate 75 70 Respiratory Rate 18 Blood Pressure Pulse Oximetry 98 Oxygen Delivery Room Air 03/31/23 20:00 03/31/23 20:00 04/01/23 00:00 Temperature Pulse Rate 71 62 Respiratory Rate Blood Pressure Pulse Oximetry Oxygen Delivery Room Air 04/01/23 04:00 04/01/23 08:13 04/01/23 08:00 Temperature 36.6 C Pulse Rate 64 71 Respiratory Rate 16 Blood Pressure 110/59 L Pulse Oximetry 96 96 Oxygen Delivery Room Air 04/01/23 09:10 04/01/23 09:15 Temperature Pulse Rate 81 84 Respiratory Rate Blood Pressure Pulse Oximetry Oxygen Delivery Intake/Output Intake/Output: Intake & Output 03/29/23 03/30/23 03/31/23 04/01/23 23:59 23:59 23:59 23:59 Intake Total 3180 1742 1860 360 Output Total 2150 3760 2700 1750 Balance 1030 -2018 -840 -1390 Meds/Results Medications: Active Medications Generic Name Dose Route Start Last Admin Trade Name Freq PRN Reason Stop Dose Admin Acetaminophen 650 mg 03/21/23 05:06 03/24/23 18:24 Acetaminophen 325 Mg Tablet PO 650 mg Q6H PRN Administration Mild Pain (1-3) or Fever Amiodarone HCl 400 mg 03/28/23 08:00 04/01/23 09:10 Amiodarone Hcl 200 Mg Tablet PO 400 mg DAILY@0800 HINA Administration Diazepam 5 mg 03/30/23 15:40 04/01/23 09:07 Diazepam (*Crx) 5 Mg Tablet
--- NOTE | 2023-04-01 12:12 | PM.IMPN ---
Progress Note: A&P Assessment and Plan (1) Septic shock: Code(s): A41.9 - Sepsis, unspecified organism; R65.21 - Severe sepsis with septic shock Status: Acute Assessment and Plan: Continue IV antibiotics. Sepsis improved. (2) Septic arthritis of knee, right: Qualifiers: Septic arthritis organism: due to unspecified organism Qualified Code(s): M00.9 - Pyogenic arthritis, unspecified Code(s): M00.9 - Pyogenic arthritis, unspecified Status: Acute Assessment and Plan: Per orthopedics. Continue antibiotics. Continue to follow cultures. PTOT (3) Atrial fibrillation: Code(s): I48.91 - Unspecified atrial fibrillation Status: Resolved Assessment and Plan: Appears to be in sinus rhythm. Continue amiodarone. Denies chest pain or shortness of breath. Defer to Cardiology when to start anticoagulation. Appreciate cardiology input (4) S/P total knee arthroplasty: Qualifiers: Laterality: right Qualified Code(s): Z96.651 - Presence of right artificial knee joint Code(s): Z96.659 - Presence of unspecified artificial knee joint Status: Acute Assessment and Plan: See above (5) Rhabdomyolysis: Qualifiers: Rhabdomyolysis type: non-traumatic Qualified Code(s): M62.82 - Rhabdomyolysis Code(s): M62.82 - Rhabdomyolysis Status: Acute Assessment and Plan: Monitor (6) Anemia: Code(s): D64.9 - Anemia, unspecified Status: Acute Assessment and Plan: Monitor and transfuse as needed. (7) Swelling: Code(s): R60.9 - Edema, unspecified Status: Acute Assessment and Plan: Improving, Right upper extremity edema. Will get right upper extremity ultrasound (8) Joint pain: Code(s): M25.50 - Pain in unspecified joint Status: Acute Assessment and Plan: See plan above. (9) Delirium: Code(s): R41.0 - Disorientation, unspecified Status: Acute Assessment and Plan: Improving (10) Weakness: Code(s): R53.1 - Weakness Status: Acute Assessment and Plan: Will need PT OT. Subjective Date/time seen: 04/01/23 12:12 Interval history: No complaints Exam Narrative: General: Pt is alert awake and in mild distress due to pain Lungs/Chest: Trachea central Clear BS B/L, No crackles or wheezing. Cardiac: RRR. Normal S1 S2. No murmurs Circulation: Pedal pulses are intact and symmetrical. Abdomen: Normal bowel sounds.. Soft. NT. ND. Extremities: Right knee dressing in place, Hemovac draining bloody drainage from the joint, there is a dressing with drainage attached above the incision, knee on the lateral and medial side appears swollen, is tender and has some redness and is warm to touch. -Patient with limited range of motion of bilateral bilateral upper extremities and unable to straighten the arms. She states that she was able to do this at home -Edema of all 4 extremities : Purewick in place Neurologic: Follows commands. Moves all 4 extremities PERRL AO x2, generalized weakness of upper and lower extremity, urinary incontinence Skin: No Rash Objective Data Vital Signs Vital Signs: Vital Signs - 24 hr 03/31/23 16:00 03/31/23 18:41 03/31/23 20:31 Temperature 97.6 F 99.2 F Pulse Rate 75 72 73 Respiratory Rate 20 20 Blood Pressure 129/73 139/76 Pulse Oximetry 97 100 Oxygen Delivery 03/31/23 20:54 03/31/23 20:44 03/31/23 20:45 Temperature Pulse Rate 75 70 Respiratory Rate 18 Blood Pressure Pulse Oximetry 98 Oxygen Delivery Room Air 03/31/23 20:00 03/31/23 20:00 04/01/23 00:00 Temperature Pulse Rate 71 62 Respiratory Rate Blood Pressure Pulse Oximetry Oxygen Delivery Room Air 04/01/23 04:00 04/01/23 08:13 04/01/23 08:00 Temperature 98 F Pulse Rate 64 71 Respiratory Rate 16 Blood Pressure 110/59 L Pulse Oximetry 96 96 Oxygen Delivery Ro
[2023-04-01] MEDS: ENOXAPARIN 100 MG/ML SYRINGE 90 MG SUB-Q ×2 (12:32→20:07)
--- NOTE | 2023-04-01 14:19 | PM.PNORT ---
Progress Note: A&P Assessment and Plan (1) Septic arthritis of knee, right: Qualifiers: Septic arthritis organism: due to unspecified organism Qualified Code(s): M00.9 - Pyogenic arthritis, unspecified Code(s): M00.9 - Pyogenic arthritis, unspecified Status: Acute Assessment and Plan: POD #10 from initial I&D with poly exchange POD #4 from repeat I&D with poly exchange WBC normal, CRP improving. Afebrile. Initial synovial fluid grew Clostridium Perfringens. Most recent BC with NGTD. Appreciate pharm ID recommendations for antibiotic therapy at discharge. Consult requested. Continue current IV antibiotics in the interim. PICC line in place RUE. Continue PT/OT with WBAT RLE. Encourage patient to get OOB to chair. Pain control. Muscle relaxers. Ice. Requested patient bring her ice machine from post op TKA for additional pain relief. Recommended Lidocaine Patch for the right thigh due to pain. Prevena dressing transitioned to a [address] Godinez's request. VAC change under sterile conditions. Skin appears to be viable. Some dusky appearance at the incision approximation distal to the patella but well approximated at this time. Dispo: Will require home with home health vs. KEE/SNF for PT/OT and IV infusion. (2) S/P total knee arthroplasty: Qualifiers: Laterality: right Qualified Code(s): Z96.651 - Presence of right artificial knee joint Code(s): Z96.659 - Presence of unspecified artificial knee joint Status: Acute (3) Swelling: Code(s): R60.9 - Edema, unspecified Status: Acute Assessment and Plan: RUE swelling noted. Doppler from 03/27 reveals superficial venous thrombosis of the right cephalic vein. No evidence for deep venous thrombosis of the right upper extremity. Recommendations per medicine team. PICC line in place right UE. (4) Paroxysmal atrial fibrillation: Code(s): I48.0 - Paroxysmal atrial fibrillation Status: Acute Assessment and Plan: Patient had an episode of Afib <24 hours in the setting of septic shock. She then converted to sinus rhythm but reverted back to afib with RVR. She is now back in NSR. Cardiology following. Plan to continue oral amiodarone as maintenance dose at discharge.?On therapeutic Lovenox currently. Cardiology recommended to switch to NOAC at time of discharge. Patient currently Medicine Telemetry but no available bed to move her out of the IMU. (5) Rhabdomyolysis: Qualifiers: Rhabdomyolysis type: non-traumatic Qualified Code(s): M62.82 - Rhabdomyolysis Code(s): M62.82 - Rhabdomyolysis Status: Acute Plan Discussed current plan of care with attending MD Dr. Godinez who agrees with current plan as indicated above. No further recommendations at this time. Subjective Subjective Date/Time Seen: 04/01/23 14:19 Interval history: POD #10: Initial I AND D WITH POLY COMPONENT EXCHANGE POD #4: 2nd I AND D WITH POLY COMPONENT EXCHANGE Patient with complaints of right knee pain and muscle spasms today. Right hand/UE swelling as well. Denies any other concerns. Review of Systems Review of Systems: All systems reviewed & are unremarkable except as noted in HPI and below (HPI ) Exam Const: General: comfortable and no acute distress Resp: Effort & Inspection: normal respiratory effort GI: GI Palp: Yes Soft to palpation, No Tenderness to palpation present (GI) and No Guarding due to palpation present (GI) Urinary Catheter: Urinary Catheter: patent and draining and urine dark Skin: Wounds: wounds noted (Right Knee, see below ) Neuro: General: No gait normal Sensory Exam: normal sensation Extrem: Right lower extremity: knee Details: tenderness (entire knee joint ), swelling (diffuse ), abnormal ROM Details: pain with active ROM during Details: in extension and in flexion and pain with passive ROM during Details: in extension and in flexion, ecchymosis
--- NOTE | 2023-04-01 15:31 | P.PNINF_ITS ---
Pharmacy ID Consult - Stewardship Interventions Type of Interventions: Discharge Recommendation Pharmacy ID Note: Subjective Pharmacy was consulted by Jaylene Walls regarding infectious diseases for Miriam Buchanan. Miriam Buchanan is a 72 year old F with concerns regarding C Perfrin gens PJI. Background The patient is currently receiving Vancomycin 2g IV [id number] to dose, Ceftriaxone 2g IV q24h and metronidazole PO 500 mg q8h. The patient's PMH incl udes recent (February 2023) arthroplasty of the knee and recent washouts of knee including most recently 03/28. Additionally, Micro, as below, shows C. perfringens PJI with follow up cultures not showing any growth. the 03/20 fluid cultures were obtained very shortly after antibiotic initiation. Patient's creatinine has been fairly stable (SCr @ 0.5 mg/dL) with an estimated crcl of 92 mL/min. WBC has not been abnormal since 03/22. Microbiology 03/20/23 13:36 Synovial Fluid Right Knee Aerobic Culture - Preliminary 03/20/23 11:38 Blood Blood Culture - Preliminary 03/24/23 11:39 Blood Blood Culture - Final 03/22/23 10:10 Knee Right Anaerobic Culture - Final 03/22/23 10:10 Knee Right Aerobic Culture - Final 03/20/23 13:36 Synovial Fluid Right Knee Anaerobic Culture - Final 03/20/23 13:36 Synovial Fluid Right Knee Clostridium perfringens Assessment/Recommendation/Discussion Spoke many times with MD Godinez since last week about this patient, but have just spoken with consulting provider as well. Given the recency of this patient's R TKA and initial antimicrobial therapy being given shortly before specimen was obtained, broader spectrum therapy was preferred during initial discussions with provider last week. The Vancomycin, ceftriaxone, and metronidazole therapy at the dosing mentioned above provide triple coverage for c perfringens whilst also providing enteric gram-negative coverage for things like E. coli, gram-positive organisms like enterococcus, streptococcus, and staphylococcus, and anaerobic pathogens. Duration of therapy to be left to consulting service, however PJI's commonly receive parenteral therapy for at least 4 to 6 weeks. For 1-stage exchange, indefinite oral suppression can be considered (ideal duration unknown), and this has been discussed with MD Godinez previously if risk still is believed to exist after parenteral treatment. Can potentially consider something like Pen-VK mult iple times a day for this C perfringens beta lactamase negative isolate. C. Perfringens PJI is quite uncommon with standardized recommendations not available. Thank you for the interesting consult. Messi Chavira, PharmD Infectious Disease/Antimicrobial Stewardship Pharmacist 04/01/23; 1531 WBC 6.1 K/mm3 (4.5-10.0) 04/01/23 05:58 Creatinine 0.50 mg/dL (0.7-1.0) L 04/01/23 05:58 Estim Creat Clear Calc 92 ml/min 04/01/23 05:58
[2023-04-01] MEDS: GABAPENTIN 300 MG CAPSULE 600 MG PO ×2 (16:49→20:05)
[2023-04-01] MEDS: FERROUS SULFATE 324 MG TABLET PO (16:50)
[2023-04-01] MEDS: ARIPiprazole 10 MG TABLET PO (16:50)
--- NOTE | 2023-04-01 17:36 | PC.NURSE ---
This patient, Miriam Buchanan, was transferred to [facility] on 04/01/23 at 1600. Personal belongings sent with patient. Report given to Kyung. Appropriate documentation sent with patient.
[2023-04-01] MEDS: rOPINIRole HCL 1 MG TABLET 2 MG PO (20:05)
[2023-04-01] MEDS: QUEtiapine FUMARATE 100 MG TABLET 300 MG PO (20:05)
[2023-04-01] MEDS: cefTRIAXone 2 GM/NS 100 ML 2 GM/100 ML BAG IVPB (20:06)
[2023-04-02] VITALS (13 sets, daily range): BP systolic 101–114; BP diastolic 64–75; PULSE 79–103; RESP 18–20; TEMP 36.4–36.6; O2SAT 95–98
[2023-04-02] MEDS: MORPHINE SULFATE (*CRX) 2 MG/ML INJ IV PUSH ×3 (04:58→19:43)
[2023-04-02] MEDS: LEVOTHYROXINE SODIUM 25 MCG TABLET PO (04:58)
[2023-04-02] MEDS: metroNIDAZOLE 250 MG TABLET 500 MG PO ×3 (04:58→21:16)
[2023-04-02] MEDS: CENTRAL LINE FLUSH 10 ML IV PUSH ×3 (04:58→21:17)
[2023-04-02] MEDS: diazePAM (*CRX) 5 MG TABLET PO ×3 (04:58→17:08)
[2023-04-02] MEDS: oxyCODONE/ACETAMINOPHEN (*CRX) 10-325 MG TABLET 1 TAB PO ×2 (05:28→13:26)
[2023-04-02 06:14] LABS: CRP 5.2 mg/dL (<1.0); Estimated CRCL calculation 72 ml/min; Estimated Glomerular Filt Rate > 60
[2023-04-02] MEDS: lamoTRIgine 100 MG, lamoTRIgine 50 MG 150 MG PO ×2 (08:19→17:09)
[2023-04-02] MEDS: oxyCODONE/ACETAMINOPHEN (*CRX) 5-325 MG TABLET 1 TABLET PO ×2 (08:19→17:08)
[2023-04-02] MEDS: FERROUS SULFATE 324 MG TABLET PO ×2 (08:21→17:08)
[2023-04-02] MEDS: ARIPiprazole 10 MG TABLET PO ×2 (08:21→17:09)
[2023-04-02] MEDS: FAMOTIDINE 20 MG TABLET PO ×2 (08:21→19:42)
[2023-04-02] MEDS: polyethylene glycoL 3350 17 GM POWD.PACK PO (08:21)
[2023-04-02] MEDS: SERTRALINE HCL 50 MG TABLET 100 MG PO (08:21)
[2023-04-02] MEDS: GABAPENTIN 300 MG CAPSULE 600 MG PO ×4 (08:21→19:41)
[2023-04-02] MEDS: AMIODARONE HCL 200 MG TABLET 400 MG PO (08:22)
[2023-04-02] MEDS: METOPROLOL TARTRATE 25 MG TABLET PO ×2 (08:22→19:42)
[2023-04-02] MEDS: ENOXAPARIN 100 MG/ML SYRINGE 90 MG SUB-Q ×2 (08:22→19:43)
[2023-04-02] MEDS: LIDOCAINE 5% PATCH 1 PATCH TRANSDERM (08:25)
[2023-04-02] MEDS: FLUTICASONE/SALMETEROL 115-21 MCG INHALER 1 PUFF 2 PUFF INHALATION ×2 (08:56→20:54)
[2023-04-02] MEDS: SILVERGEL (ELTA) 45 ML 1 APPLIC TOPICAL (09:56)
--- NOTE | 2023-04-02 11:12 | PM.IMPN ---
Progress Note: A&P Assessment and Plan (1) Septic shock: Code(s): A41.9 - Sepsis, unspecified organism; R65.21 - Severe sepsis with septic shock Status: Acute Assessment and Plan: Continue IV antibiotics. Sepsis improved. (2) Septic arthritis of knee, right: Qualifiers: Septic arthritis organism: due to unspecified organism Qualified Code(s): M00.9 - Pyogenic arthritis, unspecified Code(s): M00.9 - Pyogenic arthritis, unspecified Status: Acute Assessment and Plan: Per orthopedics. Continue antibiotics. Continue to follow cultures. PTOT (3) Atrial fibrillation: Code(s): I48.91 - Unspecified atrial fibrillation Status: Resolved Assessment and Plan: Appears to be in sinus rhythm. Continue amiodarone. Denies chest pain or shortness of breath. Defer to Cardiology when to start anticoagulation. Appreciate cardiology input (4) S/P total knee arthroplasty: Qualifiers: Laterality: right Qualified Code(s): Z96.651 - Presence of right artificial knee joint Code(s): Z96.659 - Presence of unspecified artificial knee joint Status: Acute Assessment and Plan: See above (5) Rhabdomyolysis: Qualifiers: Rhabdomyolysis type: non-traumatic Qualified Code(s): M62.82 - Rhabdomyolysis Code(s): M62.82 - Rhabdomyolysis Status: Acute Assessment and Plan: Monitor (6) Anemia: Code(s): D64.9 - Anemia, unspecified Status: Acute Assessment and Plan: Monitor and transfuse as needed. (7) Weakness: Code(s): R53.1 - Weakness Status: Acute Assessment and Plan: Will need PT OT. Plan Pending placement. Case management working on finding a rehab who can do IV antibiotics Subjective Date/time seen: 04/02/23 11:12 Interval history: No acute complaints. Patient wants to go home Review of Systems Review of Systems: All systems reviewed & are unremarkable except as noted in HPI and below (HPI ) Exam Narrative: General: Pt is alert awake and in mild distress due to pain Lungs/Chest: Trachea central Clear BS B/L, No crackles or wheezing. Cardiac: RRR. Normal S1 S2. No murmurs Circulation: Pedal pulses are intact and symmetrical. Abdomen: Normal bowel sounds.. Soft. NT. ND. Extremities: Right knee dressing in place, Hemovac draining bloody drainage from the joint, there is a dressing with drainage attached above the incision, knee on the lateral and medial side appears swollen, is tender and has some redness and is warm to touch. -Patient with limited range of motion of bilateral bilateral upper extremities and unable to straighten the arms. She states that she was able to do this at home -Edema of all 4 extremities : Pure[place] in place Neurologic: Follows commands. Moves all 4 extremities PERRL AO x2, generalized weakness of upper and lower extremity, urinary incontinence Skin: No Rash Objective Data Vital Signs Vital Signs: Vital Signs - 24 hr 04/01/23 16:12 04/01/23 19:35 04/01/23 20:06 Temperature 97.4 F L 98.4 F Pulse Rate 81 115 H 115 H Respiratory Rate 16 20 Blood Pressure 111/53 L 122/79 Pulse Oximetry 98 98 Oxygen Delivery 04/01/23 21:07 04/01/23 20:00 04/02/23 00:00 Temperature Pulse Rate 69 101 H 88 Respiratory Rate 18 Blood Pressure Pulse Oximetry Oxygen Delivery 04/02/23 04:00 04/02/23 05:28 04/02/23 08:22 Temperature 97.6 F Pulse Rate 79 100 100 Respiratory Rate 18 Blood Pressure 114/72 Pulse Oximetry 97 Oxygen Delivery 04/02/23 08:22 04/02/23 09:00 04/02/23 08:00 Temperature Pulse Rate 100 102 H Respiratory Rate Blood Pressure Pulse Oximetry 98 Oxygen Delivery Room Air 04/02/23 08:00 Temperature Pulse Rate Respiratory Rate Blood Pressure Pulse Oximetry Oxygen Delivery Room Air Intake/Output Intake/Output: Intake & Output 03/30/2303/31
--- NOTE | 2023-04-02 18:20 | PM.PNORT ---
Progress Note: A&P Assessment and Plan (1) Septic arthritis of knee, right: Qualifiers: Septic arthritis organism: due to unspecified organism Qualified Code(s): M00.9 - Pyogenic arthritis, unspecified Code(s): M00.9 - Pyogenic arthritis, unspecified Status: Acute Assessment and Plan: POD N5 DOING WELL. HER CRP CONTINUES TO DECREASE. SHE WILL EVENTUALLY GO TO REHAB/SNF. SHE WILL CONTINUE HER CURRENT REGIMEN. Subjective Subjective Date/Time Seen: 04/02/23 18:20 Interval history: POD 5 I AND D WITH POLY EXCHANGE X 2. DOING WELL. SHE IS IMPROVING WITH PT. NO CALF PAIN, NO CHEST PAIN Exam Extrem: Other: VSS AFEBRILE PRAVENA DRESSING INTACT WORKING WELL. [place] INTACT. NEG HOMANS SIGN CALF SOFT NON TENDER Objective Data Vital Signs Vital Signs: Vital Signs - 24 hr 04/01/23 19:35 04/01/23 20:06 04/01/23 21:07 Temperature 36.9 C Pulse Rate 115 H 115 H 69 Respiratory Rate 20 18 Blood Pressure 122/79 Pulse Oximetry 98 Oxygen Delivery 04/01/23 20:00 04/02/23 00:00 04/02/23 04:00 Temperature Pulse Rate 101 H 88 79 Respiratory Rate Blood Pressure Pulse Oximetry Oxygen Delivery 04/02/23 05:28 04/02/23 08:22 04/02/23 08:22 Temperature 36.4 C Pulse Rate 100 100 100 Respiratory Rate 18 Blood Pressure 114/72 Pulse Oximetry 97 Oxygen Delivery 04/02/23 09:00 04/02/23 08:00 04/02/23 08:00 Temperature Pulse Rate 102 H Respiratory Rate Blood Pressure Pulse Oximetry 98 Oxygen Delivery Room Air Room Air 04/02/23 14:03 04/02/23 12:00 04/02/23 16:00 Temperature 36.6 C Pulse Rate 101 H 103 H 97 Respiratory Rate 18 Blood Pressure 111/64 Pulse Oximetry 95 Oxygen Delivery Intake/Output Intake/Output: Intake & Output 03/30/23 03/31/23 04/01/23 04/02/23 23:59 23:59 23:59 23:59 Intake Total 1742 1860 1200 1070 Output Total 3760 2700 2565 2859 Balance -2017 -840 -1300 -3930 Meds/Results Medications: Active Medications Generic Name Dose Route Start Last Admin Trade Name Freq PRN Reason Stop Dose Admin Acetaminophen 650 mg 03/21/23 05:06 03/24/23 18:24 Acetaminophen 325 Mg Tablet PO 650 mg Q6H PRN Administration Mild Pain (1-3) or Fever Amiodarone HCl 400 mg 03/28/23 08:00 04/02/23 08:22 Amiodarone Hcl 200 Mg Tablet PO 400 mg DAILY@0800 HINA Administration Aripiprazole 10 mg 04/01/23 17:00 04/02/23 17:09 Aripiprazole 10 Mg Tablet PO 10 mg BID HINA Administration Diazepam 5 mg 04/01/23 14:06 04/02/23 17:08 Diazepam (*Crx) 5 Mg Tablet PO 5 mg TID PRN Administration Spasms Diphenhydramine HCl 25 mg 03/28/23 17:06 Diphenhydramine Hcl Inj 50 Mg/Ml Vial IV PUSH Q6H PRN Itching Enoxaparin Sodium 90 mg 03/30/23 21:00 04/02/23 08:22 Enoxaparin 100 Mg/Ml Syringe SUB-Q 90 mg Q12HR HINA Administration Famotidine 20 mg 03/28/23 21:00 04/02/23 08:21 Famotidine 20 Mg Tablet PO 20 mg Q12HR HINA Administration Fentanyl Citrate 25 mcg 03/28/23 10:27 03/28/23 16:23 Fentanyl Citrate Inj (*Crx) 100 Mcg/2 Ml Vial IV PUSH 12.5 mcg Q2M PRN Administration Pain Ferrous Sulfate 324 mg 04/01/23 17:00 04/02/23 17:08 Ferrous Sulfate 324 Mg Tablet PO 324 mg BIDWM HINA Administration Fluticasone Propionate 1 spray 03/20/23 16:46 Fluticasone Propionate 0.05% Na Spr 16 Gm Btl (*Bkc) NASAL Q12H PRN Allergy Symptoms Gabapentin 600 mg 04/01/23 17:00 04/02/23 17:09 Gabapentin 300 Mg Capsule PO 600 mg QID HINA Administration Vancomycin HCl 2,000 mg in 500 mls @ 250 mls/hr 03/31/23 18:00 04/01/23 20:02 Vancomycin 2,000 Mg/D5w 500 Ml IVPB Infused Q24H HINA Infusion Ceftriaxone Sodium 2 gm in 100 mls @ 200 mls/hr 03/31/23 21:00 04/01/23 20:36 Rocephin 2 Gm/Ns 100 Ml IVPB Infused Q24H HINA Infusion Lamotrigine 100 mg/ 150 mg 03/24/23 09:00 04/02/23 17:09
[2023-04-02 18:38] LABS: Vancomycin Trough 12.5 ug/mL (10.0-20.0)
[2023-04-02] MEDS: VANCOMYCIN 1,250 MG/NS 250 ML 1,250 MG/250 ML BAG 166.67 MG IVPB (19:31)
[2023-04-02] MEDS: QUEtiapine FUMARATE 100 MG TABLET 300 MG PO (19:42)
[2023-04-02] MEDS: rOPINIRole HCL 1 MG TABLET 2 MG PO (19:42)
[2023-04-02] MEDS: cefTRIAXone 2 GM/NS 100 ML 2 GM/100 ML BAG IVPB (21:16)
[2023-04-03] VITALS (14 sets, daily range): BP systolic 100–129; BP diastolic 70–84; PULSE 69–100; RESP 16–18; TEMP 36.2–36.5; O2SAT 93–95
[2023-04-03] MEDS: LEVOTHYROXINE SODIUM 25 MCG TABLET PO (05:16)
[2023-04-03] MEDS: CENTRAL LINE FLUSH 10 ML IV PUSH ×3 (05:16→21:37)
[2023-04-03] MEDS: metroNIDAZOLE 250 MG TABLET 500 MG PO ×3 (05:17→21:35)
[2023-04-03] MEDS: oxyCODONE/ACETAMINOPHEN (*CRX) 10-325 MG TABLET 1 TAB PO ×4 (05:23→21:36)
[2023-04-03] MEDS: diazePAM (*CRX) 5 MG TABLET PO ×3 (05:26→17:26)
[2023-04-03 05:52] LABS: CRP 4.8 mg/dL (<1.0)
[2023-04-03] MEDS: FLUTICASONE/SALMETEROL 115-21 MCG INHALER 1 PUFF 2 PUFF INHALATION ×2 (08:09→20:10)
[2023-04-03] MEDS: oxyCODONE/ACETAMINOPHEN (*CRX) 5-325 MG TABLET 1 TABLET PO (09:15)
[2023-04-03] MEDS: FAMOTIDINE 20 MG TABLET PO ×2 (09:16→21:36)
[2023-04-03] MEDS: VANCOMYCIN 1,250 MG/NS 250 ML 1,250 MG/250 ML BAG 166.7 MG IVPB ×2 (09:17→19:25)
[2023-04-03] MEDS: AMIODARONE HCL 200 MG TABLET 400 MG PO (09:17)
[2023-04-03] MEDS: LIDOCAINE 5% PATCH 1 PATCH TRANSDERM (09:17)
[2023-04-03] MEDS: GABAPENTIN 300 MG CAPSULE 600 MG PO ×4 (09:18→21:36)
[2023-04-03] MEDS: lamoTRIgine 100 MG, lamoTRIgine 50 MG 150 MG PO ×2 (09:18→17:27)
[2023-04-03] MEDS: SERTRALINE HCL 50 MG TABLET 100 MG PO (09:18)
[2023-04-03] MEDS: FERROUS SULFATE 324 MG TABLET PO ×2 (09:19→17:27)
[2023-04-03] MEDS: SILVERGEL (ELTA) 45 ML 1 APPLIC TOPICAL (09:19)
[2023-04-03] MEDS: METOPROLOL TARTRATE 25 MG TABLET PO ×2 (09:19→21:35)
[2023-04-03] MEDS: ENOXAPARIN 100 MG/ML SYRINGE 90 MG SUB-Q (09:19)
[2023-04-03] MEDS: ARIPiprazole 10 MG TABLET PO ×2 (09:20→17:28)
[2023-04-03] MEDS: polyethylene glycoL 3350 17 GM POWD.PACK PO (09:20)
--- NOTE | 2023-04-03 10:48 | PCNFU ---
Nutrition Follow-Up Complete: Inadequate Oral Intake as related to surgery as evidienced by poor po intake reported. goal: Adequate Intake of at least 75% of meals/supplements. Patient is meeting goal. No new goal. Pt current nutrition is Regular. Last recorded weight is 75.7 kg. Bowel Motility:+BM reported 03/30 Labs Reviewed:No labs to report. Meds Noted:Flagyl, Ferrous Sulfate Skin: WNL Additional Notes:Patient eating breakfast this time. Oral Intake has been 75-100% of meals. Diet supplements are not being consumed, recommending discontinuing. Agree with diet orders. No further nutritional interventions needed. Will monitor weight, labs, oral intake every 7 days.
--- NOTE | 2023-04-03 11:47 | PM.PNORT ---
Progress Note: A&P Assessment and Plan (1) Septic arthritis of knee, right: Qualifiers: Septic arthritis organism: due to unspecified organism Qualified Code(s): M00.9 - Pyogenic arthritis, unspecified Code(s): M00.9 - Pyogenic arthritis, unspecified Status: Acute Assessment and Plan: POD #12 from initial I&D with poly exchange POD #6 from repeat I&D with poly exchange WBC normal, CRP improving. Afebrile. Initial synovial fluid grew Clostridium Perfringens. Most recent BC with NGTD. Appreciate pharm ID recommendations for antibiotic therapy at discharge. Continue current IV antibiotics and oral antibiotic at discharge. PICC line in place RUE. Continue PT/OT with WBAT RLE. Encourage patient to get OOB to chair. Remove Howe catheter. Pain control. Muscle relaxers. Recommended Lidocaine Patch for the right thigh due to pain. Prevena dressing transitioned to a [address] Godinez's request on 04/01/23. Dispo: SNF at d/c for rehab, Prevena dressing changes and IV infusion. (2) S/P total knee arthroplasty: Qualifiers: Laterality: right Qualified Code(s): Z96.651 - Presence of right artificial knee joint Code(s): Z96.659 - Presence of unspecified artificial knee joint Status: Acute (3) Swelling: Code(s): R60.9 - Edema, unspecified Status: Acute Assessment and Plan: RUE swelling noted. Doppler from 03/27 reveals superficial venous thrombosis of the right cephalic vein. No evidence for deep venous thrombosis of the right upper extremity. Recommendations per medicine team. PICC line in place right UE. (4) Paroxysmal atrial fibrillation: Code(s): I48.0 - Paroxysmal atrial fibrillation Status: Acute Assessment and Plan: Patient had an episode of Afib <24 hours in the setting of septic shock. She then converted to sinus rhythm but reverted back to afib with RVR. She is now back in NSR. Cardiology following. Plan to continue oral amiodarone as maintenance dose at discharge.?On therapeutic Lovenox currently. Cardiology recommended to switch to NOAC at time of discharge. Patient currently Medicine Telemetry but no available bed to move her out of the IMU. (5) Rhabdomyolysis: Qualifiers: Rhabdomyolysis type: non-traumatic Qualified Code(s): M62.82 - Rhabdomyolysis Code(s): M62.82 - Rhabdomyolysis Status: Acute Plan Discussed current plan of care with attending MD Dr. Godinez who agrees with current plan as indicated above. No further recommendations at this time. Subjective Subjective Date/Time Seen: 04/03/23 11:47 Interval history: POD #12: Initial I AND D WITH POLY COMPONENT EXCHANGE POD #6: 2nd I AND D WITH POLY COMPONENT EXCHANGE Patient still with complaints of right knee pain. Hand swelling with improvement. No other concerns. Review of Systems Review of Systems: All systems reviewed & are unremarkable except as noted in HPI and below (HPI ) Exam Const: General: comfortable and no acute distress Resp: Effort & Inspection: normal respiratory effort GI: GI Palp: Yes Soft to palpation, No Tenderness to palpation present (GI) and No Guarding due to palpation present (GI) Urinary Catheter: Urinary Catheter: patent and draining and urine dark Skin: Wounds: wounds noted (Right Knee, see below ) Neuro: General: No gait normal Sensory Exam: normal sensation Extrem: Right lower extremity: knee Details: tenderness (entire knee joint ), swelling (diffuse ), abnormal ROM Details: pain with active ROM during Details: in extension and in flexion and pain with passive ROM during Details: in extension and in flexion, ecchymosis and warmth (mild ) Location: of the entire knee joint; no crepitus and no deformity, lower leg (Negative Satish's sign ), ankle Details: normal to inspection and edema Details: 1+; no tenderness and foot Details: toes with normal ROM, edema (entire foot, 2+ ) and vascul
--- NOTE | 2023-04-03 13:14 | PM.DS ---
DS: Admitting Diagnosis Discharge Date 04/03/2023 Admitting Diagnosis prosthetic joint infection DS: Discharge Diagnosis Discharge Diagnosis (1) HTN (hypertension) with goal to be determined: Code(s): I10 - Essential (primary) hypertension Status: Acute (2) Atrial fibrillation: Code(s): I48.91 - Unspecified atrial fibrillation Status: Resolved (3) Prosthetic joint infection: Code(s): T84.50XA - Infection and inflammatory reaction due to unspecified internal joint prosthesis, initial encounter Status: Acute DS: Summary Hospital Course Hospital Course: (1) Septic arthritis of knee, right: ?Qualifiers: ?Septic arthritis organism:?due to unspecified organism? Qualified Code(s):?M00.9 - Pyogenic arthritis, unspecified ?Code(s): M00.9 - Pyogenic arthritis, unspecified ?Status:?Acute ?Assessment and Plan: POD #12 from initial I&D with poly exchange POD #6 from repeat I&D with poly exchange WBC normal, CRP improving. Afebrile. Initial synovial fluid grew Clostridium Perfringens. Most recent BC with NGTD. Appreciate pharm ID recommendations for antibiotic therapy at discharge. Continue current IV antibiotics and oral antibiotic at discharge. PICC line in place RUE. Continue PT/OT with WBAT RLE. Encourage patient to get OOB to chair. Remove Howe catheter. Pain control. Muscle relaxers. Recommended Lidocaine Patch for the right thigh due to pain. Prevena dressing transitioned to a [address] Godinez's request on 04/01/23. Dispo: SNF at d/c for rehab, Prevena dressing changes and IV infusion. (2) S/P total knee arthroplasty: ?Qualifiers: ?Laterality:?right? Qualified Code(s):?Z96.651 - Presence of right artificial knee joint ?Code(s): Z96.659 - Presence of unspecified artificial knee joint ?Status:?Acute (3) Swelling: ?Code(s): R60.9 - Edema, unspecified ?Status:?Acute ?Assessment and Plan: RUE swelling noted. Doppler from 03/27 reveals superficial venous thrombosis of the right cephalic vein. No evidence for deep venous thrombosis of the right upper extremity. PICC line in place right UE. (4) Paroxysmal atrial fibrillation: ?Code(s): I48.0 - Paroxysmal atrial fibrillation ?Status:?Acute ?Assessment and Plan: Patient had an episode of Afib <24 hours in the setting of septic shock. She then converted to sinus rhythm but reverted back to afib with RVR. She is now back in NSR. Cardiology following. Plan to continue oral amiodarone as maintenance dose at discharge.?On therapeutic Lovenox currently. switched to Eliquis. (5) Rhabdomyolysis: ?Qualifiers: ?Rhabdomyolysis type:?non-traumatic? Qualified Code(s):?M62.82 - Rhabdomyolysis ?Code(s): M62.82 - Rhabdomyolysis ?Status:?Acute patient is clinically stable now and has been discharged to rehab. She will continue IV vancomycin and Rocephin along with p.o. Flagyl for 35 more days. follow-up with orthopedic surgery as outpatient. Time Spent with Patient Time attestation: Total time spent providing and/or coordinating discharge services: DS: Data Data Completed and Pending Labs on day of discharge: Labs from last 24 hours 04/03/23 04/02/23 05:20 17:12 C-Reactive Protein 4.8 H Vancomycin Trough 12.5 Preliminary micro results at discharge 03/20/23 13:36 Aerobic Culture - Preliminary Synovial Fluid Right Knee 03/20/23 11:38 Blood Culture - Preliminary Blood 03/20/23 11:27 Blood Culture - Preliminary Blood Discharge Plan Discharge Consulting providers: Merlyn Méndez; Abbe Smith; Edy Carrillo; Nabeel Godinez; Asa Pantoja Discharging Clinician: Wil Hilliard Anticipated Discharge Date/Time: 04/03/23 11:26 Patient Disposition: SNF Activity: no driving and follow weight bearing status Diet: as tolerated Wound Care Instructions: follow printed instructions Discharge In
[2023-04-03] MEDS: rOPINIRole HCL 1 MG TABLET 2 MG PO (21:35)
[2023-04-03] MEDS: QUEtiapine FUMARATE 100 MG TABLET 300 MG PO (21:35)
[2023-04-03] MEDS: APIXABAN 5 MG TABLET PO (21:35)
[2023-04-03] MEDS: cefTRIAXone 2 GM/NS 100 ML 2 GM/100 ML BAG IVPB (21:37)
[2023-04-04] VITALS (8 sets, daily range): BP systolic 98–111; BP diastolic 51–52; PULSE 61–71; RESP 16–18; TEMP 36.2–36.3; O2SAT 96–98
[2023-04-04] MEDS: metroNIDAZOLE 250 MG TABLET 500 MG PO ×2 (06:37→13:04)
[2023-04-04] MEDS: LEVOTHYROXINE SODIUM 25 MCG TABLET PO (06:37)
[2023-04-04] MEDS: CENTRAL LINE FLUSH 10 ML IV PUSH ×2 (06:37→13:08)
[2023-04-04 07:12] LABS: Estimated CRCL calculation 73 ml/min; Estimated Glomerular Filt Rate > 60
[2023-04-04 07:15] LABS: CRP 4.6 mg/dL (<1.0)
[2023-04-04] MEDS: FLUTICASONE/SALMETEROL 115-21 MCG INHALER 1 PUFF 2 PUFF INHALATION (08:01)
[2023-04-04 08:04] LABS: Vancomycin Trough 18.6 ug/mL (10.0-20.0)
[2023-04-04] MEDS: VANCOMYCIN 1,250 MG/NS 250 ML 1,250 MG/250 ML BAG 166.7 MG IVPB (08:42)
[2023-04-04] MEDS: SERTRALINE HCL 50 MG TABLET 100 MG PO (08:43)
[2023-04-04] MEDS: polyethylene glycoL 3350 17 GM POWD.PACK PO (08:43)
[2023-04-04] MEDS: FAMOTIDINE 20 MG TABLET PO (08:43)
[2023-04-04] MEDS: GABAPENTIN 300 MG CAPSULE 600 MG PO ×2 (08:43→12:08)
[2023-04-04] MEDS: METOPROLOL TARTRATE 25 MG TABLET PO (08:43)
[2023-04-04] MEDS: SILVERGEL (ELTA) 45 ML 1 APPLIC TOPICAL (08:43)
[2023-04-04] MEDS: AMIODARONE HCL 200 MG TABLET 400 MG PO (08:44)
[2023-04-04] MEDS: FERROUS SULFATE 324 MG TABLET PO (08:44)
[2023-04-04] MEDS: lamoTRIgine 100 MG, lamoTRIgine 50 MG 150 MG PO (08:44)
[2023-04-04] MEDS: APIXABAN 5 MG TABLET PO (08:44)
[2023-04-04] MEDS: ARIPiprazole 10 MG TABLET PO (09:00)
[2023-04-04] MEDS: LIDOCAINE 5% PATCH 1 PATCH TRANSDERM (09:01)
[2023-04-04 11:57] LABS: EDCOVIDSCREEN Negative (Negative)
[2023-04-04] MEDS: oxyCODONE/ACETAMINOPHEN (*CRX) 10-325 MG TABLET 1 TAB PO (13:03)
== END 2023-04-04 16:30 | DRG 485 ==
LOC: ANHED 14:34 → ANH2MED 14:35 → ANHICU 21:22 → ANHIMU 03-26 19:01 → ANH3MED 04-01 16:01
PROVIDERS: Chiropractor; Emergency Medicine; Internal Medicine; Nurse Practitioner; Orthopaedic Surgery; Admitting Provider Internal Medicine; Emergency Provider Physician Assistant; PCP Family Medicine; Visit Provider Hospitalist
PROC: 0SPC09Z Removal of Liner from Right Knee Joint, Open Approach (ICD-10-PCS; CPT 27447; principal; 2023-03-22 08:00)
PROC: 0S9C0ZZ Drainage of Right Knee Joint, Open Approach (ICD-10-PCS; CPT 27487; principal; 2023-03-28 12:30)
DX: T84.53XA Infection and inflammatory reaction due to internal right knee prosthesis, initial encounter (principal); R65.21 Severe sepsis with septic shock; M00.861 Arthritis due to other bacteria, right knee; M62.82 Rhabdomyolysis; B96.7 Clostridium perfringens [C. perfringens] as the cause of diseases classified elsewhere; I10 Essential (primary) hypertension; I48.0 Paroxysmal atrial fibrillation; E83.51 Hypocalcemia; Z20.822 Contact with and (suspected) exposure to COVID-19; D64.9 Anemia, unspecified; J44.9 Chronic obstructive pulmonary disease, unspecified; I73.9 Peripheral vascular disease, unspecified; F41.9 Anxiety disorder, unspecified; R41.0 Disorientation, unspecified; F31.9 Bipolar disorder, unspecified; E03.9 Hypothyroidism, unspecified; W19.XXXA Unspecified fall, initial encounter; Z90.49 Acquired absence of other specified parts of digestive tract; Z98.84 Bariatric surgery status
CPT/HCPCS: 36415; 36430; 36569; 70450; 71045; 72125; 73070; 73100; 73564; 80048; 80053; 80202; 81001; 82550; 82565; 82948; 83605; 83735; 84100; 84145; 84443; 85014; 85018; 85025; 85027; 85610; 85652; 85730; 86140; 86850; 86900; 86901; 86923; 87040; 87070; 87075; 87076; 87185; 87205; 87426; 89051; 93005; 93306; 93970; 93971; 94640; 96365; 96367; 96375; 96376; 97110; 97161; 97164; 97165; 97530; 97535; 99285; A9270; C1713; C1751; C1776; C9803; G0378; J0131; J0171; J0282; J0690; J0692; J0696; J1100; J1160; J1580; J1650; J1885; J1940; J2270; J2405; J2704; J2795; J3010; J3370; J3475; J7030; J7050; J7120; P9016; P9047

== ENCOUNTER 2023-04-12 15:54 | Emergency (ER) | payer OTHER, SELFPAY ==
--- NOTE | ~2023-04-12 | CT_ITS ---
EXAMINATION: CT abdomen pelvis w con DATE: 04/12/2023 17:42 INDICATION: Abdominal pain. Concern for small bowel obstruction. TECHNIQUE: Computed tomography (CT) of the abdomen and pelvis was performed without intravenous contr ast. Automated exposure control and iterative reconstruction technique were employed. The dose-length product was 1313.63 mGy-cm. COMPARISON: None FINDINGS: Mild reticulonodular opacities at the bilateral dependent lung bases. Heart size is normal. Aortic va lve calcification. No pericardial or pleural effusion. Extensive body wall edema about the abdomen an d pelvis. Liver, gallbladder, spleen, pancreas, bilateral adrenal glands and right kidney are normal. Couple small regions of cortical scarring at the left kidney likely sequela of prior infection or in farction. Postoperative change of prior Emigdio-en-Y gastric bypass procedure. There is localized dilati on of the small bowel at the site of the anastomosis. No other dilated loops of bowel to suggest obst ruction. Moderate to large amount of stool scattered throughout the colon suggestive of constipation. Few scattered colonic diverticula without adjacent inflammation presenting to suggest diverticulitis . Howe catheter within the otherwise normal bladder. 3.8 cm right adnexal cyst. Uterus is unremarkab le. No free intraperitoneal gas or fluid. No pathologically enlarged abdominal or pelvic lymphadenopa thy. Moderate degenerative skeletal changes in the spine and bilateral hips. IMPRESSION: 1. Localized dilation of short segment of bowel related to the jejunojejunal anastomosis of a Emigdio-en -Y gastric bypass procedure with Normal postoperative appearance. No other dilated bowel to suggest obstruction. 2. Moderate to large amount of colonic stool which could be seen with constipation. 3. Mild reticulonodular opacities at the dependent bilateral lung bases most likely related to either aspiration or pneumonia. Reviewed, dictated and finalized at location A. IMPRESSION: 1. Localized dilation of short segment of bowel related to the jejunojejunal an astomosis of a Emigdio-en-Y gastric bypass procedure with Normal postoperative appearance. No other dilated bowel to suggest obstruction. 2. Moderate to large amount of colonic stool which could be seen with constipat ion. 3. Mild reticulonodular opacities at the dependent bilateral lung bases most li karen related to either aspiration or pneumonia.
[2023-04-12 15:56] VITALS: BP 137/83; PULSE 75; RESP 18; TEMP 36.7; O2SAT 100
[2023-04-12 16:31] VITALS: BP 118/84; PULSE 74; RESP 19
--- NOTE | 2023-04-12 16:42 | ED.ABDPAIN ---
HPI - Abdominal Pain General Chief Complaint: Abdominal Pain Stated Complaint: ?knee Time Seen by Provider: 04/12/23 16:06 History of Present Illness HPI narrative: Patient is a 72-year-old female presenting with abdominal pain. Patient was recently hospitalized for septic arthritis. She was discharged to a rehab facility with a PICC line in place for IV antibiotics. States that over the last several days she has had worsening diffuse abdominal pain. States that she has not had a bowel movement since sometime last week. Denies passing any flatus. States that she vomited after eating breakfast this morning. Denies current nausea. Denies recent fevers, chest pain, shortness of breath, cough, dysuria. She complains of pain all over her body. Related Data Home Medications Medication Instructions Recorded Confirmed lamotrigine 150 mg tablet 150 mg PO BID 12/21/20 04/09/23 [id number]-Vz-byna-minerals 1 tablet PO DAILY 12/21/20 04/09/23 (Multiple Vitamin, Womens tablet) sertraline 100 mg tablet 100 mg PO QAM 11/18/22 04/09/23 levothyroxine 25 mcg tablet 25 mcg PO QAM 02/07/23 04/09/23 (Synthroid) Allergies Allergy/AdvReac Type Severity Reaction Status Date / Time No Known Allergies Allergy Verified 03/28/23 13:30 Review of Systems Review of Systems: All systems reviewed & are unremarkable except as noted in HPI and below PMFSH Past Medical History Medical History Anxiety Arthritis Bipolar 1 disorder COPD (chronic obstructive pulmonary disease) Elbow fracture, left H/O: HTN (hypertension) HTN (hypertension) with goal to be determined Hypothyroidism MRSA (methicillin resistant Staphylococcus aureus) Nerve damage Olecranon fracture Sepsis Surgical History Surgical History H/O neck surgery 2019, [facility] H/O toe surgery 2013, [facility] History of appendectomy History of back surgery 2018, [facility] History of gastric bypass S/P total knee arthroplasty Family History Family History Other Depression Family history of arthritis Family history of lung disease Family history of neuropathy Family history of stroke Heart disease Social History Social History Social History: the patient lives home alone. She is . She has 1 child. She is retired from [employer]. Luz flores is her durable power of collections attorney for healthcare. That is her sister. The patient is lifelong nonsmoker. She does not use any alcohol marijuana or illicit drugs. Code status full code Smoking status: Never smoker Second hand tobacco smoke exposure: Yes Alcohol intake: former Drinks per week: 1 Alcohol use details: 2-4 drinks per week Substance use: never Substance use type: does not use Lack of Transportation: No Lack of Food: Never True Current Housing: I Have Housing Concerned About Future Housing: No Difficulty Paying Gas/Electric Bills: No Difficulty Paying for Meds: No Currently Unemployed: No Education: High School Diploma/GED Difficulty w/ Childcare or Family Care: No Living arrangements: alone Occupation/Education: retired Gender identity (if verbalized by the patient): Female Spiritual care concerns: No Exam Narrative: GENERAL: Well-appearing, well-nourished, and in no acute distress. HEAD: Normocephalic, atraumatic. EYES: PERRLA and EOMI. ENT: Nares clear, no rhinorrhea or epistaxis. Mucous membranes moist. NECK: Supple. CHEST: Clear to auscultation. No respiratory distress. HEART: Regular rate and rhythm. No murmur heard. Normal peripheral pulses. ABDOMEN: Soft, diffuse abdominal tenderness without guarding or rebound EXTREMITIES: Normal range of motion. No edema. PICC line in place right u
[2023-04-12 16:49] LABS: Basophils Absolute Auto 0.1 K/mm3 (0.0-0.1); Eosinophils Absolute Auto 0.3 K/mm3 (0-0.3); Eosinophils Percent Auto 4.2 % (0-4.4); Hematocrit 30.7 % (37.0-47.0); Hemoglobin 9.3 g/dL (12.0-15.0); Immature Granulocyte Absolute 0.05 K/mm3 (0.00-0.031); Immature Granulocyte Percent A 0.8 % (0-0.5); Lymphocytes Absolute Auto 1.08 K/mm3 (0.9-3.2); Lymphocytes Percent Auto 17.4 % (18.3-44.2); Mean Corpuscular HGB Conc 30.3 g/dl (32-36); Mean Corpuscular Hemoglobin 27.8 pg (26-34); Mean Corpuscular Volume 91.9 fl (80-100); Mean Platelet Volume 8.4 fl (7.4-10.4); Monocytes Absolute Auto 0.6 K/mm3 (0.1-0.6); Monocytes Percent Auto 9.3 % (2.6-8.5); Neutrophils Absolute Auto 4.2 K/mm3 (1.3-6.7); Neutrophils Percent Auto 67.3 % (45.5-73.1); Platelet Count Result 406 k/mm3 (150-375); Red Blood Count 3.34 M/mm3 (4.2-5.4); Red Cell Distribution Width 15.9 % (11.5-14.5); White Blood Count 6.2 K/mm3 (4.5-10.0)
[2023-04-12 17:02] LABS: Alanine Aminotransferase 19 U/L (6-35); Albumin Level 3.6 g/dL (3.5-5.1); Alkaline Phosphatase 95 U/L (38-126); Anion Gap 4 mmol/L (8-16); Aspartate Amino Transferase 28 U/L (14-36); Bilirubin,Total 0.2 mg/dL (0.2-1.3); Blood Urea Nitrogen 10 mg/dL (7-17); Calcium 8.5 mg/dL (8.4-10.2); Carbon Dioxide 28 mmol/L (22-30); Chloride 103 mmol/L (98-107); Estimated CRCL calculation 78 ml/min; Estimated Glomerular Filt Rate > 60; Glucose 111 mg/dL (65-110); Lipase 52 U/L (23-300); Potassium 4.3 mmol/L (3.4-5.0); Sodium 135 mmol/L (137-145)
[2023-04-12] MEDS: MORPHINE SULFATE (*CRX) 4 MG/ML INJ IV PUSH (17:18)
[2023-04-12] MEDS: SODIUM CHLORIDE 0.9% IV 1,000 ML 999 ML IV CONT (17:19)
[2023-04-12 17:30] LABS: Appearance Urine Clear (Clear); Bacteria Urine None Seen /hpf; Bilirubin Urine Negative (Negative); Color Urine Yellow (Yellow); Glucose Urine UA Negative (Negative); Ketones Urine Negative (Negative); Leukocyte Esterase Ur Trace LEU/UL (Negative); Nitrate Urine Negative (Negative); Non Pathogenic Casts 0-2; Protein Urine Negative (Negative); Specific Grav Ur 1.008 (1.001-1.035); Squamous Epithelial Cell Urine None seen /hpf (Few); Urobilinogen Urine 0.2 mg/dL (<2.0); WBC Urine 0-5 /hpf
[2023-04-12 17:32] LABS: Add Urine Microscopic? YES
[2023-04-12 17:45] VITALS: BP 139/78; PULSE 78; RESP 18; O2SAT 97
--- NOTE | 2023-04-12 18:55 | PC.NURSE ---
1853 ANNIE [facility] to [facility] accepted eta 1hr
[2023-04-12] MEDS: LACTULOSE 20 GM/30 ML UDC PO (19:33)
== END 2023-04-12 20:00 ==
PROVIDERS: Emergency Provider Emergency Medicine; PCP Family Medicine
DX: K59.00 Constipation, unspecified (principal); J44.9 Chronic obstructive pulmonary disease, unspecified; I10 Essential (primary) hypertension; E03.9 Hypothyroidism, unspecified; M19.90 Unspecified osteoarthritis, unspecified site; F41.9 Anxiety disorder, unspecified; F31.9 Bipolar disorder, unspecified; Z98.84 Bariatric surgery status; Z96.659 Presence of unspecified artificial knee joint; Z86.14 Personal history of Methicillin resistant Staphylococcus aureus infection; R91.8 Other nonspecific abnormal finding of lung field
CPT/HCPCS: 36415; 74177; 80053; 81001; 83690; 85025; 96361; 96374; 99284; A9270; J2270; J7030; Q9967

== ENCOUNTER 2023-06-12 11:20 | Outpatient (CLI) | payer OTHER, SELFPAY ==
[2023-06-12 13:03] LABS: Hematocrit 34.1 % (37.0-47.0); Mean Corpuscular HGB Conc 29.3 g/dl (32-36); Mean Corpuscular Hemoglobin 27.9 pg (26-34); Mean Platelet Volume 8.6 fl (7.4-10.4); Platelet Count Result 259 k/mm3 (150-375); Red Blood Count 3.59 M/mm3 (4.2-5.4); Red Cell Distribution Width 16.9 % (11.5-14.5); White Blood Count 4.9 K/mm3 (4.5-10.0)
[2023-06-12 13:20] LABS: CRP 1.5 mg/dL (<1.0)
[2023-06-12 13:50] LABS: Iron 14 ug/dL (37-170)
[2023-06-12 14:00] LABS: Percent Iron Saturation 6 % (20-50)
[2023-06-12 14:08] LABS: Free T4 Free Thyroxine 0.85 ng/mL (0.78-2.19)
== END 2023-06-12 11:21 | disposition home or self-care (01) ==
PROVIDERS: PCP Family Medicine; Visit Provider Orthopaedic Surgery
DX: D64.9 Anemia, unspecified (principal); M00.9 Pyogenic arthritis, unspecified; E03.9 Hypothyroidism, unspecified
CPT/HCPCS: 36415; 83540; 83550; 84439; 84443; 85027; 86140

== ENCOUNTER 2023-07-08 10:31 | Outpatient (CLI) | payer OTHER, SELFPAY ==
[2023-07-08 18:31] LABS: Hematocrit 35.6 % (37.0-47.0); Hemoglobin 10.7 g/dL (12.0-15.0); Mean Corpuscular HGB Conc 30.1 g/dl (32-36); Mean Corpuscular Hemoglobin 28.9 pg (26-34); Mean Corpuscular Volume 96.2 fl (80-100); Mean Platelet Volume 8.3 fl (7.4-10.4); Platelet Count Result 283 k/mm3 (150-375); Red Cell Distribution Width 16.6 % (11.5-14.5); White Blood Count 5.1 K/mm3 (4.5-10.0)
[2023-07-08 19:21] LABS: Iron 111 ug/dL (37-170)
[2023-07-08 19:24] LABS: Appearance Urine Cloudy (Clear); Bacteria Urine Rare /hpf; Bilirubin Urine Negative (Negative); Blood Urine Negative (Negative); Calcium Oxalate Crystals Urine Present /hpf; Color Urine Yellow (Yellow); Glucose Urine UA Negative (Negative); Hyaline Casts Urine Present /lpf; Ketones Urine Negative (Negative); Leukocyte Esterase Ur Negative LEU/UL (NEGATIVE); Need Manual Microscopic Reviewed; Nitrate Urine Negative (Negative); Non Pathogenic Casts 0-2; Protein Urine Negative (Negative); Specific Grav Ur 1.022 (1.001-1.035); Squamous Epithelial Cell Urine Few /hpf (Few); Urobilinogen Urine 0.2 mg/dL (<2.0); WBC Urine 0-5 /hpf (0-3); pH Urine 5.5 (5.0-9.0)
[2023-07-08 19:26] LABS: Add Urine Microscopic? NO
[2023-07-08 19:31] LABS: Percent Iron Saturation 46 % (20-50)
== END 2023-07-08 10:32 | disposition home or self-care (01) ==
PROVIDERS: PCP Family Medicine; Visit Provider Family Medicine
DX: D64.9 Anemia, unspecified (principal); R53.1 Weakness; I48.92 Unspecified atrial flutter; I48.91 Unspecified atrial fibrillation; M00.9 Pyogenic arthritis, unspecified; E03.9 Hypothyroidism, unspecified
CPT/HCPCS: 36415; 81003; 83540; 83550; 84443; 85027; 87077; 87086; 87186

== ENCOUNTER 2023-09-01 11:51 | Outpatient (CLI) | payer OTHER, SELFPAY ==
--- NOTE | ~2023-09-01 | CT_ITS ---
EXAMINATION: CT abdomen pelvis wo/w con DATE: 09/01/2023 13:22 INDICATION: Hematuria TECHNIQUE: Computed tomography (CT) of the abdomen and pelvis was performed without intravenous contr ast. CT of the abdomen and pelvis was then performed with a total of 130 mL Omnipaque 350 intravenous contrast using a double-bolus technique for simultaneous opacification of the renal parenchyma and r enal collecting system. The dose-length product (DLP) was 1172.03 mGy-cm. Automated exposure control and iterative reconstruction technique were employed. COMPARISON: 04/12/2023 FINDINGS: Minimal dependent atelectasis is present in the lung bases. Cardiomegaly is noted. Surgical changes in the stomach likely reflect weight loss surgery. The liver, spleen, pancreas, gallbladder, and adrenal glands are normal. No stones are identified in the kidneys, ureters, or bladder. No hydr onephrosis or hydroureter. No suspicious renal lesion is identified. There is possible posterior wall thickening of the urinary bladder. No pathologically enlarged abdominal or pelvic lymph nodes are id entified. No free intraperitoneal gas or evidence of bowel obstruction. A moderate volume of colonic stool is present. There is moderate lumbar spondylosis. IMPRESSION: 1. Possible posterior wall thickening of the urinary bladder. Direct visualization is recommended. Reviewed, dictated and finalized at location F. DESK TEAM LEADER IMPRESSION: 1. Possible posterior wall thickening of the urinary bladder. Direct visualizat ion is recommended.
[2023-09-01 13:00] LABS: Estimated Glomerular Filt Rate > 60
== END 2023-09-01 11:52 | disposition home or self-care (01) ==
LOC: ANHIMG 11:51
PROVIDERS: PCP Family Medicine; Visit Provider Urology
DX: R31.9 Hematuria, unspecified (principal)
CPT/HCPCS: 74178; Q9967

== ENCOUNTER 2023-09-29 14:33 | Outpatient (CLI) | payer OTHER, SELFPAY | END 2023-09-29 14:34 | disposition home or self-care (01) | LOC: ANHBWCLAB 14:34 | PROVIDERS: PCP Family Medicine; Visit Provider Family Medicine | DX: E03.9 Hypothyroidism, unspecified (principal) | CPT/HCPCS: 36415; 84443 ==

== ENCOUNTER 2023-11-24 09:27 | Outpatient (CLI) | payer OTHER, SELFPAY ==
--- NOTE | ~2023-11-24 | XR_ITS ---
Left Knee Technique: AP, lateral, and sunrise views were obtained. Clinical History: Pain Findings: No fracture or dislocation is seen. Osseous alignment is anatomic. Joint spaces are preserv ed without degenerative or erosive change. Chondrocalcinosis of the menisci noted. No joint effusion is seen. Impression: Chondrocalcinosis of the menisci. Reviewed, dictated and finalized at location . OR SPECIALIST Impression: Chondrocalcinosis of the menisci.
== END 2023-11-24 09:28 | disposition home or self-care (01) ==
PROVIDERS: PCP Family Medicine; Visit Provider Family Medicine
DX: M25.562 Pain in left knee (principal)
CPT/HCPCS: 73562

== ENCOUNTER 2024-02-17 09:53 | Outpatient (CLI) | payer OTHER, SELFPAY ==
--- NOTE | ~2024-02-17 | MR_ITS ---
MRI of the cervical spine Clinical History: Radiculopathy Technique: Axial T2-weighted and gradient images, and sagittal T1-weighted, T2-weighted, and STIR janae ges were acquired. COMPARISON: 01/02/2023 Findings: No acute fracture or subluxation seen. Anterior and posterior as well as interbody fusion f rom C3 to C7 is stable from prior exam, with stable osseous alignment and hardware/susceptibility art ifact. No acute bone marrow signal reality seen. At C2-C3, there is no disc bulge or herniation. No spinal canal stenosis, cord compression, or neural foraminal narrowing. At C3-C4, there is no disc bulge or herniation. No spinal canal stenosis, cord compression, or defini te neural foraminal narrowing. At C4-C5, there is no spinal canal stenosis, cord compression, or definite neural foraminal narrowing . At C5-C6, there is no definite canal stenosis, cord compression, or neural foraminal narrowing. At C6-C7, there is no spinal canal stenosis, cord compression, or definite neural foraminal narrowing . No disc bulge or herniation evident. There are stable focal increased spinal cord signal at the C3-C4 level, compatible with changes from chronic myomalacia this level. Paravertebral soft tissues are unremarkable. Impression: No change from prior exam. Stable increased signal at the C3-C4 level of the spinal cord, compatible with chronic myelomalacia. Extensive anterior and posterior fusion changes, with stable osseous alignment. Reviewed, dictated and finalized at [facility]. Impression: No change from prior exam. Stable increased signal at the C3-C4 level of the sp inal cord, compatible with chronic myelomalacia. Extensive anterior and posterior fusion changes, with stable osseous alignment.
== END 2024-02-17 09:54 ==
PROVIDERS: PCP Family Medicine
DX: M43.22 Fusion of spine, cervical region (principal)
CPT/HCPCS: 72141

== ENCOUNTER 2024-03-22 11:16 | Outpatient (CLI) | payer OTHER, SELFPAY ==
[2024-03-22 18:47] LABS: Hematocrit 37.6 % (37.0-47.0); Mean Corpuscular HGB Conc 31.9 g/dl (32-36); Mean Corpuscular Hemoglobin 31.3 pg (26-34); Mean Corpuscular Volume 98.2 fl (80-100); Mean Platelet Volume 8.7 fl (7.4-10.4); Platelet Count Result 296 k/mm3 (150-375); Red Blood Count 3.83 M/mm3 (4.2-5.4); Red Cell Distribution Width 13.3 % (11.5-14.5); White Blood Count 5.5 K/mm3 (4.5-10.0)
[2024-03-22 19:01] LABS: Alanine Aminotransferase 29 U/L (6-35); Albumin Level 4.7 g/dL (3.5-5.1); Alkaline Phosphatase 117 U/L (38-126); Anion Gap 8 mmol/L (4-12); Aspartate Amino Transferase 69 U/L (14-36); Bilirubin,Total 0.6 mg/dL (0.2-1.3); Blood Urea Nitrogen 31 mg/dL (7-17); Calcium 9.1 mg/dL (8.4-10.2); Carbon Dioxide 24 mmol/L (22-30); Chloride 104 mmol/L (98-107); Cholesterol 210 mg/dL (0-200); Estimated Glomerular Filt Rate > 60; Glucose 81 mg/dL (65-110); HDL Direct 92 mg/dL; Magnesium 2.3 mg/dL (1.6-2.3); Potassium 4.2 mmol/L (3.4-5.0); Sodium 136 mmol/L (137-145); Triglycerides 66 mg/dL (<150)
[2024-03-22 19:11] LABS: LDL Cholesterol Direct 86 mg/dL
[2024-03-22 19:16] LABS: Iron 138 ug/dL (37-170)
[2024-03-22 19:27] LABS: Percent Iron Saturation 55 % (20-50)
[2024-03-22 19:28] LABS: Hemoglobin A1C 4.7 % (<5.7)
[2024-03-22 19:29] LABS: Thyroid Stimulating Hormone 0.435 uIU/mL (0.465-4.680)
[2024-03-22 19:37] LABS: Vitamin D 25 Hydroxy 74.1 ng/mL
== END 2024-03-22 11:17 | disposition home or self-care (01) ==
LOC: ANHBWCLAB 11:17
PROVIDERS: PCP Family Medicine; Visit Provider Family Medicine
DX: E03.9 Hypothyroidism, unspecified (principal); F32.9 Major depressive disorder, single episode, unspecified; G25.81 Restless legs syndrome; I48.0 Paroxysmal atrial fibrillation; I48.91 Unspecified atrial fibrillation; I73.9 Peripheral vascular disease, unspecified; J44.9 Chronic obstructive pulmonary disease, unspecified; K52.9 Noninfective gastroenteritis and colitis, unspecified; M25.569 Pain in unspecified knee; M54.2 Cervicalgia; M79.2 Neuralgia and neuritis, unspecified; N31.9 Neuromuscular dysfunction of bladder, unspecified; R42 Dizziness and giddiness; R53.1 Weakness; D64.9 Anemia, unspecified; E83.51 Hypocalcemia; I10 Essential (primary) hypertension; I48.92 Unspecified atrial flutter; Z79.899 Other long term (current) drug therapy
CPT/HCPCS: 36415; 80053; 80061; 82306; 82728; 83036; 83540; 83550; 83735; 84443; 85027

== ENCOUNTER 2024-06-22 10:16 | Outpatient (CLI) | payer OTHER, SELFPAY ==
--- NOTE | ~2024-06-22 | MR_ITS ---
EXAMINATION: MR knee LT wo con DATE: 06/22/2024 10:49 INDICATION: Instability, unspecified knee. TECHNIQUE: Magnetic resonance imaging (MRI) of the left knee was performed without intravenous contra st. Sequences included axial PD-weighted FS FSE, coronal PD-weighted FSE and PD-weighted FS FSE, sagi ttal PD-weighted FSE, and sagittal T2-weighted FS FSE. COMPARISON: Left knee radiographs 11/24/2023 FINDINGS: Medial compartment: Medial meniscus is normal. There is cartilage surface irregularity of femoral condyle and tibial cond yle. Lateral compartment: There is a complex tear of body and posterior horn of lateral meniscus. There is full-thickness carti pilar loss of tibial condyle involving the central and posterior articular surface with mild subchondr al edema-like signal intensity. There is full-thickness cartilage loss of femoral condyle involving t he central and posterior articular surface with mild subchondral edema-like marrow signal intensity a nd subchondral sclerosis. Osteophytes are noted. Patellofemoral compartment: There is deep partial-thickness cartilage loss of patellar medial and lateral facets and median ridge with mild subchondral edema-like marrow signal intensity. There is full-thickness cartilage loss of central trochlea with mild subchondral edema-like signal intensity. Ligaments and tendons: The anterior and posterior cruciate ligaments are normal. There are changes of prior sprains of media l collateral ligament and fibular collateral ligament characterized by thickening and increased signa l intensity proximally. There is mild patellar tendinopathy. Fluid: There is a moderate-sized knee joint effusion. There is a small Fernandez's cyst. IMPRESSION: 1. 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 2. Tear of lateral meniscus. 3. Moderate-sized knee joint effusion. Reviewed, dictated and finalized at location A. IMPRESSION: 1. 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 2. Tear of lateral meniscus. 3. Moderate-sized knee joint effusion.
[2024-06-22 11:20] LABS: Hematocrit 36.5 % (37.0-47.0); Hemoglobin 11.5 g/dL (12.0-15.0); Mean Corpuscular HGB Conc 31.5 g/dl (32-36); Mean Corpuscular Hemoglobin 30.8 pg (26-34); Mean Corpuscular Volume 97.9 fl (80-100); Mean Platelet Volume 8.3 fl (7.4-10.4); Platelet Count Result 237 k/mm3 (150-375); Red Blood Count 3.73 M/mm3 (4.2-5.4); Red Cell Distribution Width 12.1 % (11.5-14.5); White Blood Count 8.4 K/mm3 (4.5-10.0)
[2024-06-22 11:43] LABS: Alanine Aminotransferase 26 U/L (6-35); Albumin Level 4.2 g/dL (3.5-5.1); Alkaline Phosphatase 99 U/L (38-126); Anion Gap 10 mmol/L (4-12); Aspartate Amino Transferase 31 U/L (14-36); Bilirubin,Total 0.2 mg/dL (0.2-1.3); Blood Urea Nitrogen 24 mg/dL (7-17); Calcium 8.6 mg/dL (8.4-10.2); Carbon Dioxide 24 mmol/L (22-30); Chloride 102 mmol/L (98-107); Estimated Glomerular Filt Rate > 60; Glucose 114 mg/dL (65-110); Potassium 4.4 mmol/L (3.4-5.0); Sodium 136 mmol/L (137-145)
== END 2024-06-22 10:17 | disposition home or self-care (01) ==
PROVIDERS: PCP Family Medicine; Visit Provider Nurse Practitioner Family
DX: S83.282A Other tear of lateral meniscus, current injury, left knee, initial encounter (principal); M94.262 Chondromalacia, left knee; M25.462 Effusion, left knee; E03.9 Hypothyroidism, unspecified; R74.01 Elevation of levels of liver transaminase levels; J44.9 Chronic obstructive pulmonary disease, unspecified; X58.XXXA Exposure to other specified factors, initial encounter
CPT/HCPCS: 36415; 73721; 80053; 85027

== ENCOUNTER 2024-08-04 14:46 | Outpatient (CLI) | payer OTHER, SELFPAY ==
[2024-08-04 19:15] LABS: Free T4 Free Thyroxine 0.84 ng/mL (0.78-2.19)
== END 2024-08-04 14:47 | disposition home or self-care (01) ==
LOC: ANHBWCLAB 14:47
PROVIDERS: PCP Family Medicine; Visit Provider Family Medicine
DX: F32.9 Major depressive disorder, single episode, unspecified (principal)
CPT/HCPCS: 36415; 84439; 84443

== ENCOUNTER 2024-12-09 11:24 | Outpatient (CLI) | payer OTHER, SELFPAY | END 2024-12-09 11:25 | disposition home or self-care (01) | LOC: ANHBWCLAB 11:26 | PROVIDERS: PCP Family Medicine; Visit Provider Family Medicine | DX: K56.41 Fecal impaction (principal); M54.9 Dorsalgia, unspecified; N30.90 Cystitis, unspecified without hematuria | CPT/HCPCS: 74018 ==

== ENCOUNTER 2024-12-09 15:25 | Emergency (ER) | payer OTHER, SELFPAY ==
[2024-12-09 15:40] VITALS: BP 141/93; PULSE 110; RESP 20; TEMP 36.7; O2SAT 97
--- NOTE | 2024-12-09 16:39 | ED.ABDPAIN ---
HPI - Abdominal Pain General Chief Complaint: Urogenital-Female <Delia Vallejo PA-C - Last Filed: 12/10/24 11:38> Stated Complaint: unable to urinate, xray shows blockage <Delia Vallejo PA-C - Last Filed: 12/10/24 11:38> Time Seen by Provider: 12/09/24 16:39 <Delia Vallejo PA-C - Last Filed: 12/10/24 11:38> Focused HPI: This is a 74 year old female that presents to the ER for difficulty urinating. Reports her kidneys are hurting. Ongoing over the last couple of days. Reports she has not urinated since yesterday afternoon. She had outpatient KUB today which showed Extensive fecal stasis with air-fluid levels suggesting at least a partial bowel obstruction. Presents for further management. GENERAL: Uncomfortable, well-nourished, and in no acute distress. HEAD: Normocephalic, atraumatic. CHEST: Clear to auscultation. ?No respiratory distress. HEART: Regular rate and rhythm.? NEURO: ?Alert and oriented x3. Patient screened in triage and initial orders placed.? ?Additional care and disposition to be based upon?diagnostic testing and treatment. <Delia Vallejo PA-C - Last Filed: 12/10/24 11:38> History of Present Illness HPI narrative: Patient 74-year-old female presents emergency department with chief complaint of difficulty urinating. The patient reports he has pain in her flank reports that she had a KUB that showed a possible blockage. The patient reports that she has not been able to urinate <Nato Tran MD - Last Filed: 12/09/24 21:44> Related Data Home Medications: Home Medications ?Medication ?Instructions ?Recorded ?Confirmed ?Last Taken ?Type lamotrigine 150 mg tablet 150 mg PO BID 12/21/20 08/19/24 02/19/23 History jmkikhshvmwy-Zm-kztb-minerals 1 tablet PO DAILY 12/21/20 08/19/24 02/16/23 History (Multiple Vitamin, Womens tablet) sertraline 100 mg tablet 100 mg PO QAM 11/18/22 08/19/24 02/19/23 History quetiapine 400 mg tablet 400 mg PO BID 12/23/23 08/19/24 Unknown History dabigatran etexilate 150 mg capsule 150 mg PO BID 08/04/24 08/19/24 Unknown History <Delia Vallejo PA-C - Last Filed: 12/10/24 11:38> Allergies/Adverse Reactions: Allergies Allergy/AdvReac Type Severity Reaction Status Date / Time No Known Allergies Allergy Verified 12/09/24 17:11 <Delia Vallejo PA-C - Last Filed: 12/10/24 11:38> Review of Systems Review of Systems: A 10 system review of systems was completed on the patient and is negative except for what is stated in the HPI. Nursing and ancillary documentation was reviewed. <Nato Tran MD - Last Filed: 12/09/24 21:44> [facility] Past Medical History Medical History: Medical History Septic joint of right shoulder region HTN (hypertension) with goal to be determined Alcohol abuse Bipolar 1 disorder Sepsis MRSA (methicillin resistant Staphylococcus aureus) Olecranon fracture Elbow fracture, left Hypothyroidism Nerve damage H/O: HTN (hypertension) COPD (chronic obstructive pulmonary disease) Arthritis Anxiety <Delia Vallejo PA-C - Last Filed: 12/10/24 11:38> Surgical History Surgical History: Surgical History S/P total knee arthroplasty RT TKA 02/19/23 I&D w/ poly-exchange 03/22/23 & 03/28/23 History of gastric bypass H/O toe surgery 2013, [facility] History of appendectomy History of back surgery 2019, [facility] H/O neck surgery 2019, [facility] <Delia Vallejo PA-C - Last Filed: 12/10/24 11:38> Family History Family History: Family History Other Depression Family history of arthritis Family history of lung disease Family history of neuropathy Family history of stroke Heart disease <Delia Vallejo PA-C - Last Filed: 12/10/24 11:38> Social History Social History: Social History Social History: the patient lives home alone. She is . She has 1 child. She is retired from [employer]. Luz flores is her durable power of insurance defense attorney for healthcare. That is her sister. The patient is lifelong nonsmoker. She does not use any alcohol marijuana or illicit drugs. Code status full code Smoking status: Never smoker Second hand tobacco smoke exposure: Yes Alcohol intake: former Drinks per week: 1 Alcohol use details: 2-4 drinks per week Substance use: never Substance use type: does not use Do You Feel Safe in your Home?: Yes Lack of Transportation: No Lack of Food: Never True Current Housing: I Have Housing Concerned About Future Housing: No Difficulty Paying Gas/Electric Bills: No Difficulty Paying for Meds: No Currently Unemployed: No Education: High School Diploma/GED Difficulty w/ Childcare or Family Care: No Living arrangements: alone Occupation/Education: retired Gender identity (if verbalized by the patient): Female Sexual Orientation (if Verbalized by the Patient): Straight or Heterosexual Spiritual care concerns: No Agree to blood products: Yes <Delia Vallejo PA-C - Last Filed: 12/10/24 11:38> Exam Narrative: GENERAL: Well-appearing, well-nourished, and in no acute distress. HEAD: Normocephalic, atraumatic. EYES: PERRLA and EOMI. ENT: Nares clear, no rhinorrhea or epistaxis. Mucous membranes moist. NECK: Supple. CHEST: Clear to auscultation. No respiratory distress. HEART: Regular rate and rhythm. No murmur heard. Normal peripheral pulses. ABDOMEN: Soft, nontender, nondistended, normal active bowel sounds. EXTREMITIES: Normal range of motion. No edema. SKIN: Warm, dry, no rash. NEURO: No focal deficits. Alert and oriented x3. PSYCH: Normal mood and affect. <Nato Tran MD - Last Filed: 12/09/24 21:44> Course Vital Signs Vital signs: Vital Signs Temperature 98.1 F 12/09/24 15:40 Pulse Rate 110 H 12/09/24 15:40 Respiratory Rate 20 12/09/24 15:40 Blood Pressure 141/93 H 12/09/24 15:40 Pulse Oximetry 97 12/09/24 15:40 Oxygen Delivery Room Air 12/09/24 15:40 Temperature 98.6 F 12/09/24 19:53 Pulse Rate 104 H 12/09/24 19:53 Respiratory Rate 17 12/09/24 19:53 Blood Pressure 153/99 H 12/09/24 19:53 Pulse Oximetry 98 12/09/24 19:53 Oxygen Delivery Room Air 12/09/24 15:40 <Delia Vallejo PA-C - Last Filed: 12/10/24 11:38> Vital Signs Temperature 98.1 F 12/09/24 15:40 Pulse Rate 110 H 12/09/24 15:40 Respiratory Rate 20 12/09/24 15:40 Blood Pressure 141/93 H 12/09/24 15:40 Pulse Oximetry 97 12/09/24 15:40 Oxygen Delivery Room Air 12/09/24 15:40 Temperature 98.6 F 12/09/24 19:53 Pulse Rate 104 H 12/09/24 19:53 Respiratory Rate 17 12/09/24 19:53 Blood Pressure 153/99 H 12/09/24 19:53 Pulse Oximetry 98 12/09/24 19:53 Oxygen Delivery Room Air 12/09/24 15:40 <Nato Tran MD - Last Filed: 12/09/24 21:44> MDM - Abdominal Pain MDM Narrative Medical decision making narrative: Differential diagnosis includes bowel obstruction, urinary obstruction The patient had 700 mL of urine in her bladder on bladder scan Howe catheter was placed CT scan of the abdomen pelvis is pending and is currently still waiting for his altered patient did not want to wait for radiology results and is signing out AMA. <Nato Tran MD - Last Filed: 12/09/24 21:44> Lab Data Result diagrams: 12/09/24 17:29 12/09/24 17:29 <Delia Vallejo PA-C - Last Filed: 12/10/24 11:38> Labs: Lab Results 12/09/24 12/09/24 Range/Units 17:12 17:29 WBC 4.6 (4.5-10.0) K/mm3 RBC 3.76 L (4.2-5.4) M/mm3 Hgb 11.4 L (12.0-15.0) g/dL Hct 36.1 L (37.0-47.0) % MCV 96.0 (80-100) fl MCH 30.3 (26-34) pg MCHC 31.6 L (32-36) g/dl RDW 12.6 (11.5-14.5) % Plt Count 246 (150-375) k/mm3 MPV 8.8 (7.4-10.4) fl Immature Gran % (Auto) 0.4 (0-0.5) % Neut % (Auto) 49.8 (45.5-73.1) % Lymph % (Auto) 35.1 (18.3-44.2) % Barry % (Auto) 10.5 H (2.6-8.5) % Eos % (Auto) 3.1 (0-4.4) % Baso % (Auto) 1.1 (0.2-1.2) % Lymph # (Auto) 1.61 (0.9-3.2) K/mm3 Barry # (Auto) 0.5 (0.1-0.6) K/mm3 Eos # (Auto) 0.1 (0-0.3) K/mm3 Baso # (Auto) 0.1 (0.0-0.1) K/mm3 Abs Immat Gran (auto) 0.02 (0.00-0.031) K/mm3 Absolute Neuts (auto) 2.3 (1.3-6.7) K/mm3 Absolute Nucleated RBC 0.000 (0.0-0.012) K/mm3 Nucleated RBC % 0.0 (0.0-0.2) % Sodium 140 (137-145) mmol/L Potassium 4.6 (3.4-5.0) mmol/L Chloride 105 (98-107) mmol/L Carbon Dioxide 25 (22-30) mmol/L Anion Gap 10 (4-12) mmol/L BUN 17 (7-17) mg/dL Creatinine 0.81 (0.7-1.0) mg/dL Estim Creat Clear Calc 54 ml/min Estimated GFR > 60 (59 - ) Glucose 88 (65-110) mg/dL Calcium 9.0 (8.4-10.2) mg/dL Total Bilirubin 0.4 (0.2-1.3) mg/dL AST 30 (14-36) U/L ALT 27 (6-35) U/L Alkaline Phosphatase 122 (38-126) U/L Total Protein 7.0 (6.3-8.2) g/dL Albumin 4.5 (3.5-5.1) g/dL Lipase 39 (23-300) U/L Urine Color Yellow (Yellow) Urine Appearance Clear (Clear) Urine pH 5.5 (5.0-9.0) Ur Specific [place] 1.010 (1.001-1.035) Urine Protein Negative (Negative) mg/dL Urine Glucose (UA) Negative (Negative) mg/dL Urine Ketones Negative (Negative) mg/dL Ur Blood (Man) Negative (Negative) Urine Nitrate Negative (Negative) Urine Bilirubin Negative (Negative) Urine Urobilinogen 0.2 (<2.0) mg/dL Leukocyte Esterase Rfl Negative (Negative) DAYNA/UL <Delia Vallejo PA-C - Last Filed: 12/10/24 11:38> Lab Results 12/09/24 12/09/24 Range/Units 17:12 17:29 WBC 4.6 (4.5-10.0) K/mm3 RBC 3.76 L (4.2-5.4) M/mm3 Hgb 11.4 L (12.0-15.0) g/dL Hct 36.1 L (37.0-47.0) % MCV 96.0 (80-100) fl MCH 30.3 (26-34) pg MCHC 31.6 L (32-36) g/dl RDW 12.6 (11.5-14.5) % Plt Count 246 (150-375) k/mm3 MPV 8.8 (7.4-10.4) fl Immature Gran % (Auto) 0.4 (0-0.5) % Neut % (Auto) 49.8 (45.5-73.1) % Lymph % (Auto) 35.1 (18.3-44.2) % Barry % (Auto) 10.5 H (2.6-8.5) % Eos % (Auto) 3.1 (0-4.4) % Baso % (Auto) 1.1 (0.2-1.2) % Lymph # (Auto) 1.61 (0.9-3.2) K/mm3 Barry # (Auto) 0.5 (0.1-0.6) K/mm3 Eos # (Auto) 0.1 (0-0.3) K/mm3 Baso # (Auto) 0.1 (0.0-0.1) K/mm3 Abs Immat Gran (auto) 0.02 (0.00-0.031) K/mm3 Absolute Neuts (auto) 2.3 (1.3-6.7) K/mm3 Absolute Nucleated RBC 0.000 (0.0-0.012) K/mm3 Nucleated RBC % 0.0 (0.0-0.2) % Sodium 140 (137-145) mmol/L Potassium 4.6 (3.4-5.0) mmol/L Chloride 105 (98-107) mmol/L Carbon Dioxide 25 (22-30) mmol/L Anion Gap 10 (4-12) mmol/L BUN 17 (7-17) mg/dL Creatinine 0.81 (0.7-1.0) mg/dL Estim Creat Clear Calc 54 ml/min Estimated GFR > 60 (59 - ) Glucose 88 (65-110) mg/dL Calcium 9.0 (8.4-10.2) mg/dL Total Bilirubin 0.4 (0.2-1.3) mg/dL AST 30 (14-36) U/L ALT 27 (6-35) U/L Alkaline Phosphatase 122 (38-126) U/L Total Protein 7.0 (6.3-8.2) g/dL Albumin 4.5 (3.5-5.1) g/dL Lipase 39 (23-300) U/L Urine Color Yellow (Yellow) Urine Appearance Clear (Clear) Urine pH 5.5 (5.0-9.0) Ur Specific [place] 1.010 (1.001-1.035) Urine Protein Negative (Negative) mg/dL Urine Glucose (UA) Negative (Negative) mg/dL Urine Ketones Negative (Negative) mg/dL Ur Blood (Man) Negative (Negative) Urine Nitrate Negative (Negative) Urine Bilirubin Negative (Negative) Urine Urobilinogen 0.2 (<2.0) mg/dL Leukocyte Esterase Rfl Negative (Negative) DAYNA/UL <Nato Tran MD - Last Filed: 12/09/24 21:44> Imaging Data Radiologist's impression: ITS Impressions Abdomen/Pelvis CT 12/09/24 21:48 IMPRESSION: 1. No acute abdominal process. No evidence of appendicitis, diverticulitis or intestinal obstruction. No definite kidney stones. 2. Distended gallbladder with stones. 3. Constipation. <Delia Vallejo PA-C - Last Filed: 12/10/24 11:38> ITS Impressions Abdomen/Pelvis CT 12/09/24 21:48 IMPRESSION: 1. No acute abdominal process. No evidence of appendicitis, diverticulitis or intestinal obstruction. No definite kidney stones. 2. Distended gallbladder with stones. 3. Constipation. <Nato Tran MD - Last Filed: 12/09/24 21:44> Critical Care Time Critical Care Time Critical Care Time: No <Delia Vallejo PA-C - Last Filed: 12/10/24 11:38> Discharge Plan Discharge Clinical Impression: Acute urinary retention Abdominal pain Qualifiers: Abdominal location: unspecified location Qualified Code(s): R10.9 - Unspecified abdominal pain <Delia Vallejo PA-C - Last Filed: 12/10/24 11:38> Patient Disposition: Left Against Medical Advice <Delia Vallejo PA-C - Last Filed: 12/10/24 11:38> Condition: Stable <Delia Vallejo PA-C - Last Filed: 12/10/24 11:38> Instructions: Howe Catheter Placement and Care (ED), Abdominal Pain (ED) <Delia Vallejo PA-C - Last Filed: 12/10/24 11:38> Patient Language: [place] <Delia Vallejo PA-C - Last Filed: 12/10/24 11:38> Prescriptions: No Action Multiple Vitamin, Womens Tablet 1 tablet PO DAILY lamotrigine 150 mg tablet 150 mg PO BID quetiapine 400 mg tablet 400 mg PO BID dabigatran etexilate 150 mg capsule 150 mg PO BID Zepbound 2.5 mg/0.5 mL pen injector 2.5 mg subcut WEEKLY Qty: 2 0RF Rx Instructions: for 4 weeks calcium carbonate [Calcium 500] 500 mg calcium (1,250 mg) tablet 500 mg PO DAILY Qty: 90 1RF nitrofurantoin monohyd/m-cryst [Macrobid] 100 mg capsule 100 mg PO Q12H 5 Days Qty: 10 0RF Rx Instructions: must administer with a meal/food sertraline 100 mg tablet 100 mg PO QAM (DME) BD SafetyGlide Syringe 3 mL 25 gauge x 1 syringe See Rx Instructions .ROUTE .MEDSUPPLY Qty: 12 0RF Rx Instructions: use 1 to inject B12 once every month fluticasone propion-salmeterol [Advair HFA] 115-21 mcg/actuation HFA aerosol inhaler 2 puff inhalation BID Qty: 12 3RF aripiprazole 10 mg tablet 10 mg PO DAILY Qty: 30 2RF armodafinil 150 mg tablet 150 mg PO BID Qty: 60 1RF Rx Instructions: 5:30AM AND NOON albuterol sulfate 90 mcg/actuation HFA aerosol inhaler 1 inh inhalation Q4H PRN (Reason: Shortness Of Breath) Qty: 8.5 1RF ferrous sulfate 325 mg (65 mg iron) tablet 325 mg PO BID Qty: 180 1RF metoprolol succinate 25 mg tablet extended release 24 hr 25 mg PO DAILY Qty: 90 1RF pantoprazole 40 mg tablet,delayed release (DR/EC) 40 mg PO DAILY Qty: 90 1RF tizanidine 4 mg tablet 4 mg PO QHS PRN (Reason: muscle spasticity) Qty: 90 1RF amoxicillin 500 mg tablet See Rx Instructions .ROUTE .COMPLEX Qty: 180 2RF Dose Instruction: TAKE 2 TABLETS BY MOUTH 3 TIMES A DAY Rx Instructions: TAKE 2 TABLETS BY MOUTH 3 TIMES A DAY diazepam 5 mg tablet 5 mg PO TID PRN (Reason: muscle spasm) Qty: 90 0RF baclofen 5 mg tablet See Rx Instructions .ROUTE .COMPLEX Qty: 90 0RF Dose Instruction: TAKE 1 TABLET BY MOUTH EVERY DAY AT BEDTIME Rx Instructions: TAKE 1 TABLET BY MOUTH EVERY DAY AT BEDTIME ropinirole 2 mg tablet 2 mg PO HS Qty: 90 1RF levothyroxine [Synthroid] 75 mcg tablet 75 mcg PO DAILY Qty: 90 1RF tramadol 50 mg tablet 50 mg PO Q6H PRN (Reason: pain) Qty: 30 0RF <Delia Vallejo PA-C - Last Filed: 12/10/24 11:38> Follow-up/Referrals: Julian Agarwal MD [Primary Care Provider] - Alexandru Martell MD [Physician] - <Delia Vallejo PA-C - Last Filed: 12/10/24 11:38> Time of Disposition: 21:43 <Delia Vallejo PA-C - Last Filed: 12/10/24 11:38> 21:43 <Nato Tran MD - Last Filed: 12/09/24 21:44>
[2024-12-09 16:49] VITALS: BP 150/101; PULSE 105; RESP 18; TEMP 36.7; O2SAT 97
[2024-12-09 17:33] LABS: Add Urine Microscopic? NO; Appearance Urine Clear (Clear); Bilirubin Urine Negative (Negative); Blood Urine Negative (Negative); Color Urine Yellow (Yellow); Glucose Urine UA Negative (Negative); Ketones Urine Negative (Negative); Leukocyte Esterase Ur Negative LEU/UL (Negative); Nitrate Urine Negative (Negative); Protein Urine Negative (Negative); Urobilinogen Urine 0.2 mg/dL (<2.0); pH Urine 5.5 (5.0-9.0)
[2024-12-09 17:38] LABS: Basophils Absolute Auto 0.1 K/mm3 (0.0-0.1); Basophils Percent Auto 1.1 % (0.2-1.2); Eosinophils Absolute Auto 0.1 K/mm3 (0-0.3); Eosinophils Percent Auto 3.1 % (0-4.4); Hematocrit 36.1 % (37.0-47.0); Hemoglobin 11.4 g/dL (12.0-15.0); Immature Granulocyte Absolute 0.02 K/mm3 (0.00-0.031); Immature Granulocyte Percent A 0.4 % (0-0.5); Lymphocytes Absolute Auto 1.61 K/mm3 (0.9-3.2); Lymphocytes Percent Auto 35.1 % (18.3-44.2); Mean Corpuscular HGB Conc 31.6 g/dl (32-36); Mean Corpuscular Hemoglobin 30.3 pg (26-34); Mean Platelet Volume 8.8 fl (7.4-10.4); Monocytes Absolute Auto 0.5 K/mm3 (0.1-0.6); Monocytes Percent Auto 10.5 % (2.6-8.5); Neutrophils Absolute Auto 2.3 K/mm3 (1.3-6.7); Neutrophils Percent Auto 49.8 % (45.5-73.1); Platelet Count Result 246 k/mm3 (150-375); Red Blood Count 3.76 M/mm3 (4.2-5.4); Red Cell Distribution Width 12.6 % (11.5-14.5); White Blood Count 4.6 K/mm3 (4.5-10.0)
[2024-12-09 17:50] LABS: Alanine Aminotransferase 27 U/L (6-35); Albumin Level 4.5 g/dL (3.5-5.1); Alkaline Phosphatase 122 U/L (38-126); Anion Gap 10 mmol/L (4-12); Aspartate Amino Transferase 30 U/L (14-36); Bilirubin,Total 0.4 mg/dL (0.2-1.3); Blood Urea Nitrogen 17 mg/dL (7-17); Carbon Dioxide 25 mmol/L (22-30); Chloride 105 mmol/L (98-107); Estimated CRCL calculation 54 ml/min; Estimated Glomerular Filt Rate > 60; Glucose 88 mg/dL (65-110); Lipase 39 U/L (23-300); Potassium 4.6 mmol/L (3.4-5.0); Sodium 140 mmol/L (137-145)
[2024-12-09 19:53] VITALS: BP 153/99; PULSE 104; RESP 17; TEMP 37; O2SAT 98
== END 2024-12-09 22:10 | disposition left against medical advice (07) ==
PROVIDERS: Physician Assistant; Emergency Provider Emergency Medicine; PCP Family Medicine
DX: R33.9 Retention of urine, unspecified (principal); R10.9 Unspecified abdominal pain; I10 Essential (primary) hypertension; E03.9 Hypothyroidism, unspecified; J44.9 Chronic obstructive pulmonary disease, unspecified; M19.90 Unspecified osteoarthritis, unspecified site; F31.9 Bipolar disorder, unspecified; F41.9 Anxiety disorder, unspecified; Z96.651 Presence of right artificial knee joint; Z98.84 Bariatric surgery status; Z86.14 Personal history of Methicillin resistant Staphylococcus aureus infection; Z77.22 Contact with and (suspected) exposure to environmental tobacco smoke (acute) (chronic); K59.00 Constipation, unspecified; K82.8 Other specified diseases of gallbladder; Z79.85 Long-term (current) use of injectable non-insulin antidiabetic drugs; Z79.899 Other long term (current) drug therapy
CPT/HCPCS: 36415; 51702; 74177; 80053; 81003; 83690; 85025; 99284; Q9967

== ENCOUNTER 2024-12-10 13:12 | Emergency (ER) | payer OTHER, SELFPAY ==
[2024-12-10 13:14] VITALS: BP 140/81; PULSE 115; RESP 18; TEMP 36.6; O2SAT 100
[2024-12-10 15:24] VITALS: BP 148/82; PULSE 101; RESP 18; TEMP 36.9; O2SAT 99
--- NOTE | 2024-12-10 15:59 | ED.RECABL ---
HPI - Recheck/Abnormal Lab/Rx General Chief Complaint: Urogenital-Female Stated Complaint: urinary retention Time Seen by Provider: 12/10/24 13:55 Source: patient Mode of arrival: ambulatory Limitations: no limitations History of Present Illness HPI narrative: This is a 74-year-old female that presents to the emergency department for re-evaluation. She had signed out AMA last night before receiving her CT scan results. She was advised by her PCP to come back. She has no complaints at this time. Related Data Home Medications ?Medication ?Instructions ?Recorded ?Confirmed ?Last Taken ?Type lamotrigine 150 mg tablet 150 mg PO BID 12/21/20 08/19/24 02/19/23 History hqrnmlrdhmuw-Xa-yfzk-minerals 1 tablet PO DAILY 12/21/20 08/19/24 02/16/23 History (Multiple Vitamin, Womens tablet) sertraline 100 mg tablet 100 mg PO QAM 11/18/22 08/19/24 02/19/23 History quetiapine 400 mg tablet 400 mg PO BID 12/23/23 08/19/24 Unknown History dabigatran etexilate 150 mg capsule 150 mg PO BID 08/04/24 08/19/24 Unknown History Allergies Allergy/AdvReac Type Severity Reaction Status Date / Time No Known Allergies Allergy Verified 12/10/24 13:13 Review of Systems Review of Systems: All systems reviewed & are unremarkable except as noted in HPI and below PMFSH Past Medical History Medical History Septic joint of right shoulder region HTN (hypertension) with goal to be determined Alcohol abuse Bipolar 1 disorder Sepsis MRSA (methicillin resistant Staphylococcus aureus) Olecranon fracture Elbow fracture, left Hypothyroidism Nerve damage H/O: HTN (hypertension) COPD (chronic obstructive pulmonary disease) Arthritis Anxiety Surgical History Surgical History S/P total knee arthroplasty RT TKA 02/19/23 I&D w/ poly-exchange 03/22/23 & 03/28/23 History of gastric bypass H/O toe surgery 2013, [facility] History of appendectomy History of back surgery 2018, [facility] H/O neck surgery 2018, [facility] Family History Family History Other Depression Family history of arthritis Family history of lung disease Family history of neuropathy Family history of stroke Heart disease Social History Social History Social History: the patient lives home alone. She is . She has 1 child. She is retired from [employer]. Luz flores is her durable power of critical care cns for healthcare. That is her sister. The patient is lifelong nonsmoker. She does not use any alcohol marijuana or illicit drugs. Code status full code Smoking status: Never smoker Second hand tobacco smoke exposure: Yes Alcohol intake: former Drinks per week: 1 Alcohol use details: 2-4 drinks per week Substance use: never Substance use type: does not use Do You Feel Safe in your Home?: Yes Lack of Transportation: No Lack of Food: Never True Current Housing: I Have Housing Concerned About Future Housing: No Difficulty Paying Gas/Electric Bills: No Difficulty Paying for Meds: No Currently Unemployed: No Education: High School Diploma/GED Difficulty w/ Childcare or Family Care: No Living arrangements: alone Occupation/Education: retired Gender identity (if verbalized by the patient): Female Sexual Orientation (if Verbalized by the Patient): Straight or Heterosexual Spiritual care concerns: No Agree to blood products: Yes Exam Narrative: GENERAL: Well-appearing, well-nourished, and in no acute distress. HEAD: Normocephalic, atraumatic. EYES: EOMI. CHEST: Clear to auscultation. No respiratory distress. No wheezes rales or rhonchi HEART: Regular rate and rhythm. No murmur heard. Normal peripheral pulses. ABDOMEN: Soft, nontender, nondistended, normal active bowel sounds. EXTREMITIES: Normal range of motion. No edema. SKIN: Warm, dry, no rash. NEURO: No focal deficits. Alert and oriented x3. PSYCH: Normal mood and affect Course Vital Signs Vital signs: Vital Signs Temperature 97.9 F 12/10/24 13:14 Pulse Rate 115 H 12/10/24 13:14 Respiratory Rate 18 12/10/24 13:14 Blood Pressure 140/81 12/10/24 13:14 Pulse Oximetry 100 12/10/24 13:14 Oxygen Delivery Room Air 12/10/24 13:14 Temperature 98.4 F 12/10/24 15:24 Pulse Rate 107 H 12/10/24 16:12 Respiratory Rate 18 12/10/24 16:12 Blood Pressure 148/82 H 12/10/24 15:24 Pulse Oximetry 95 12/10/24 16:12 Oxygen Delivery Room Air 12/10/24 13:14 MDM - Recheck/Abnormal Lab/Rx MDM Narrative Medical decision making narrative: Patient had sign out AMA last night and she did not want to stay for her CT scan results. Returned for further care. I reviewed her blood work, urine and CT scan results with her. There was no acute findings on the CT scan of her abdomen and pelvis. Her gallbladder did appear distended, but without gallstones. She does not report any epigastric/RUQ abdominal pain at this time. She does report she struggles chronically with constipation. Instructed to to take a stool softener daily and laxative as needed. Will be given follow-up with urology for urinary retention. She was given warnings to return to the ER Medical Records Attestation: I reviewed the patient's medical records. Medical records narrative: IMPRESSION: 1. No acute abdominal process. No evidence of appendicitis, diverticulitis or intestinal obstruction. No definite kidney stones. 2. Distended gallbladder with stones. 3. Constipation. Critical Care Time Critical Care Time Critical Care Time: No Discharge Plan Discharge Clinical Impression: Acute urinary retention Patient Disposition: Home, Self-Care Condition: Stable Instructions: Acute Urinary Retention in Women (ED) Additional Instructions: Return to the ER if you experience fever, abdominal pain with nausea and vomiting, you are unable to keep down liquids or solids, blood in the urine or any other symptoms that are concerning to you Remain well hydrated. Take Colace daily. Miralax as needed for constipation Follow up with urology Patient Language: Qatari Prescriptions: No Action Multiple Vitamin, Womens Tablet 1 tablet PO DAILY lamotrigine 150 mg tablet 150 mg PO BID quetiapine 400 mg tablet 400 mg PO BID dabigatran etexilate 150 mg capsule 150 mg PO BID Zepbound 2.5 mg/0.5 mL pen injector 2.5 mg subcut WEEKLY Qty: 2 0RF Rx Instructions: for 4 weeks calcium carbonate [Calcium 500] 500 mg calcium (1,250 mg) tablet 500 mg PO DAILY Qty: 90 1RF nitrofurantoin monohyd/m-cryst [Macrobid] 100 mg capsule 100 mg PO Q12H 5 Days Qty: 10 0RF Rx Instructions: must administer with a meal/food sertraline 100 mg tablet 100 mg PO QAM (DME) BD SafetyGlide Syringe 3 mL 25 gauge x 1 syringe See Rx Instructions .ROUTE .MEDSUPPLY Qty: 12 0RF Rx Instructions: use 1 to inject B12 once every month fluticasone propion-salmeterol [Advair HFA] 115-21 mcg/actuation HFA aerosol inhaler 2 puff inhalation BID Qty: 12 3RF aripiprazole 10 mg tablet 10 mg PO DAILY Qty: 30 2RF armodafinil 150 mg tablet 150 mg PO BID Qty: 60 1RF Rx Instructions: 5:30AM AND NOON albuterol sulfate 90 mcg/actuation HFA aerosol inhaler 1 inh inhalation Q4H PRN (Reason: Shortness Of Breath) Qty: 8.5 1RF ferrous sulfate 325 mg (65 mg iron) tablet 325 mg PO BID Qty: 180 1RF metoprolol succinate 25 mg tablet extended release 24 hr 25 mg PO DAILY Qty: 90 1RF pantoprazole 40 mg tablet,delayed release (DR/EC) 40 mg PO DAILY Qty: 90 1RF tizanidine 4 mg tablet 4 mg PO QHS PRN (Reason: muscle spasticity) Qty: 90 1RF amoxicillin 500 mg tablet See Rx Instructions .ROUTE .COMPLEX Qty: 180 2RF Dose Instruction: TAKE 2 TABLETS BY MOUTH 3 TIMES A DAY Rx Instructions: TAKE 2 TABLETS BY MOUTH 3 TIMES A DAY diazepam 5 mg tablet 5 mg PO TID PRN (Reason: muscle spasm) Qty: 90 0RF baclofen 5 mg tablet See Rx Instructions .ROUTE .COMPLEX Qty: 90 0RF Dose Instruction: TAKE 1 TABLET BY MOUTH EVERY DAY AT BEDTIME Rx Instructions: TAKE 1 TABLET BY MOUTH EVERY DAY AT BEDTIME ropinirole 2 mg tablet 2 mg PO HS Qty: 90 1RF levothyroxine [Synthroid] 75 mcg tablet 75 mcg PO DAILY Qty: 90 1RF tramadol 50 mg tablet 50 mg PO Q6H PRN (Reason: pain) Qty: 30 0RF Follow-up/Referrals: Julian Agarwal MD [Primary Care Provider] - Uriel Dewey MD [Physician] -
[2024-12-10 16:12] VITALS: PULSE 107; RESP 18; O2SAT 95
== END 2024-12-10 16:14 | disposition home or self-care (01) ==
PROVIDERS: Emergency Provider Physician Assistant; PCP Family Medicine
DX: R33.9 Retention of urine, unspecified (principal); K82.8 Other specified diseases of gallbladder; K59.09 Other constipation; I10 Essential (primary) hypertension; E03.9 Hypothyroidism, unspecified; J44.9 Chronic obstructive pulmonary disease, unspecified; M19.90 Unspecified osteoarthritis, unspecified site; Z98.84 Bariatric surgery status; Z96.651 Presence of right artificial knee joint; Z86.14 Personal history of Methicillin resistant Staphylococcus aureus infection
CPT/HCPCS: 99281

== ENCOUNTER 2025-03-31 12:41 | Outpatient (CLI) | payer OTHER, SELFPAY ==
--- NOTE | ~2025-03-31 | CT_ITS ---
Non-contrast Head CT History: Head injury COMPARISON: 03/25/2023 Technique: Axial non-contrast imaging of the brain was performed. Dose reduction technique was used on this scan by utilizing automated exposure control and iterative reconstruction technique. The dose -length product (DLP) was 605.33 mGy-cm. Findings: There is no evidence of intracranial hemorrhage, mass lesion, or acute infarct. Brain par enchyma appears normal. The ventricles and subarachnoid spaces are normal in size. The calvarium ap pears normal. The visualized paranasal sinuses and mastoid air cells are clear. Impression: No significant abnormality seen. Reviewed, dictated and finalized at location . Impression: No significant abnormality seen.
--- OUTSIDE RECORDS SUMMARY | 2025-03-31 12:57 | XMS_ITS | Referral Summary ---
Author Organization [facility] Address [address] [place] [address] Care Team Providers Care Underlay Stitcher Name Role Phone Julian Agarwal MD Primary Care Provider [phone] Encounters Date Type Department Care Team Description 02/19/2025 12:18 PM CDT - 02/21/2025 10:39 AM CDT Hospital Encounter [facility] [address] [place] [address] Juan Carlos Haile MD Ong, MD Savannah Murguia Victoria Rose, DO Kheirkhahan, Nazanin, MD Sepsis, due to unspecified organism, unspecified whether acute organ dysfunction present (HCC) (Primary Dx); Pneumonia of left lung due to infectious organism, unspecified part of lung; Altered mental status, unspecified altered mental status type [R41.82]; Esophageal dysphagia Discharge Disposition: Left Against Medical Advice 02/19/2025 12:06 PM CDT - 02/19/2025 11:59 PM CDT Hospital Encounter [facility] Emergency, Room R Discharge Disposition: Discharge to home or self care 01/24/2025 12:30 PM CDT Office Visit [facility] [address] [place] [address] Ivis Jaimes MD Paroxysmal atrial fibrillation (HCC) (Primary Dx); Essential hypertension from Last 3 Months Allergies No known active allergies Medications amoxicillin 500 mg capsuleIndications :Other (complete free text reason below),sepsis L knee Take 2 tablet/capsule (1,000 mg total) by mouth 3 (three) times a day 3,000 mg daily 05/25/20 23 Active ARIPiprazole (ABILIFY) 20 mg tablet Take 0.5 tablets (10 mg total) by mouth 2 (two) times a day 06/25/20 Active armodafiniL (NUVIGIL) 150 mg tablet Take 1 tablet (150 mg total) by mouth 2 (two) times a day Active baclofen (LIORESAL) 5 mg tablet 5 MG ORALLY EVERY DAY AT BEDTIME 06/03/20 23 Active diazePAM (VALIUM) 5 mg tablet Take 1 tablet (5 mg total) by mouth 3 (three) times a day as needed for muscle spasms 06/30/20 Active ferrous gluconate 324 mg (37.5 mg of elemental iron) tablet Take 1 tablet (324 mg total) by mouth 2 (two) times a day 05/15/20 20 Active fluticasone propion-salmeteroL (Advair HFA) 115-21 mcg/actuation inhaler Inhale 2 puffs 2 (two) times a day 06/19/20 21 Active levothyroxine (SYNTHROID) 75 mcg tablet Take 1 tablet (75 mcg total) by mouth daily 07/10/20 23 Active nebulizers [facility] Indications: severe bronchospasm, wheezing, cough, SOB. Dispense one nebulizer unit Use as directed 06/21/[address] (PROTONIX) 40 mg EC tablet Take 1 tablet (40 mg total) by mouth daily Active QUEtiapine (SEROquel) 300 mg tablet Take 1 tablet (300 mg total) by mouth nightly Active sertraline (ZOLOFT) 100 mg tablet Take 1 tablet (100 mg total) by mouth every morning 06/25/20 23 Active rOPINIRole (REQUIP) 2 mg tablet Take 1 tablet (2 mg total) by mouth nightly at bedtime. Active celecoxib (CeleBREX) 200 mg capsule 07/31/20 23 Active traMADoL (ULTRAM) 50 mg tabletIndications: Primary osteoarthritis of left knee Take 1 tablet (50 mg total) by mouth every 8 (eight) hours as needed for pain for up to 7 days 21 tablet 11/01/19 25 Active tiZANidine (ZANAFLEX) 4 mg tablet Take 1 tablet (4 mg total) by mouth every 6 (six) hours as needed 10/31/19 Active predniSONE (DELTASONE) 10 mg tabletIndications: Acute flank pain,Lumbar muscle pain Take 1 tablet (10 mg) by mouth as directed 3 p.o. daily for 3 days then 2 p.o. daily for 3 days then 1 p.o. daily for 3 days. Collaborating physician Miko Leonard MD 18 tablet 12/23/19 Active Additional Information Patient not taking.Reported on 01/24/2025 metoprolol tartrate (LOPRESSOR) 25 mg immediate release tablet Take 1 tablet (25 mg total) by mouth 2 (two) times a day 60 tablet 01/25/20 25 026 Active dabigatran (PRADAXA) 150 mg capsule Take 1 capsule (150 mg total) by mouth 2 (two) times a day 60 capsule 01/25/20 Active albuterol HFA (PROVENTIL HFA,VENTOLIN HFA,PROAIR HFA) 90 mcg/actuation inhaler Inhale 1 puff every 4 (four) hours as needed for wheezing Active lidocaine (LIDODERM) 5 % Place 1 patch on the skin daily Remove & discard patch within 12 hours or as directed by MD. Active calcium carbonate-vitamin D3 1,250mg (500mg elemental) - 5 mcg (200 units) per tablet Take 1 tablet by mouth daily Active yynobwtcxflc-Cm-ya on-minerals tablet Take 1 tablet by mouth daily Active traMADoL (ULTRAM) 50 mg tablet Take 1 tablet (50 mg total) by mouth every 6 (six) hours as needed for pain Active semaglutide 0.25 mg/0.05 mL syringe Inject 0.5 mL under the skin once a week Active lamoTRIgine (LaMICtal) 150 mg tablet Take 1 tablet (150 mg total) by mouth 2 (two) times a day 12/17/19 Active Active Problems Problem Noted Date Diagnosed Date Pneumonia of left lung due to infectious organis m 02/20/2025 Altered mental status 02/20/2025 Suspected cerebrovascular accident (CVA) 025 Sepsis 02/19/2025 Esophageal dysphagia 02/19/2025 Acute flank pain 12/22/2024 Lumbar muscle pain 12/22/2024 Chronic UTI (urinary tract infection) 12/22/2024 Arthralgia of left knee 06/19/2024 Effusion of left knee 06/19/2024 Other thrombophilia 04/19/2024 Atrial fibrillation 07/17/2023 Essential hypertension 07/17/2023 Social History Tobacco Use Types Packs/Day Years Used Date Smoking Tobacco: Never Smokeless Tobacco: Never Tobacco Cessation:Counseling Given: Not Answered AUDIT-C Answer Date Recorded Q1: How often do you have a drink containing alcohol? Never 11/01/2024 Q2: How many drinks containi ng alcohol do you have on a typical day when you are drinking? Patient does not drink Q3: How often do you have si x or more drinks on one occasion? Never 11/01/2024 Personal Safety Answer Date Recorded Have you ever been in or are you currently in a harmful physical or emotional relationship or is someone making you feel afraid or unsafe? Denies 02/19/2025 Comments Unknown Sex and Gender Information Value Date Recorded Sex Assigned at Not on file Legal Sex Female 10:31 AM [employer] Gender Identity Not on file Sexual Orientation Not on file Last Filed Vital Signs Vital Sign Reading Time Taken Comments Blood Pressure 133/92 02/21/2025 7:00 AM CDT Pulse 100 02/21/2025 7:00 AM CDT Temperature 36 C (96.8 F) 02/21/2025 7:00 AM CDT Respiratory Rate 18 02/21/2025 7:00 AM CDT Oxygen Saturation 97% 02/21/2025 7:00 AM CDT Inhaled Oxygen Concentration - - Weight 86.6 kg (191 lb) 02/21/2025 7:42 AM CDT Height 162.6 cm (5' 4) 02/21/2025 7:42 AM CDT Body Mass Index 32.79 02/21/2025 7:42 AM CDT Plan of Treatment Not on file Procedures Procedure Name Priority Date/Time Associated Diagnosis Comments MRSA ONLY (STAPHYLOCOCCUS AUREUS) PCR Routine 02/21/2025 7:50 AM CDT POCT GLUCOSE DEVICE Routine 02/21/2025 3 :51 AM CDT EGFR Routine 02/21/2025 2:31 AM CDT DIFFERENTIAL AUTO Routine 02/21/2025 2:3 1 AM CDT CBC WITH AUTO DIFFERENTIAL Routine 02/21/2025 2:31 AM CDT MAGNESIUM Routine 02/21/2025 2:31 AM CDT COMPREHENSIVE METABOLIC PANEL Routine 02/21/2025 2:31 AM CDT VANCOMYCIN LEVEL TROUGH Timed 02/22/20 25 2:[address] CHEST WO CONTRAST ED Urgent/IP Urgent 02/20/2025 1:17 PM CDT POCT GLUCOSE DEVICE Routine 02/20/2025 12:10 PM CDT CBC WITHOUT DIFFERENTIAL STAT 02/20/2025 9:28 AM CDT POCT GLUCOSE DEVICE Routine 02/20/2025 8 :30 AM CDT TSH Add-On 02/20/2025 3:05 AM CDT EGFR Routine 02/20/2025 3:05 AM CDT DIFFERENTIAL AUTO Routine 02/20/2025 3:0 5 AM CDT CBC WITH AUTO DIFFERENTIAL Routine 02/20/2025 3:05 AM CDT MAGNESIUM Routine 02/20/2025 3:05 AM CDT COMPREHENSIVE METABOLIC PANEL Routine 02/20/2025 3:05 AM CDT LIPID PANEL Routine 02/20/2025 3:05 AM CDT HEMOGLOBIN A1C Routine 02/20/2025 3:05 AM CDT STREP PNEUMONIAE AG, URINE Routine 02/19/2025 10:06 PM CDT LEGIONELLA ANTIGEN, URINE Routine 02/19/2025 10:[address] CHEST PE ABDOMEN PELVIS W CONTRAST ED Urgent/IP Urgent 02/19/2025 9:56 PM CDT BLOOD GAS, VENOUS STAT 02/19/2025 8:4 9 PM CDT INFLUENZA A/B, RSV, AND COVID-19 PCR Routine 02/19/2025 8:[address] HEAD WO CONTRAST ED 02/19/2025 4 :01 PM CDT TROPONIN T HIGH-SENSITIVITY 2-HOUR Timed 02/19/2025 2:46 PM CDT XR KUB ED 02/19/2025 2:35 PM CDT XR CHEST 1 VIEW ED 02/19/2025 2:35 PM CDT WI INSJ NON-TUNNELED CENTRAL VENOUS CATH AGE 5 YR/> Routine 02/19/2025 2:29 PM CDT BLOOD CULTURE Routine 02/19/2025 1:52 PM CDT URINALYSIS AND REFLEX TO MICROSCOPIC AND CULTURE Routine 02/19/2025 1:52 PM CDT EGFR STAT 02/19/2025 1:00 PM CDT DIFFERENTIAL AUTO STAT 02/19/2025 1:0 0 PM CDT LIPASE STAT 02/19/2025 1:00 PM CDT TROPONIN T HIGH-SENSITIVITY SERIES (BASELINE, 2HR, 4HR, 6HR) Routine 02/19/2025 1:00 PM CDT PROTIME-INR STAT 02/19/2025 1:00 PM CDT PRO B-TYPE NATRIURETIC PEPTIDE STAT 02/19/2025 1:00 PM CDT MAGNESIUM Routine 02/19/2025 1:00 PM CDT APTT STAT 02/19/2025 1:00 PM CDT COMPREHENSIVE METABOLIC PANEL STAT 02/19/2025 1:00 PM CDT CBC WITH AUTO DIFFERENTIAL STAT 02/19/2025 1:00 PM CDT BLOOD CULTURE Routine 02/19/2025 1:00 PM CDT XR CHEST 1 VIEW ED 02/19/2025 12:45 PM CDT BLOOD GAS, ARTERIAL STAT 02/19/2025 12:32 PM CDT SEPSIS LACTATE WITH REFLEX STAT 02/19/2025 12:32 PM CDT ECG 12-LEAD Routine 02/19/2025 12:26 PM CDT POCT GLUCOSE DEVICE Routine 02/19/2025 12:20 PM CDT ELECTROCARDIOGRAM REPORT Routine 01/24/2025 3:55 PM CDT Paroxysmal atrial fibrillation (HCC) POCT LIPID PANEL Routine 01/24/2025 12:30 PM CDT Essential hypertension from Last 3 Months Results * MRSA Only (Staphylococcus aureus) PCR Nasal (02/21/2025 7:50 AM CDT) PCR Scrn, Methicillin resistant Staphylococcus aureus (MRSA) Not Detected Not Detected Comment: Interpretive Data Testing performed using Nucleic Acid Amplification with the [employer] Xpert MRSA NxG Assay. This assay detects target DNA from mecA, mecC and the SCCmec insertion site of Staphylococcus aureus using Real-Time PCR and has been cleared by the FDA. Performance characteristics have been verified by the [facility]. Current Interpretive Data was last revised on 2023 Nasal 02/21/2025 7:50 AM CDT 02/21/2025 7:55 AM CDT Stephanie Mc MD LAB MICROBIOLOGY - GENERA L ORDERABLES Final Result [facility] ([place]) 1 [facility] [place] [address] * POCT glucose (02/21/2025 3:51 AM CDT) Glucose, POC 141 70 - 199 mg/dL Blood 02/21/2025 3:51 AM CDT 02/21/2025 3:51 AM CDT Stephanie Mc MD LAB POCT ORDERABLES - DEV ICE Final Result [facility] ([place]) 1 [facility] [place] [address] * eGFR (02/21/2025 2:31 AM CDT) eGFR 80 >=60 mL/min/1. 73 m2 Comment: Interpretive Data Reference Interval Normal >/= 90 mL/min/1.73m2 Mildly decreased* 60 - 89 mL/min/1.73m2 Mildly to moderately decreased 45 - 59 mL/min/1.73m2 Moderately to severely decreased 30 - 44 mL/min/1.73m2 Severely decreased 15 - 29 mL/min/1.73m2 Kidney Failure < 15 mL/min/1.73m2 *Relative to young adult level Estimated glomerular filtration rate is determined by the 2020 CKD-EPI equation recommended by the National Kidney Foundation (A Unifying Approach to GFR Estimation: Recommendations of the NKF-ASK Task Force on Reassessing the Inclusion of Race in Diagnosing Kidney Disease, JASN 2020). The CKD-EPI equation should not be used for patients with unstable renal function and has not been validated in children and those over 70. Current interpretive data was last reviewed 2021. Blood 02/21/2025 2:31 AM CDT 02/21/2025 3:08 AM CDT us Ghada Parsons MD LAB BLOOD ORDERABLES Fi nal Result [facility] ([place]) 1 [facility] [place] [address] * (ABNORMAL) Differential, auto (02/21/2025 2:31 AM CDT) Neutrophil abs 4.04 1.50 - 6.50 K/cumm Imm gran abs 0.02 0.00 - 0.10 K/cumm [facility] ([place]) Lymphocyte abs 0.73(L) 0.80 - 3.30 K/cumm [facility] ([place]) Monocyte abs 0.16(L) 0.20 - 0.80 K/cumm [facility] ([place]) Eosinophil abs 0.00 0.00 - 0.50 K/cumm [facility] ([place]) Basophil abs 0.02 0.00 - 0.10 K/cumm [facility] ([place]) Neutrophil pct 81.3 % [facility] ([place]) Comment: Interpretive Data Percent cell count reference ranges are not reported, since discordance with absolute values may lead to misinterpretation of CBC data. Current Interpretive Data was last revised on 2018. Imm gran pct 0.4 % [facility] ([place]) Comment: Interpretive Data Percent cell count reference ranges are not reported, since discordance with absolute values may lead to misinterpretation of CBC data. Current Interpretive Data was last revised on 2018. Lymphocyte pct 14.7 % [facility] ([place]) Comment: Interpretive Data Percent cell count reference ranges are not reported, since discordance with absolute values may lead to misinterpretation of CBC data. Current Interpretive Data was last revised on 2018. Monocyte pct 3.2 % [facility] ([place]) Comment: Interpretive Data Percent cell count reference ranges are not reported, since discordance with absolute values may lead to misinterpretation of CBC data. Current Interpretive Data was last revised on 2018. Eosinophil pct 0.0 % [facility] ([place]) Comment: Interpretive Data Percent cell count reference ranges are not reported, since discordance with absolute values may lead to misinterpretation of CBC data. Current Interpretive Data was last revised on 2018. Basophil pct 0.4 % [facility] ([place]) Comment: Interpretive Data Percent cell count reference ranges are not reported, since discordance with absolute values may lead to misinterpretation of CBC data. Current Interpretive Data was last revised on 2018. Blood 02/21/2025 2:31 AM CDT 02/21/2025 3:08 AM CDT us Ghada Parsons MD LAB BLOOD ORDERABLES Fi nal Result [facility] ([place]) 1 [facility] [place], [place] [id number] * (ABNORMAL) CBC with auto differential (02/21/2025 2:31 AM CDT) WBC 4.97 3.80 - 9.90 K/cumm Hgb 10.6(L) 11.9 - 15.5 g/dL [facility] ([place]) Hct 33.5(L) 35.6 - 45.5 % [facility] ([place]) Plt 232 150 - 400 K/cumm [facility] ([place]) MPV 8.6(L) 9.1 - 12.3 fL [facility] ([place]) RBC 3.54(L) 3.90 - 5.20 M/cumm [facility] ([place]) MCV 94.6 81.3 - 96.4 fL [facility] ([place]) MCH 29.9 27.1 - 33.3 pg [facility] ([place]) MCHC 31.6(L) 32.3 - 35.7 g/dL [facility] ([place]) RDW CV 13.6 11.1 - 14.9 % [facility] ([place]) RDW SD 47.3 35.7 - 48.1 fL [facility] ([place]) NRBC abs 0.00 0.00 - 0.01 K/cumm [facility] ([place]) Blood 02/21/2025 2:31 AM CDT 02/21/2025 3:08 AM CDT Ghada Parsons MD LAB BLOOD ORDERABLES Fi nal Result Performing Organization Address City/[facility]/ZIP Co de Phone Number [facility] ([place]) 1 [facility] [place] [address] * Magnesium (02/21/2025 2:31 AM CDT) Pathologist [facility] Magnesium 1.9 1.4 - 2.5 mg/dL Blood 02/21/2025 2:31 AM CDT 02/21/2025 3:08 AM CDT Ghada Parsons MD LAB BLOOD ORDERABLES Fi nal Result Performing Organization Address [facility] Co de Phone Number [facility] ([place]) 1 [facility] [place] [address] * Vancomycin level trough (02/21/2025 2:31 AM CDT) [facility] Vancomycin trough 17.2 10.0 - 20.0 mcg/mL Blood 02/21/2025 2:31 AM CDT 02/21/2025 3:08 AM CDT Ghada Parsons MD LAB BLOOD ORDERABLES Fi nal Result Performing Organization Address City/[facility]/ZIP Co de Phone Number [facility] ([place]) 1 [facility] [place] [address] * (ABNORMAL) Comprehensive metabolic panel (02/21/2025 2:31 AM CDT) Pathologist [facility] Sodium 138 135 - 145 mmol/L Potassium, pl 4.5 3.3 - 4.9 mmol/L [facility] ([place]) Chloride 106 97 - 110 mmol/L [facility] ([place]) CO2 21(L) 22 - 32 mmol/L [facility] ([place]) Anion gap 11 2 - 15 mmol/L [facility] ([place]) BUN 20 6 - 25 mg/dL [facility] ([place]) Creatinine 0.77 0.60 - 1.10 mg/dL [facility] ([place]) Glucose 155 70 - 199 mg/dL [facility] ([place]) Comment: Interpretive Data Fasting glucose >/= 126 mg/dl is diagnostic for diabetes. Fasting is defined as no caloric intake for at least 8 hours. Fasting glucose between 100 mg/dl to 125 mg/dl is diagnostic of prediabetes. In a patient with classic symptoms of hyperglycemia or hyperglycemic crisis, a random glucose >/= 200 mg/dl is diagnostic for diabetes. In the absence of unequivocal hyperglycemia, results should be confirmed by repeat testing. The classification and Diagnosis of Diabetes Diabetes Care 2021; 46: S19-S40. Current interpretive data was last revised 2022. Calcium 8.9 8.5 - 10.3 mg/dL [facility] ([place]) Bilirubin, total <0.2 0.1 - 1.2 mg/dL [facility] ([place]) Protein, pl 5.8(L) 6.5 - 8.5 g/dL [facility] ([place]) Albumin 3.7 3.5 - 5.0 g/dL [facility] ([place]) Alk phos 105 40 - 130 Units/L [facility] ([place]) ALT 15 7 - 45 Units/L [facility] ([place]) AST 18 10 - 45 Units/L [facility] ([place]) Blood 02/21/2025 2:31 AM CDT 02/21/2025 3:08 AM CDT us Ghada Parsons MD LAB BLOOD ORDERABLES Fi nal Result [facility] ([place]) 1 [facility] [place] [address] * CT Chest WO Contrast (02/20/2025 1:17 PM CDT) Anatomical Region Laterality Modality Body N/A Computed Tomogra phy 02/20/2025 1:54 PM CDT Narrative 02/20/2025 2:04 PM CDT EXAM DESCRIPTION: CT CHEST WO CONTRAST REASON FOR STUDY: esophageal debris Reevaluate debris in esophagus seen on CT yesterday. TECHNIQUE: CT scan of the chest performed without intravenous contrast using helical scanning technique. Reconstructed coronal and sagittal MPR images reviewed. All images stored on PACS. Automated exposure control was used as a dose optimization technique for this examination. COMPARISON: CT chest abdomen and pelvis 02/19/2025 FINDINGS: The sensitivity for detection of solid visceral lesions is diminished without the use of intravenous contrast. LUNGS: Patent central airways. Stable 7 mm nodule in the left apex (12/21). No new nodule. Bilateral subsegmental atelectasis. No focal consolidation. PLEURA: No effusion. No pneumothorax. MEDIASTINUM/HILDA: Previously seen large debris within the esophagus has resolved. No abnormal wall thickening of the esophagus or mass. No lymphadenopathy. HEART: Heart size is normal with small pericardial effusion. CORONARY ARTERY CALCIFICATION: Mild VASCULATURE: Atheromatous disease of the aorta with coronary artery calcification. No aneurysms of the aorta. AXILLA: No adenopathy. CHEST WALL: No masses. No subcutaneous air. HARDWARE/LINES/TUBES: None. UPPER ABDOMEN: No significant abnormality. MUSCULOSKELETAL: No significant abnormality. OTHER: No other significant abnormality. IMPRESSION: Interval resolution of the previously seen debris within the esophagus. No abnormal esophageal wall thickening or mass. Stable 7 mm nodule in the left apex. No new pulmonary nodule. THIS IS AN ELECTRONICALLY VERIFIED FINAL REPORT 02/20/2025 2:04 PM - Electronically signed by Cherrie Boyd M.D. FT: FT Report ID: [id number] Reading Location: [id number] Procedure Note Cherrie Markham MD - 02/20/2025 EXAM DESCRIPTION: CT CHEST WO CONTRAST REASON FOR STUDY: esophageal debris Reevaluate debris in esophagus seen on CT yesterday. TECHNIQUE: CT scan of the chest performed without intravenous contrastusing helical scanning technique. Reconstructed coronal and sagittal MPR images reviewed. All images stored on PACS. Automated exposure control was usedas a dose optimization technique for this examination. COMPARISON: CT chest abdomen and pelvis 02/19/2025 FINDINGS: The sensitivity for detection of solid visceral lesions is diminishedwithout the use of intravenous contrast. LUNGS: Patent central airways. Stable 7 mm nodule in the left apex(12/21). No new nodule. Bilateral subsegmental atelectasis. No focalconsolidation. PLEURA: No effusion. No pneumothorax. MEDIASTINUM/HILDA: Previously seen large debris within the esophagus has resolved. No abnormal wall thickening of the esophagus or mass. No lymphadenopathy. HEART: Heart size is normal with small pericardial effusion. CORONARY ARTERY CALCIFICATION: Mild VASCULATURE: Atheromatous disease of the aorta with coronary artery calcification. No aneurysms of the aorta. AXILLA: No adenopathy. CHEST WALL: No masses. No subcutaneous air. HARDWARE/LINES/TUBES: None. UPPER ABDOMEN: No significant abnormality. MUSCULOSKELETAL: No significant abnormality. OTHER: No other significant abnormality. IMPRESSION: Interval resolution of the previously seen debris within the esophagus.No abnormal esophageal wall thickening or mass. Stable 7 mm nodule in the left apex. No new pulmonary nodule. THIS IS AN ELECTRONICALLY VERIFIED FINAL REPORT 02/20/2025 2:04 PM - Electronically signed by Cherrie Boyd M.D. FT: FT Report ID: [id number] Reading Location: [place] [address] Stephanie Mc MD IMG CT PROCEDURES Final R esult * POCT glucose (02/20/2025 12:10 PM CDT) Glucose, POC 111 70 - 199 mg/dL Blood 02/20/2025 12:1 0 PM CDT 02/20/2025 12:10 PM CDT Stephanie Mc MD LAB POCT ORDERABLES - DEV ICE Final Result [facility] ([place]) 1 [facility] [place] [address] * (ABNORMAL) CBC without differential (02/20/2025 9:28 AM CDT) WBC 5.51 3.80 - 9.90 K/cumm Hgb 11.6(L) 11.9 - 15.5 g/dL [facility] ([place]) Hct 36.0 35.6 - 45.5 % [facility] ([place]) Plt 248 150 - 400 K/cumm [facility] ([place]) MPV 9.0(L) 9.1 - 12.3 fL [facility] ([place]) RBC 3.79(L) 3.90 - 5.20 M/cumm [facility] ([place]) MCV 95.0 81.3 - 96.4 fL [facility] ([place]) MCH 30.6 27.1 - 33.3 pg [facility] ([place]) MCHC 32.2(L) 32.3 - 35.7 g/dL [facility] ([place]) RDW CV 13.6 11.1 - 14.9 % [facility] ([place]) RDW SD 47.5 35.7 - 48.1 fL [facility] ([place]) NRBC abs 0.00 0.00 - 0.01 K/cumm [facility] ([place]) Blood 02/20/2025 9:28 AM CDT 02/20/2025 9:47 AM CDT Narrative [facility] ([place]) - 02/20/2025 9:50 AM CDT Baseline prior to enoxaparin initiation. us Stephanie Mc MD LAB BLOOD ORDERABLES Jossie atkins Result [facility] ([place]) 1 [facility] [place] [address] * POCT glucose (02/20/2025 8:30 AM CDT) Glucose, POC 137 70 - 199 mg/dL Blood 02/20/2025 8:30 AM CDT 02/20/2025 8:30 AM CDT Stephanie Mc MD LAB POCT ORDERABLES - DEV ICE Final Result Performing Organization Address City/[facility]/ZIP Co de Phone Number [facility] ([place]) 1 [facility] [place] [address] * eGFR (02/20/2025 3:05 AM CDT) eGFR 69 >=60 mL/min/1. 73 m2 Comment: Interpretive Data Reference Interval Normal >/= 90 mL/min/1.73m2 Mildly decreased* 60 - 89 mL/min/1.73m2 Mildly to moderately decreased 45 - 59 mL/min/1.73m2 Moderately to severely decreased 30 - 44 mL/min/1.73m2 Severely decreased 15 - 29 mL/min/1.73m2 Kidney Failure < 15 mL/min/1.73m2 *Relative to young adult level Estimated glomerular filtration rate is determined by the 2020 CKD-EPI equation recommended by the National Kidney Foundation (A Unifying Approach to GFR Estimation: Recommendations of the NKF-ASK Task Force on Reassessing the Inclusion of Race in Diagnosing Kidney Disease, JASN 2020). The CKD-EPI equation should not be used for patients with unstable renal function and has not been validated in children and those over 70. Current interpretive data was last reviewed 2021. Blood 02/20/2025 3:05 AM CDT 02/20/2025 3:31 AM CDT us Ghada Parsons MD LAB BLOOD ORDERABLES Fi nal Result [facility] ([place]) 1 [facility] [place] [address] * (ABNORMAL) Differential, auto (02/20/2025 3:05 AM CDT) Neutrophil abs 6.28 1.50 - 6.50 K/cumm Imm gran abs 0.03 0.00 - 0.10 K/cumm [facility] ([place]) Lymphocyte abs 0.53(L) 0.80 - 3.30 K/cumm [facility] ([place]) Monocyte abs 0.08(L) 0.20 - 0.80 K/cumm [facility] ([place]) Eosinophil abs 0.01 0.00 - 0.50 K/cumm [facility] ([place]) Basophil abs 0.02 0.00 - 0.10 K/cumm [facility] ([place]) Neutrophil pct 90.4 % [facility] ([place]) Comment: Interpretive Data Percent cell count reference ranges are not reported, since discordance with absolute values may lead to misinterpretation of CBC data. Current Interpretive Data was last revised on 2018. Imm gran pct 0.4 % [facility] ([place]) Comment: Interpretive Data Percent cell count reference ranges are not reported, since discordance with absolute values may lead to misinterpretation of CBC data. Current Interpretive Data was last revised on 2018. Lymphocyte pct 7.6 % [facility] ([place]) Comment: Interpretive Data Percent cell count reference ranges are not reported, since discordance with absolute values may lead to misinterpretation of CBC data. Current Interpretive Data was last revised on 2018. Monocyte pct 1.2 % [facility] ([place]) Comment: Interpretive Data Percent cell count reference ranges are not reported, since discordance with absolute values may lead to misinterpretation of CBC data. Current Interpretive Data was last revised on 2018. Eosinophil pct 0.1 % [facility] ([place]) Comment: Interpretive Data Percent cell count reference ranges are not reported, since discordance with absolute values may lead to misinterpretation of CBC data. Current Interpretive Data was last revised on 2018. Basophil pct 0.3 % [facility] ([place]) Comment: Interpretive Data Percent cell count reference ranges are not reported, since discordance with absolute values may lead to misinterpretation of CBC data. Current Interpretive Data was last revised on 2018. Blood 02/20/2025 3:05 AM CDT 02/20/2025 3:31 AM CDT us Ghada Parsons MD LAB BLOOD ORDERABLES Fi nal Result [facility] ([place]) 1 [facility] [place] [address] * (ABNORMAL) CBC with auto differential (02/20/2025 3:05 AM CDT) WBC 6.95 3.80 - 9.90 K/cumm Hgb 11.6(L) 11.9 - 15.5 g/dL [facility] ([place]) Hct 36.1 35.6 - 45.5 % [facility] ([place]) Plt 237 150 - 400 K/cumm [facility] ([place]) MPV 8.4(L) 9.1 - 12.3 fL [facility] ([place]) RBC 3.75(L) 3.90 - 5.20 M/cumm [facility] ([place]) MCV 96.3 81.3 - 96.4 fL [facility] ([place]) MCH 30.9 27.1 - 33.3 pg [facility] ([place]) MCHC 32.1(L) 32.3 - 35.7 g/dL [facility] ([place]) RDW CV 13.7 11.1 - 14.9 % [facility] ([place]) RDW SD 48.5(H) 35.7 - 48.1 fL [facility] ([place]) NRBC abs 0.00 0.00 - 0.01 K/cumm [facility] ([place]) Blood 02/20/2025 3:05 AM CDT 02/20/2025 3:31 AM CDT us Ghada Parsons MD LAB BLOOD ORDERABLES Fi nal Result [facility] ([place]) 1 [facility] [place] [address] * TSH (02/20/2025 3:05 AM CDT) Thyroid Stimulating Hormone 0.63 0.30 - 4.20 mcIUnit/mL Blood 02/20/2025 3:05 AM CDT 02/20/2025 8:10 AM CDT Stephanie Mc MD LAB BLOOD ORDERABLES Jossie l Result [facility] ([place]) 1 [place] [address] * Magnesium (02/20/2025 3:05 AM CDT) Pathologist [facility] Magnesium 2.0 1.4 - 2.5 mg/dL Blood 02/20/2025 3:05 AM CDT 02/20/2025 3:31 AM CDT Ghada Parsons MD LAB BLOOD ORDERABLES Fi nal Result Performing Organization Address [facility]/[place] de Phone Number [facility] ([place] [address] [place] [phone] * Hemoglobin A1c (02/20/2025 3:05 AM CDT) Pathologist [facility] Hgb A1C 5.3 4.0 - 5.6 % Estimated Average Glucose 105 mg/dL [facility] ([place]) Comment: The ADA recommends reporting an estimated Average Glucose (eAG) with all Hemoglobin A1c results using the equation derived from a study of 507 normal and diabetic adults. Minority populations were underrepresented and children were not included. (Diabetes Care 31:0930-0515, 2008). The eAG is not equivalent to a fasting glucose. Blood 02/20/2025 3:05 AM CDT 02/20/2025 6:41 AM CDT Ghada Parsons MD LAB BLOOD ORDERABLES Fi nal Result Performing Organization Address City/[facility]/ZIP Co de Phone Number [facility] ([place]) [address] [place] [address] * Lipid panel (02/20/2025 3:05 AM CDT) Pathologist [facility] Cholesterol 180 30 - 199 mg/dL Comment: Interpretive Data Ages < or = 19 years Acceptable: <170 mg/dL Borderline high: 170-199 mg/dL High: >or= 200 mg/dL Ages > or = 20 years Desirable: <200 mg/dL Borderline high: 200-239 mg/dL High: >or= 240 mg/dL Literature References: 1. Expert Panel on Integrated Guidelines for Cardiovascular Health and Risk Reduction in Children and Adolescents. Pediatrics 2011;128:S213 2. NCEP Expert Panel. Circulation 2004;110:227 Current Interpretive Data was last revised on 2018. Triglycerides 62 <=149 mg/dL [facility] ([place]) Comment: Interpretive Data Ages < or = 9 years Acceptable: <75 mg/dL Borderline high: 75-99 mg/dL High: >or= 100 mg/dL Ages 10 to 20 years Acceptable: <90 mg/dL Borderline high: 90-129 mg/dL High: >or= 130 mg/dL Ages > or = 20 years Desirable: <150 mg/dL Borderline high: 150-199 mg/dL High: 200-499 mg/dL Very high: >or= 499 mg/dL Literature References: 1. Expert Panel on Integrated Guidelines for Cardiovascular Health and Risk Reduction in Children and Adolescents. Pediatrics 2011;128:S213 2. NCEP Expert Panel. Circulation 2004;110:227 Current Interpretive Data was last revised on 2018. HDL 79 >=40 mg/dL [facility] ([place]) Comment: Interpretive Data Ages < or = 19 years Acceptable: >45 mg/dL Borderline low: 40-45 mg/dL Low: <40 mg/dL Ages > or = 20 years Desirable: >or= 60 mg/dL Low: <40 mg/dL Literature References: 1. Expert Panel on Integrated Guidelines for Cardiovascular Health and Risk Reduction in Children and Adolescents. Pediatrics 2011;128:S213 2. NCEP Expert Panel. Circulation 2004;110:227 Current Interpretive Data was last revised on 2018. LDL, calculated 89 <=129 mg/dL [facility] ([place]) Comment: Interpretive Data Ages < or = 19 years Acceptable: <110 mg/dL Borderline high: 110-129 mg/dL High: >or= 130 mg/dL Ages > or = 20 years Optimal: <100 mg/dL Near optimal: 100-129 mg/dL Borderline high: 130-159 mg/dL High: >160 mg/dL Calculated using the Omid LDL-C estimating equation. This equation was implemented on 2024. Prior to this date LDL-C was estimated using the Friedewald equation. Literature References: 1. Expert Panel on Integrated Guidelines for Cardiovascular Health and Risk Reduction in Children and Adolescents. Pediatrics 2011;128:S213 2. NCEP Expert Panel. Circulation 2004;110:227 3. Omid Bermudez et al. ANTWON Cardiol. 2019February 10;5(5):540-548. doi: 10.1001/[email or web address] Current Interpretive Data was last revised on 2024. Non-HDL Cholesterol 101 mg/dL [facility] ([place]) Comment: Interpretive Data Ages < or = 19 years Acceptable: <120 mg/dL Borderline high: 120-144 mg/dL High: >145 mg/dL Ages > or = 20 years When triglycerides are >200 mg/dL, Non-HDL cholesterol is a secondary target of therapy with treatment goals that are 30 mg/dL greater than the LDL cholesterol target. Literature References: 1. Expert Panel on Integrated Guidelines for Cardiovascular Health and Risk Reduction in Children and Adolescents. Pediatrics 2011;128:S213 2. NCEP Expert Panel. Circulation 2004;110:227 Current Interpretive Data was last revised on 2018. Chol/HDL ratio 2 [facility] ([place]) Blood 02/20/2025 3:05 AM CDT 02/20/2025 6:41 AM CDT Ghada Parsons MD LAB BLOOD ORDERABLES nal Result [facility] ([place]) 1 [facility] [place] [address] * (ABNORMAL) Comprehensive metabolic panel (02/20/2025 3:05 AM CDT) Sodium 138 135 - 145 mmol/L Potassium, pl 4.6 3.3 - 4.9 mmol/L [facility] ([place]) Chloride 106 97 - 110 mmol/L [facility] ([place]) CO2 19(L) 22 - 32 mmol/L [facility] ([place]) Anion gap 13 2 - 15 mmol/L [facility] ([place]) BUN 21 6 - 25 mg/dL [facility] ([place]) Creatinine 0.87 0.60 - 1.10 mg/dL [facility] ([place]) Glucose 115 70 - 199 mg/dL [facility] ([place]) Comment: Interpretive Data Fasting glucose >/= 126 mg/dl is diagnostic for diabetes. Fasting is defined as no caloric intake for at least 8 hours. Fasting glucose between 100 mg/dl to 125 mg/dl is diagnostic of prediabetes. In a patient with classic symptoms of hyperglycemia or hyperglycemic crisis, a random glucose >/= 200 mg/dl is diagnostic for diabetes. In the absence of unequivocal hyperglycemia, results should be confirmed by repeat testing. The classification and Diagnosis of Diabetes Diabetes Care 202; 46: S19-S40. Current interpretive data was last revised 2022. Calcium 9.3 8.5 - 10.3 mg/dL [facility] ([place]) Bilirubin, total <0.2 0.1 - 1.2 mg/dL [facility] ([place]) Protein, pl 6.2(L) 6.5 - 8.5 g/dL [facility] ([place]) Albumin 3.9 3.5 - 5.0 g/dL [facility] ([place]) Alk phos 114 40 - 130 Units/L [facility] ([place]) ALT 14 7 - 45 Units/L [facility] ([place]) AST 16 10 - 45 Units/L [facility] ([place]) Blood 02/20/2025 3:05 AM CDT 02/20/2025 3:31 AM CDT us Ghada Parsons MD LAB BLOOD ORDERABLES Fi nal Result [facility] ([place]) 1 [facility] [place], [place] [id number] * Strep pneumoniae antigen, urine Urine (02/19/2025 10:06 PM CDT) S. pneumoniae Ag Negative Negative Comment: Interpretive Data A positive result is indicative of pneumococcal pneumonia in patients with severe CAP. Cross-reactivity with closely related Streptococcus bacteria may occur. A negative result suggests no current or recent pneumococcal infection but cannot rule out infection with S. pneumoniae. The results of this testing should be used in conjunction with clinical findings and other diagnostic testing, including microbiologic culture. Current Interpretive Data was last revised on 2022 Testing performed by: [facility], [address] [place] [address]., [id number] Urine 02/19/2025 10:0 6 PM CDT 02/20/2025 3:20 PM CDT Ghada Parsons MD LAB MICROBIOLOGY - GENE RAL ORDERABLES Final Result Performing Organization Address City/[facility]/ZIP Co de Phone Number [facility] ([place]) 1 [facility] [place] [address] * Legionella antigen Urine (02/19/2025 10:06 PM CDT) Legionella Ag Negative Negative Comment: Interpretive Data This test detects only Legionella pneumophila serogroup 1 antigen. Current interpretive data was last revised on 2019. Testing performed by: [facility], [address] [place] [address]., [id number] Urine 02/19/2025 10:0 6 PM CDT 02/20/2025 3:20 PM CDT Ghada Parsons MD LAB MICROBIOLOGY - GENE RAL ORDERABLES Final Result Performing Organization Address City/[facility] Co de Phone Number [facility] ([place]) 1 [facility] [place] [address] * CT Chest PE (CTA) Abdomen Pelvis W Contrast (02/19/2025 9:56 PM CDT) Anatomical Region Laterality Modality Body N/A Computed Tomogra phy 02/19/2025 10:0 5 PM CDT Narrative 02/19/2025 10:13 PM CDT EXAM DESCRIPTION: CT CHEST PE (CTA) ABDOMEN PELVIS W CONTRAST REASON FOR STUDY: AMS/ sepsis/ cough/ nausea AMS/ sepsis/ cough/ nausea TECHNIQUE: CT angiogram of the chest with routine abdomen and pelvis performed with intravenous and without oral contrast using helical scanning technique with dynamic intravenous contrast injection. Reconstructed coronal and sagittal MPR images reviewed. All images stored on PACS. 3D MIP images of the chest rendered on scanning unit and reviewed at time of interpretation. Automated exposure control was used as a dose optimization technique for this examination. CONTRAST TYPE/DOSE: 100mL of IOVERSOL 350 MG IODINE/ML INTRAVENOUS SYRINGE injected via intravenous COMPARISON: 12/22/2024 FINDINGS: CHEST VASCULAR: Bolus timing is adequate and no filling defect is seen in the pulmonary arterial tree. Systemic arterial structures are partially opacified and reveal no acute abnormality. MEDIASTINUM/HILDA: Moderate cardiomegaly. Minimal coronary artery calcification. No enlarged lymph node. Large amount of debris in the upper esophagus. No clear wall thickening or inflammation is seen within limits of bolus timing. Thoracic inlet unremarkable. LUNGS: Mild interstitial edema. 9 x 6 mm indeterminate left apex pulmonary nodule. Trachea and major airways patent. CHEST MUSCULOSKELETAL: Moderate multilevel disc disease. ACDF partially seen. Moderate shoulder arthritis CHEST WALL: Unremarkable. LIVER/BILIARY: Liver unremarkable. Biliary tree normal in caliber. GALLBLADDER: Normal. SPLEEN: Normal. PANCREAS: Normal. ADRENAL GLANDS: Normal. KIDNEYS/URINARY TRACT: Mild scarring in the upper pole left kidney. Ureters and bladder unremarkable. GI: Gastric bypass. No GI tract obstruction or inflammation is seen. Moderate stool throughout the colon. Noninflamed colonic diverticula. Appendix not confidently distinguished from adjacent bowel. OTHER ABDOMINAL/PELVIS: Major vascular structures are grossly patent and normal in caliber. No enlarged lymph node or free fluid. MSK: Moderate disc disease and facet arthropathy. Old right rib injuries. Hip and SI joint arthrosis. BODY WALL: Right femoral line. IMPRESSION: No PE. Large amount of debris in the upper esophagus may represent slow transit or partial obstruction related to gastric bypass. Significant aspiration risk. 9 x 6 mm indeterminate left apex pulmonary nodule. 3 to six-month follow-up chest CT recommended. Per Fleischner Society Guidelines, consider one of the following for both low-risk and high-risk individuals: (a) repeat chest CT in 3 months, (b) follow-up PET-CT, or (c) tissue sampling. No acute abdominal/pelvic abnormality identified. THIS IS AN ELECTRONICALLY VERIFIED FINAL REPORT 02/19/2025 10:13 PM - Electronically signed by Dwaine Mcnulty M.D. AR: [place]AN Report ID: [id number] Reading Location: [id number] Procedure Note Dwaine Mcnulty MD - 02/19/2025 EXAM DESCRIPTION: CT CHEST PE (CTA) ABDOMEN PELVIS W CONTRAST REASON FOR STUDY: AMS/ sepsis/ cough/ nausea AMS/ sepsis/ cough/ nausea TECHNIQUE: CT angiogram of the chest with routine abdomen and pelvisperformed with intravenous and without oral contrast using helical scanningtechnique with dynamic intravenous contrast injection. Reconstructed coronal and sagittal MPR images reviewed. All images stored on PACS. 3D MIP images ofthe chest rendered on scanning unit and reviewed at time of interpretation. Automated exposure control was used as a dose optimization technique forthis examination. CONTRAST TYPE/DOSE: 100mL of IOVERSOL 350 MG IODINE/ML INTRAVENOUS SYRINGE injected via intravenous COMPARISON: 12/22/2024 FINDINGS: CHEST VASCULAR: Bolus timing is adequate and no filling defect is seen inthe pulmonary arterial tree. Systemic arterial structures are partially opacified and reveal no acute abnormality. MEDIASTINUM/HILDA: Moderate cardiomegaly. Minimal coronary artery calcification. No enlarged lymph node. Large amount of debris in theupper esophagus. No clear wall thickening or inflammation is seen within limitsof bolus timing. Thoracic inlet unremarkable. LUNGS: Mild interstitial edema. 9 x 6 mm indeterminate left apexpulmonary nodule. Trachea and major airways patent. CHEST MUSCULOSKELETAL: Moderate multilevel disc disease. ACDF partially seen. Moderate shoulder arthritis CHEST WALL: Unremarkable. LIVER/BILIARY: Liver unremarkable. Biliary tree normal in caliber. GALLBLADDER: Normal. SPLEEN: Normal. PANCREAS: Normal. ADRENAL GLANDS: Normal. KIDNEYS/URINARY TRACT: Mild scarring in the upper pole left kidney.Ureters and bladder unremarkable. GI: Gastric bypass. No GI tract obstruction or inflammation is seen. Moderate stool throughout the colon. Noninflamed colonic diverticula. Appendix not confidently distinguished from adjacent bowel. OTHER ABDOMINAL/PELVIS: Major vascular structures are grossly patent and normal in caliber. No enlarged lymph node or free fluid. MSK: Moderate disc disease and facet arthropathy. Old right ribinjuries. Hip and SI joint arthrosis. BODY WALL: Right femoral line. IMPRESSION: No PE. Large amount of debris in the upper esophagus may represent slow transitor partial obstruction related to gastric bypass. Significant aspirationrisk. 9 x 6 mm indeterminate left apex pulmonary nodule. 3 to day-cxpcsyiriwq-ek chest CT recommended. Per Fleischner Society Guidelines, consider one ofthe following for both low-risk and high-risk individuals: (a) repeat chest CTin 3 months, (b) follow-up PET-CT, or (c) tissue sampling. No acute abdominal/pelvic abnormality identified. THIS IS AN ELECTRONICALLY VERIFIED FINAL REPORT 02/19/2025 10:13 PM - Electronically signed by Dwaine Mcnulty M.D. AR: ROMAN Report ID: [id number] Reading Location: [place] [address] Ghada Parsons MD IMG CT PROCEDURES Final Result * (ABNORMAL) Blood gas, venous (02/19/2025 8:49 PM CDT) Pathologist [facility] pH, Venous 7.28(L) 7.32 - 7.43 PCO2, Venous 48 40 - 50 mmHg [facility] ([place]) PO2, Venous 72 mmHg [facility] ([place]) HCO3 Venous, Calculated 22 20 - 30 mmol/L [facility] ([place]) BE, venous -4 mmol/L [facility] ([place]) Comment: Interpretive Data No Reference Range Established Current Interpretive Data was last revised on 2018. Blood 02/19/2025 8:49 PM CDT 02/19/2025 8:57 PM CDT Ghada Parsons MD LAB BLOOD ORDERABLES Fi nal Result [facility] ([place]) 1 [facility] [place] [address] * Influenza A/B, RSV, and COVID-19 PCR Nasopharyngeal (02/19/2025 8:43 PM CDT) Pathologist [facility] COVID-19 RNA Negative Negative Influenza A RNA Negative Negative [facility] ([place]) Influenza B RNA Negative Negative [facility] ([place]) RSV RNA Negative Negative [facility] ([place]) Comment: Interpretive data: Testing performed by [facility]. This test is performed using the [employer] / [employer] Xpert Xpress CoV-2/Flu/RSV plus assay. This is a multiplex, real- time reverse transcriptase PCR assay intended for the qualitative detection of nucleic acid from SARS-CoV-2, influenza A, influenza B, and respiratory syncytial virus. This assay has been cleared by the [place] Food and Drug administration. The performance characteristics have been verified by the [facility]. Results must be considered in the clinical context, and a negative result does not rule out infection. Interpretive Data last revised 2023 Nasopharyngeal 02/19/2025 8: 43 PM CDT 02/19/2025 8:47 PM CDT Narrative [facility] ([place]) - 02/19/2025 9:33 PM CDT Is the Patient experiencing symptoms consistent with COVID?->Yes us Ghada Parsons MD LAB MICROBIOLOGY - GENE [facility] ORDERABLES Final Result [facility] ([place]) 1 [facility] [place] [address] * CT Head WO Contrast (02/19/2025 4:01 PM CDT) Anatomical Region Laterality Modality Head and Neck N/A Computed Tomogra phy 02/19/2025 4:36 PM CDT Narrative 02/19/2025 4:41 PM CDT EXAM DESCRIPTION: CT HEAD WO CONTRAST REASON FOR STUDY: Mental status change, unknown cause Pt states around 10 am this morning, pt had a sudden onset of slurred speech and altered mental status. TECHNIQUE: Axial images acquired through the brain without intravenous contrast. Images stored on PACS. Automated exposure control was used as a dose optimization technique for this examination. COMPARISON: 05/10/2012 FINDINGS: BRAIN: No hemorrhage, edema or mass effect. No recent infarct. Nonspecific periventricular and subcortical white matter hypoattenuation which can be seen as sequela of chronic small vessel ischemic disease. There is age-appropriate cerebral volume loss. There is dilatation of the ventricular system which is somewhat disproportionate to the extent of cerebral volume loss and can be seen with normal pressure hydrocephalus in the appropriate clinical setting. Acute intraventricular hemorrhage. Basal cisterns are patent. No midline shift. EXTRA-AXIAL SPACES: No fluid collections. No masses. CALVARIUM: No fracture. SINUSES/MASTOIDS: Mild mucosal thickening of the ethmoid air cells and right sphenoid sinus. Otherwise, no fluid or mucosal thickening. ORBITS: No significant abnormality. OTHER: Multifocal locules of gas within the imaged veins are present which could be due to recent intravenous injection(s). IMPRESSION: No acute intracranial findings. THIS IS AN ELECTRONICALLY VERIFIED FINAL REPORT 02/19/2025 4:41 PM - Electronically signed by Mehul Taylor M.D. AT: AT Report ID: [id number] Reading Location: [id number] Procedure Note Mehul Taylor MD - 02/19/2025 EXAM DESCRIPTION: CT HEAD WO CONTRAST REASON FOR STUDY: Mental status change, unknown cause Pt states around 10 am this morning, pt had a sudden onset of slurredspeech and altered mental status. TECHNIQUE: Axial images acquired through the brain without intravenous contrast. Images stored on PACS. Automated exposure control was used asa dose optimization technique for this examination. COMPARISON: 05/10/2012 FINDINGS: BRAIN: No hemorrhage, edema or mass effect. No recent infarct. Nonspecific periventricular and subcortical white matter hypoattenuationwhich can be seen as sequela of chronic small vessel ischemic disease. There is age-appropriate cerebral volume loss. There is dilatation of theventricular system which is somewhat disproportionate to the extent of cerebral volume loss and can be seen with normal pressure hydrocephalus in the appropriate clinical setting. Acute intraventricular hemorrhage. Basal cisternsare patent. No midline shift. EXTRA-AXIAL SPACES: No fluid collections. No masses. CALVARIUM: No fracture. SINUSES/MASTOIDS: Mild mucosal thickening of the ethmoid air cells andright sphenoid sinus. Otherwise, no fluid or mucosal thickening. ORBITS: No significant abnormality. OTHER: Multifocal locules of gas within the imaged veins are presentwhich could be due to recent intravenous injection(s). IMPRESSION: No acute intracranial findings. THIS IS AN ELECTRONICALLY VERIFIED FINAL REPORT 02/19/2025 4:41 PM - Electronically signed by Mehul Taylor M.D. AT: AT Report ID: [id number] Reading Location: [id number] Juan Carlos Haile MD IMG CT PROCEDURES Final Resu lt * (ABNORMAL) Troponin T high-sensitivity 2-hour (02/19/2025 2:46 PM CDT) Trop T hs 20(H) <=14 ng/L Comment: Interpretive Data For further hscTnT resources including the diagnostic algorithm and an aid in interpretation, copy and paste this link: [email or web address].testcatalog.org/show/[email or web address] Current Interpretive Data last revised 2020. Trop T hs delta 0 ng/L [facility] ([place]) Trop T hs interp Insignificant [facility] ([place]) Blood 02/19/2025 2:46 PM CDT 02/19/2025 2:51 PM CDT Juan Carlos Haile MD LAB BLOOD ORDERABLES Final R esult [facility] ([place]) 1 [facility] [place] [address] * XR Kub (Abd 1 View) (02/19/2025 2:35 PM CDT) Anatomical Region Laterality Modality Body, Abdomen N/A Computed Radiogr aphy 02/19/2025 2:44 PM CDT Narrative 02/19/2025 2:46 PM CDT EXAM DESCRIPTION: XR KUB REASON FOR STUDY: Abd pain, unspecified, Central line Central line placement through right hip. TECHNIQUE: Single radiographic view of the abdomen. COMPARISON: CT abdomen pelvis 12/22/2024 FINDINGS: BOWEL: Nonobstructive gas pattern. Moderate amount of stool in the colon. SOFT TISSUES: No abnormal calcifications. LINES/TUBES: There is a vascular catheter present in the right groin with the tip terminating at the L5 level. A Howe temperature probe is also present. BONES: No acute osseous abnormality. There are degenerative changes of the lumbar spine. IMPRESSION: Vascular catheter present in the right groin with the tip terminating at the L5 level. THIS IS AN ELECTRONICALLY VERIFIED FINAL REPORT 02/19/2025 2:46 PM - Electronically signed by Richie Lindsey M.D. AM: AM Report ID: [id number] Reading Location: [id number] Procedure Note Richie Lindsey MD - 02/19/2025 EXAM DESCRIPTION: XR KUB REASON FOR STUDY: Abd pain, unspecified, Central line Central line placement through right hip. TECHNIQUE: Single radiographic view of the abdomen. COMPARISON: CT abdomen pelvis 12/22/2024 FINDINGS: BOWEL: Nonobstructive gas pattern. Moderate amount of stool in thecolon. SOFT TISSUES: No abnormal calcifications. LINES/TUBES: There is a vascular catheter present in the right groin withthe tip terminating at the L5 level. A Howe temperature probe is alsopresent. BONES: No acute osseous abnormality. There are degenerative changes ofthe lumbar spine. IMPRESSION: Vascular catheter present in the right groin with the tip terminating atthe L5 level. THIS IS AN ELECTRONICALLY VERIFIED FINAL REPORT 02/19/2025 2:46 PM - Electronically signed by Richie Lindsey M.D. AM: AM Report ID: [id number] Reading Location: [id number] Juan Carlos Haile MD IMG XR PROCEDURES Final Resu lt * XR Chest 1 View (02/19/2025 2:35 PM CDT) Anatomical Region Laterality Modality Body, Chest N/A Computed Radiogr aphy 02/19/2025 2:46 PM CDT Narrative 02/19/2025 2:48 PM CDT EXAM DESCRIPTION: XR CHEST 1 VIEW REASON FOR STUDY: chest pain Central line attempt. TECHNIQUE: Single radiographic view(s) of the chest. COMPARISON: 02/19/2025 FINDINGS: LUNGS: Few questionable subtle patchy opacities in the left mid lung. There is no sizable pleural effusion or pneumothorax. HEART/MEDIASTINUM: Cardiac silhouette normal in size. Mediastinal and hilar contours appear normal. There is atherosclerotic calcification of the aorta. LINES/TUBES: None. BONES: No acute osseous abnormality. There is partially imaged ACDF hardware. IMPRESSION: Few questionable subtle patchy opacities in the left mid lung, which could represent pneumonia in the appropriate clinical setting. THIS IS AN ELECTRONICALLY VERIFIED FINAL REPORT 02/19/2025 2:48 PM - Electronically signed by Richie Lindsey M.D. AM: AM Report ID: [id number] Reading Location: [id number] Procedure Note Richie Lindsey MD - 02/19/2025 EXAM DESCRIPTION: XR CHEST 1 VIEW REASON FOR STUDY: chest pain Central line attempt. TECHNIQUE: Single radiographic view(s) of the chest. COMPARISON: 02/19/2025 FINDINGS: LUNGS: Few questionable subtle patchy opacities in the left mid lung.There is no sizable pleural effusion or pneumothorax. HEART/MEDIASTINUM: Cardiac silhouette normal in size. Mediastinal andhilar contours appear normal. There is atherosclerotic calcification of theaorta. LINES/TUBES: None. BONES: No acute osseous abnormality. There is partially imaged ACDF hardware. IMPRESSION: Few questionable subtle patchy opacities in the left mid lung, which could represent pneumonia in the appropriate clinical setting. THIS IS AN ELECTRONICALLY VERIFIED FINAL REPORT 02/19/2025 2:48 PM - Electronically signed by Richie Lindsey M.D. AM: AM Report ID: [id number] Reading Location: [place] [address] Juan Carlos Haile MD IMG XR PROCEDURES Final Resu lt * WI INSJ NON-TUNNELED CENTRAL VENOUS CATH AGE 4 YR/> (02/19/2025 2:29 PM CDT) Narrative Juan Carlos Haile MD - 02/19/2025 2:29 PM CDT Juan Carlos Haile MD 02/19/2025 2:32 PM Central Line Date/Time: 02/19/2025 2:29 PM Performed by: Juan Carlos Haile MD Authorized by: Shantal Crespo MD [place] Protocol: Informed consent: Risks, benefits, alternatives discussed Consent form signed, dated, timed; matches correct patient, intended procedure and site: Yes Indications: Hypotension Pre-procedure details: Skin preparation: 2% chlorhexidine Sedation: Sedation used: no Procedure details: Location: R femoral Patient position: Flat Ultrasound guidance: yes Ultrasound guidance used for( if US guidance yes, must make choice here as well): Real-time guidance Number of attempts: 1 Successful placement: yes Catheter tip termination location: Inferior vena cava Post-procedure details: Assessment: Patent vessel, blood return through all ports, placement verified by x-ray and no pneumothorax on x-ray Patient tolerance of procedure: Tolerated well, no immediate complications Comments: Procedure comments: Attempted central line left IJ, right IJ, unsuccessful. Shantal Crespo MD IN CLINIC/BEDSIDE ORDERABLES Fin al Result * Urinalysis reflex to microscopic and culture Urine (02/19/2025 1:52 PM CDT) Color, ur Yellow Yellow Clarity, ur Clear Clear [facility] ([place]) Specific gravity, ur 1.017 1.003 - 1.030 [facility] ([place]) pH, urine 5.5 [facility] ([place]) Comment: Interpretive Data U rine pH is affected by diet, medications, systemic acid-base disturbances, and renal tubular function. pH may affect urinary stone formation. For example, urine pH below 6.0 may help reduce the tendency for calcium phosphate stones and pH greater than 6.0 may reduce the tendency for uric acid stone formation. Source: [employer] Current Interpretive Data was last revised on 2017 Protein, ur ql Negative Negative [facility] ([place]) Glucose, ur ql Negative Negative [facility] ([place]) Ketones, ur Negative Negative [facility] ([place]) Bilirubin, ur Negative Negative [facility] ([place]) Blood, ur Negative Negative [facility] ([place]) Urobilinogen, ur <2.0 <2.0 mg/dL [facility] ([place]) Nitrite, ur Negative Negative [facility] ([place]) Leukocyte esterase, ur Negative Negative [facility] ([place]) UA reflex comment Reflex conditions for microscopic UA and culture not met. [facility] ([place]) Urine 02/19/2025 1:52 PM CDT 02/19/2025 2:01 PM CDT Narrative [facility] ([place]) - 02/19/2025 2:05 PM CDT If patient unable to urinate, straight cath Juan Carlos Haile MD LAB MICROBIOLOGY - GENERAL O RDERABLES Final Result [facility] ([place]) 1 [facility] [place] [address] * Blood culture Blood (02/19/2025 1:52 PM CDT) Report Final Report: No growth Comment:Testing performed by : [facility], [address] [facility], [place]., [address] Blood 02/19/2025 1:52 PM CDT 02/19/2025 3:48 PM CDT Narrative [facility] ([place]) - 02/23/2025 4:00 PM CDT From a different site than #1. Collection->Peripheral 1. Blood cultures are incubated for 4 days on a continuously monitored blood culture system. The first report of a negative culture is issued within 24 hours of receipt of the specimen in the laboratory. 2. Positive culture results are reported as soon as they are detected. 3. The most important factor for detection of microbes in the setting of bloodstream infection is the volume of blood submitted for culture. Failure to collect an optimal blood volume can result in false negative blood cultures. 4. For pediatric patients, the recommended blood volume to collect follows a weight based strategy. See the electronic test catalog for collection instructions. 5. For positive blood cultures, a rapid molecular test may be performed for organism identification using the mohsen ePlex blood culture identification panel for gram positive (BCID-GP) and gram negative (BCID-GN) organisms. This nucleic acid amplification test detects microbial DNA in positive blood culture broth. This assay has been cleared by the [place] Food and Drug Administration and its performance characteristics have been verified by the [facility]. For questions about this culture, contact the Microbiology Laboratory at [phone]. Interpretive data was last revised on 24. Juan Carlos Haile MD LAB MICROBIOLOGY - GENERAL O RDERABLES Final Result Performing Organization Address [facility] Co de Phone Number [facility] [place]) [address] [place] [address] [employer] [place], [place] [id number] * (ABNORMAL) Troponin T high-sensitivity series (baseline, 2hr, 4hr, 6hr) (02/19/2025 1:00 PM CDT) Pathologist [facility] Trop T hs 20(H) <=14 ng/L Comment: Interpretive Data For further hscTnT resources including the diagnostic algorithm and an aid in interpretation, copy and paste this link: https://nrl.testcatalog.org/show/hsTrop Current Interpretive Data last revised 2020. Blood 02/19/2025 1:00 PM CDT 02/19/2025 1:10 PM CDT Juan Carlos Haile MD LAB BLOOD ORDERABLES Final R esult Performing Organization Address [facility] Co de Phone Number [facility] [place]) [address] [place] [address] [place] [address] * eGFR (02/19/2025 1:00 PM CDT) Pathologist [facility] eGFR 83 >=60 mL/min/1. 73 m2 Comment: Interpretive Data Reference Interval Normal >/= 90 mL/min/1.73m2 Mildly decreased* 60 - 89 mL/min/1.73m2 Mildly to moderately decreased 45 - 59 mL/min/1.73m2 Moderately to severely decreased 30 - 44 mL/min/1.73m2 Severely decreased 15 - 29 mL/min/1.73m2 Kidney Failure < 15 mL/min/1.73m2 *Relative to young adult level Estimated glomerular filtration rate is determined by the 2020 CKD-EPI equation recommended by the National Kidney Foundation (A Unifying Approach to GFR Estimation: Recommendations of the NKF-ASK Task Force on Reassessing the Inclusion of Race in Diagnosing Kidney Disease, JASN 2020). The CKD-EPI equation should not be used for patients with unstable renal function and has not been validated in children and those over 70. Current interpretive data was last reviewed 2021. Blood 02/19/2025 1:00 PM CDT 02/19/2025 1:02 PM CDT Juan Carlos Haile MD LAB BLOOD ORDERABLES Final R esult [facility] ([place]) 1 [facility] of Laboratories [place], [place] [id number] * Differential, auto (02/19/2025 1:00 PM CDT) Neutrophil abs 4.62 1.50 - 6.50 K/cumm Imm gran abs 0.02 0.00 - 0.10 K/cumm [facility] ([place]) Lymphocyte abs 1.00 0.80 - 3.30 K/cumm [facility] ([place]) Monocyte abs 0.45 0.20 - 0.80 K/cumm [facility] ([place]) Eosinophil abs 0.10 0.00 - 0.50 K/cumm [facility] ([place]) Basophil abs 0.03 0.00 - 0.10 K/cumm [facility] ([place]) Neutrophil pct 74.3 % [facility] ([place]) Comment: Interpretive Data Percent cell count reference ranges are not reported, since discordance with absolute values may lead to misinterpretation of CBC data. Current Interpretive Data was last revised on 2018. Imm gran pct 0.3 % [facility] ([place]) Comment: Interpretive Data Percent cell count reference ranges are not reported, since discordance with absolute values may lead to misinterpretation of CBC data. Current Interpretive Data was last revised on 2018. Lymphocyte pct 16.1 % [facility] ([place]) Comment: Interpretive Data Percent cell count reference ranges are not reported, since discordance with absolute values may lead to misinterpretation of CBC data. Current Interpretive Data was last revised on 2018. Monocyte pct 7.2 % [facility] ([place]) Comment: Interpretive Data Percent cell count reference ranges are not reported, since discordance with absolute values may lead to misinterpretation of CBC data. Current Interpretive Data was last revised on 2018. Eosinophil pct 1.6 % [facility] ([place]) Comment: Interpretive Data Percent cell count reference ranges are not reported, since discordance with absolute values may lead to misinterpretation of CBC data. Current Interpretive Data was last revised on 2018. Basophil pct 0.5 % [facility] ([place]) Comment: Interpretive Data Percent cell count reference ranges are not reported, since discordance with absolute values may lead to misinterpretation of CBC data. Current Interpretive Data was last revised on 2018. Blood 02/19/2025 1:00 PM CDT 02/19/2025 1:02 PM CDT us Juan Carlos Haile MD LAB BLOOD ORDERABLES Final R esult [facility] ([place]) 1 [facility] [place] [address] * (ABNORMAL) Pro B-type natriuretic peptide (02/19/2025 1:00 PM CDT) NT-proBNP 860(H) <=450 pg/mL Comment: Interpretive Comments: A. Dyspnea in Acute Care Setting All Ages: < 300 pg/ml, acute heart failure unlikely. < 50 yrs: 300 - 450 pg/ml, further investigation warranted. > 450 pg/ml, acute heart failure likely. 50 - 74 yrs: 300 - 900 pg/ml, further investigation warranted. > 900 pg/ml, acute heart failure likely . > or = 75 yrs: 450 - 1800 pg/ml, further investigation warranted. > 1800 pg/ml, acute heart failure likely. B. Non-acute Setting < 75 yrs < 125 pg/ml, rules out heart failure. > or = 125 pg/ml, further investigation warranted. > or = 75 yrs < 450 pg/ml, rules out heart failure. > or = 450 pg/ml, further investigation warranted. - Knowledge of each individual patient's NT-proBNP range may be more useful than using similar cut-points for every patient. Please note that marked elevations in NT-proBNP levels may be observed in state other than Left Ventricular Congestive Failure, including: acute coronary syndromes, right heart strain/failure (including pulmonary embolism and cor pulmonale), critical illness, renal failure, as well as advanced age. - References: 1. Lakesha MUNOZ et.al. Eur Heart J. 2006:27:330-337. 2. Chris RW, Santi LEDESMA. J. AM Marisela Cardiol: Cardiovasc Imag. 2009;2: 216- 225. Interpretive Data Last Revised Date: 2018. Blood 02/19/2025 1:00 PM CDT 02/19/2025 1:02 PM CDT us Juan Carlos Haile MD LAB BLOOD ORDERABLES Final R esult [facility] ([place]) 1 [facility] [place] [address] * (ABNORMAL) CBC with auto differential (02/19/2025 1:00 PM CDT) WBC 6.22 3.80 - 9.90 K/cumm Hgb 11.3(L) 11.9 - 15.5 g/dL [facility] ([place]) Hct 36.6 35.6 - 45.5 % [facility] ([place]) Plt 193 150 - 400 K/cumm [facility] ([place]) MPV 8.3(L) 9.1 - 12.3 fL [facility] ([place]) RBC 3.72(L) 3.90 - 5.20 M/cumm [facility] ([place]) MCV 98.4(H) 81.3 - 96.4 fL [facility] ([place]) MCH 30.4 27.1 - 33.3 pg [facility] ([place]) MCHC 30.9(L) 32.3 - 35.7 g/dL [facility] ([place]) RDW CV 13.7 11.1 - 14.9 % [facility] ([place]) RDW SD 49.5(H) 35.7 - 48.1 fL [facility] ([place]) NRBC abs 0.00 0.00 - 0.01 K/cumm [facility] ([place]) Blood 02/19/2025 1:00 PM CDT 02/19/2025 1:02 PM CDT Juan Carlos Haile MD LAB BLOOD ORDERABLES Final R esult [facility] ([place]) 1 [facility] [place] [address] * Blood culture Blood (02/19/2025 1:00 PM CDT) Report Final Report: No growth Comment:Testing performed by : [facility], [address] [facility], [place]., [address] Blood 02/19/2025 1:00 PM CDT 02/19/2025 3:48 PM CDT Narrative [facility] ([place]) - 02/23/2025 4:00 PM CDT Collection->Peripheral Received only aerobic blood culture bottle 1. Blood cultures are incubated for 4 days on a continuously monitored blood culture system. The first report of a negative culture is issued within 24 hours of receipt of the specimen in the laboratory. 2. Positive culture results are reported as soon as they are detected. 3. The most important factor for detection of microbes in the setting of bloodstream infection is the volume of blood submitted for culture. Failure to collect an optimal blood volume can result in false negative blood cultures. 4. For pediatric patients, the recommended blood volume to collect follows a weight based strategy. See the electronic test catalog for collection instructions. 5. For positive blood cultures, a rapid molecular test may be performed for organism identification using the mohsen ePlex blood culture identification panel for gram positive (BCID-GP) and gram negative (BCID-GN) organisms. This nucleic acid amplification test detects microbial DNA in positive blood culture broth. This assay has been cleared by the [place] Food and Drug Administration and its performance characteristics have been verified by the [facility]. For questions about this culture, contact the Microbiology Laboratory at [phone]. Interpretive data was last revised on 24. Juan Carlos Haile MD LAB MICROBIOLOGY - GENERAL O RDERABLES Final Result Performing Organization Address [facility]/ZIP Co de Phone Number [facility] ([place]) 1 [facility] [place] [address] * (ABNORMAL) aPTT (02/19/2025 1:00 PM CDT) aPTT 24(L) 28 - 38 sec [facility] ([place]) Comment: Interpretive Data Heparin therapeutic range: 66.0 - 100.0 seconds. Range based on correlation with therapeutic heparin activity range of 0.3 - 0.7 Units/mL. Current interpretive data was last revised on 2023. Blood 02/19/2025 1:00 PM CDT 02/19/2025 1:02 PM CDT Juan Carlos Haile MD LAB BLOOD ORDERABLES Final R esult [facility] ([place]) 1 [facility] [place] [address] * Protime-INR (02/19/2025 1:00 PM CDT) PT 12.1 9.7 - 13.0 sec [facility] ([place]) INR 1.12 0.90 - 1.20 [facility] ([place]) Comment: Interpretive data Oral anticoagulant therapeutic ranges: Venous thromboembolism prophylaxis or treatment: 2.0-3.0 CARDIOLOGY Standard range: 2.0-3.0 High-intensity range: 2.5-3.5 Refer to indication-specific guidelines for appropriate target ranges for prosthetic heart valve replacement. Current interpretive data was last revised on 2019. Blood 02/19/2025 1:00 PM CDT 02/19/2025 1:02 PM CDT Juan Carlos Haile MD LAB BLOOD ORDERABLES Final R esult Performing Organization Address City/[facility]/ZIP Co de Phone Number [facility] ([place]) 1 [facility] [place] [address] * Magnesium (02/19/2025 1:00 PM CDT) Magnesium 2.0 1.4 - 2.5 mg/dL Blood 02/19/2025 1:00 PM CDT 02/19/2025 1:10 PM CDT Juan Carlos Haile MD LAB BLOOD ORDERABLES Final R esult Performing Organization Address [facility] Co de Phone Number [facility] ([place]) [address] [place] [address] [place] [address] * Lipase (02/19/2025 1:00 PM CDT) Lipase 22 10 - 99 Units/L Blood 02/19/2025 1:00 PM CDT 02/19/2025 1:10 PM CDT Juan Carlos Haile MD LAB BLOOD ORDERABLES Final R esult Performing Organization Address [facility] Co de Phone Number [facility] ([place]) 1 [facility] [place] [address] * (ABNORMAL) Comprehensive metabolic panel (02/19/2025 1:00 PM CDT) Sodium 136 135 - 145 mmol/L Potassium, pl 4.2 3.3 - 4.9 mmol/L [facility] ([place]) Chloride 106 97 - 110 mmol/L [facility] ([place]) CO2 17(L) 22 - 32 mmol/L [facility] ([place]) Anion gap 13 2 - 15 mmol/L [facility] ([place]) BUN 24 6 - 25 mg/dL [facility] ([place]) Creatinine 0.75 0.60 - 1.10 mg/dL [facility] ([place]) Glucose 79 70 - 199 mg/dL [facility] ([place]) Comment: Interpretive Data Fasting glucose >/= 126 mg/dl is diagnostic for diabetes. Fasting is defined as no caloric intake for at least 8 hours. Fasting glucose between 100 mg/dl to 125 mg/dl is diagnostic of prediabetes. In a patient with classic symptoms of hyperglycemia or hyperglycemic crisis, a random glucose >/= 200 mg/dl is diagnostic for diabetes. In the absence of unequivocal hyperglycemia, results should be confirmed by repeat testing. The classification and Diagnosis of Diabetes Diabetes Care 2021; 46: S19-S40. Current interpretive data was last revised 2022. Calcium 8.2(L) 8.5 - 10.3 mg/dL [facility] ([place]) Bilirubin, total <0.2 0.1 - 1.2 mg/dL [facility] ([place]) Protein, pl 5.7(L) 6.5 - 8.5 g/dL [facility] ([place]) Albumin 3.6 3.5 - 5.0 g/dL [facility] ([place]) Alk phos 99 40 - 130 Units/L [facility] ([place]) ALT 11 7 - 45 Units/L [facility] ([place]) AST 16 10 - 45 Units/L [facility] ([place]) Blood 02/19/2025 1:00 PM CDT 02/19/2025 1:02 PM CDT us Juan Carlos Haile MD LAB BLOOD ORDERABLES Final R esult [facility] ([place]) 1 [facility] [place] [address] * XR Chest 1 Vw Portable (if patient condition/safety warrant portable) (02/19/2025 12:45 PM CDT) Anatomical Region Laterality Modality Body, Chest N/A Computed Radiogr aphy 02/19/2025 1:51 PM CDT Narrative 02/19/2025 1:54 PM CDT EXAM DESCRIPTION: XR CHEST 1 VIEW REASON FOR STUDY: Other (type), sepsis Pt arrives by EMS from home for complaints of ALOC. Pt's neighbor found pt in her recliner at 9:15 altered. Pt's daughter was at her house at 6pm night before and pt was her normal. 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 TECHNIQUE: Single radiographic view(s) of the chest. COMPARISON: None FINDINGS: LUNGS: No focal opacity, pleural effusion, or pneumothorax. HEART/MEDIASTINUM: Cardiac silhouette normal in size. Mediastinal and hilar contours appear normal. There is atherosclerotic calcification of the aorta. LINES/TUBES: None. BONES: No acute osseous abnormality. IMPRESSION: No acute cardiopulmonary abnormality. THIS IS AN ELECTRONICALLY VERIFIED FINAL REPORT 02/19/2025 1:54 PM - Electronically signed by Richie Lindsey M.D. AM: AM Report ID: [id number] Reading Location: [id number] Procedure Note Richie Lindsey MD - 02/19/2025 EXAM DESCRIPTION: XR CHEST 1 VIEW REASON FOR STUDY: Other (type), sepsis Pt arrives by EMS from home for complaints of ALOC. Pt's neighbor foundpt in her recliner at 9:15 altered. Pt's daughter was at her house at 6pmnight before and pt was her normal. EMS states pt has been fighting sepsis onand off for 2 years. TECHNIQUE: Single radiographic view(s) of the chest. COMPARISON: None FINDINGS: LUNGS: No focal opacity, pleural effusion, or pneumothorax. HEART/MEDIASTINUM: Cardiac silhouette normal in size. Mediastinal andhilar contours appear normal. There is atherosclerotic calcification of theaorta. LINES/TUBES: None. BONES: No acute osseous abnormality. IMPRESSION: No acute cardiopulmonary abnormality. THIS IS AN ELECTRONICALLY VERIFIED FINAL REPORT 02/19/2025 1:54 PM - Electronically signed by Richie Lindsey M.D. AM: AM Report ID: [id number] Reading Location: [place] [address] Juan Carlos Haile MD IMG XR PROCEDURES Final Resu lt * (ABNORMAL) Sepsis Lactate w/ Reflex (02/19/2025 12:32 PM CDT) Sepsis Lactate 0.5(L) 0.7 - 2.0 mmol/L Blood 02/19/2025 12:3 2 PM CDT 02/19/2025 12:34 PM CDT Juan Carlos Haile MD LAB BLOOD ORDERABLES Final R esult Performing Organization Address [facility]/[place] de Phone Number [facility] ([place]) 1 [facility] [place] [address] * (ABNORMAL) Blood gas, arterial (02/19/2025 12:32 PM CDT) pH, Art 7.26(L) 7.35 - 7.45 PCO2, Arterial 47(H) 35 - 45 mmHg [facility] ([place]) PO2, Arterial 77(L) 83 - 108 mmHg [facility] ([place]) HCO3 Art (Calculated) 20 20 - 30 mmol/L [facility] ([place]) BE, art -6 mmol/L [facility] ([place]) Comment: Interpretive Data No Reference Range Established Current Interpretive Data was last revised on 2017 O2 Sat Art (Measured) 93 90 - 95 % [facility] ([place]) Blood 02/19/2025 12:3 2 PM CDT 02/19/2025 12:34 PM CDT Juan Carlos Haile MD LAB BLOOD ORDERABLES Final R esult Performing Organization Address [facility]/State/[facility] Co de Phone Number [facility] ([place]) 1 [facility] [place] [address] * ECG 12 lead (02/19/2025 12:26 PM CDT) 02/19/2025 12:2 6 PM CDT Narrative [facility] - 02/21/2025 6:43 AM CDT Vent Rate: 97 bpm RR Interval: 616 msec [place] Interval: 0 msec QRS Duration: 90 msec QT Interval: 384 msec QTC Interval: 438 msec P-R-T [place]: [id number] - 17 - 4 degrees IMPRESSION: Baseline artifact, possible ATRIAL FIBRILLATION WITH ABERRANT CONDUCTION OR VENTRICULAR PREMATURE COMPLEXES MODERATE ST DEPRESSION [0.05+ mV ST DEPRESSION] ABNORMAL ECG Need repeat EKG with stable baseline for accurate rhythm assessment Electronically Signed By: Aki Berg MD us Juan Carlos Haile MD ECG ORDERABLES Final Result Performing Organization Address [facility] Co de Phone Number [facility] * POCT glucose (02/19/2025 12:20 PM CDT) Glucose, POC 73 70 - 199 mg/dL Blood 02/19/2025 12:2 0 PM CDT 02/19/2025 12:20 PM CDT us Notinfile Unknown LAB POCT ORDERABLES - DEVICE F inal Result Performing Organization Address City/[facility] Co de Phone Number FELIPE KIMBALL ([place]) 1 [facility] [place] [address] * Electrocardiogram Report (01/24/2025 3:55 PM CDT) us Ivis Jaimes MD ECG ORDERABLES Jossie l Result * POCT lipid panel (01/24/2025 12:30 PM CDT) Cholesterol, POC 174 mg/dL Comment:GLU = 84 HDL, POC 99 mg/dL Triglycerides, POC 45 mg/dL LDL Cholesterol POC 66 mg/dL Chol/HDL Ratio, POC 0.7 Non-HDL Cholesterol, POC 75 mg/dL Cholesterol Total, POC 174 mg/dL Capillary blood 01/24/2025 1 2:30 PM CDT Ivis Jaimes MD POINT OF CARE TEST O RDERABLES Final Result from Last [address] [facility] Advance Directives For more information, please contact: [phone] * LIMITED - No CPR (Latest Code Status on File) Date Activated Date Inactivated Comments 02/20/2025 10:39 AM 02/21/2025 2:44 PM Question Answer Comments Provide aggressive medical m anagement before a full cardiopulmonary arrest occurs. Use antibiotics, IV Fluids, and medical treatment unless specifically selected below: No intubationNo non-invasive ventilationNo cardioversion * Full Code Date Activated Date Inactivated Comments 02/19/2025 5:10 PM 02/20/2025 10:39 AM Care Teams Underlay Stitcher Relationship Specialty Start Date End Date Julian Agarwal MD PCP - General Family Practice 07/24/23
--- OUTSIDE RECORDS SUMMARY | 2025-03-31 12:58 | XMS_ITS | Clinical Summary ---
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 Role Phone Julian Agarwal MD Primary Care Provider [phone] Allergies No known active allergies Medications amoxicillin 500 mg capsuleIndications :Other (complete free text reason below),sepsis L knee Take 2 tablet/capsule (1,000 mg total) by mouth 3 (three) times a day 3,000 mg daily 05/25/20 23 Active ARIPiprazole (ABILIFY) 20 mg tablet Take 0.5 tablets (10 mg total) by mouth 2 (two) times a day 06/25/20 23 Active armodafiniL (NUVIGIL) 150 mg tablet Take 1 tablet (150 mg total) by mouth 2 (two) times a day Active baclofen (LIORESAL) 5 mg tablet 5 MG ORALLY EVERY DAY AT BEDTIME 06/03/20 23 Active diazePAM (VALIUM) 5 mg tablet Take 1 tablet (5 mg total) by mouth 3 (three) times a day as needed for muscle spasms 06/30/20 23 Active ferrous gluconate 324 mg (37.5 mg of elemental iron) tablet Take 1 tablet (324 mg total) by mouth 2 (two) times a day 05/15/20 20 Active fluticasone propion-salmeteroL (Advair HFA) 115-21 mcg/actuation inhaler Inhale 2 puffs 2 (two) times a day 06/19/20 21 Active levothyroxine (SYNTHROID) 75 mcg tablet Take 1 tablet (75 mcg total) by mouth daily 07/10/20 23 Active nebulizers [facility] Indications: severe bronchospasm, wheezing, cough, SOB. Dispense [...] every 6 (six) hours as needed 10/31/19 25 Active predniSONE (DELTASONE) 10 mg tabletIndications: Acute flank pain,Lumbar muscle pain Take 1 tablet (10 mg) by mouth as directed 3 p.o. daily for 3 days then 2 p.o. daily for 3 days then 1 p.o. daily for 3 days. Collaborating physician Miko Leonard MD 18 tablet 12/23/19 25 Active Additional Information Patient not taking.Reported on 01/24/2025 metoprolol tartrate (LOPRESSOR) 25 mg immediate release tablet Take 1 tablet (25 mg total) by mouth 2 (two) times a day 60 tablet 01/25/20 25 026 Active dabigatran (PRADAXA) 150 mg capsule Take 1 capsule (150 mg total) by mouth 2 (two) times a day 60 capsule 01/25/20 25 Active albuterol HFA (PROVENTIL HFA,VENTOLIN HFA,PROAIR HFA) 90 mcg/actuation inhaler Inhale 1 puff every 4 (four) hours as needed for wheezing Active lidocaine (LIDODERM) 5 % Place 1 patch on the skin daily Remove & discard patch within 12 hours or as directed by . Active calcium carbonate-vitamin D3 1,250mg (500mg elemental) - 5 mcg (200 units) per tablet Take 1 tablet by mouth daily Active twjyhfzmyvhj-Gm-wu on-minerals tablet Take 1 tablet by mouth [...] mouth 2 (two) times a day 12/17/19 25 Active Active Problems Problem Noted Date Diagnosed [...] 04/19/2024 Atrial fibrillation 07/17/2023 Essential hypertension 07/17/2023 Encounters Date Type Department Care Team Description 02/19/2025 12:18 PM CDT - 02/21/2025 10:39 AM CDT Hospital Encounter [address] [address] Juan Carlos Haile MD Ong, MD Savannah [...] - 02/19/2025 11:59 PM CDT Hospital Encounter [facility] Emergency, Room R Discharge Disposition: Discharge to home or self care 01/24/2025 12:30 PM CDT Office Visit [facility] [address] [place] [address] Ivis Jaimes MD Paroxysmal atrial fibrillation (HCC) (Primary Dx); Essential hypertension from Last 3 Months Medical History Medical History Date Comments Arrhythmia Family History Medical History Relation Name Comments Cancer Father Heart failure Mother Relation Name Status Comments Father Mother Social History Tobacco Use Types Packs/Day Years [...] on file 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 Gender Identity Not on file Sexual Orientation Not on file Obstetrics History Last Filed Vital Signs Vital Sign Reading [...] 02/21/2025 7:42 AM CDT Plan of Treatment Health Maintenance Due Date Last Done Comments Colon Cancer Screening-Colonoscopy 1950 Depression Screening 1950 Hepatitis C Screening 1950 Osteoporosis Screening-Bone Density Scan 1949 DTaP/Tdap/Td Vaccine (1 - Tdap) 1960 Hepatitis B Screening 1967 Zoster Vaccine (1 of 2) 1999 Well Visit 65+ 2014 Covid-19 Vaccine (2023-2 5 season) 2024 09/27/2021, 02/01/2021, 01/07/2021 Influenza Vaccine (Season Ended) 2025 09/11/2022, 08/17/2021, 06/13/2015, Additional history exists Fall Risk Assessment 02/20/2026 02/20/2025, 07/17/20 23 Pneumococcal vaccine 65+ Completed 07/08/2019, 10/2014 Procedures Procedure Name Priority Date/Time Associated Diagnosis [...] 1 VIEW ED 02/19/2025 2:35 PM CDT [place] INSJ NON-TUNNELED CENTRAL VENOUS CATH AGE 5 [...] performed using Nucleic Acid Amplification with the BlackLight Power Xpert MRSA NxG Assay. This assay detects target DNA from mecA, mecC and the SCCmec insertion site of Staphylococcus aureus using Real-Time PCR and has been cleared by the FDA. Performance characteristics have been verified by the [facility]. Current Interpretive Data was last revised on 2023 Nasal 02/21/2025 7:50 AM CDT 02/21/2025 7:55 AM CDT Stephanie Mc MD LAB MICROBIOLOGY - GENERA L ORDERABLES Final Result Performing Organization Address City/[facility]/ZIP Co de Phone Number FELIPE [facility] [address] [facility] [place] [address] * POCT glucose (02/21/2025 3:51 AM CDT) Glucose, POC 141 70 - 199 mg/dL Blood 02/21/2025 3:51 AM CDT 02/21/2025 3:51 AM CDT Stephanie Mc MD LAB POCT ORDERABLES - DEV ICE Final Result FELIPE [facility] 1 [facility] [employer] [place] [address] * eGFR (02/21/2025 2:31 AM CDT) eGFR [...] data was last reviewed 2021. Blood 02/21/2025 2:3 1 AM CDT 02/21/2025 3:08 AM CDT us Ghada Parsons MD LAB BLOOD ORDERABLES Fi nal Result FELIPE [facility] 1 [facility] Department [place] [address] * (ABNORMAL) Differential, auto (02/21/2025 2:31 AM CDT) Neutrophil abs 4.04 1.50 - 6.50 K/cumm Imm gran abs 0.02 0.00 - 0.10 K/cumm [facility]) Lymphocyte abs 0.73(L) 0.80 - 3.30 K/cumm [facility]) Monocyte abs 0.16(L) 0.20 - 0.80 K/cumm [facility]) Eosinophil abs 0.00 0.00 - 0.50 K/cumm [facility]) Basophil abs 0.02 0.00 - 0.10 K/cumm [facility]) Neutrophil pct 81.3 % [facility] ([place]) Comment: Interpretive [...] LAB BLOOD ORDERABLES Fi nal Result FELIPE JIGAR ([place]) 1 [facility] [place] [address] * (ABNORMAL) CBC with auto differential (02/21/2025 [...] RDW SD 47.3 35.7 - 48.1 fL [facility] NRBC abs 0.00 0.00 - 0.01 K/cumm [facility] Blood 02/21/2025 2:31 AM CDT 02/21/2025 3:08 AM CDT Ghada Parsons MD LAB BLOOD ORDERABLES Fi nal Result Performing Organization Address City/[facility] Co de Phone Number [facility] ([place]) 1 [facility] [place] [address] * Magnesium (02/21/2025 2:31 AM CDT) Magnesium 1.9 1.4 - 2.5 mg/dL Blood 02/21/2025 2:31 AM CDT 02/21/2025 3:08 AM CDT Ghada Parsons MD LAB BLOOD ORDERABLES Fi nal Result [facility] ([place] [address] [facility] [place] [address] * Vancomycin level trough (02/21/2025 2:31 AM CDT) Vancomycin trough 17.2 10.0 - 20.0 mcg/mL Blood 02/21/2025 2:31 AM CDT 02/21/2025 3:08 AM CDT us Ghada Parsons MD LAB BLOOD ORDERABLES nal Result [facility] ([place]) 1 [facility] [place] [address] * (ABNORMAL) Comprehensive metabolic panel (02/21/2025 2:31 AM CDT) Pathologist [facility] Sodium 138 135 - 145 mmol/L Potassium, pl 4.5 3.3 - 4.9 mmol/L [facility] Chloride 106 97 - 110 mmol/L [facility] CO2 21(L) 22 - 32 mmol/L [...] AM CDT 02/21/2025 3:08 AM CDT us Kanustacie Jose Ramon Parsons MD LAB BLOOD ORDERABLES Fi nal Result [facility] ([place]) 1 [facility] [place] [address] * CT Chest WO Contrast (02/20/2025 1:17 [...] Cherrie Boyd M.D. FT: FT Report ID: [id number] Reading Location: [place] [address] Procedure Note Cherrie Markham MD - 02/20/2025 [...] Cherrie Boyd M.D. FT: FT Report ID: [id number] Reading Location: [id number] Stephanie Mc MD IMG CT PROCEDURES Final R esult * POCT glucose (02/20/2025 12:10 PM CDT) Pathologist [facility] Glucose, POC 111 70 - 199 mg/dL Blood 02/20/2025 12:1 0 PM CDT 02/20/2025 12:10 PM CDT Stephanie Mc MD LAB POCT ORDERABLES - DEV ICE Final Result [facility] 1 [facility] Department [place] [address] * (ABNORMAL) CBC without differential (02/20/2025 9:28 AM CDT) [facility] WBC 5.51 3.80 - 9.90 K/cumm Hgb 11.6(L) 11.9 - 15.5 g/dL [facility] Hct 36.0 35.6 - 45.5 % [facility] Plt 248 150 - 400 K/cumm [facility] MPV 9.0(L) 9.1 - 12.3 fL [facility] RBC 3.79(L) 3.90 - 5.20 M/cumm [facility] MCV 95.0 81.3 - 96.4 fL [facility] MCH 30.6 27.1 - 33.3 pg [facility] MCHC 32.2(L) 32.3 - 35.7 g/dL [facility] RDW CV 13.6 11.1 - 14.9 % [facility] RDW SD 47.5 35.7 - 48.1 fL [facility] NRBC abs 0.00 0.00 - 0.01 K/cumm [facility] ([place]) Blood 02/20/2025 9:28 AM CDT 02/20/2025 9:47 AM CDT Narrative [facility]IPE [facility]) - 02/20/2025 9:50 AM CDT Baseline prior to enoxaparin initiation. Stephanie Mc MD LAB BLOOD ORDERABLES Jossie l Result [facility]) 1 [facility] [place] [address] * POCT glucose (02/20/2025 8:30 AM CDT) Glucose, POC 137 70 - 199 mg/dL Blood 02/20/2025 8:30 AM CDT 02/20/2025 8:30 AM CDT Stephanie Mc MD LAB POCT ORDERABLES - DEV ICE Final Result Performing Organization Address City/[facility]/ZIP Co de Phone Number [facility] ([place]) 1 [facility] [place] [address] * eGFR (02/20/2025 3:05 AM CDT) eGFR [...] MD LAB BLOOD ORDERABLES Fi nal Result [facility] 1 [facility] [place] [address] * (ABNORMAL) Differential, auto (02/20/2025 3:05 AM CDT) Neutrophil abs 6.28 1.50 - 6.50 K/cumm Imm gran abs 0.03 0.00 - 0.10 K/cumm [facility]) Lymphocyte abs 0.53(L) 0.80 - 3.30 K/cumm [...] us Ghada Parsons MD LAB BLOOD ORDERABLES [facility] Result [facility] ([place]) 1 [facility] [place] [address] * (ABNORMAL) CBC with auto differential (02/20/2025 3:05 AM CDT) WBC 6.95 3.80 - 9.90 K/cumm Hgb 11.6(L) 11.9 - 15.5 g/dL [facility] Hct 36.1 35.6 - 45.5 % [facility] Plt 237 150 - 400 K/cumm [facility]) MPV 8.4(L) 9.1 - 12.3 fL [facility] RBC 3.75(L) 3.90 - 5.20 M/cumm [facility] MCV 96.3 81.3 - 96.4 fL [facility] MCH 30.9 27.1 - 33.3 pg [facility] MCHC 32.1(L) 32.3 - 35.7 g/dL [facility] RDW CV 13.7 11.1 - 14.9 % [facility] RDW SD 48.5(H) 35.7 - 48.1 fL [facility] ([place]) NRBC abs 0.00 0.00 - 0.01 K/cumm [facility] ([place]) Blood 02/20/2025 3:05 AM CDT 02/20/2025 3:31 AM CDT Ghada Parsons MD LAB BLOOD ORDERABLES Fi nal Result [facility] ([place]) 1 [facility] [place] [address] * TSH (02/20/2025 3:05 AM CDT) Thyroid Stimulating Hormone 0.63 0.30 - 4.20 mcIUnit/mL Blood 02/20/2025 3:05 AM CDT 02/20/2025 8:10 AM CDT Stephanie Mc MD LAB BLOOD ORDERABLES Jossie l Result Performing Organization Address City/[facility]/ZIP Co de Phone Number [facility] ([place]) 1 [facility] [place] [address] * Magnesium (02/20/2025 3:05 AM CDT) Magnesium 2.0 1.4 - 2.5 mg/dL Blood 02/20/2025 3:05 AM CDT 02/20/2025 3:31 AM CDT Ghada Parsons MD LAB BLOOD ORDERABLES Fi nal Result Performing Organization Address City/[facility] Co de Phone Number [facility] ([place]) 1 [facility] [place] [address] * Hemoglobin A1c (02/20/2025 3:05 AM CDT) Hgb A1C 5.3 4.0 - 5.6 % Estimated Average Glucose 105 mg/dL FELIPE RODRIGUEZ) Comment: The ADA recommends reporting an estimated Average Glucose (eAG) with all Hemoglobin A1c results using the equation derived from a study of 507 normal and diabetic adults. Minority populations were underrepresented and children were not included. (Diabetes Care 31:1430-7669, 2008). The eAG is not equivalent to a fasting glucose. Blood 02/20/2025 3:05 AM CDT 02/20/2025 6:41 AM CDT us Ghada Parsons MD LAB BLOOD ORDERABLES Fi nal Result FELIPE RODRIGUEZ) 1 [facility] [place] [address] * Lipid panel (02/20/2025 3:05 AM CDT) Cholesterol 180 30 - 199 mg/dL Comment: [...] on 2018. Triglycerides 62 <=149 mg/dL [facility] ROD[facility]IG[facility]) Comment: Interpretive Data Ages < or = [...] revised on 2018. HDL 79 >=40 mg/dL F[facility]PIE [facility] ([place]) Comment: Interpretive Data Ages < [...] last revised on 2018. Chol/HDL ratio 2 [facility]) Blood 02/20/2025 3:05 AM CDT 02/20/2025 6:41 AM CDT us Ghada Parsons MD LAB BLOOD ORDERABLES Fi nal Result [facility] ([place]) 1 [facility] [place] [address] * (ABNORMAL) Comprehensive metabolic panel (02/20/2025 3:05 AM CDT) Sodium 138 135 - 145 mmol/L Potassium, pl 4.6 3.3 - 4.9 mmol/L [facility]) Chloride 106 97 - 110 mmol/L [facility]) CO2 19(L) 22 - 32 [...] nal Result Performing Organization Address [facility]/ZIP Co de Phone Number [facility]IPE [facility] ([place]) 1 [facility] [place] [employer] [place] [address] * Strep pneumoniae antigen, urine Urine (02/19/2025 [...] last revised on 2022 Testing performed by: [address] [address] Urine 02/19/2025 10:0 6 PM CDT 02/20/2025 3:20 PM CDT Ghada Parsons MD LAB MICROBIOLOGY - GENE RAL ORDERABLES Final Result Performing Organization Address [facility]/ZIP Co de Phone Number FELIPE [facility] 1 [facility] [place] [address] * Legionella antigen Urine (02/19/2025 10:06 PM CDT) Legionella Ag Negative Negative Comment: Interpretive Data This test detects only Legionella pneumophila serogroup 1 antigen. Current interpretive data was last revised on 2019. Testing performed by: [address], [place]., [address] Urine 02/19/2025 10:0 6 PM CDT 02/20/2025 3:20 PM CDT us Ghada Parsons MD LAB MICROBIOLOGY - GENE RAL ORDERABLES Final Result [facility] [place]) 1 [facility] [place] [address] * CT Chest PE (CTA) Abdomen Pelvis [...] Dwaine Mcnulty M.D. AR: ROMAN Report ID: [id number] Reading Location: [id number] Procedure Note Dwaine Mcnulty MD - 02/19/2025 [...] indeterminate left apex pulmonary nodule. 3 to [id number]-ko chest CT recommended. Per Fleischner Society Guidelines, consider one ofthe following for both low-risk and high-risk individuals: (a) repeat chest CTin 3 months, (b) follow-up PET-CT, or (c) tissue sampling. No acute abdominal/pelvic abnormality identified. THIS IS AN ELECTRONICALLY VERIFIED FINAL REPORT 02/19/2025 10:13 PM - Electronically signed by Dwaine Mcnulty M.D. AR: ROMAN Report ID: [id number] Reading Location: [id number] Ghada Parsons MD IMTanner CT PROCEDURES Final Result * (ABNORMAL) Blood gas, venous (02/19/2025 8:49 PM CDT) pH, Venous 7.28(L) 7.32 - 7.43 PCO2, Venous 48 40 - 50 mmHg [facility] PO2, Venous 72 mmHg [facility] HCO3 Venous, Calculated 22 20 - 30 mmol/L [facility] ([place] BE, venous -4 mmol/L [facility] Comment: Interpretive Data No Reference Range Established Current Interpretive Data was last revised on 2018. Blood 02/19/2025 8:49 PM CDT 02/19/2025 8:57 PM CDT us Ghada Parsons MD LAB BLOOD ORDERABLES Fi nal Result [facility] 1 [facility] [place] [address] * Influenza A/B, RSV, and COVID-19 PCR Nasopharyngeal (02/19/2025 8:43 PM CDT) COVID-19 RNA Negative Negative Influenza A RNA Negative Negative [facility] Influenza B RNA Negative Negative [facility] RSV RNA Negative Negative [facility] Comment: Interpretive data: Testing performed by [facility]. This test is performed using the BlackLight Power Xpert Xpress CoV-2/Flu/RSV plus assay. This is a multiplex, real- time reverse transcriptase PCR assay intended for the qualitative detection of nucleic acid from SARS-CoV-2, influenza A, influenza B, and respiratory syncytial virus. This assay has been cleared by the [place] Food and Drug administration. The performance characteristics have been verified by the [facility]. Results must be considered in the clinical context, and a negative result does not rule out infection. Interpretive Data last revised 2023 Nasopharyngeal 02/19/2025 8: 43 PM CDT 02/19/2025 8:47 PM CDT Narrative [facility] - 02/19/2025 9:33 PM CDT Is the Patient experiencing symptoms consistent with COVID?->Yes us Ghada Parsons MD LAB MICROBIOLOGY - GENE RAL ORDERABLES Final Result [facility] [place] 1 [facility] [place] [address] * CT Head WO Contrast (02/19/2025 4:01 [...] Mehul Taylor M.D. AT: AT Report ID: [id number] Reading Location: [id number] Procedure Note Mehul Taylor MD - 02/19/2025 [...] Mehul Taylor M.D. AT: AT Report ID: [id number] Reading Location: [id number] Juan Carlos Haile MD IM CT PROCEDURES Final Resu lt * (ABNORMAL) Troponin T high-sensitivity 2-hour (02/19/2025 2:46 PM CDT) Trop T hs 20(H) <=14 ng/L Comment: Interpretive Data For further hscTnT resources including the diagnostic algorithm and an aid in interpretation, copy and paste this link: https://nrl.testcatalog.org/show/hsTrop Current Interpretive Data last revised 2020. Trop T hs delta 0 ng/L [facility] Trop T hs interp Insignificant [facility] Blood 02/19/2025 2:46 PM CDT 02/19/2025 2:51 PM CDT us Juan Carlos Haile MD LAB BLOOD ORDERABLES Final R esult [facility] ([place]) 1 [facility] [place] [address] * XR Kub (Abd 1 View) (02/19/2025 [...] Richie Lindsey M.D. AM: AM Report ID: [id number] Reading Location: [id number] Procedure Note Richie Lindsey MD - 02/19/2025 [...] Richie Lindsey M.D. AM: AM Report ID: [id number] Reading Location: [id number] us Juan Carlos Haile MD IMG XR [...] Richie Lindsey M.D. AM: AM Report ID: [id number] Reading Location: [id number] Procedure Note Richie Lindsey MD - 02/19/2025 [...] Richie Lindsey M.D. AM: AM Report ID: [id number] Reading Location: [id number] us Juan Carlos Haile MD IMG XR PROCEDURES Final Resu lt * [place] INSJ NON-TUNNELED CENTRAL VENOUS CATH AGE 5 YR/> (02/19/2025 2:29 PM CDT) Narrative Juan Carlos Haile MD - 02/19/2025 2:29 PM CDT Juan Carlos Haile MD 02/19/2025 2:32 PM Central Line Date/Time: 02/19/2025 2:29 PM Performed by: Juan Carlos Haile MD Authorized by: Shantal Crespo MD [place] Protocol: Informed consent: Risks, benefits, alternatives discussed [...] central line left IJ, right IJ, unsuccessful. us Shantal Crespo MD IN CLINIC/BEDSIDE ORDERABLES Fin al Result * Urinalysis reflex to microscopic and culture Urine (02/19/2025 1:52 PM CDT) Color, ur Yellow Yellow Clarity, ur Clear Clear [facility]) Specific gravity, ur 1.017 1.003 - 1.030 [facility] ([place]) pH, urine 5.5 [facility]) Comment: Interpretive Data U rine pH is affected by diet, medications, systemic acid-base disturbances, and renal tubular function. pH may affect urinary stone formation. For example, urine pH below 6.0 may help reduce the tendency for calcium phosphate stones and pH greater than 6.0 may reduce the tendency for uric acid stone formation. Source: [facility] [employer] Current Interpretive Data was last revised on [...] If patient unable to urinate, straight cath us Juan Carlos Haile MD LAB MICROBIOLOGY - GENERAL O RDERABLES Final Result [facility] ([place]) [address] Department [place] [address] * Blood culture Blood (02/19/2025 1:52 PM CDT) Report Final Report: No growth Comment:Testing performed by : [facility], 1 [facility] [place]., [address] Blood 02/19/2025 1:52 PM CDT 02/19/2025 3:48 PM CDT Narrative [facility] ([place]) - 02/23/2025 4:00 PM CDT From [...] performance characteristics have been verified by the [facility]. For questions about this culture, contact the Microbiology Laboratory at [phone]. Interpretive data was last revised on 24. Juan Carlos Haile MD LAB MICROBIOLOGY - GENERAL O RDERABLES Final Result [facility] ([place]) 1 [facility] Department [place] [address] * (ABNORMAL) Troponin T high-sensitivity series (baseline, 2hr, 4hr, 6hr) (02/19/2025 1:00 PM CDT) Trop T hs 20(H) <=14 ng/L Comment: Interpretive Data For further hscTnT resources including the diagnostic algorithm and an aid in interpretation, copy and paste this link: https://nrl.testcatalog.org/show/hsTrop Current Interpretive Data last revised 2020. Blood 02/19/2025 1:00 PM CDT 02/19/2025 1:10 PM CDT Juan Carlos Haile MD LAB BLOOD ORDERABLES Final R esult FELIPE KIMB[facility] ([address] Department [place] [address] * eGFR (02/19/2025 1:00 PM CDT) eGFR 83 >=60 mL/min/1. 73 m2 Comment: [...] LAB BLOOD ORDERABLES Final R esult FELIPE [facility]) 1 [facility] [place] [address] * Differential, auto (02/19/2025 1:00 PM CDT) [...] Neutrophil pct 74.3 % [facility] Comment: Interpretive Data Percent cell count reference ranges are not reported, since discordance with absolute values may lead to misinterpretation of CBC data. Current Interpretive Data was last revised on 2018. Imm gran pct 0.3 % [facility] Comment: Interpretive Data Percent cell count reference [...] Eosinophil pct 1.6 % [facility] Comment: Interpretive Data Percent cell count reference [...] MD LAB BLOOD ORDERABLES Final R esult [facility] ([place] 1 [facility] [place] [address] * (ABNORMAL) Pro B-type natriuretic peptide (02/19/2025 [...] Heart J. 2006:27:330-337. 2. Chris RW, Santi AM. J. AM Marisela Cardiol: Cardiovasc Imag. 2009;2: 216- 225. Interpretive Data Last Revised Date: 2018. Blood 02/19/2025 1:00 PM CDT 02/19/2025 1:02 PM CDT Juan Carlos Haile MD LAB BLOOD ORDERABLES Final R esult Performing Organization Address City/[facility]/ZIP Co de Phone Number [facility] ([place] [address] [facility] [place] [address] * (ABNORMAL) CBC with auto differential (02/19/2025 1:00 PM CDT) Pathologist [facility] WBC 6.22 3.80 - 9.90 K/cumm Hgb 11.3(L) 11.9 - 15.5 g/dL [facility] ([place]) Hct 36.6 35.6 - 45.5 % [facility]) Plt 193 150 - 400 K/cumm [facility]) MPV 8.3(L) 9.1 - 12.3 fL [facility] RBC 3.72(L) 3.90 - 5.20 M/cumm [facility] ([place]) MCV 98.4(H) 81.3 - 96.4 fL [facility] ([place]) MCH 30.4 27.1 - 33.3 pg [facility]) MCHC 30.9(L) 32.3 - 35.7 g/dL [facility]) RDW CV 13.7 11.1 - 14.9 % [facility]) RDW SD 49.5(H) 35.7 - 48.1 fL [facility]) NRBC abs 0.00 0.00 - 0.01 K/cumm [facility] Blood 02/19/2025 1:00 PM CDT 02/19/2025 1:02 PM CDT Juan Carlos Haile MD LAB BLOOD ORDERABLES Final R esult Performing Organization Address City/[facility] Hospital/ZIP Co de Phone Number [facility] ([place]) 1 [facility] [place] [address] * Blood culture Blood (02/19/2025 1:00 PM CDT) Report Final Report: No growth Comment:Testing performed by : [facility], [address] [place]., [address] Blood 02/19/2025 1:00 PM CDT 02/19/2025 3:48 PM CDT Narrative FELIPE [facility]IGAR ([place]) - 02/23/2025 4:00 PM CDT Collection->Peripheral [...] performance characteristics have been verified by the [facility]. For questions about this culture, contact the Microbiology Laboratory at [phone]. Interpretive data was last revised on 24. us Juan Carlos Haile MD LAB MICROBIOLOGY - GENERAL O RDERABLES Final Result [facility] ([place]) 1 [facility] Department of Laboratories [place], [place] [id number] * (ABNORMAL) aPTT (02/19/2025 1:00 PM CDT) aPTT 24(L) 28 - 38 sec [facility] ([place]) Comment: Interpretive Data Heparin therapeutic range: 66.0 - 100.0 seconds. Range based on correlation with therapeutic heparin activity range of 0.3 - 0.7 Units/mL. Current interpretive data was last revised on 2023. Blood 02/19/2025 1:00 PM CDT 02/19/2025 1:02 PM CDT Juan Carlos Haile MD LAB BLOOD ORDERABLES Final R esult Performing Organization Address [facility] Co de Phone Number [facility] 1 [facility] [place] [address] * Protime-INR (02/19/2025 1:00 PM CDT) PT 12.1 9.7 - 13.0 sec [facility] INR 1.12 0.90 - 1.20 [facility] ([place]) Comment: Interpretive data Oral anticoagulant therapeutic ranges: Venous thromboembolism prophylaxis or treatment: 2.0-3.0 CARDIOLOGY Standard range: 2.0-3.0 High-intensity range: 2.5-3.5 Refer to indication-specific guidelines for appropriate target ranges for prosthetic heart valve replacement. Current interpretive data was last revised on 2019. Blood 02/19/2025 1:00 PM CDT 02/19/2025 1:02 PM CDT Juan Carlos Haile MD LAB BLOOD ORDERABLES Final R esmunir Performing Organization Address [facility] Co de Phone Number [facility] ([place]) [address] [place] [address] [place] [address] * Magnesium (02/19/2025 1:00 PM CDT) Magnesium 2.0 1.4 - 2.5 mg/dL Blood 02/19/2025 1:00 PM CDT 02/19/2025 1:10 PM CDT Juan Carlos Haile MD LAB BLOOD ORDERABLES Final R esult [facility] ([place]) 1 [facility] [place] [address] * Lipase (02/19/2025 1:00 PM CDT) Lipase 22 10 - 99 Units/L Blood 02/19/2025 1:00 PM CDT 02/19/2025 1:10 PM CDT Juan Carlos Haile MD LAB BLOOD ORDERABLES Final R esult Performing Organization Address [facility]/ZIP Co de Phone Number [facility] ([place]) 1 [facility] [place] [employer] [place] [address] * (ABNORMAL) Comprehensive metabolic panel (02/19/2025 1:00 [...] Final R esult [facility] ([place]) 1 [facility] [place] [address] * XR Chest 1 Vw Portable (if [...] 1:54 PM - Electronically signed by Richie Rosalia Lindsey M.D. AM: AM Report ID: [id number] Reading Location: [id number] Procedure Note Richie Lindsey MD - 02/19/2025 [...] Richie Lindsey M.D. AM: AM Report ID: [id number] Reading Location: [id number] Juan Carlos Haile MD IMG XR PROCEDURES Final Resu lt * (ABNORMAL) Sepsis Lactate w/ Reflex (02/19/2025 12:32 PM CDT) Sepsis Lactate 0.5(L) 0.7 - 2.0 mmol/L Blood 02/19/2025 12:3 2 PM CDT 02/19/2025 12:34 PM CDT Juan Carlos Haile MD LAB BLOOD ORDERABLES Final R esult [facility] ([place]) 1 [facility] [place] [place] [address] * (ABNORMAL) Blood gas, arterial (02/19/2025 12:32 PM CDT) pH, Art 7.26(L) 7.35 - 7.45 PCO2, Arterial 47(H) 35 - 45 mmHg [facility] ([place]) PO2, Arterial 77(L) 83 - 108 mmHg [facility] ([place]) HCO3 Art (Calculated) 20 20 - 30 mmol/L [facility] ([place]) BE, art -6 mmol/L [facility] ([place]) Comment: Interpretive Data No Reference Range Established Current Interpretive Data was last revised on 2017 O2 Sat Art (Measured) 93 90 - 95 % [facility] ([place]) Blood 02/19/2025 12:3 2 PM CDT 02/19/2025 12:34 PM CDT Juan Carlos Haile MD LAB BLOOD ORDERABLES Final R esult Performing Organization Address City/[facility]/ZIP Co de Phone Number [facility] ([place]) 1 [facility] [place] [address] * ECG 12 lead (02/19/2025 12:26 PM CDT) 02/19/2025 12:2 6 PM CDT Narrative [facility] - 02/21/2025 6:43 AM CDT Vent Rate: 97 bpm RR Interval: 616 msec [place] Interval: 0 msec QRS Duration: 90 msec QT Interval: 384 msec QTC Interval: 438 msec P-R-T [place]: [id number] - 17 - 4 degrees IMPRESSION: Baseline artifact, possible ATRIAL FIBRILLATION WITH ABERRANT CONDUCTION OR VENTRICULAR PREMATURE COMPLEXES MODERATE ST DEPRESSION [0.05+ mV ST DEPRESSION] ABNORMAL ECG Need repeat EKG with stable baseline for accurate rhythm assessment Electronically Signed By: Aki Berg MD Juan Carlos Haile MD ECG ORDERABLES Final Result Performing Organization Address City/[facility]/ZIP Co de Phone Number [facility] [employer] [facility] * POCT glucose (02/19/2025 12:20 PM CDT) Glucose, POC 73 70 - 199 mg/dL Blood 02/19/2025 12:2 0 PM CDT 02/19/2025 12:20 PM CDT Notinfile Unknown LAB POCT ORDERABLES - DEVICE F inal Result [facility] ([place]) 1 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
--- OUTSIDE RECORDS SUMMARY | 2025-03-31 12:58 | XMS_ITS | Clinical Summary ---
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 Systems Professor Name Role Phone Unavailable Primary Care Provider Unavailabl e Social History Tobacco Use Types Packs/Day Years Used Date Smoking Tobacco: Never Assessed Comments Unknown Sex and Gender Information Value Date Recorded Sex Assigned at Not on file Legal Sex Female 6:08 PM CDT Gender Identity Not on file Sexual Orientation Not on file Plan of Treatment Health Maintenance Due Date Last Done Comments Colorectal Cancer Screening Colonoscopy (10 Years) 1949 Hepatitis C 1967 DTaP, Tdap and Td Vaccines ( 1 - Tdap) 1968 Pneumococcal Vaccine: 50+ Ye ars (1 of 1 - PCV) 1999 Zoster Vaccines (1 of 2) 1999 Dexa Scan (General) 2014 RSV Immunization or 60+ Years (1 - 1-dose 75+ series) 2024 COVID-19 Vaccine ( - 2023-2 5 season) 2024 Meningococcal B Vaccine Aged Out No l onger eligible based on patient's age to complete this topic Meningococcal Vaccine Aged Out No otis darin eligible based on patient's age to complete this topic RSV Immunizations Under 20 Months Aged Out No longer eligible based on patient's age to complete this topic
--- OUTSIDE RECORDS SUMMARY | 2025-03-31 12:58 | XMS_ITS | Clinical Summary ---
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 Active desvenlafaxine (PRISTIQ) 100 mg Extended Release 24 hour tablet Take 100 mg by mouth daily. Active lamoTRIgine (LaMICtal) 150 mg tablet Take 150 mg by mouth daily. Active metoprolol succinate (TOPROL XL) 25 mg Extended Release 24 hour tablet Take 25 mg by mouth daily. Active pantoprazole (PROTONIX) 40 mg Tablet, Delayed Release (E.C.) Take 40 mg by mouth daily. 10/06/20 20 Active QUEtiapine (SEROquel) 300 mg tablet Take 300 mg by mouth daily. Active tiZANidine (ZANAFLEX) 4 mg Tablet Take 4 mg by mouth daily. Active gabapentin (NEURONTIN) 600 mg tablet Take 600 mg by mouth 2 times daily. 04/12/20 19 Active ferrous gluconate 324 mg (38 mg iron) tablet Take 1 Tablet by mouth daily. 05/15/20 20 Active mv-mn/iron fum/FA/omega3,6,9# 3 (WOMEN'S MULTI ORAL) Take by mouth. Activ e calcium carbonate (CALCIUM 600 ORAL) Take 2 Tablets by mouth daily. Active vitamin B complex (B COMPLEX 1 ORAL) Take by mouth. Active ipratropium bromide (ATROVENT) 21 mcg (0.03 %) [place], Non-Aerosol Administer 2 Sprays in each nostril 2 times daily. Active rOPINIRole (REQUIP) 2 mg Tablet Take 2 mg by mouth. Active vortioxetine (Trintellix) 10 mg tablet Take 5 mg by mouth daily. Active ARMODAFINIL ORAL Take 100 mg by mouth daily. Active pravastatin (PRAVACHOL) 20 mg tabletIndications: Hyperlipidemia, unspecified hyperlipidemia type Take 1 Tablet (20 mg) by mouth daily at bedtime. 90 Tablet 3 12/10/19 Active Active Problems Patient Care Coordination No te Formatting of this note migh t be different from the original. Vascular Associate Professor Of Theology - Dr. Jamil Rangel MD, [facility], [facility] - [address] [facility] Dr. 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 Gender Identity Not on file Sexual Orientation Not on file Last Filed Vital Signs Vital Sign Reading Time Taken Comments Blood Pressure 124/78 12/05/2021 11:21 AM CONTA[employer] SERVICE [employer]ERKS SUPERVISOR Pulse 76 12/05/2021 11:21 AM CONTA[employer] SERVICE CLER[employer] SUPERVISOR Temperature - - Respiratory Rate - - Oxygen Saturation 95% 12/05/2021 11:21 AM CONTA[employer] AND SERVICE CLERKS SUPERVISOR Inhaled Oxygen Concentration - - Weight 71.7 kg (158 lb) 12/05/2021 11:21 AM CONTA[employer] AND SERVICE [employer]ERKS SUPERVISOR Height 165.1 cm (5' 5) 12/05/2021 11:21 AM CONTA[employer] AND SERVICE CLERKS SUPERVISOR Body Mass Index 26.29 12/05/2021 11:21 AM CONTACT AND SERVICE CLERKS SUPERVISOR Plan of Treatment Health Maintenance Due Date Last Done Comments DTAP/TDAP/TD VACCINES (1 - Tdap) 1968 COLORECTAL SCREENING 1994 Colorectal Cancer Screening 1994 FIT-DNA Q 3 years 1994 FIT/FOBT Q 1 year 1994 Flex Sig/CT Colonography Q 5 years 1994 ZOSTER VACCINE (1 of 2) 1999 OSTEOPOROSIS SCREENING 2014 RSV VACCINE (60+ or ) (1 - 1-dose 75+ series) 2024 INFLUENZA VACCINE (#1) 2024 06/29/2019 PNEUMOCOCCAL VACCINE 50+ YEARS Completed 07/08/2019 , 06/13/2015 Insurance [facility] [facility] Address: [place] [address] Care Teams 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
== END 2025-03-31 12:42 | disposition home or self-care (01) ==
PROVIDERS: PCP Family Medicine; Visit Provider Family Medicine
DX: S09.90XA Unspecified injury of head, initial encounter (principal); X58.XXXA Exposure to other specified factors, initial encounter
CPT/HCPCS: 70450

== ENCOUNTER 2025-04-02 14:12 | Outpatient (CLI) | payer OTHER, SELFPAY ==
--- NOTE | ~2025-04-02 | MR_ITS ---
MRI of the brain Clinical History: Head injury Technique: Axial and sagittal T1-weighted images were acquired. These were followed by axial T2-weigh manjit, diffusion weighted, gradient, and FLAIR images. Findings: There is no acute infarct, intracranial hemorrhage or mass lesion. There is mild to moderat e chronic white matter change in the periventricular white matter bilaterally. Ventricles and subarachnoid spaces are minimally dilated. Orbits are unremarkable. Paranasal sinuses and mastoid air cells are clear. Major intracranial flow voids are intact. Sagittal midline structures are intact. IMPRESSION: No acute infarct, intracranial hemorrhage, or mass lesion. Mild to moderate chronic microvascular ischemic change. Reviewed, dictated and finalized at location .
== END 2025-04-02 14:13 | disposition home or self-care (01) ==
PROVIDERS: PCP Family Medicine; Visit Provider Family Medicine
DX: S09.90XA Unspecified injury of head, initial encounter (principal); X58.XXXA Exposure to other specified factors, initial encounter; R93.0 Abnormal findings on diagnostic imaging of skull and head, not elsewhere classified
CPT/HCPCS: 70551

== ENCOUNTER 2025-05-19 11:35 | Outpatient (CLI) | payer OTHER, SELFPAY ==
--- OUTSIDE RECORDS SUMMARY | 2025-05-19 11:39 | XMS_ITS | Clinical Summary ---
Author Organization [facility] Address [address] [place] [address] Care Team Providers Care Stemmer Machine Name Role Phone Julian Agarwal MD Primary Care Provider [phone] Allergies No known active allergies Medications amoxicillin 500 mg capsuleIndication s:Other (complete free text reason below),sepsis L knee Take 2 tablet/capsule (1,000 mg total) by mouth 3 (three) times a day 3,000 mg daily 023 Active ARIPiprazole (ABILIFY) 20 mg tablet Take 0.5 tablets (10 mg total) by mouth 2 (two) times a day 023 Active armodafiniL (NUVIGIL) 150 mg tablet Take 1 tablet (150 mg total) by mouth 2 (two) times a day Active baclofen (LIORESAL) 5 mg tablet 5 MG ORALLY EVERY DAY AT BEDTIME 023 Active diazePAM (VALIUM) 5 mg tablet Take 1 tablet (5 mg total) by mouth 3 (three) times a day as needed for muscle spasms 023 Active ferrous gluconate 324 mg (37.5 mg of elemental iron) tablet Take 1 tablet (324 mg total) by mouth 2 (two) times a day 020 Active fluticasone propion-salmetero L (Advair HFA) 115-21 mcg/actuation inhaler Inhale 2 puffs 2 (two) times a day 021 Active levothyroxine (SYNTHROID) 75 mcg tablet Take 1 tablet (75 mcg total) by mouth daily 023 Active nebulizers [facility] Indications: severe bronchospasm, wheezing, cough, SOB. Dispense one nebulizer unit Use as directed [address] (PROTONIX) 40 mg EC tablet Take 1 tablet (40 mg total) by mouth daily Active QUEtiapine (SEROquel) 300 mg tablet Take 1 tablet (300 mg total) by mouth nightly Active sertraline (ZOLOFT) 100 mg tablet Take 1 tablet (100 mg total) by mouth every morning 023 Active rOPINIRole (REQUIP) 2 mg tablet Take 1 tablet (2 mg total) by mouth nightly at bedtime. Active celecoxib (CeleBREX) 200 mg capsule 023 Active traMADoL (ULTRAM) 50 mg tabletIndications :Primary osteoarthritis of left knee Take 1 tablet (50 mg total) by mouth every 8 (eight) hours as needed for pain for up to 7 days 21 tablet 025 Active tiZANidine (ZANAFLEX) 4 mg tablet Take 1 tablet (4 mg total) by mouth every 6 (six) hours as needed 025 Active predniSONE (DELTASONE) 10 mg tabletIndications :Acute flank pain,Lumbar muscle pain Take 1 tablet (10 mg) by mouth as directed 3 p.o. daily for 3 days then 2 p.o. daily for 3 days then 1 p.o. daily for 3 days. Collaborating physician Miko Leonard MD 18 tablet 025 Active Additional Information Patient not taking.Reported on 04/25/2025 dabigatran (PRADAXA) 150 mg capsule Take 1 capsule (150 mg total) by mouth 2 (two) times a day 60 capsule 11 025 Active albuterol HFA (PROVENTIL HFA,VENTOLIN HFA,PROAIR HFA) [...] Take 1 tablet by mouth daily Active igdlkfwepvea-Gl-k onur-minerals tablet Take 1 tablet by mouth daily Active traMADoL (ULTRAM) 50 mg tablet Take 1 tablet (50 mg total) by mouth every 6 (six) hours as needed for pain Active semaglutide 0.25 mg/0.05 mL syringe Inject 0.5 mL under the skin once a week Active lamoTRIgine (LaMICtal) 150 mg tablet Take 1 tablet (150 mg total) by mouth 2 (two) times a day 025 Active metoprolol tartrate (LOPRESSOR) 50 mg immediate release tablet Take 1 tablet (50 mg total) by mouth 2 (two) times a day 60 tablet 11 025 2025 Active metoprolol tartrate (LOPRESSOR) 25 mg immediate release tablet Take 1 tablet (25 mg total) by mouth 2 (two) times a day 60 tablet 025 2024 Discontinued Active Problems Problem Noted Date Diagnosed Date Dyspnea on exertion 04/25/2025 Pneumonia of left lung due to infectious [...] Encounters Date Type Department Care Team Description 04/25/2025 11:30 AM CDT Office Visit [facility] Cardiology [address] [facility] [address] [place] [id number] Ivis Jaimes MD Essential hypertension (Primary Dx); Paroxysmal atrial fibrillation (HCC); Dyspnea on exertion 02/19/2025 12:18 PM CDT - 02/21/2025 10:39 AM CDT Hospital Encounter [facility] IMU [address] [place] [address] Juan Carlos Haile MD Zak, MD Savannah Murguia Victoria Rose, DO Kheirkhahan, Nazanin, MD Sepsis, due to unspecified organism, unspecified whether acute organ dysfunction present (HCC) (Primary Dx); Pneumonia of left lung due to infectious organism, unspecified part of lung; Altered mental status, unspecified altered mental status type [R41.82]; Esophageal dysphagia Discharge Disposition: Left Against Medical Advice 02/19/2025 12:06 PM CDT - 02/19/2025 11:59 PM CDT Hospital Encounter [facility] Emergency, Room R Discharge Disposition: Discharge to home or self care from Last 3 Months Medical History Medical [...] on file 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 Gender Identity Not on file Sexual Orientation Not on file Obstetrics History Last Filed Vital Signs Vital Sign Reading Time Taken Comments Blood Pressure 132/80 04/25/2025 11:22 AM CDT Pulse 83 04/25/2025 11:22 AM CDT Temperature 36 C (96.8 F) 02/21/2025 7:00 AM CDT Respiratory Rate 16 04/25/2025 11:22 AM CDT Oxygen Saturation 97% 02/21/2025 7:00 AM CDT Inhaled Oxygen Concentration - - Weight 76.2 kg (168 lb) 04/25/2025 11:22 AM CDT Height 162.6 cm (5' 4) 04/25/2025 11:22 AM CDT Body Mass Index 28.84 04/25/2025 11:22 AM CDT Plan of Treatment Health Maintenance Due Date Last Done Comments Depression Screening 1950 Hepatitis C Screening 1950 Osteoporosis Screening-Bone Density Scan 1950 DTaP/Tdap/Td Vaccine (1 - Tdap) 1960 Hepatitis B Screening 1967 Zoster Vaccine (1 of 2) 1999 Well Visit 65+ 2014 Covid-19 Vaccine (4 - 2023-2 5 season) 2024 09/27/2021, 02/01/2021, 01/07/2021 Influenza Vaccine (#1) 2025 2, 08/17/2021, 06/13/2015, Additional history exists Fall Risk [...] 2:31 AM CDT VANCOMYCIN LEVEL TROUGH Timed 02/21/2025 2:[address] CHEST WO CONTRAST ED Urgent/IP Urgent 02/20/2025 1:17 PM CDT POCT GLUCOSE DEVICE Routine 02/20/2025 1 2:10 PM CDT CBC WITHOUT DIFFERENTIAL STAT 02/20/2025 [...] 1 VIEW ED 02/19/2025 2:35 PM CDT RI INSJ NON-TUNNELED CENTRAL VENOUS CATH AGE 5 [...] PM CDT BLOOD GAS, ARTERIAL STAT 02/19/2025 1 2:32 PM CDT SEPSIS LACTATE WITH REFLEX STAT 02/19/2025 12:32 PM CDT ECG 12-LEAD Routine 02/19/2025 12:26 PM CDT POCT GLUCOSE DEVICE Routine 02/19/2025 1 2:20 PM CDT from Last 3 Months Results * MRSA Only (Staphylococcus aureus) PCR Nasal (02/21/2025 7:50 AM CDT) PCR Scrn, Methicillin resistant Staphylococcus aureus (MRSA) Not Detected Not Detected Comment: Interpretive Data Testing performed using Nucleic Acid Amplification with the WeMonitor Xpert MRSA NxG Assay. This assay detects target DNA from mecA, mecC and the SCCmec insertion site of Staphylococcus aureus using Real-Time PCR and has been cleared by the FDA. Performance characteristics have been verified by the [facility]. Current Interpretive Data was last revised on 2023 Nasal 02/21/2025 7:50 AM CDT 02/21/2025 7:55 AM CDT Stephanei Mc MD LAB MICROBIOLOGY - GENERA L ORDERABLES Final Result Performing Organization Address City/[facility]/ZIP Co de Phone Number FELIPE [facility] ([place]) 1 [facility] [place] [address] * POCT glucose (02/21/2025 3:51 AM CDT) Glucose, POC 141 70 - 199 mg/dL Blood 02/21/2025 3:51 AM CDT 02/21/2025 3:51 AM CDT Stephanie Mc MD LAB POCT ORDERABLES - DEV ICE Final Result FELIPE [facility] ([place]) 1 [facility] [place] [address] * eGFR (02/21/2025 2:31 AM CDT) eGFR [...] ORDERABLES Fi nal Result FELIPE [facility] ([place]) 1 [facility] [place] [address] * (ABNORMAL) Differential, auto (02/21/2025 2:31 AM [...] Fi nal Result FELIPE JIGAR ([place]) 1 [facility] [place] [address] * (ABNORMAL) CBC with auto differential (02/21/2025 [...] SD 47.3 35.7 - 48.1 fL [facility] NRBC abs 0.00 0.00 - 0.01 K/cumm [facility] ([place]) Blood 02/21/2025 2:31 AM CDT 02/21/2025 3:08 AM CDT Ghada Parsons MD LAB BLOOD ORDERABLES Fi nal Result Performing Organization Address City/[facility] Co de Phone Number [facility] ([place]) 1 [facility] [place] [address] * Magnesium (02/21/2025 2:31 AM CDT) Magnesium 1.9 1.4 - 2.5 mg/dL Blood 02/21/2025 2:31 AM CDT 02/21/2025 3:08 AM CDT Ghada Parsons MD LAB BLOOD ORDERABLES Fi nal Result [facility] ([place]) 1 [facility] [place] [address] * Vancomycin level trough (02/21/2025 2:31 AM CDT) Vancomycin trough 17.2 10.0 - 20.0 mcg/mL Blood 02/21/2025 2:31 AM CDT 02/21/2025 3:08 AM CDT us Ghada Parsons MD LAB BLOOD ORDERABLES nal Result [facility] ([place]) [address] [facility] [place] [address] * (ABNORMAL) Comprehensive metabolic panel (02/21/2025 2:31 AM CDT) Pathologist [facility] Sodium 138 135 - 145 mmol/L Potassium, [...] Fi nal Result FELIPE [facility] ([place]) 1 [facility] [place] [address] * CT Chest WO Contrast (02/20/2025 1:17 [...] Cherrie Boyd M.D. FT: FT Report ID: [id number] Reading Location: [place] [address] Procedure Note Cherrie Markham MD - 02/20/2025 [...] Cherrie Boyd M.D. FT: FT Report ID: [id number] Reading Location: [id number] Stephanie Mc MD IMG CT PROCEDURES Final R esult * POCT glucose (02/20/2025 12:10 PM CDT) Pathologist [facility] Glucose, POC 111 70 - 199 mg/dL Blood 02/20/2025 12:1 0 PM CDT 02/20/2025 12:10 PM CDT Stephanie Mc MD LAB POCT ORDERABLES - DEV ICE Final Result [facility] ([place]) 1 [facility] [place] [address] * (ABNORMAL) CBC without differential (02/20/2025 9:28 AM CDT) [facility] WBC 5.51 3.80 - 9.90 K/cumm Hgb 11.6(L) 11.9 - 15.5 g/dL [facility] Hct 36.0 35.6 - 45.5 % [facility] ([place]) Plt 248 150 - 400 K/cumm [facility] ([place] MPV 9.0(L) 9.1 - 12.3 fL [facility] ([place]) RBC 3.79(L) 3.90 - 5.20 M/cumm [facility] ([place] MCV 95.0 81.3 - 96.4 fL [facility] ([place] MCH 30.6 27.1 - 33.3 pg [facility] ([place]) MCHC 32.2(L) 32.3 - 35.7 g/dL [facility] RDW CV 13.6 11.1 - 14.9 % [facility] RDW SD 47.5 35.7 - 48.1 fL [facility] NRBC abs 0.00 0.00 - 0.01 K/cumm [facility] ([place]) Blood 02/20/2025 9:28 AM CDT 02/20/2025 9:47 AM CDT Narrative FELIPE [place]) - 02/20/2025 9:50 AM CDT Baseline prior to enoxaparin initiation. Stephanie Mc MD LAB BLOOD ORDERABLES Jossie l Result [place] 1 [facility] [place] [address] * POCT glucose (02/20/2025 8:30 AM CDT) Glucose, POC 137 70 - 199 mg/dL Blood 02/20/2025 8:30 AM CDT 02/20/2025 8:30 AM CDT Stephanie Mc MD LAB POCT ORDERABLES - DEV ICE Final Result Performing Organization Address City/[facility]/ZIP Co de Phone Number FELIPE [facility] ([place]) 1 [facility] [place] [address] * eGFR (02/20/2025 3:05 AM CDT) eGFR [...] BLOOD ORDERABLES Fi nal Result [facility] ([place]) 1 [facility] [place] [address] * (ABNORMAL) Differential, auto (02/20/2025 3:05 AM [...] us Ghada Parsons MD LAB BLOOD ORDERABLES [facility] Result [facility]ELIPE [facility] ([place]) 1 [facility] [place] [address] * (ABNORMAL) CBC with auto differential (02/20/2025 [...] 48.5(H) 35.7 - 48.1 fL FELIPE [facility] ([place]) NRBC abs 0.00 0.00 - 0.01 K/cumm [facility] ([place]) Blood 02/20/2025 3:05 AM CDT 02/20/2025 3:31 AM CDT Ghada Parsons MD LAB BLOOD ORDERABLES Fi nal Result FELIPE K[facility] ([place]) 1 [facility] [place] [address] * TSH (02/20/2025 3:05 AM CDT) Thyroid Stimulating Hormone 0.63 0.30 - 4.20 mcIUnit/mL Blood 02/20/2025 3:05 AM CDT 02/20/2025 8:10 AM CDT Stephanie Mc MD LAB BLOOD ORDERABLES Jossie l Result Performing Organization Address City/[facility]/ZIP Co de Phone Number FELIPE [facility] ([place]) 1 [facility] [place] [address] * Magnesium (02/20/2025 3:05 AM CDT) Magnesium 2.0 1.4 - 2.5 mg/dL Blood 02/20/2025 3:05 AM CDT 02/20/2025 3:31 AM CDT Ghada Parsons MD LAB BLOOD ORDERABLES Fi nal Result Performing Organization Address City/[facility] Co de Phone Number FELIPE K[facility] ([place]) 1 [facility] [place] [address] * Hemoglobin A1c (02/20/2025 3:05 AM CDT) Hgb A1C 5.3 4.0 - 5.6 % Estimated Average Glucose 105 mg/dL FELIPE RODRIGUEZ) Comment: The ADA recommends reporting an estimated Average Glucose (eAG) with all Hemoglobin A1c results using the equation derived from a study of 507 normal and diabetic adults. Minority populations were underrepresented and children were not included. (Diabetes Care 31:1322-9310, 2008). The eAG is not equivalent to a fasting glucose. Blood 02/20/2025 3:05 AM CDT 02/20/2025 6:41 AM CDT us Ghada Parsons MD LAB BLOOD ORDERABLES Fi nal Result FELIPE RODRIGUEZ) 1 [facility] [place] [address] * Lipid panel (02/20/2025 3:05 AM CDT) [...] Fi nal Result FELIPE [facility] ([place]) 1 [facility] [place] [address] * (ABNORMAL) Comprehensive metabolic panel (02/20/2025 3:05 [...] ORDERABLES Fi nal Result Performing Organization Address [facility]/ZIP Co de Phone Number FELIPE KIMBALL ([place]) 1 [facility] [place] [address] * Strep pneumoniae antigen, urine Urine (02/19/2025 [...] last revised on 2022 Testing performed by: [address] [address] Urine 02/19/2025 10:0 6 PM CDT 02/20/2025 3:20 PM CDT Ghada Parsons MD LAB MICROBIOLOGY - GENE RAL ORDERABLES Final Result Performing Organization Address [facility]/ZIP Co de Phone Number FELIPE [facility] ([place]) 1 [facility] [place] [address] * Legionella antigen Urine (02/19/2025 10:06 PM CDT) Legionella Ag Negative Negative Comment: Interpretive Data This test detects only Legionella pneumophila serogroup 1 antigen. Current interpretive data was last revised on 2019. Testing performed by: [address], [place]., [address] Urine 02/19/2025 10:0 6 PM CDT 02/20/2025 3:20 PM CDT us Ghada Parsons MD LAB MICROBIOLOGY - GENE RAL ORDERABLES Final Result FELIPE KIM[facility] [place]) 1 [facility] [place] [address] * CT Chest PE (CTA) [...] Dwaine Mcnulty M.D. AR: ROMAN Report ID: [id number] Reading Location: [id number] Procedure Note Dwaine Mcnulty MD - 02/19/2025 [...] indeterminate left apex pulmonary nodule. 3 to [id number] chest CT recommended. Per Fleischner Society Guidelines, consider one ofthe following for both low-risk and high-risk individuals: (a) repeat chest CTin 3 months, (b) follow-up PET-CT, or (c) tissue sampling. No acute abdominal/pelvic abnormality identified. THIS IS AN ELECTRONICALLY VERIFIED FINAL REPORT 02/19/2025 10:13 PM - Electronically signed by Dwaine Mcnulty M.D. AR: ROMAN Report ID: [id number] Reading Location: [id number] Ghada Parsons MD IMTanner CT PROCEDURES Final Result * (ABNORMAL) Blood gas, venous (02/19/2025 8:49 PM CDT) pH, Venous 7.28(L) 7.32 - 7.43 PCO2, Venous 48 40 - 50 mmHg [facility] ([place]) PO2, Venous 72 mmHg [facility] ([place]) HCO3 Venous, Calculated 22 20 - 30 mmol/L [facility] ([place]) BE, venous -4 mmol/L [facility] ([place]) Comment: Interpretive Data No Reference Range Established Current Interpretive Data was last revised on 2018. Blood 02/19/2025 8:49 PM CDT 02/19/2025 8:57 PM CDT us Ghada Parsons MD LAB BLOOD ORDERABLES Fi nal Result [facility] ([place]) 1 [facility] [place] [address] * Influenza A/B, RSV, and COVID-19 PCR Nasopharyngeal (02/19/2025 8:43 PM CDT) COVID-19 RNA Negative Negative Influenza A RNA Negative Negative [facility] ([place]) Influenza B RNA Negative Negative [facility] ([place]) RSV RNA Negative Negative [facility] ([place]) Comment: Interpretive data: Testing performed by [facility]. This test is performed using the WeMonitor Xpert Xpress CoV-2/Flu/RSV plus assay. This is a multiplex, real- time reverse transcriptase PCR assay intended for the qualitative detection of nucleic acid from SARS-CoV-2, influenza A, influenza B, and respiratory syncytial virus. This assay has been cleared by the [place] Food and Drug administration. The performance characteristics have been verified by the [facility]. Results must be considered in the clinical context, and a negative result does not rule out infection. Interpretive Data last revised 2023 Nasopharyngeal 02/19/2025 8: 43 PM CDT 02/19/2025 8:47 PM CDT Narrative [facility] ([place]) - 02/19/2025 9:33 PM CDT Is the Patient experiencing symptoms consistent with COVID?->Yes us Ghada Parsons MD LAB MICROBIOLOGY - GENE RAL ORDERABLES Final Result FELIPE KIM[facility]ALL [place] 1 [facility] [place] [address] * CT Head WO Contrast (02/19/2025 4:01 [...] Mehul Taylor M.D. AT: AT Report ID: [id number] Reading Location: [id number] Procedure Note Mehul Taylor MD - 02/19/2025 [...] Mehul Taylor M.D. AT: AT Report ID: [id number] Reading Location: [id number] Juan Carlos Haile MD IM CT PROCEDURES [...] BLOOD ORDERABLES Final R esult [facility] ([place]) 1 [facility] [place] [address] * XR Kub (Abd 1 View) (02/19/2025 [...] Richie Lindsey M.D. AM: AM Report ID: [id number] Reading Location: [id number] Procedure Note Richie Lindsey MD - 02/19/2025 [...] Richie Lindsey M.D. AM: AM Report ID: [id number] Reading Location: [id number] us Juan Carlos Haile MD IMG XR [...] Richie Lindsey M.D. AM: AM Report ID: [id number] Reading Location: [id number] Procedure Note Richie Lindsey MD - 02/19/2025 [...] Richie Lindsey M.D. AM: AM Report ID: [id number] Reading Location: [id number] us Juan Carlos Haile MD IMG XR PROCEDURES Final Resu lt * RI INSJ NON-TUNNELED CENTRAL VENOUS CATH AGE 5 YR/> (02/19/2025 2:29 PM CDT) Narrative Juan Carlos Haile MD - 02/19/2025 2:29 PM CDT Juan Carlos Haile MD 02/19/2025 2:32 PM Central Line Date/Time: 02/19/2025 2:29 PM Performed by: Juan Carlos Haile MD Authorized by: Shantal Crespo MD [place] Protocol: Informed consent: Risks, benefits, alternatives discussed [...] tendency for uric acid stone formation. Source: [facility] H?REL Current Interpretive Data was last revised on [...] ([place]) [address] [place] [address] * Blood culture Blood (02/19/2025 1:52 PM CDT) Report Final Report: No growth Comment:Testing performed by : [facility], 1 [place]., [address] Blood 02/19/2025 1:52 PM CDT 02/19/2025 3:48 [...] performance characteristics have been verified by the [facility]. For questions about this culture, contact the Microbiology Laboratory at [phone]. Interpretive data was last revised on 24. Juan Carlos Haile MD LAB MICROBIOLOGY - GENERAL O RDERABLES Final Result FELIPE KIMBALL ([place]) 1 [facility] [place] [address] * (ABNORMAL) Troponin T high-sensitivity series (baseline, [...] BLOOD ORDERABLES Final R esult FELIPE KIMBALL ([address] [place] [address] * eGFR (02/19/2025 1:00 PM CDT) eGFR [...] ORDERABLES Final R esult FELIPE Tyler[place]) 1 [facility] [place] [address] * Differential, auto (02/19/2025 1:00 PM CDT) [...] Neutrophil pct 74.3 % [facility] ([place]) Comment: Interpretive Data Percent cell count reference ranges are not reported, since discordance with absolute values may lead to misinterpretation of CBC data. Current Interpretive Data was last revised on 2018. Imm gran pct 0.3 % [facility] ([place]) Comment: Interpretive Data Percent cell count reference [...] Eosinophil pct 1.6 % [facility] ([place]) Comment: Interpretive Data Percent cell count reference [...] BLOOD ORDERABLES Final R esult [facility] ([place]) 1 [facility] [place] [address] * (ABNORMAL) Pro B-type natriuretic peptide (02/19/2025 [...] ORDERABLES Final R esult Performing Organization Address City/[facility]/ZIP Co de Phone Number FELIPE [facility] ([place]) 1 [facility] [place] [address] * (ABNORMAL) CBC with auto differential (02/19/2025 1:00 PM CDT) Pathologist [facility] WBC 6.22 3.80 - 9.90 K/cumm Hgb [...] ORDERABLES Final R esult Performing Organization Address City/[facility]/ZIP Co de Phone Number [facility]IPE [facility] ([place]) 1 [facility] [place] [address] * Blood culture Blood (02/19/2025 1:00 PM CDT) Report Final Report: No growth Comment:Testing performed by : [facility], [address] [place]., [address] Blood 02/19/2025 1:00 PM CDT 02/19/2025 3:48 [...] performance characteristics have been verified by the [facility]. For questions about this culture, contact the Microbiology Laboratory at [phone]. Interpretive data was last revised on 24. us Juan Carlos Haile MD LAB MICROBIOLOGY - GENERAL O RDERABLES Final Result FELIPE JIGAR ([place]) 1 [facility] Department of Laboratories [place], [place] [id number] * (ABNORMAL) aPTT (02/19/2025 1:00 PM CDT) [...] ORDERABLES Final R esult Performing Organization Address [facility] Co de Phone Number [facility] ([place]) 1 [facility] [place] [address] * Protime-INR (02/19/2025 1:00 PM CDT) PT 12.1 9.7 - 13.0 sec [facility] ([place]) INR 1.12 0.90 - 1.20 [facility] ([place]) Comment: Interpretive data Oral anticoagulant therapeutic ranges: Venous thromboembolism prophylaxis or treatment: 2.0-3.0 CARDIOLOGY Standard range: 2.0-3.0 High-intensity range: 2.5-3.5 Refer to indication-specific guidelines for appropriate target ranges for prosthetic heart valve replacement. Current interpretive data was last revised on 2019. Blood 02/19/2025 1:00 PM CDT 02/19/2025 1:02 PM CDT Juan Carlos Haile MD LAB BLOOD ORDERABLES Final R esmunir Performing Organization Address [facility] Co de Phone Number [facility] ([place]) [address] [place] [address] [place] [address] * Magnesium (02/19/2025 1:00 PM CDT) Magnesium 2.0 1.4 - 2.5 mg/dL Blood 02/19/2025 1:00 PM CDT 02/19/2025 1:10 PM CDT Juan Carlos Haile MD LAB BLOOD ORDERABLES Final R esult FELIPE KIM[facility]ALL ([place]) 1 [facility] [place] [address] * Lipase (02/19/2025 1:00 PM CDT) Lipase 22 10 - 99 Units/L Blood 02/19/2025 1:00 PM CDT 02/19/2025 1:10 PM CDT Juan Carlos Haile MD LAB BLOOD ORDERABLES Final R esult Performing Organization Address [facility]/ZIP Co de Phone Number FELIPE KIMBALL ([place]) 1 [facility] [place] [address] * (ABNORMAL) Comprehensive metabolic panel (02/19/2025 1:00 [...] 11 7 - 45 Units/L [facility] ([place]) AST 16 10 - 45 Units/L [facility] ([place]) Blood 02/19/2025 1:00 PM CDT 02/19/2025 1:02 PM CDT us Juan Carlos Haile MD LAB BLOOD ORDERABLES Final R esult [facility] ([place]) 1 [facility] Department [place] [address] * XR Chest 1 Vw Portable (if [...] Rosalia Lindsey M.D. AM: AM Report ID: [id number] Reading Location: [id number] Procedure Note Richie Lindsey MD - 02/19/2025 [...] Richie Lindsey M.D. AM: AM Report ID: [id number] Reading Location: [id number] Juan Carlos Haile MD IMG XR PROCEDURES Final Resu lt * (ABNORMAL) Sepsis Lactate w/ Reflex (02/19/2025 12:32 PM CDT) Sepsis Lactate 0.5(L) 0.7 - 2.0 mmol/L Blood 02/19/2025 12:3 2 PM CDT 02/19/2025 12:34 PM CDT Juan Carlos Haile MD LAB BLOOD ORDERABLES Final R esult [facility] ([place]) 1 [facility] Department [place] [address] * (ABNORMAL) Blood gas, arterial (02/19/2025 12:32 PM CDT) pH, Art 7.26(L) 7.35 - 7.45 PCO2, Arterial 47(H) 35 - 45 mmHg [facility] ([place]) PO2, Arterial 77(L) 83 - 108 mmHg [facility] ([place]) HCO3 Art (Calculated) 20 20 - 30 mmol/L [facility] ([place]) BE, art -6 mmol/L [facility] ([place]) Comment: Interpretive Data No Reference Range Established Current Interpretive Data was last revised on 2017 O2 Sat Art (Measured) 93 90 - 95 % [facility] ([place]) Blood 02/19/2025 12:3 2 PM CDT 02/19/2025 12:34 PM CDT Juan Carlos Haile MD LAB BLOOD ORDERABLES Final R esult Performing Organization Address City/[facility]/ZIP Co de Phone Number [facility] ([place]) 1 [facility] [place] [address] * ECG 12 lead (02/19/2025 12:26 PM CDT) 02/19/2025 12:2 6 PM CDT Narrative [facility] - 02/21/2025 6:43 AM CDT Vent Rate: 97 bpm RR Interval: 616 msec RI Interval: 0 msec QRS Duration: 90 msec QT Interval: 384 msec QTC Interval: 438 msec P-R-T [place]: [id number] - 17 - 4 degrees IMPRESSION: Baseline artifact, possible ATRIAL FIBRILLATION WITH ABERRANT CONDUCTION OR VENTRICULAR PREMATURE COMPLEXES MODERATE ST DEPRESSION [0.05+ mV ST DEPRESSION] ABNORMAL ECG Need repeat EKG with stable baseline for accurate rhythm assessment Electronically Signed By: Aki Berg MD Juan Carlos Haile MD ECG ORDERABLES Final Result Performing Organization Address City/[facility]/ZIP Co de Phone Number [facility] * POCT glucose (02/19/2025 12:20 PM CDT) Glucose, POC 73 70 - 199 mg/dL Blood 02/19/2025 12:2 0 PM CDT 02/19/2025 12:20 PM CDT us Notinfile Unknown LAB POCT ORDERABLES - DEVICE F inal Result [facility] ([place]) 1 [facility] Department of Laboratories [place] [id number] from Last 3 Months Insurance [facility] Advance Directives For more information, please contact: [phone] * LIMITED - No CPR (Latest Code [...] 5:10 PM 02/20/2025 10:39 AM Care Teams Stemmer Machine Relationship Specialty Start Date End Date Julian Agarwal MD PCP - General Family Practice 07/24/23
--- OUTSIDE RECORDS SUMMARY | 2025-05-19 11:39 | XMS_ITS | Clinical Summary ---
Author Organization [facility] Address [address] [place] [address] Care Team Providers Care Engineer Design And Construction Name Role Phone Unavailable Primary Care Provider Unavailabl e Social History Tobacco Use Types Packs/Day Years Used Date Smoking Tobacco: Never Assessed Comments Unknown Sex and Gender Information Value Date Recorded Sex Assigned at Not on file Legal Sex Female 6:08 PM CDT Gender Identity Not on file Sexual Orientation Not on file Plan of Treatment Health Maintenance Due Date Last Done Comments Hepatitis C 1967 DTaP, Tdap and Td Vaccines ( 1 - Tdap) 1968 Pneumococcal Vaccine: 50+ Ye ars (1 of 1 - PCV) 1999 Zoster Vaccines (1 of 2) 1999 Dexa Scan (General) 2014 RSV Immunization or 60+ Years (1 - 1-dose 75+ series) 2024 COVID-19 Vaccine (2023-2 5 season) 2024 Meningococcal B Vaccine Aged Out No l onger eligible based on patient's age to complete this topic Meningococcal Vaccine Aged Out No otis darin eligible based on patient's age to complete this topic RSV Immunizations Under 20 Months Aged Out No longer eligible based on patient's age to complete this topic
--- OUTSIDE RECORDS SUMMARY | 2025-05-19 11:39 | XMS_ITS | Clinical Summary ---
Author Organization [place] [address] [facility] Address [address] [place] [address] Care Team Providers Care Tilt Wall Supervisor Name Role Phone Julian Agarwal MD Primary Care Provider [phone] Allergies No known active allergies Medications cyanocobalamin [...] ipratropium bromide (ATROVENT) 21 mcg (0.03 %) [place], Non-Aerosol Administer 2 Sprays in each nostril [...] t be different from the original. Vascular Government Employee - Dr. Jamil Rangel MD, [facility], [facility] - [address] [facility] Dr. 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 Gender Identity Not on file Sexual Orientation Not on file Last Filed Vital Signs Vital Sign Reading Time Taken Comments Blood Pressure 124/78 12/05/2021 11:21 AM AIRCONDITIONING DRAFTING OFFICER Pulse 76 12/05/2021 11:21 AM AIRCONDITIONING DRAFTING OFFICER Temperature - - Respiratory Rate - - Oxygen Saturation 95% 12/05/2021 11:21 AM AIRCONDITIONING DRAFTING OFFICER Inhaled Oxygen Concentration - - Weight 71.7 kg (158 lb) 12/05/2021 11:21 AM AIRCONDITIONING DRAFTING OFFICER Height 165.1 cm (5' 5) 12/05/2021 11:21 AM AIRCONDITIONING DRAFTING OFFICER Body Mass Index 26.29 12/05/2021 11:21 AM AIRCONDITIONING DRAFTING OFFICER Plan of Treatment Health Maintenance Due Date Last Done Comments DTAP/TDAP/TD VACCINES (1 - Tdap) 1968 ZOSTER VACCINE (1 of 2) 1999 OSTEOPOROSIS SCREENING 2014 RSV VACCINE (60+ or ) (1 - 1-dose 75+ series) 2024 INFLUENZA VACCINE (#1) 2025 06/29/2019 PNEUMOCOCCAL VACCINE 50+ YEARS Completed 07/08/2019 , 06/13/2015 Insurance [facility] [facility] Address: [address] [address] Care Teams Tilt Wall Supervisor Relationship Specialty Start Date End Date Julian Agarwal MD PCP - General Family Practice 12/06/21
[2025-05-19 11:55] LABS: Hematocrit 38.3 % (37.0-47.0); Hemoglobin 12.5 g/dL (12.0-15.0); Immature Granulocyte Percent A 0.4 % (0-0.5); Lymphocytes Absolute Auto 1.44 K/mm3 (0.9-3.2); Mean Corpuscular HGB Conc 32.6 g/dl (32-36); Mean Corpuscular Hemoglobin 30.6 pg (26-34); Mean Corpuscular Volume 93.9 fl (80-100); Nucleated Red Blood Cells Absolute Auto 0.000 K/mm3 (0.0-0.012); Nucleated Red Blood Cells Perc 0.0 % (0.0-0.2); Platelet Count Result 220 k/mm3 (150-375); Red Blood Count 4.08 M/mm3 (4.2-5.4); White Blood Count 4.9 K/mm3 (4.5-10.0)
[2025-05-19 12:26] LABS: Alanine Aminotransferase 16 U/L (6-35); Albumin Level 4.4 g/dL (3.5-5.1); Alkaline Phosphatase 114 U/L (38-126); Anion Gap 8 mmol/L (4-12); Aspartate Amino Transferase 26 U/L (14-36); Bilirubin,Total 0.4 mg/dL (0.2-1.3); Blood Urea Nitrogen 19 mg/dL (7-17); Calcium 9.1 mg/dL (8.4-10.2); Carbon Dioxide 25 mmol/L (22-30); Chloride 102 mmol/L (98-107); Cholesterol 191 mg/dL (0-200); Estimated Glomerular Filt Rate > 60; Glucose 88 mg/dL (65-110); HDL Direct 89 mg/dL; Potassium 4.7 mmol/L (3.4-5.0); Sodium 135 mmol/L (137-145); Total Protein 6.9 g/dL (6.3-8.2); Triglycerides 94 mg/dL (<150)
[2025-05-19 12:55] LABS: Thyroid Stimulating Hormone 2.590 uIU/mL (0.465-4.680)
== END 2025-05-19 11:36 | disposition home or self-care (01) ==
LOC: ANHLAB 11:36
PROVIDERS: PCP Family Medicine; Visit Provider Family Medicine
DX: F32.9 Major depressive disorder, single episode, unspecified (principal); Z86.79 Personal history of other diseases of the circulatory system; I48.91 Unspecified atrial fibrillation; E03.9 Hypothyroidism, unspecified; J44.9 Chronic obstructive pulmonary disease, unspecified; I25.10 Atherosclerotic heart disease of native coronary artery without angina pectoris
CPT/HCPCS: 36415; 80053; 80061; 84443; 85025

== ENCOUNTER 2025-06-21 12:37 | Outpatient (CLI) | payer OTHER, SELFPAY ==
[2025-06-21 13:13] LABS: Add Urine Microscopic? YES; Appearance Urine Cloudy (Clear); Glucose Urine UA Negative (Negative); Leukocyte Esterase Ur 3+ LEU/UL (Negative); Nitrate Urine Negative (Negative); Non Pathogenic Casts 0-2; Specific Grav Ur 1.016 (1.001-1.035)
--- OUTSIDE RECORDS SUMMARY | 2025-06-21 13:58 | XMS_ITS | Clinical Summary ---
Author Organization [facility] [address] [facility] Address [address] [place] [address] Care Team Providers Care Weapons Officer [employer] Name Role Phone Julian Agarwal MD Primary Care Provider [phone] [phone] Allergies No known active allergies Medications cyanocobalamin [...] ipratropium bromide (ATROVENT) 21 mcg (0.03 %) [place], Non-Aerosol Administer 2 Sprays in each nostril [...] t be different from the original. Vascular Banking Assistant - Dr. Jamil Rangel MD, [facility], [facility] - [address] [facility] [address] Quach - DPM Problem Noted Date Diagnosed Date Benign essential HTN 12/05/2021 Social History Tobacco Use Types Packs/Day Years Used Date Smoking Tobacco: Never Smokeless Tobacco: Never Comments Unknown Sex and Gender Information Value Date Recorded Sex Assigned at Not on file Legal Sex Female 9:22 AM JORDAN MAN Gender Identity Not on file Sexual Orientation Not on file Last Filed Vital Signs Vital Sign Reading Time Taken Comments Blood Pressure 124/78 12/05/2021 11:21 AM JORDAN MAN Pulse 76 12/05/2021 11:21 AM JORDAN MAN Temperature - - Respiratory Rate - - Oxygen Saturation 95% 12/05/2021 11:21 AM JORDAN MAN Inhaled Oxygen Concentration - - Weight 71.7 kg (158 lb) 12/05/2021 11:21 AM JORDAN MAN Height 165.1 cm (5' 5) 12/05/2021 11:21 AM JORDAN MAN Body Mass Index 26.29 12/05/2021 11:21 AM JORDAN MAN Plan of Treatment Health Maintenance Due Date Last Done Comments DTAP/TDAP/TD VACCINES (1 - Tdap) 1968 ZOSTER VACCINE (1 of 2) 1999 OSTEOPOROSIS SCREENING 2014 RSV VACCINE (60+ or ) (1 - 1-dose 75+ series) 2024 INFLUENZA VACCINE (#1) 2025 06/29/2019 PNEUMOCOCCAL VACCINE 50+ YEARS Completed 07/08/2019 , 06/13/2015 Insurance MCR Care Teams Weapons Officer [employer] Relationship Specialty Start Date End Date Julian Agarwal MD PCP - General Family Practice 12/06/21
--- OUTSIDE RECORDS SUMMARY | 2025-06-21 13:58 | XMS_ITS | Clinical Summary ---
Author Organization [facility] Address [address] [place] [address] Care Team Providers Care Report Clerk Name Role Phone Unavailable Primary Care Provider [...] series) 2024 COVID-19 Vaccine (2023-2 5 season) 2025 Meningococcal B Vaccine Aged Out No l onger eligible based on patient's age to complete this topic Meningococcal Vaccine Aged Out No otis darin eligible based on patient's age to complete this topic RSV Immunizations Under 20 Months Aged Out No longer eligible based on patient's age to complete this topic
--- OUTSIDE RECORDS SUMMARY | 2025-06-21 13:58 | XMS_ITS | Patient Health Record ---
Author Organization [facility] Address [address] [place] [address] Care Team Providers Care Order Entry Technician Name Role Phone [email or web address] Denis Unavailable [phone] Reason For Referral No Information Medications Medication SIG (Take, Route, Fr equency, Duration) Notes Start Date End Date Status None--patient denies Active Plan Of Treatment No Information Insurance Providers Payer Name Payer Address Payer Phone Subscriber Number Group Number Insured Name Patient Relationship to Insured Coverage Start Date Coverage End Date Medicare Centers [place] [address] [id number] Miriam Buchanan Self - patient is the insured [facility] [address] [place] [address] [id number] Miriam Buchanan Self - patient is the insured Medical (General) History Medical History History ICD Code Arthritis Surgical History Surgery Date(Month/Year) Cervical fusion Gastric bypass Patient denies anesthesia complications or surgical complications
--- OUTSIDE RECORDS SUMMARY | 2025-06-21 13:58 | XMS_ITS | Clinical Summary ---
Author Organization [facility] Address [address] [place] [address] Care Team Providers Care Club Director Name Role Phone Julian Agarwal MD Primary Care Provider [phone] [phone] Allergies No known active allergies Medications amoxicillin [...] total) by mouth daily 023 Active nebulizers [facility] [place] Indications: severe bronchospasm, wheezing, cough, SOB. Dispense [...] celecoxib (CeleBREX) 200 mg capsule 023 Active tiZANidine (ZANAFLEX) 4 mg tablet Take 1 tablet (4 mg total) by mouth every 6 (six) hours as needed Active predniSONE (DELTASONE) 10 mg tabletIndications :Acute flank pain,Lumbar muscle pain Take 1 tablet (10 mg) by mouth as directed 3 p.o. daily for 3 days then 2 p.o. daily for 3 days then 1 p.o. daily for 3 days. Collaborating physician Miok Leonard MD 18 tablet 025 Active Additional Information Patient not taking.Reported on 05/27/2025 dabigatran (PRADAXA) 150 mg capsule Take 1 [...] Take 1 tablet by mouth daily Active tlukiijfvdup-Oj-t onur-minerals tablet Take 1 tablet by mouth [...] metoprolol tartrate (LOPRESSOR) 50 mg immediate release tabletIndications :Persistent atrial fibrillation with rapid ventricular response (HCC) Take 0.5 tablets (25 mg total) by mouth every morning AND 1 tablet (50 mg total) nightly. 025 Active traMADoL (ULTRAM) 50 mg tabletIndications :Primary osteoarthritis of left knee Take 1 tablet (50 mg total) by mouth every 8 (eight) hours as needed for pain for up to 7 days 21 tablet 025 2024 Discontinued(N o longer taking - Do not display on AVS) metoprolol tartrate (LOPRESSOR) 50 mg immediate release tablet Take 1 tablet (50 mg total) by mouth 2 (two) times a day 60 tablet 11 025 2024 Discontinued Active Problems Problem Noted [...] Encounters Date Type Department Care Team Description 05/27/2025 1:00 PM CDT Office Visit [facility] Cardiology [address] [place] [phone] Whitney Hernandez NP Persistent atrial fibrillation with rapid ventricular response (HCC) (Primary Dx) 05/24/2025 Telephone [facility] Cardiology [address] [place] [phone] Ivis Jaimes MD Fatigue; Med Management 04/25/2025 11:30 AM CDT Office Visit [facility] Cardiology [address] [place] [address] Ivis Jaimes MD Essential hypertension (Primary Dx); Paroxysmal atrial fibrillation (HCC); Dyspnea on exertion from Last 3 Months Medical History Medical [...] on file Legal Sex Female 10:31 AM MANAGER HOSPITAL Gender Identity Not on file Sexual Orientation Not on file Obstetrics History Last Filed Vital Signs Vital Sign Reading Time Taken Comments Blood Pressure 120/84 05/27/2025 1:00 PM CDT Pulse 117 05/27/2025 1:00 PM CDT Temperature 36 C (96.8 F) 02/21/2025 7:00 AM CDT Respiratory Rate 16 04/25/2025 11:22 AM CDT Oxygen Saturation 95% 05/27/2025 1:00 PM CDT Inhaled Oxygen Concentration - - Weight 75.8 kg (167 lb) 05/27/2025 1:00 PM CDT Height 162.6 cm (5' 4) 05/27/2025 1:00 PM CDT Body Mass Index 28.67 05/27/2025 1:00 PM CDT Plan of Treatment Health Maintenance Due Date Last Done Comments Depression Screening 1950 Hepatitis C Screening 1950 Osteoporosis Screening-Bone Density Scan 1949 DTaP/Tdap/Td Vaccine (1 - Tdap) 1960 Hepatitis B Screening 1967 Zoster Vaccine (1 of 2) 1999 Well Visit 65+ 2014 Covid-19 Vaccine (2023-2 5 season) 2024 09/27/2021, 02/01/2021, 01/07/2021 Influenza Vaccine (#1) 2025 , 08/17/2021, 06/13/2015, Additional history exists Fall Risk Assessment 02/20/2026 02/20/2025, 07/17/20 23 Pneumococcal vaccine 65+ Completed 07/08/2019, 10/2014 Insurance [facility] Advance Directives For more information, please contact: [phone] * LIMITED - No CPR (Latest Code [...] 5:10 PM 02/20/2025 10:39 AM Care Teams Club Director Relationship Specialty Start Date End Date Julian Agarwal MD PCP - General Family Practice 07/24/23
[2025-06-21 14:33] LABS: Vitamin B12 > 1000.0 pg/mL (239-931)
== END 2025-06-21 12:38 | disposition home or self-care (01) ==
PROVIDERS: PCP Family Medicine; Visit Provider Family Medicine
DX: E53.8 Deficiency of other specified B group vitamins (principal); R53.83 Other fatigue; Z79.899 Other long term (current) drug therapy
CPT/HCPCS: 36415; 81001; 82607; 87077; 87086; 87186